=== PATIENT | male | born 1975 | race Caucasian/White ===

== ENCOUNTER 2021-12-04 23:08 | Inpatient (IN) | payer MEDICAID, SELFPAY ==
[2021-12-04 23:08] VITALS: BP 153/96; PULSE 101; RESP 18; TEMP 36.8; O2SAT 95
[2021-12-04 23:11] VITALS: BMI 49.5
[2021-12-05] VITALS (13 sets, daily range): BP systolic 126–157; BP diastolic 71–106; PULSE 77–99; RESP 18–20; TEMP 36.6–37; O2SAT 86–97; BMI 49.5
[2021-12-05 00:25] LABS: Bedside Glucose > 500 mg/dL (74-106)
--- NOTE | 2021-12-05 00:35 | CON.PCM.HO_ITS ---
Assessment & Plan Assessment/Plan (1) Elevated bilirubin: (2) Diabetes mellitus type 2, uncontrolled: (3) Hyponatremia: PLAN: Plan The patient is a 46 y/o M w/ PMHx: Morbid Obesity, Former EtOH abuse, Tobacco use, Asthma, HIGINIO on CPAP, GERD, Seizure disorder not taking AED regimen, Anxiety and Depression, RLS, Hypothyroidism who presents to the [facility] as direct admission per Dr. Mcnamara from OSH ED with reported several days to weeks of polyuria and polydipsia in addition to 3-week prior onset of right upper quadrant and epigastric abdominal pain with eventual onset significant jaundice prompting ED evaluation #1. Questionable dilated common bile duct with distal obstruction, questionable acute cholecystitis with significantly elevated bilirubin, LFTs with jaundice: OSH ED imaging with CT abdomen and pelvis with contrast with dilated common bile duct indicating distal obstruction by radiolucent stone or obstructing lesion although states no report no calcified obstructing stone noted with the liver noted to be normal with no enlargement, atrophy, abnormal density or significant focal lesion, right upper quadrant ultrasound with evidence of cholelithiasis and gallbladder wall thickening with common bile duct dilatation with findings suspicious for acute cholecystitis with fatty infiltration of the liver, lipase 900, T Bili 14.6, D Bili 10.9, AST/ALT 234/583, alk phos 519, admitted per S urgery, planned NPO status, continue IVFs, PRN anti-emetics, PRN pain regimen, noted intention for AM ERCP to further evaluation; however, Surgery noting higher suspicion for possible malignancy as etiology for this presentation, continue to trend CMP, lipase. #2. Acute Hyponatremia: Outside ED sodium initial 118, baseline appearance prior 09/25/2020 sodium 144, given acute presentation possibly component of hypovolemia, will continue to closely monitor, obtain FeNa, UOsm, TSH, Mag, consider Nephrology consultation if not improving or trending of repeat BMP not improving, continue judicious IVFs with repeat level trending. Obviously some concern for possibly underlying malignancy given liver function and acute presentation therefore certainly would need to consider SIADH if not improving with hydration. #3 Diabetes mellitus type II with hyperglycemia, uncontrolled: Hold oral home regimen, will initiate on long-acting insulin 20 unit twice daily with adjustments as needed, hemoglobin A1c requested, continue hydration, n.p.o. status currently with every 6 hours Accu-Cheks with insulin sliding scale, nutrition consulted for education and teaching, last hemoglobin A1c noted prior 09/25/2020 6.0%, admission CMP requested to assess for possible consideration DKA. Mag and Phos levels requested. #4. Acute renal insufficiency: Outside facility BUN/creatinine 16/1.67, prior baseline noted 09/25/2020 BUN/creat 12/1.03, likely associated with hypovolemia given acute presentation, continue to just hydration and trend CMP as noted. #5. Morbid Obesity: Weight loss and lifestyle changes encouraged, nutrition consulted. #6. Tobacco Abuse: Encouraged cessation, inpatient consultation per RT, NR if desired. #7. Asthma: We will hold patient home inhalers and in the interim transition to ATC DuoNeb therapy and as needed albuterol, encourage head of bed and I-S. #8. Anxiety and depression: Patient is not currently on any medications, does admit to some suicidal thoughts but no plan, will need aggressive follow-up with case management consulted. #9. Hypertension: Continue home regimen including propranolol with hold parameters as needed, PRN hydralazine. #10. Hypothyroidism: Continue home synthroid regimen, TSH pending. #11. GERD: Maintain on IV PPI while NPO. #12. HIGINIO: CPAP nightly. #13. Former alcohol abuse: Encouraged continued sobriety. #14. Reported seizure disorder: Notes history of seizure disorder, states not taking AEDs, from review of outside medication listing there is no antiepileptic drugs that have been recently prescribed. Will continue closely monitor. #15. DVT prophylaxis: SCDs, hold chemoprophylaxis given planned ERCP intervention as noted. HPI Consult Data Date of Consult: 12/05/21 HPI Narrative Reason for Consultation: Medical consultation HPI Narrative: The patient is a 46 y/o M w/ PMHx: Morbid Obesity, Former EtOH abuse, Tobacco use, Asthma, HIGINIO on CPAP, GERD, Seizure disorder not taking AED regimen, Anxiety and Depression, RLS, Hypothyroidism who presents to the [facility] as direct admission per Dr. Mcnamara from OSH ED with reported history of onset epigastric as well as right upper quadrant discomfort approximately starting 3 weeks prior to cu rrent presentation lasting for about 2 weeks reported as constant, severe aching, tentative 10 in severity with significantly decreased intake secondary to discomfort with eventual onset at the end of this notable jaundice initially to the upper body and face which eventually progressed to include the whole body with nausea without marked emesis at that time and no fevers or chills reporting that approximately 2 weeks the pain significantly improved and is now localized to a very focal specific region between the epigastrium and the right upper quadrant and only tender with palpation however he continues to have significant jaundice and reports intermittent itching in addition to significant polyuria and polydipsia prompting him to call his PCP who referred him to the ED for evaluation. Patient reports that his stools have been a very light brown-cream color which is very abnormal for him. He denies any recent significant weight loss or night sweats. He does state that he routinely follows with his primary care physician nearly every 3 months. He currently rates his discomfort at 1 out of 10 in severity and this is intermittent and only with specific palpation to that region. Work-up at the OSH ED included CT abdomen and pelvis with contrast with dilated common bile duct indicating distal obstruction by radiolucent stone or obstructing lesion although states no report no calcified obstructing stone noted with the liver noted to be normal with no enlargement, atrophy, abnormal density or significant focal lesion, right upper quadrant ultrasound with evidence of cholelithiasis and gallbladder wall thickening with common bile duct dilatation with findings suspicious for acute cholecystitis with fatty infiltration of the liver, SARS COVID antigen negative, ABG with pH 7.44, PCO2 26, PO2 69, bicarb 18, lipase 900, direct bilirubin 10.9, CBC with WBC 13, hemoglobin 14.1, platelet 298 with left shift, CMP with sodium 118, potassium 4.9, chloride 81, glucose 928, BUN/creatinine 16/1.67, total bilirubin 14.6, AST/ALT 234/583, alk phos 519, urinalysis with glucose 1000 otherwise unremarkable with negative ketones. Last A1c noted available in the system 09/25/2020 6.0%, 09/25/2020 BUN/creatinine 12/1.03. PFSH Medical History Alcohol abuse Anxiety Asthma Back pain due to injury Bipolar disorder COPD (chronic obstructive pulmonary disease) CPAP (continuous positive airway pressure) dependence Depression GERD (gastroesophageal reflux disease) High cholesterol Hypertension Hypothyroidism Restless legs Seizures Smoker Home Medications albuterol sulfate 90 mcg/actuation aerosol inhaler (Ventolin HFA) 2 inh inhalation Q2H PRN Shortness Of Breath Or Wheezing 12/04/21 [History Last Taken Unknown] atorvastatin 10 mg tablet 10 mg PO DAILY 12/04/21 [History Last Taken Unknown] dextroamphetamine-amphetamine 30 mg tablet (Adderall) 30 mg PO DAILY 12/04/21 [History Last Taken Unknown] fluticasone propionate 220 mcg/actuation HFA aerosol inhaler (Flovent HFA) 2 inh inhalation BID 12/04/21 [History Last Taken Unknown] levothyroxine 50 mcg tablet (Euthyrox) 50 mcg PO DAILY 12/04/21 [History Last Taken Unknown] midodrine 2.5 mg tablet 2.5 mg PO BID 12/04/21 [History Last Taken Unknown] omeprazole 20 mg capsule,delayed release 20 mg PO DAILY 12/04/21 [History Last Taken Unknown] propranolol 20 mg tablet 20 mg PO BID 12/04/21 [History Last Taken Unknown] Allergy/AdvReac Type Severity Reaction Status Date / Time latex Allergy Rash Verified 12/04/21 23:44 Family History (Updated 12/05/21 @ 02:[address] Chantal Vasquez MD) Father Cancer Hx Lung CA with tobacco use history. Other Heart disease Hypertension Surgical History (Updated 12/05/21 @ 02:[address] Chantal Vasquez MD) H/O esophagogastroduodenoscopy History of colonoscopy Social History (Updated 12/05/21 @ 02:[address] Chantal Vasquez MD) household members: other details: Lives with his son. Notes moved in 2 years prior. Smoking Status: Current every day smoker tobacco type: cigarettes Smoking packs per day: 0.5 Smoking cigarettes per day: 10.0 how long ago did patient quit smoking: Patient attempting to quit, started age 10, smoked 2 ppd until 2 years ago. alcohol intake: former details: Notes sober x 15-20 years. substance use type: does not use ROS ROS Narrative Admission Review of Systems: CONSTITUTIONAL: No weight loss, fever, chills, _ weakness or fatigue. HEENT: + Scleral icterus. Eyes: No visual loss, blurred vision, double vision or yellow sclerae. Ears, Nose, Throat: No hearing loss, sneezing, congestion, runny nose or sore throat. SKIN: + Generalized itching, jaundiced. CARDIOVASCULAR: No chest pain, chest pressure or chest discomfort, palpitations, edema, orthopnea, syncopal events. RESPIRATORY: No shortness of breath, cough or sputum, wheezing, hemoptysis. GASTROINTESTINAL: + anorexia, nausea, abdominal pain, abnormal appearing, stools, No vomiting, diarrhea, melena, BRBPR. GENITOURINARY: No dysuria, frequency, urgency or retention. NEUROLOGICAL: No headache, dizziness, syncope, paralysis, ataxia, numbness or tingling in the extremities, focal weakness, change in bowel or bladder control, seizure. MUSCULOSKELETAL: + muscle, back pain, joint pain or stiffness. HEMATOLOGIC: + anemia, bleeding or bruising. LYMPHATICS: No enlarged nodes. No history of splenectomy. PSYCHIATRIC: + history of depression or anxiety. ENDOCRINOLOGIC: No reports of sweating, cold or heat intolerance. + polyuria or polydipsia. ALLERGIES: No history of asthma, hives, eczema or rhinitis. Physical Exam Narrative Physical Examination: General: Awake, alert, oriented x 3 and cooperative, seated upright in medical surgical bed in no apparent distress, denies any abdominal pain at this time. Skin: Normal skin turgor, no cyanosis, significant jaundice, scleral icterus present. HEENT: AT/NC, EOMI, scleral icterus present, PERRLA, mildly dry MM, no carotid bruits or JVD noted. Lungs: Diminished, greater bases, moderate effort, no rales, ronchi or wheezing. Heart: Regular rate and rhythm; no gallop, rub audible. Abdomen: Soft, morbidly obese, tenderness to palpation in a very focal region between the epigastrium and right upper quadrant, no rebound or guarding, difficult to assess distention given morbid obesity habitus, mildly hyperactive bowel sounds, unable to discern HSM well given habitus Extremities: No cyanosis, clubbing, or edema. Neurological: Patient awake, alert, oriented as noted, cognitive function intact; pupils equally reactive to light and accommodation, cranial nerves II- XII grossly normal, moving all 4 extremities, no focal deficits, strength mildly moderately globally decreased secondary to acute complaints Psychiatric: Affect appears fatigued otherwise normal, no acute evidence of depr essive or anxiety feelings. Lab / Micro Data Result Diagrams: 12/05/21 01:04 Labs: Laboratory Results - last 24 hr 12/05/21 00:06: POC Glucose > 500 H* Charges/Coding Visit Charges Office Visits / Consults: [id number] IP Consult L5
[2021-12-05] MEDS: 0.9% Normal Saline 1,000 ML 150 ML IV ×2 (01:02→09:24)
[2021-12-05] MEDS: Insulin Glargine-YFGN 100 UNIT/ML Pen 20 UNIT SC ×2 (01:04→09:25)
[2021-12-05 01:31] LABS: Urine Sodium 12 mmol/L (Not Establ.)
[2021-12-05 01:39] LABS: Hemoglobin A1c 10.2 % (3.8-5.6)
[2021-12-05 01:42] LABS: International Normalized Ratio 0.9; Prothrombin Time (Protime)PT. 12.3 SECONDS (11.7-14.9)
[2021-12-05 01:43] LABS: Partial Thromboplast Time 28.7 Seconds (24.1-36.2)
[2021-12-05 01:53] LABS: Osmolality, Urine 787 mOsm/KG
[2021-12-05 02:24] LABS: Magnesium 2.2 mg/dL (1.6-2.6)
[2021-12-05 03:07] LABS: ALB/GLOB Ratio 0.7 RATIO (0.9-2.4); AST(SGOT) 227 U/L (15-37); Albumin, Serum 2.7 g/dL (3.2-5.0); Alkaline Phosphatase 498 U/L (45-117); Anion Gap 13 (5-15); BUN 19 mg/dL (7-18); BUN/Creat Ratio 14.8 RATIO (10-20); Calcium,Total 8.7 mg/dL (8.5-10.1); Chloride 99 mmol/L (98-107); Creatinine, Serum 1.28 mg/dL (0.70-1.30); EST Glomerular Filtration Rate 64 mL/min (>60); Est Glom Filt Rate - Afr Amer 77 mL/min (>60); Estimated Creatinine Clearance 69.02 ml/min; Glucose 518 mg/dL (74-106); Potassium 4.1 mmol/L (3.5-5.1); Protein, Total 6.7 g/dL (6.4-8.2); Sodium Level 130 mmol/L (136-145)
[2021-12-05] MEDS: Insulin Lispro 100 UNIT/ML INSULN.PEN SC ×4 (05:44→23:02)
[2021-12-05 05:54] LABS: Absolute Lymphocyte Count 3.13 X10^3/uL (0.83-4.51); Absolute Neutrophil Count 8.6 X10^3/uL (2.0-7.7); Basophil# 0.15 X10^3/uL; Basophil% 1.1 % (0-1); Eosinophil# 0.28 X10^3/uL; Eosinophils% 2.1 % (0-5); Hematocrit 39.9 % (40-54); Hemoglobin 13.4 g/dL (13.0-16.5); Lymphocyte # 3.13 X10^3/ul (0.83-4.51); Lymphocyte % 23.8 % (19-41); Mean Corp Hgb Conc 33.6 g/dL (32-36); Mean Corpuscular Hgb 32.5 pg (27.0-32.0); Mean Corpuscular Volume 96.8 fL (80-94); Mean Platelet Vol. 12.1 fl (6.2-12.0); Monocyte% 6.8 % (0-10); NRBC Flagged by Analyzer 0 % (0-5); Neutrophil # 8.59 X10^3/uL (2.7-7.7); Neutrophil % 65.5 % (47-70); Platelet Count 277 K/mm3 (150-450); RBC Distribution Width CV 14.2 % (11.6-14.6); RBC Distribution Width SD 50.5 fl (35.1-43.9); Red Blood Count 4.12 M/mm3 (4.6-6.2); White Blood Count 13.1 K/mm3 (4.4-11.0)
[2021-12-05 06:00] LABS: Bedside Glucose 385 mg/dL (74-106)
[2021-12-05] MEDS: Levothyroxine 50 MCG Tablet PO (06:33)
--- NOTE | 2021-12-05 06:33 | EKG12_ITS ---
Test Reason : PREPRO Blood Pressure : / mmHG Vent. Rate : 075 BPM Atrial Rate : 075 BPM P-R Int : 154 ms QRS Dur : 090 ms QT Int : 394 ms P-R-T Axes : 046 025 -17 degrees QTc Int : 439 ms Poor data quality, interpretation may be adversely affected Normal sinus rhythm Nonspecific T wave abnormality Abnormal ECG When compared with ECG of 01-APR-2011 16:52, Non-specific change in ST segment in Inferior leads Nonspecific T wave abnormality now evident in Inferior leads Nonspecific T wave abnormality now evident in Anterolateral leads Confirmed by MALA CROCKETT, ONDINA ([id number]), supervising editor news reel REAL LE ([id number]) on 12/06/2021 1:34:06 PM Referred By: ACALAB Confirmed By:ENID MEDEIROS MD
--- NOTE | 2021-12-05 06:47 | CT_ITS ---
EXAM: CT ABDOMEN AND PELVIS WITH INTRAVENOUS CONTRAST CLINICAL INDICATION: Obstructive jaundice. Possible mass. TECHNIQUE: Helically acquired images were obtained of the abdomen and pelvis with intravenous contrast. This CT exam was performed using one or more of the following dose reduction techniques: automated exposure control, adjustment of the mA and/or kV according to patient size, and/or use of iterative reconstruction technique. This report was created using [employer] report generation technology. CONTRAST: 100 mL of IV ISOVUE-300. RADIATION DOSE: CTDIvol = 15.41 mGy, DLP = 1286.96 mGy-cm COMPARISON: None. FINDINGS: LOWER THORAX: Unremarkable. Lung bases are clear. No cardiomegaly. No significant pericardial effusion. ABDOMEN: LIVER: Mild intrahepatic biliary ductal dilatation in the left hepatic lobe. GALLBLADDER AND BILE DUCTS: No suspicious abnormality of the gallbladder. Mild dilatation of the CBD. PANCREAS: Unremarkable. No focal cystic or solid mass. SPLEEN: Unremarkable. Normal size without focal cystic or solid mass. ADRENALS: Unremarkable. No nodules. KIDNEYS AND URETERS: Unremarkable. Normal renal size and position. No hydronephrosis. STOMACH AND BOWEL: Unremarkable. No stomach or bowel distention. No focal inflammatory change. PELVIS: APPENDIX: Normal. BLADDER: Unremarkable. REPRODUCTIVE: Unremarkable as visualized. No mass. ABDOMEN and PELVIS: INTRAPERITONEAL SPACE: Unremarkable. No ascites or other fluid collection. No free air. BONES/JOINTS: Degenerative vacuum phenomenon inside the L5-S1 disc space. No suspicious lytic or blastic abnormality. SOFT TISSUES: Unremarkable. No discrete abdominal or pelvic wall hernia. VASCULATURE: Unremarkable. Abdominal aorta is non-dilated. LYMPH NODES: Unremarkable. No enlarged lymph nodes. CT/Abdomen/Pelvis WITH Contrast IMPRESSION: 1. Mild dilatation of the CBD and mild intrahepatic biliary ductal dilatation in the left hepatic lobe. Etiology is unknown. ERCP will be helpful for further evaluation. 2. No suspicious gallstones or acute abnormality of the gallbladder. Electronically Signed: Drew Mccoy MD at 9:32 EDT ,
--- NOTE | 2021-12-05 07:19 | HP.PCM.SX_ITS ---
[facility] - General General Date of Admission: 12/04/21 HPI Narrative DANIELA BERG, is a 46 M who was transferred from outside hospital. The patient has been having weeks of right upper quadrant pain and jaundice. He also reports he has been having unintentional weight loss. He says the jaundice has been slowly worsening and his doctor told him to go the ED. Patient reports he does not have known diabetes. PFSH Medical History Alcohol abuse Anxiety Asthma Back pain due to injury Bipolar disorder COPD (chronic obstructive pulmonary disease) CPAP (continuous positive airway pressure) dependence Depression GERD (gastroesophageal reflux disease) High cholesterol Hypertension Hypothyroidism Restless legs Seizures Smoker Home Medications albuterol sulfate 90 mcg/actuation aerosol inhaler (Ventolin HFA) 2 inh inhalation Q2H PRN Shortness Of Breath Or Wheezing 12/04/21 [History Last Taken Unknown] atorvastatin 10 mg tablet 10 mg PO DAILY 12/04/21 [History Last Taken Unknown] dextroamphetamine-amphetamine 30 mg tablet (Adderall) 30 mg PO DAILY 12/04/21 [History Last Taken Unknown] fluticasone propionate 220 mcg/actuation HFA aerosol inhaler (Flovent HFA) 2 inh inhalation BID 12/04/21 [History Last Taken Unknown] levothyroxine 50 mcg tablet (Euthyrox) 50 mcg PO DAILY 12/04/21 [History Last Taken Unknown] midodrine 2.5 mg tablet 2.5 mg PO BID 12/04/21 [History Last Taken Unknown] omeprazole 20 mg capsule,delayed release 20 mg PO DAILY 12/04/21 [History Last Taken Unknown] propranolol 20 mg tablet 20 mg PO BID 12/04/21 [History Last Taken Unknown] Allergy/AdvReac Type Severity Reaction Status Date / Time latex Allergy Rash Verified 12/04/21 23:44 Family History (Updated 12/05/21 @ 02:[address] Chantal Vasquez MD) Father Cancer Hx Lung CA with tobacco use history. Other Heart disease Hypertension Surgical History (Updated 12/05/21 @ 02:[address] Chantal Vasquez MD) H/O esophagogastroduodenoscopy History of colonoscopy Social History (Updated 12/05/21 @ 02:[address] Chantal Vasquez MD) household members: other details: Lives with his son. Notes moved in 2 years prior. Smoking Status: Current every day smoker tobacco type: cigarettes Smoking packs per day: 0.5 Smoking cigarettes per day: 10.0 how long ago did patient quit smoking: Patient attempting to quit, started age 10, smoked 2 ppd until 2 years ago. alcohol intake: former details: Notes sober x 15-20 years. substance use type: does not use ROS Constitutional Constitutional: Denies anorexia, chills, fatigue or fever(s) Eyes Eyes: Denies blurry vision ENT HEENT: Denies abnormal hearing Cardiovascular Cardiovascular: Denies chest pain Respiratory/Chest Respiratory/Chest: Denies cough or dyspnea Gastrointestinal Gastrointestinal: Reports abdominal pain and nausea; Denies constipation, dysphagia, hematemesis, hematochezia, melena or vomiting Genitourinary Genitourinary: Reports urinary frequency Musculoskeletal Musculoskeletal: Denies abnormal gait or back pain Integumentary Integumentary: Reports jaundice Neurologic Neurologic: Denies abnormal gait Psychiatric Psychiatric: Denies anxiety Endocrine Endocrinology: Denies flushing Hematologic/Lymphatic Hematologic/Lymphatic: Denies easy bleeding Vital Signs Vital Signs Vital Signs: 12/04/21 23:08 12/05/21 00:39 12/05/21 02:48 Temperature 98.2 F 97.9 F Temperature Source Oral Temporal Pulse Rate 101 H 93 Respiratory Rate 18 19 H Respiratory Effort Normal Respiratory Depth Normal Respiratory Pattern Normal Blood Pressure 153/96 H 157/100 H Blood Pressure Mean 115 119 Blood Pressure Source Monitor Monitor Blood Pressure Position Semi-Fowlers Semi-Fowlers Blood Pressure Location Right Arm Right Forearm Pulse Ox 95 96 Oxygen Delivery Method Room Air Room Air Room Air 12/05/21 03:15 Temperature Temperature Source Pulse Rate Respiratory Rate Respiratory Effort Respiratory Depth Respiratory Pattern Blood Pressure Blood Pressure Mean Blood Pressure Source Blood Pressure Position Blood Pressure Location Pulse Ox 96 Oxygen Delivery Method Room Air Weight Weight: 334 lb 7.06 oz Body Mass Index (BMI) 49.5 Physical Exam Const oriented x3 Resp normal respiratory effort Cardio regular rate and regular rhythm GI soft to palpation Inspection: abdominal distention Extremity normal to inspection Results Lab / Micro Data Result Diagrams: 12/05/21 05:27 12/05/21 01:04 Labs: Laboratory Results - last 24 hr 12/05/21 00:06: POC Glucose > 500 H* 12/05/21 01:04: Glucose Cancelled, Magnesium 2.2 12/05/21 01:04: Sodium 130 L, Potassium 4.1, Chloride 99, Carbon Dioxide 18.0 L, Anion Gap 13, BUN 19 H, Creatinine 1.28, Estim Creat Clear Calc 69.02, Est GFR (MDRD) Af Amer 77, Est GFR (MDRD) Non-Af 64, BUN/Creatinine Ratio 14.8, Glucose 518 H*, Calcium 8.7, Phosphorus 4.0, Total Bilirubin 11.80 H, AST 227 H, ALT TNP, Alkaline Phosphatase 498 H, Total Protein 6.7, Albumin 2.7 L, Globulin 4.0, Albumin/Globulin Ratio 0.7 L, TSH 3.20 12/05/21 01:04: Hemoglobin A1c 10.2 H 12/05/21 01:04: PT 12.3, INR 0.9, APTT 28.7 12/05/21 05:27: WBC 13.1 H, RBC 4.12 L, Hgb 13.4, Hct 39.9 L, MCV 96.8 H, MCH 32.5 H, MCHC 33.6, RDW Std Deviation 50.5 H, RDW Coeff of Fátima 14.2, Plt Count 277, MPV 12.1 H, Immature Gran % (Auto) 0.700, Neut % (Auto) 65.5, Lymph % (Auto) 23.8, [place] % (Auto) 6.8, Eos % (Auto) 2.1, Baso % (Auto) 1.1 H, Absolute Neuts (auto) 8.6 H, Absolute Lymphs (auto) 3.13, Nucleated RBC % 0 12/05/21 05:40: POC Glucose 385 H 12/05/21 : Urine Osmolality 787, Ur Random Sodium 12, Urine Creatinine 65.00 Assessment & Plan Assessment/Plan (1) Diabetes mellitus type 2, uncontrolled: (2) Elevated bilirubin: (3) Morbid obesity: PLAN: Plan The patient has obstructive jaundice. Patient does have some gallstones on ultrasound but his CT scan was done without contrast due to his creatinine. His creatinine is now improved and I will get a CT with IV and p.o. contrast this morning. I discussed ERCP with the patient. I discussed the risks including but limited to bleeding, infection, perforation of the bile duct or bowel, pancreatitis. I also discussed possible stent placement or biopsy if there is a mass in the biliary duct. I also discussed that it may be possible that he may need to be transferred to tertiary center if there is a pancreatic mass. Patient says that he does not know that he is a diabetic even though his hemoglobin A1c was 10. Patient may have pancreatic mass causing this as well. I have consulted the hospitalist service for medical management of his glucose and other comorbidities. Jonah Mcnamara MD Pager: [facility] [address] [place] [address], [address] [place] [address] Office:
[2021-12-05] MEDS: Propranolol 10 MG Tablet 20 MG PO ×2 (07:44→20:26)
[2021-12-05] MEDS: Midodrine HCl 5 MG Tablet 2.5 MG PO ×2 (09:26→20:26)
[2021-12-05 09:27] LABS: ALB/GLOB Ratio 0.6 RATIO (0.9-2.4); AST(SGOT) 240 U/L (15-37); Albumin, Serum 2.5 g/dL (3.2-5.0); Alkaline Phosphatase 487 U/L (45-117); Anion Gap 8 (5-15); BUN 17 mg/dL (7-18); Calcium,Total 8.5 mg/dL (8.5-10.1); Chloride 99 mmol/L (98-107); Creatinine, Serum 1.21 mg/dL (0.70-1.30); EST Glomerular Filtration Rate 68 mL/min (>60); Est Glom Filt Rate - Afr Amer 82 mL/min (>60); Estimated Creatinine Clearance 73.02 ml/min; Globulin 3.9 g/dL (2.2-4.2); Glucose 430 mg/dL (74-106); Lipase 2006 U/L (73-393); Potassium 3.9 mmol/L (3.5-5.1); Protein, Total 6.4 g/dL (6.4-8.2); Sodium Level 130 mmol/L (136-145)
[2021-12-05] MEDS: 0.9% Saline Lock 10 ML Syringe IV (09:48)
[2021-12-05] MEDS: Ondansetron 4 MG/2 ML Vial IV (09:48)
--- NOTE | 2021-12-05 10:55 | CASEMGMT ---
RN AYAKA Face to Face with patient for initial transition planning/care coordination assessment. RN CM introduced self and role at [facility]. Patient lying in bed, alert and oriented. Patient willing to participate in assessment and is able to answer all questions appropriately. Care providers, pharmacy, and demographics verified. Patient wishes to discharge home, denies need for home health at this time. Patient states he has no further needs or concerns at this time. CM to follow for discharge planning needs that may arise. PCP: Rissa Watson Specialists: none Preferred Pharmacy: [facility] Insurance: [employer] Prescription Benefit: yes Living Will/HPOA: none LNOK: son Living Arrangements: Patient lives with son in a mobile home with 4 steps and railing to enter the home. Patient states he is independent at home. Transportation: sister DME/HHC: Patient states he has cpap at home. No previous HHC or SNF. Disposition Plan: Patient to discharge home with family support and follow-up plans in place. Carol RIDDLE, RN, CM
[2021-12-05 11:55] LABS: Bedside Glucose 353 mg/dL (74-106)
[2021-12-05 12:31] LABS: Osmolality, Serum 316 mOsm/KG (275-295)
[2021-12-05] MEDS: Ipratropium/Albuterol Sulfate 3 ML AMPUL.NEB INHALATION ×2 (13:21→19:58)
--- NOTE | 2021-12-05 14:15 | RAD_ITS ---
STUDY: ERCP REASON FOR EXAM: Male, 46 years old. PAIN, ETC. FLUOROSCOPY TIME (if supplied): ( 3 minutes and 5 seconds ) minutes/seconds. 2 images were submitted. TECHNIQUE: An ERCP was performed by the cnc specialist. Imaging was provided. COMPARISON: None. FINDINGS: There is dilatation of the central intrahepatic biliary ducts and common bile duct. RAD/ERCP Biliary Only IMPRESSION: Dilatation of the central intrahepatic biliary ducts and common bile duct. Electronically Signed: Reggie Cabrera MD at 8:39 EDT ,
--- NOTE | 2021-12-05 15:07 | OP.ERCP_ITS ---
Patient Name: Marcin Naylor Procedure Date: 12/05/2021 1:36 PM Date of : 1975 Age: 46 Procedure: ERCP Indications: Jaundice, Elevated liver enzymes Providers: Jonah Mcnamara MD Medicines: General Anesthesia Patient Profile: This is a 46 year old male. Refer to note in patient chart for documentation of history and physical. Complications: No immediate complications. Estimated blood loss: Minimal. Procedure: Pre-Anesthesia Assessment: - Prior to the procedure, a History and Physical was performed, and patient medications and allergies were reviewed. The patient's tolerance of previous anesthesia was also reviewed. The risks and benefits of the procedure and the sedation options and risks were discussed with the patient. All questions were answered, and informed consent was obtained. Prior Anticoagulants: The patient has taken no previous anticoagulant or antiplatelet agents. After reviewing the risks and benefits, the patient was deemed in satisfactory condition to undergo the procedure. After obtaining informed consent, the scope was passed under direct vision. Throughout the procedure, the patient's blood pressure, pulse, and oxygen saturations were monitored continuously. The Duodenoscope was introduced through the mouth, and advanced to the duodenum and used to inject contrast into the bile duct. The ERCP was accomplished without difficulty. The patient tolerated the procedure well. Scope In: 2:35:33 PM Scope Out: 2:52:24 PM Total Procedure Duration Time 0 hours 16 minutes 51 seconds Findings: The major papilla was normal. A 0.035 inch x 260 cm straight Dreamwire was passed into the biliary tree. The sphincterotome was passed over the guidewire and the bile duct was then deeply cannulated. Contrast was injected. I personally interpreted the bile duct images. There was brisk flow of contrast through the ducts. Image quality was poor. Contrast extended to the entire biliary tree. The entire biliary tree was diffusely dilated, uncertain etiology. Biliary sphincterotomy was made with a monofilament sphincterotome using ERBE electrocautery. There was no post-sphincterotomy bleeding. The biliary tree was swept with a 15 mm balloon starting at the bifurcation. Nothing was found. The bile duct was too dilated for good image to determine if there was any mass in the bile duct. Occlusion views were obtained but not good quality. One 10 Fr by 7 cm plastic stent with a single external flap and a single internal flap was placed into the common bile duct. Bile flowed through the stent. The stent was in good position. Impression: - The major papilla appeared normal. - The entire biliary tree was dilated, uncertain etiology. - A biliary sphincterotomy was performed. - The biliary tree was swept and nothing was found. - One plastic stent was placed into the common bile duct. Recommendation: - [facility] patient to [facility] for [facility] care. Procedure Code(s): --- Professional --- 53040, Endoscopic retrograde cholangiopancreatography (ERCP); with placement of endoscopic stent into biliary or pancreatic duct, including pre- and post-dilation and guide wire passage, when performed, including sphincterotomy, when performed, each stent Diagnosis Code(s): --- Professional --- R17, Unspecified jaundice R74.8, Abnormal levels of other serum enzymes K83.8, Other specified diseases of biliary tract CPT copyright 2017 [employer] [place] [employer]. All rights reserved. The codes documented in this report are preliminary and upon sequins winder review may be revised to meet current compliance requirements. Jonah Mcnamara MD 12/05/2021 3:07:21 PM This report has been signed electronically. Number of Addenda: 0 Note Initiated On: 12/05/2021 1:36 PM
--- NOTE | 2021-12-05 15:19 | PN_ITS ---
Progress Note I performed an ERCP on the patient. The ducts were very dilated and I was unable to get a good image of the bile duct to explain the etiology of his obstruction. The ampulla appeared normal. No stones were removed from the bile duct that I could tell. Due to the dilation of the duct and his body habitus I was unable to get good images of the biliary tree and the entire biliary tree was dilated. I placed a 10 [place] stent for drainage of the bile duct and I will refer the patient to Dr. Carter for kelvin to examine the common bile duct closely from the inside. Jonah Mcnamara MD Pager: [facility] [address] [place] [address] Office:
[2021-12-05] MEDS: Insulin Lispro 100 UNIT/ML INSULN.PEN 20 UNIT SC (16:47)
[2021-12-05] MEDS: 0.9% Normal Saline 1,000 ML 75 ML IV (16:56)
--- NOTE | 2021-12-05 17:01 | CON.PCM_ITS ---
Assessment & Plan Assessment/Plan (1) Cholestatic hepatitis: PLAN: The likely etiology of his cholestatic hepatitis is secondary to stacey docholithiasis. He is status post ERCP with stone removal and stent placement. He is doing very well from the procedure today. Recommend to repeat labs. I would continue him on antibiotic therapy for a total of 7 days. (2) Jaundice: PLAN: Painful jaundice is better than painless jaundice. However due to the severe elevation in bilirubin and nonspecific findings on his ERCP he should undergo direct visualization with cholangioscopy. (3) Weight loss: PLAN: Due to the weight loss he should get a CA 19-9 checked. I suspect that his weight loss is from severe diabetes. However if his CA 19-9 is greater than 100 he may also need an endoscopic ultrasound pending ERCP with spyglass. Thank you very much for allowing me to participate in the care of this patient. HPI Consult Data Date of Consult: 12/05/21 HPI Narrative Reason for Consultation: abnormal cholangiogram HPI Narrative: DANIELA BERG, is a 46 M who presents from an outside hospital with worsening abdominal pain. He has a past medical history of of morbid obesity, GERD, obstructive sleep apnea, seizure disorder, anxiety, depression, hypothyroidism who presented to an outside hospital with worsening progressive abdominal discomfort associated with right upper quadrant pain, intermittent darkened uri ne and intermittent mindi colored stools. Biochemical analysis at an outside institution showed a cholestatic hepatitis with a bilirubin of 10.9, AST of 134, AST of 50, alkaline phosphatase of 150, lipase 900. He had a CT scan abdomen pelvis that showed dilated common bile duct with a possible distal common bile duct stone. right upper quadrant ultrasound with evidence of cholelithiasis and gallbladder wall thickening with common bile duct dilatation with findings suspicious for acute cholecystitis with fatty infiltration of the liver He was taken for ERCP today and he was discovered to have a very dilated common bile duct up to almost 2 cm with a filling defect. Common bile duct stent was placed and he is having good drainage as per the patient. This morning his labs had shown that his bilirubin went up to 12.9 consistent with obstructive physiology. He feels a lot better at this time. His pain is 100% gone. He says that his urine is improving in color. PFSH Medical History Alcohol abuse Anxiety Asthma Back pain due to injury Bipolar disorder COPD (chronic obstructive pulmonary disease) CPAP (continuous positive airway pressure) dependence Depression GERD (gastroesophageal reflux disease) High cholesterol Hypertension Hypothyroidism Restless legs Seizures Smoker Home Medications albuterol sulfate 90 mcg/actuation aerosol inhaler (Ventolin HFA) 2 inh inhalation Q2H PRN Shortness Of Breath Or Wheezing 12/04/21 [History Last Taken Unknown] atorvastatin 10 mg tablet 10 mg PO DAILY 12/04/21 [History Last Taken Unknown] dextroamphetamine-amphetamine 30 mg tablet (Adderall) 30 mg PO DAILY 12/04/21 [History Last Taken Unknown] fluticasone propionate 220 mcg/actuation HFA aerosol inhaler (Flovent HFA) 2 inh inhalation BID 12/04/21 [History Last Taken Unknown] levothyroxine 50 mcg tablet (Euthyrox) 50 mcg PO DAILY 12/04/21 [History Last Taken Unknown] midodrine 2.5 mg tablet 2.5 mg PO BID 12/04/21 [History Last Taken Unknown] omeprazole 20 mg capsule,delayed release 20 mg PO DAILY 12/04/21 [History Last Taken Unknown] propranolol 20 mg tablet 20 mg PO BID 12/04/21 [History Last Taken Unknown] Allergy/AdvReac Type Severity Reaction Status Date / Time latex Allergy Rash Verified 12/04/21 23:44 Family History (Updated 12/05/21 @ 02:[address] Chantal Vasquez MD) Father Cancer Hx Lung CA with tobacco use history. Other Heart disease Hypertension Surgical History (Updated 12/05/21 @ 02:[address] Chantal Vasquez MD) H/O esophagogastroduodenoscopy History of colonoscopy Social History (Updated 12/05/21 @ 02:[address] Chantal Vasquez MD) household members: other details: Lives with his son. Notes moved in 2 years prior. Smoking Status: Current every day smoker tobacco type: cigarettes Smoking packs per day: 0.5 Smoking cigarettes per day: 10.0 how long ago did patient quit smoking: Patient attempting to quit, started age 10, smoked 2 ppd until 2 years ago. alcohol intake: former details: Notes sober x 15-20 years. substance use type: does not use ROS Constitutional Constitutional: Denies anorexia, chills, fatigue or fever(s) Eyes Eyes: Denies blurry vision ENT HEENT: Denies abnormal hearing Cardiovascular Cardiovascular: Denies chest pain Respiratory/Chest Respiratory/Chest: Denies cough or dyspnea Gastrointestinal Gastrointestinal: Reports abdominal pain and nausea; Denies constipation, dysphagia, hematemesis, hematochezia, melena or vomiting Genitourinary Genitourinary: Reports urinary frequency Musculoskeletal Musculoskeletal: Denies abnormal gait or back pain Integumentary Integumentary: Reports jaundice Neurologic Neurologic: Denies abnormal gait Psychiatric Psychiatric: Denies anxiety Endocrine Endocrinology: Denies flushing Hematologic/Lymphatic Hematologic/Lymphatic: Denies easy bleeding Physical Exam Narrative General: Alert, Oriented x3, Cooperative, morbid obese BMI 49.5 kg/m? HEENT: Icterus present. Atraumatic, PERRLA, EOMI, Normocephalic Oral: Deep oropharyngeal structures could not be visualized. Oral mucosa moist. Neck: Supple, No JVD, Negative Carotid Bruits Lungs: Air entry diminished in bilateral lung bases. No crepitation/rhonchi Cardiovascular: Regular rate, Regular Rhythm, Normal S1, Normal S2, No murmurs Abdomen: Soft, tenderness present over right upper quadrant on deep palpation. Liver hard to palpate but does not seem enlarged. Fat abdomen. Bowel Sounds Present : No renal angle tenderness. No suprapubic tenderness. Extremities: No edema, Capillary Refill Less than 3 Seconds Skin: Deep yellow jaundice Musculoskeletal: No Tenderness to Palpation of Joints or Extremities. ROM restricted over knee and hip joints due to morbid obesity Neurological: Cranial nerves II-XII grossly intact, DTR 2+/4 and Symmetrical, Neuro grossly intact Psych/Mental Status: Normal Affect, Appropriate. Lab / Micro Data Result Diagrams: 12/05/21 05:27 12/05/21 05:27 Labs: Laboratory Results - last 24 hr 12/05/21 00:06: POC Glucose > 500 H* 12/05/21 01:04: Glucose Cancelled, Magnesium 2.2 12/05/21 01:04: Sodium 130 L, Potassium 4.1, Chloride 99, Carbon Dioxide 18.0 L, Anion Gap 13, BUN 19 H, Creatinine 1.28, Estim Creat Clear Calc 69.02, Est GFR (MDRD) Af Amer 77, Est GFR (MDRD) Non-Af 64, BUN/Creatinine Ratio 14.8, Glucose 518 H*, Calcium 8.7, Phosphorus 4.0, Total Bilirubin 11.80 H, AST 227 H, ALT TNP, Alkaline Phosphatase 498 H, Total Protein 6.7, Albumin 2.7 L, Globulin 4.0, Albumin/Globulin Ratio 0.7 L, TSH 3.20 12/05/21 01:04: Hemoglobin A1c 10.2 H 12/05/21 01:04: PT 12.3, INR 0.9, APTT 28.7 12/05/21 01:04: Serum Osmolality 316 H 12/05/21 05:27: WBC 13.1 H, RBC 4.12 L, Hgb 13.4, Hct 39.9 L, MCV 96.8 H, MCH 32.5 H, MCHC 33.6, RDW Std Deviation 50.5 H, RDW Coeff of Fátima 14.2, Plt Count 277, MPV 12.1 H, Immature Gran % (Auto) 0.700, Neut % (Auto) 65.5, Lymph % (Auto) 23.8, [place] % (Auto) 6.8, Eos % (Auto) 2.1, Baso % (Auto) 1.1 H, Absolute Neuts (auto) 8.6 H, Absolute Lymphs (auto) 3.13, Nucleated RBC % 0 12/05/21 05:27: Sodium 130 L, Potassium 3.9, Chloride 99, Carbon Dioxide 23.0, Anion Gap 8, BUN 17, Creatinine 1.21, Estim Creat Clear Calc 73.02, Est GFR (MDRD) Af Amer 82, Est GFR (MDRD) Non-Af 68, BUN/Creatinine Ratio 14.0, Glucose 430 H, Calcium 8.5, Total Bilirubin 12.40 H, AST 240 H, ALT TNP, Alkaline Emily sphatase 487 H, Total Protein 6.4, Albumin 2.5 L, Globulin 3.9, Albumin/Globulin Ratio 0.6 L, Lipase 2006 H 12/05/21 05:40: POC Glucose 385 H 12/05/21 11:30: POC Glucose 353 H 12/05/21 : Urine Osmolality 787, Ur Random Sodium 12, Urine Creatinine 65.00 Radiology Impression Abdomen/Pelvis CT 12/05/21 06:47 IMPRESSION: 1. Mild dilatation of the CBD and mild intrahepatic biliary ductal dilatation in the left hepatic lobe. Etiology is unknown. ERCP will be helpful for further evaluation. 2. No suspicious gallstones or acute abnormality of the gallbladder. Electronically Signed: Drew Mccoy MD at 9:32 EDT , Charges/Coding Visit Charges Inpatient E&M: 45873 Init Hosp L3
[2021-12-05 17:11] LABS: Bedside Glucose 305 mg/dL (74-106)
[2021-12-05] MEDS: Acetaminophen 325 MG Tablet 650 MG PO (20:31)
[2021-12-05] MEDS: Insulin Glargine-YFGN 100 UNIT/ML Pen 30 UNIT SC (23:00)
[2021-12-05 23:31] LABS: Bedside Glucose 358 mg/dL (74-106)
[2021-12-06 03:00] VITALS: BP 136/97; PULSE 65; RESP 18; TEMP 37.1; O2SAT 95
[2021-12-06] MEDS: 0.9% Normal Saline 1,000 ML 75 ML IV (03:06)
[2021-12-06 05:31] LABS: Absolute Lymphocyte Count 2.72 X10^3/uL (0.83-4.51); Absolute Neutrophil Count 12.1 X10^3/uL (2.0-7.7); Basophil# 0.07 X10^3/uL; Basophil% 0.4 % (0-1); Eosinophil# 0.09 X10^3/uL; Eosinophils% 0.6 % (0-5); Hematocrit 38.1 % (40-54); Hemoglobin 12.8 g/dL (13.0-16.5); Lymphocyte # 2.72 X10^3/ul (0.83-4.51); Lymphocyte % 16.9 % (19-41); Mean Corp Hgb Conc 33.6 g/dL (32-36); Mean Corpuscular Hgb 32.4 pg (27.0-32.0); Mean Corpuscular Volume 96.5 fL (80-94); Mean Platelet Vol. 11.8 fl (6.2-12.0); Monocyte% 6.2 % (0-10); NRBC Flagged by Analyzer 0 % (0-5); Neutrophil # 12.05 X10^3/uL (2.7-7.7); Platelet Count 241 K/mm3 (150-450); RBC Distribution Width CV 14.6 % (11.6-14.6); RBC Distribution Width SD 52.4 fl (35.1-43.9); Red Blood Count 3.95 M/mm3 (4.6-6.2); White Blood Count 16.1 K/mm3 (4.4-11.0)
[2021-12-06 05:54] LABS: ALB/GLOB Ratio 0.6 RATIO (0.9-2.4); AST(SGOT) 136 U/L (15-37); Alanine Aminotransfer ALT/SGPT 412 U/L (16-61); Albumin, Serum 2.4 g/dL (3.2-5.0); Alkaline Phosphatase 412 U/L (45-117); Anion Gap 7 (5-15); BUN 16 mg/dL (7-18); Calcium,Total 8.1 mg/dL (8.5-10.1); Chloride 103 mmol/L (98-107); Creatinine, Serum 1.07 mg/dL (0.70-1.30); EST Glomerular Filtration Rate 78 mL/min (>60); Est Glom Filt Rate - Afr Amer 95 mL/min (>60); Estimated Creatinine Clearance 82.57 ml/min; Glucose 288 mg/dL (74-106); Lipase 239 U/L (73-393); Potassium 4.1 mmol/L (3.5-5.1); Protein, Total 6.4 g/dL (6.4-8.2); Sodium Level 133 mmol/L (136-145)
[2021-12-06] MEDS: Insulin Lispro 100 UNIT/ML INSULN.PEN SC ×3 (06:08→11:28)
[2021-12-06] MEDS: Levothyroxine 50 MCG Tablet PO (06:10)
[2021-12-06] MEDS: Acetaminophen 325 MG Tablet 650 MG PO ×2 (06:13→11:37)
[2021-12-06 07:00] LABS: Bedside Glucose 284 mg/dL (74-106)
--- NOTE | 2021-12-06 07:32 | PN.SURG_ITS ---
Subjective Subjective Patient reports feeling very well this morning. Objective Data Objective Data Vital Signs: Vital Signs Temp Pulse Resp BP Pulse Ox O2 Del Method O2 Flow Rate 98.7 F 65 18 136/97 H 95 Room Air 2 12/06/21 03:00 12/06/21 03:00 12/06/21 03:00 12/06/21 03:00 12/06/21 03:00 12/06/21 03:00 12/05/21 20:20 Oxygen Flow Rate (L/min) 2 Oxygen Delivery Method Room Air Weight: 324 lb 8.327 oz Body Mass Index (BMI) 49.5 Intake & Output: Intake and Output for Last 24 Hours 12/04/21 12/05/21 12/06/21 23:59 23:59 23:59 Intake Total 2312.5 / 2312.5 812.5 / 812.5 Output Total 1025 / 1025 Balance 1287.5 / 1287.5 812.5 / 812.5 Lab / Micro Data Result Diagrams: 12/06/21 05:19 12/06/21 05:19 Labs: Laboratory Results - last 24 hr 12/05/21 01:04: Serum Osmolality 316 H 12/05/21 05:27: Sodium 130 L, Potassium 3.9, Chloride 99, Carbon Dioxide 23.0, Anion Gap 8, BUN 17, Creatinine 1.21, Estim Creat Clear Calc 73.02, Est GFR (MD DAMICO) Af Amer 82, Est GFR (MDRD) Non-Af 68, BUN/Creatinine Ratio 14.0, Glucose 430 H, Calcium 8.5, Total Bilirubin 12.40 H, AST 240 H, ALT TNP, Alkaline Phosphatase 487 H, Total Protein 6.4, Albumin 2.5 L, Globulin 3.9, Albumin/Globulin Ratio 0.6 L, Lipase 2006 H 12/05/21 11:30: POC Glucose 353 H 12/05/21 16:45: POC Glucose 305 H 12/05/21 22:59: POC Glucose 358 H 12/06/21 05:19: WBC 16.1 H, RBC 3.95 L, Hgb 12.8 L, Hct 38.1 L, MCV 96.5 H, MCH 32.4 H, MCHC 33.6, RDW Std Deviation 52.4 H, RDW Coeff of Fátima 14.6, Plt Count 241, MPV 11.8, Immature Gran % (Auto) 0.900, Neut % (Auto) 75.0 H, Lymph % (Auto) 16.9 L, [place] % (Auto) 6.2, Eos % (Auto) 0.6, Baso % (Auto) 0.4, Absolute Neuts (auto) 12.1 H, Absolute Lymphs (auto) 2.72, Nucleated RBC % 0 12/06/21 05:19: Sodium 133 L, Potassium 4.1, Chloride 103, Carbon Dioxide 23.0, Anion Gap 7, BUN 16, Creatinine 1.07, Estim Creat Clear Calc 82.57, Est GFR ( MDRD) Af Amer 95, Est GFR (MDRD) Non-Af 78, BUN/Creatinine Ratio 15.0, Glucose 288 H, Calcium 8.1 L, Total Bilirubin 4.60 H, AST 136 H, ALT 412 H, Alkaline Phosphatase 412 H, Total Protein 6.4, Albumin 2.4 L, Globulin 4.0, [place] min/Globulin Ratio 0.6 L, Lipase 239 12/06/21 06:08: POC Glucose 284 H Radiography Diagnostic Testing: Radiology Impression Abdomen/Pelvis CT 12/05/21 06:47 IMPRESSION: 1. Mild dilatation of the CBD and mild intrahepatic biliary ductal dilatation in the left hepatic lobe. Etiology is unknown. ERCP will be helpful for further evaluation. 2. No suspicious gallstones or acute abnormality of the gallbladder. Electronically Signed: Drew Mccoy MD at 9:32 EDT , Physical Exam Const oriented x3 Resp normal respiratory effort Cardio regular rate and regular rhythm GI normal to inspection, nondistended, normoactive bowel sounds, soft to palpation and non-tender Assessment & Plan Assessment/Plan (1) Jaundice: (2) Cholestatic hepatitis: PLAN: Plan Patient is doing well this morning and his LFTs are coming down. I will start him on a regular diet and if he tolerates this he may be discharged home. He will follow-up with his PCP to control his diabetes. He will follow-up with Dr. Carter for outpatient ERCP with kelvin and after that is completed I will see him back to discuss laparoscopic cholecystectomy. Jonah Mcnamara MD Pager: [facility] [address] [place] [address], [facility] [address] [place] [address] Office:
--- NOTE | 2021-12-06 07:35 | PCM.DC.SUM ---
Providers Date of Admission: 12/04/21 Consultations 12/05/21 00:34 Consult: Hospitalist Routine Consulting Provider: Chantal Vasquez Reason for Consult: medical management EMERGENT Consult: No Notified: Yes Date Notified: 12/05/21 Time Notified: 00:34 Method of Notification: Verbal 12/05/21 16:39 Consult: Gastroenterology Routine Consulting Provider: [facility] Reason for Consult: s/p ERCP EMERGENT Consult: No Notified: Yes Date Notified: 12/05/21 Time Notified: 16:39 Method of Notification: Verbal Comments:: already aWARE PER DR. MANZANO Reason For Visit: ABDOMINAL PAIN, GALL STONES, PANCREATITIS Diagnosis Discharge Diagnosis (1) Jaundice: Status: Acute Code(s): R17 - Unspecified jaundice (2) Cholestatic hepatitis: Status: Acute Code(s): K75.89 - Other specified inflammatory liver diseases Plan Patient is doing well this morning and his LFTs are coming down. I will start him on a regular diet and if he tolerates this he may be discharged home. He will follow-up with his PCP to control his diabetes. He will follow-up with Dr. Carter for outpatient ERCP with spyglass and after that is completed I will see him back to discuss laparoscopic cholecystectomy. Jonah Manzano MD Pager: [facility] [address] [place] [address], [address] [place] [address] Office: Medications at Discharge Home Medications albuterol sulfate 90 mcg/actuation aerosol inhaler (Ventolin HFA) 2 inh inhalation Q2H PRN Shortness Of Breath Or Wheezing 12/04/21 atorvastatin 10 mg tablet 10 mg PO DAILY 12/04/21 dextroamphetamine-amphetamine 30 mg tablet (Adderall) 30 mg PO DAILY 12/04/21 fluticasone propionate 220 mcg/actuation HFA aerosol inhaler (Flovent HFA) 2 inh inhalation BID 12/04/21 levothyroxine 50 mcg tablet (Euthyrox) 50 mcg PO DAILY 12/04/21 midodrine 2.5 mg tablet 2.5 mg PO BID 12/04/21 omeprazole 20 mg capsule,delayed release 20 mg PO DAILY 12/04/21 propranolol 20 mg tablet 20 mg PO BID 12/04/21 Hospital Course Operations ERCP Procedures None Summary of Care Provided Hospital Course: Patient was admitted with dilated bile duct of unknown etiology. He was taken for ERCP and the duct was too dilated to be able to discern the cause of the dilation. Stent was placed. Patient was also found to have new onset diabetes and this was controlled by insulin. Patient will be discharged home and follow-up with his PCP to establish a regimen. Weight / BMI Weight Weight: 324 lb 8.327 oz Body Mass Index (BMI) 49.5 ABG / Lab / Microbiology Data Result Diagrams: 12/06/21 05:19 12/06/21 05:19 Laboratory: Laboratory Results - last 24 hr 12/05/21 01:04: Serum Osmolality 316 H 12/05/21 05:27: Sodium 130 L, Potassium 3.9, Chloride 99, Carbon Dioxide 23.0, Anion Gap 8, BUN 17, Creatinine 1.21, Estim Creat Clear Calc 73.02, Est GFR (MDRD) Af Amer 82, Est GFR (MDRD) Non-Af 68, BUN/Creatinine Ratio 14.0, Glucose 430 H, Calcium 8.5, Total Bilirubin 12.40 H, AST 240 H, ALT TNP, Alkaline Phosphatase 487 H, Total Protein 6.4, Albumin 2.5 L, Globulin 3.9, Albumin/Globulin Ratio 0.6 L, Lipase 2006 H 12/05/21 11:30: POC Glucose 353 H 12/05/21 16:45: POC Glucose 305 H 12/05/21 22:59: POC Glucose 358 H 12/06/21 05:19: WBC 16.1 H, RBC 3.95 L, Hgb 12.8 L, Hct 38.1 L, MCV 96.5 H, MCH 32.4 H, MCHC 33.6, RDW Std Deviation 52.4 H, RDW Coeff of Fátima 14.6, Plt Count 241, MPV 11.8, Immature Gran % (Auto) 0.900, Neut % (Auto) 75.0 H, Lymph % (Auto) 16.9 L, [place] % (Auto) 6.2, Eos % (Auto) 0.6, Baso % (Auto) 0.4, Absolute Neuts (auto) 12.1 H, Absolute Lymphs (auto) 2.72, Nucleated RBC % 0 12/06/21 05:19: Sodium 133 L, Potassium 4.1, Chloride 103, Carbon Dioxide 23.0, Anion Gap 7, BUN 16, Creatinine 1.07, Estim Creat Clear Calc 82.57, Est GFR (MDRD) Af Amer 95, Est GFR (MDRD) Non-Af 78, BUN/Creatinine Ratio 15.0, Glucose 288 H, Calcium 8.1 L, Total Bilirubin 4.60 H, AST 136 H, ALT 412 H, Alkaline Phosphatase 412 H, Total Protein 6.4, Albumin 2.4 L, Globulin 4.0, Albumin/Globulin Ratio 0.6 L, Lipase 239 12/06/21 06:08: POC Glucose 284 H Radiography Diagnostic Testing: Radiology Impression Abdomen/Pelvis CT 12/05/21 06:47 IMPRESSION: 1. Mild dilatation of the CBD and mild intrahepatic biliary ductal dilatation in the left hepatic lobe. Etiology is unknown. ERCP will be helpful for further evaluation. 2. No suspicious gallstones or acute abnormality of the gallbladder. Electronically Signed: Drew Mccoy MD at 9:32 EDT , D/C Instructions Discharge Diet: 2000 Calorie Control Diet and Carb Control Diet Discharge Activity: Return to Normal Activity, May Drive and May Shower Call your doctor if your incision/area has: Increased Pain/ Swelling Call your doctor if you observe: Fever of 101 or Higher Additional Instructions: Follow-up with PCP to establish diabetic treatment plan. Follow-up with Dr. Carter to schedule ERCP with [email or web address]. [phone] Please Follow Up With: Jonah Manzano MD When: Follow-up after ERCP. Call [phone] to make appointment. Meaningful Use Info Meaningful Use Diagnoses (Choose all that apply): None applicable Discharge Plan Admission Admit Date/Time: 12/04/21 23:08 Attending Provider: Jonah Manzano Consulting Providers: Ruben Scanlon ; Chantal Vasquez Discharge Orders/Prescriptions Prescriptions: No Action atorvastatin 10 mg tablet 10 mg PO DAILY Label Comments: TAKE 1 TABLET BY MOUTH ONCE DAILY dextroamphetamine-amphetamine [Adderall] 30 mg Tablet 30 mg PO DAILY Label Comments: hasn't taken it in 6 months d/t lack of follow up with PCP levothyroxine [Euthyrox] 50 mcg tablet 50 mcg PO DAILY Label Comments: TAKE 1 TABLET BY MOUTH ONCE DAILY FOR 30 DAYS omeprazole 20 mg capsule,delayed release(DR/EC) 20 mg PO DAILY Label Comments: TAKE 1 CAPSULE BY MOUTH ONCE DAILY FOR 30 DAYS fluticasone propionate [Flovent HFA] 220 mcg/actuation HFA aerosol inhaler 2 inh INHALATION BID Label Comments: INHALE 1 PUFF BY MOUTH TWICE DAILY midodrine 2.5 mg tablet 2.5 mg PO BID Label Comments: TAKE 1 TABLET BY MOUTH TWICE DAILY FOR 30 DAYS albuterol sulfate [Ventolin HFA] 90 mcg/actuation HFA aerosol inhaler 2 inh INHALATION Q2H PRN (Reason: Shortness Of Breath Or Wheezing) Label Comments: INHALE 2 PUFFS BY MOUTH EVERY 2 HOURS NEEDED FOR WHEEZING propranolol 20 mg tablet 20 mg PO BID Label Comments: TAKE 1 TABLET BY MOUTH TWICE DAILY Disposition Disposition (needs filled in before D/C Order can be placed): Home, Self Care
[2021-12-06 07:57] VITALS: BP 144/79; PULSE 75; RESP 19; TEMP 36.6; O2SAT 94
[2021-12-06] MEDS: Insulin Lispro 100 UNIT/ML INSULN.PEN 20 UNIT SC ×2 (08:02→11:27)
[2021-12-06 08:31] VITALS: O2SAT 94
--- NOTE | 2021-12-06 10:13 | CASEMGMT ---
BGM rx signed. RN CM in to pt room to discuss dc planning as pt is now going home on insulin. Pt denies need for [facility] for education. Pt states he has been giving his own insulin but would like to practice on his BGM. Discussed the option of having the BGM from [facility] Retail pharmacy and nurse going over it prior to dc. Pt is agreeable to this plan. Pt states he would like all of his rx to go through [facility] as he has had issues with [facility]. TC to Retail pharmacy, spoke with palak Tavarez rx for BGM. Pharmacy will call to get rx trf'd to [facility]. Pt then made aware of this as well as pt nurse. Provided pt with rack card for diabetes clinic as well.
--- NOTE | 2021-12-06 11:06 | PHA.DC.MC ---
Pharmacy Service has performed discharge medication reconciliation and counseling for this patient. The patient was counseled on the following discharge medications and changes in medications for homegoing were reviewed. 1. LANTUS 2. HUMALOG 3. NICOTINE PATCH 4. LEVOFLOXACIN The Reason for Use, instructions for use, and potential side effects were reviewed for all new medications. The patient's questions regarding all of their medications were answered. The patient was able to verbally demonstrate an understanding of their discharge medications. Home Medications albuterol sulfate 90 mcg/actuation aerosol inhaler (Ventolin HFA) 2 inh inhalation Q2H PRN Shortness Of Breath Or Wheezing 12/04/21 atorvastatin 10 mg tablet 10 mg PO DAILY 12/04/21 dextroamphetamine-amphetamine 30 mg tablet (Adderall) 30 mg PO DAILY 12/04/21 fluticasone propionate 220 mcg/actuation HFA aerosol inhaler (Flovent HFA) 2 inh inhalation BID 12/04/21 levothyroxine 50 mcg tablet (Euthyrox) 50 mcg PO DAILY 12/04/21 midodrine 2.5 mg tablet 2.5 mg PO BID 12/04/21 omeprazole 20 mg capsule,delayed release 20 mg PO DAILY 12/04/21 propranolol 20 mg tablet 20 mg PO BID 12/04/21 insulin glargine 100 unit/mL (3 mL) subcutaneous pen (Lantus Solostar U-100 Insulin) 30 unit (0.3 mL) subcut BID #15 mL 12/06/21 insulin lispro 100 unit/mL subcutaneous pen (Humalog KwikPen (U-100) Insulin) 30 unit (0.3 mL) subcut TIDAC #15 mL 12/06/21 insulin lispro 100 unit/mL subcutaneous pen (Humalog KwikPen (U-100) Insulin) See Protocol subcut Q6 #0 mL 12/06/21 levofloxacin 500 mg tablet 500 mg PO DAILY #7 tabs 12/06/21 nicotine 14 mg/24 hr daily transdermal patch 14 mg transdermal DAILY #30 ea 12/06/21 pen needle, diabetic 29 gauge x 1/2 (Pen Needle) ##1 12/06/21 The patient's discharge medication list was reviewed for discrepancies and discrepancies were resolved.
[2021-12-06] MEDS: Propranolol 10 MG Tablet 20 MG PO (11:09)
[2021-12-06] MEDS: Midodrine HCl 5 MG Tablet 2.5 MG PO (11:10)
[2021-12-06 11:56] LABS: Bedside Glucose 236 mg/dL (74-106)
[2021-12-06 12:07] VITALS: BP 144/79; PULSE 75; RESP 18; TEMP 36.6; O2SAT 94
--- NOTE | 2021-12-06 13:01 | PCM.PN.HOSP ---
Subjective Subjective Seen and examined. Patient had CT abdomen and ERCP yesterday. Abdominal pain has improved and resolved. No fever. Objective Data Objective Data Vital Signs: Vital Signs Temp Pulse Resp BP Pulse Ox O2 Del Method 97.8 F 87 18 155/92 H 95 Room Air 12/05/21 07:32 12/05/21 07:32 12/05/21 07:32 12/05/21 07:32 12/05/21 10:26 12/05/21 10:26 Oxygen Delivery Method Room Air Weight: 334 lb 7.06 oz Body Mass Index (BMI) 49.5 Intake & Output: Intake and Output for Last 24 Hours 12/03/21 12/04/21 12/05/21 23:59 23:59 23:59 Intake Total 1160 / 1160 Output Total 650 / 650 Balance 510 / 510 Lab / Micro Data Result Diagrams: 12/06/21 05:19 12/06/21 05:19 Labs: Laboratory Results - last 24 hr 12/05/21 00:06: POC Glucose > 500 H* 12/05/21 01:04: Glucose Cancelled, Magnesium 2.2 12/05/21 01:04: Sodium 130 L, Potassium 4.1, Chloride 99, Carbon Dioxide 18.0 L, Anion Gap 13, BUN 19 H, Creatinine 1.28, Estim Creat Clear Calc 69.02, Est GFR (MDRD) Af Amer 77, Est GFR (MDRD) Non-Af 64, BUN/Creatinine Ratio 14.8, Glucose 518 H*, Calcium 8.7, Phosphorus 4.0, Total Bilirubin 11.80 H, AST 227 H, ALT TNP, Alkaline Phosphatase 498 H, Total Protein 6.7, Albumin 2.7 L, Globulin 4.0, Albumin/Globulin Ratio 0.7 L, TSH 3.20 12/05/21 01:04: Hemoglobin A1c 10.2 H 12/05/21 01:04: PT 12.3, INR 0.9, APTT 28.7 12/05/21 05:27: WBC 13.1 H, RBC 4.12 L, Hgb 13.4, Hct 39.9 L, MCV 96.8 H, MCH 32.5 H, MCHC 33.6, RDW Std Deviation 50.5 H, RDW Coeff of Fátima 14.2, Plt Count 277, MPV 12.1 H, Immature Gran % (Auto) 0.700, Neut % (Auto) 65.5, Lymph % (Auto) 23.8, Harper % (Auto) 6.8, Eos % (Auto) 2.1, Baso % (Auto) 1.1 H, Absolute Neuts (auto) 8.6 H, Absolute Lymphs (auto) 3.13, Nucleated RBC % 0 12/05/21 05:27: Sodium 130 L, Potassium 3.9, Chloride 99, Carbon Dioxide 23.0, Anion Gap 8, BUN 17, Creatinine 1.21, Estim Creat Clear Calc 73.02, Est GFR (MDRD) Af Amer 82, Est GFR (MDRD) Non-Af 68, BUN/Creatinine Ratio 14.0, Glucose 430 H, Calcium 8.5, Total Bilirubin 12.40 H, AST 240 H, ALT TNP, Alkaline Phosphatase 487 H, Total Protein 6.4, Albumin 2.5 L, Globulin 3.9, Albumin/Globulin Ratio 0.6 L, Lipase 2006 H 12/05/21 05:40: POC Glucose 385 H 12/05/21 : Urine Osmolality 787, Ur Random Sodium 12, Urine Creatinine 65.00 Radiography Diagnostic Testing: Radiology Impression Abdomen/Pelvis CT 12/05/21 06:47 IMPRESSION: 1. Mild dilatation of the CBD and mild intrahepatic biliary ductal dilatation in the left hepatic lobe. Etiology is unknown. ERCP will be helpful for further evaluation. 2. No suspicious gallstones or acute abnormality of the gallbladder. Electronically Signed: Drew Mccoy MD at 9:32 EDT , Physical Exam Narrative General: Alert, Oriented x3, Cooperative, morbid obese BMI 49.5 kg/m? HEENT: Icterus present. Atraumatic, PERRLA, EOMI, Normocephalic Oral: Deep oropharyngeal structures could not be visualized. Oral mucosa moist. Neck: Supple, No JVD, Negative Carotid Bruits Lungs: Air entry diminished in bilateral lung bases. No crepitation/rhonchi Cardiovascular: Regular rate, Regular Rhythm, Normal S1, Normal S2, No murmurs Abdomen: Soft, no tenderness. Liver not enlarged. Fat abdomen. Bowel Sounds Present : No renal angle tenderness. No suprapubic tenderness. Extremities: No edema, Capillary Refill Less than 3 Seconds Skin: Deep yellow jaundice Musculoskeletal: No Tenderness to Palpation of Joints or Extremities. ROM restricted over knee and hip joints due to morbid obesity Neurological: Cranial nerves II-XII grossly intact, DTR 2+/4 and Symmetrical, Neuro grossly intact Psych/Mental Status: Normal Affect, Appropriate. Assessment & Plan Assessment/Plan (1) Elevated bilirubin: (2) Diabetes mellitus type 2, uncontrolled: (3) Hyponatremia: PLAN: Plan The patient is a 46 y/o M with multiple comorbidities admitted from outside ED/hospital for several weeks of right upper quadrant abdominal pain with jaundice. 1. Obstructive jaundice: Exact location of obstructive jaundice unclear. Possible differential diagnosis are stone, stricture, tumor of bile duct, pancreatic duct or pancreas. CT abdomen with p.o. and IV contrast ordered. There is also consideration of potential ERCP depending on the findings of the CT scan. 12/06: CT abdomen with IV contrast shows mild dilatation of CBD with mild intrahepatic biliary duct dilation of left hepatic lobe. Unremarkable bowel and pancreas. ERCP was done and bile ducts and entire biliary tree were dilated. Ampulla appeared normal. No stones were removed. [employer] consulted he recommended CA 19-9. Recommend outpatient ERCP with endoscopic ultrasound with spyglass. Patient is given prescription Levaquin 500 mg daily for 7 days. Amoxicillin 500 not prescribed because it has potential to cause acute hepatocellular, mixed and sometimes cholestatic jaundice therefore high risk of causing DILI when the patient has already obstructive jaundice. Transaminases are improving but he still ALT about 10 times, AST 4 times and total bilirubin 4.6. Avoid hepatotoxic medications or medications which needs hepatic metabolism. 2. Diabetes mellitus type 2 with uncontrolled hyperglycemia: Patient did not know that he is not diabetic. He is A1c was found 10.2 g%. Accu-Cheks before meals and at bedtime and cover with sliding scale insulin. Patient on long-acting and rapid acting insulin. 12/06: Patient cannot have oral antidiabetic medication in view of acute obstructive jaundice with mixed hepatocellular and cholestatic pattern. Patient also has high A1c 10.2% which is difficult to control alone with oral hypoglycemic agents. Therefore, Humalog and Lantus insulin prescribed with Accu-Chek H&H's and cover with Humalog sliding scale. Lantus insulin, Humalog insulin and diabetic supplies prescription was given. Discussed with the [facility] retail pharmacist, rn case management and the nursing staff. 3. Hyponatremia, hypotonic, isovolemic: Patient sodium was 144 on September 2020. With IV fluid, patient sodium did not improve. Urine osmolarity 787, random sodium 12, creatinine 65. Calculated serum osmolality 290. Yesterday serum glucose was 518. 4. Acute kidney injury most likely prerenal: Outside BUN/creatinine 29/04., prior baseline 03/14.03. Patient creatinine is more than 0.5 than his baseline. Most recent today. WEI resolved. 5. Chronic lung disease, asthma, chronic cigarette smoking and obstructive sleep apnea on CPAP 6. History of seizure disorder, anxiety and depression: Patient not on any scheduled antiepileptic medication. Ativan 2 mg IV as needed for seizure. 7 other chronic comorbidities include hypertension, hypothyroidism, GERD and morbid obesity: Patient BMI is 49.5 kg/m?. Rodriguez counseling done. Home meds reconciliation done. Patient on PPI. Total time of the visit including total time spent in counseling or coordination of care, (more than 50% of the total time, spent in obtaining medical information from nurses and other ancillary care providers,explaining to the patient about labs, imaging, diagnosis and management of active complex medical conditions), multiple active medical problem, discussion with surgeon, review of labs and imaging, discharge of patient is 40 minutes. Laboratory Results 12/05/21 16:45: POC Glucose 305 H 12/05/21 22:59: POC Glucose 358 H 12/06/21 05:19: WBC 16.1 H, RBC 3.95 L, Hgb 12.8 L, Hct 38.1 L, MCV 96.5 H, MCH 32.4 H, MCHC 33.6, RDW Std Deviation 52.4 H, RDW Coeff of Fátima 14.6, Plt Count 241, MPV 11.8, Immature Gran % (Auto) 0.900, Neut % (Auto) 75.0 H, Lymph % (Auto) 16.9 L, Harper % (Auto) 6.2, Eos % (Auto) 0.6, Baso % (Auto) 0.4, Absolute Neuts (auto) 12.1 H, Absolute Lymphs (auto) 2.72, Nucleated RBC % 0 12/06/21 05:19: Sodium 133 L, Potassium 4.1, Chloride 103, Carbon Dioxide 23.0, Anion Gap 7, BUN 16, Creatinine 1.07, Estim Creat Clear Calc 82.57, Est GFR (MDRD) Af Amer 95, Est GFR (MDRD) Non-Af 78, BUN/Creatinine Ratio 15.0, Glucose 288 H, Calcium 8.1 L, Total Bilirubin 4.60 H, AST 136 H, ALT 412 H, Alkaline Phosphatase 412 H, Total Protein 6.4, Albumin 2.4 L, Globulin 4.0, Albumin/Globulin Ratio 0.6 L, Lipase 239 12/06/21 06:08: POC Glucose 284 H 12/06/21 11:25: POC Glucose 236 H Charges/Coding Visit Charges Inpatient E&M: 58213 Subs Hosp L3
== END 2021-12-06 13:53 | disposition home or self-care (01) ==
PROVIDERS: Family Medicine; Internal Medicine; Admitting Provider Surgery; Visit Provider Surgery
PROC: 0F9980Z Drainage of Common Bile Duct with Drainage Device, Via Natural or Artificial Opening Endoscopic (ICD-10-PCS; CPT 43260; principal; 2021-12-05 13:40)
DX: K83.8 Other specified diseases of biliary tract (principal); E87.1 Hypo-osmolality and hyponatremia; N17.9 Acute kidney failure, unspecified; E11.65 Type 2 diabetes mellitus with hyperglycemia; J44.9 Chronic obstructive pulmonary disease, unspecified; E66.01 Morbid (severe) obesity due to excess calories; Z68.42 Body mass index [BMI] 45.0-49.9, adult; G40.909 Epilepsy, unspecified, not intractable, without status epilepticus; F31.9 Bipolar disorder, unspecified; K75.89 Other specified inflammatory liver diseases; G47.33 Obstructive sleep apnea (adult) (pediatric); E86.1 Hypovolemia; K21.9 Gastro-esophageal reflux disease without esophagitis; E78.00 Pure hypercholesterolemia, unspecified; I10 Essential (primary) hypertension; E03.9 Hypothyroidism, unspecified; F41.9 Anxiety disorder, unspecified; F17.210 Nicotine dependence, cigarettes, uncomplicated; Z79.890 Hormone replacement therapy; Z79.899 Other long term (current) drug therapy
CPT/HCPCS: 36415; 74177; 74328; 76000; 80053; 82570; 82962; 83036; 83690; 83735; 83930; 83935; 84100; 84300; 84443; 85025; 85610; 85730; 93005; 94640; 94762; 97802; 99251; 99406; J7030; J7050; Q9967; A4216; G0463; J2405

== ENCOUNTER 2023-03-13 15:31 | Inpatient (IN) | payer MEDICAID, SELFPAY ==
[2023-03-13 15:32] VITALS: BP 164/93; PULSE 84; RESP 20; TEMP 36.4; O2SAT 95; BMI 46.7
[2023-03-13 17:00] LABS: Absolute Lymphocyte Count 2.69 X10^3/uL (0.83-4.51); Absolute Neutrophil Count 11.2 X10^3/uL (2.0-7.7); Basophil# 0.04 X10^3/uL; Basophil% 0.3 % (0-1); Eosinophil# 0.06 X10^3/uL; Eosinophils% 0.4 % (0-5); Hematocrit 46.8 % (40-54); Hemoglobin 15.8 g/dL (13.0-16.5); Lymphocyte # 2.69 X10^3/ul (0.83-4.51); Lymphocyte % 17.4 % (19-41); Mean Corp Hgb Conc 33.8 g/dL (32-36); Mean Corpuscular Hgb 31.3 pg (27.0-32.0); Mean Corpuscular Volume 92.9 fL (80-94); Mean Platelet Vol. 10.4 fl (6.2-12.0); Monocyte# 1.25 X10^3/uL; Monocyte% 8.1 % (0-10); NRBC Flagged by Analyzer 0 % (0-5); Neutrophil # 11.17 X10^3/uL (2.7-7.7); Neutrophil % 72.2 % (47-70); Platelet Count 258 K/mm3 (150-450); RBC Distribution Width CV 13.2 % (11.6-14.6); RBC Distribution Width SD 45.1 fl (35.1-43.9); Red Blood Count 5.04 M/mm3 (4.6-6.2); White Blood Count 15.5 K/mm3 (4.4-11.0)
[2023-03-13 17:16] LABS: ALB/GLOB Ratio 0.6 RATIO (0.9-2.4); AST(SGOT) 24 U/L (15-37); Alanine Aminotransfer ALT/SGPT 103 U/L (16-61); Albumin, Serum 3.2 g/dL (3.2-5.0); Alkaline Phosphatase 175 U/L (45-117); Anion Gap 7 (5-15); BUN 20 mg/dL (7-18); Calcium,Total 9.1 mg/dL (8.5-10.1); Chloride 91 mmol/L (98-107); Creatinine, Serum 1.54 mg/dL (0.70-1.30); EST Glomerular Filtration Rate 51 mL/min (>60); Est Glom Filt Rate - Afr Amer 62 mL/min (>60); Estimated Creatinine Clearance 58.02 ml/min; Globulin 5.3 g/dL (2.2-4.2); Glucose 390 mg/dL (74-106); Potassium 4.2 mmol/L (3.5-5.1); Protein, Total 8.5 g/dL (6.4-8.2); Sodium Level 127 mmol/L (136-145)
--- NOTE | 2023-03-13 17:44 | EX.ED.DYSGE1 ---
HPI History of Present Illness Chief Complaint: Abd Pain Detail of Chief Complaint: Upper abdominal pain with nausea Informant: patient Onset/Context/Timing Onset: Today Context: Sudden Onset Timing: Continuous and Waxes and wanes Quality: Pain Location: Epigastric to left upper quadrant predominantly Current Severity: Moderate Maximum Severity: Severe Worsened by: Nothing Relieved by: Nothing Associated Symptoms Associated Symptoms: Nausea Narrative Narrative: Patient is a 48-year-old male with history of type 1 diabetes, cholesterolemia, hypertension and GERD who presents with upper abdominal pain associated with nausea. Patient was admitted at [facility] that he was diagnosed with pancreatitis. Lipase was [address]. Blood sugar at the time of admission was 374 with normal CO2 anion gap. Patient states he has a remote history of drinking. He is not anything to drink that is contained alcohol for years. He does have a stent in his common bile duct that is supposed to be removed over a year ago. He apparently did not follow-up with the lead supply worker and has remained in place. He denies headache, visual, ocular auditory symptoms. He denies cardiac respiratory symptoms. He denies dysuria, frequency, urgency or hematuria. Prior similar symptoms: Yes Recent Illness/Hospitalization: Yes [facility] Medical History Alcohol abuse Anxiety Asthma Back pain due to injury Bipolar disorder Cholestatic hepatitis COPD (chronic obstructive pulmonary disease) CPAP (continuous positive airway pressure) dependence Depression GERD (gastroesophageal reflux disease) High cholesterol Hypertension Hypothyroidism Restless legs Seizures Smoker Home Medications albuterol sulfate 90 mcg/actuation aerosol inhaler (Ventolin HFA) 2 inh inhalation Q2H PRN Shortness Of Breath Or Wheezing 12/04/21 [History Last Taken Unknown] atorvastatin 10 mg tablet 10 mg PO DAILY 12/04/21 [History Last Taken Unknown] dextroamphetamine-amphetamine 30 mg tablet (Adderall) 30 mg PO DAILY 12/04/21 [History Last Taken Unknown] fluticasone propionate 220 mcg/actuation HFA aerosol inhaler (Flovent HFA) 2 inh inhalation BID 12/04/21 [History Last Taken Unknown] levothyroxine 50 mcg tablet (Euthyrox) 50 mcg PO DAILY 12/04/21 [History Last Taken Unknown] midodrine 2.5 mg tablet 2.5 mg PO BID 12/04/21 [History Last Taken Unknown] omeprazole 20 mg capsule,delayed release 20 mg PO DAILY 12/04/21 [History Last Taken Unknown] propranolol 20 mg tablet 20 mg PO BID 12/04/21 [History Last Taken Unknown] insulin glargine 100 unit/mL (3 mL) subcutaneous pen (Lantus Solostar U-100 Insulin) 30 unit (0.3 mL) subcut BID #15 mL 12/06/21 [Rx Last Taken Unknown] insulin lispro 100 unit/mL subcutaneous pen (Humalog KwikPen (U-100) Insulin) 30 unit (0.3 mL) subcut TIDAC #15 mL 12/06/21 [Rx Last Taken Unknown] insulin lispro 100 unit/mL subcutaneous pen (Humalog KwikPen (U-100) Insulin) See Protocol subcut Q6 #0 mL 12/06/21 [Rx Last Taken Unknown] levofloxacin 500 mg tablet 500 mg PO DAILY #7 tabs 12/06/21 [Rx Last Taken Unknown] pen needle, diabetic 29 gauge x 1/2 (Pen Needle) ##1 12/06/21 [Rx Last Taken Unknown] varenicline 0.5 mg (11)-1 mg (42) tablets in a dose pack (Chantix Starting Month Box) See Rx Instructions .Route .COMPLEX 1 month #53 tabs 12/06/21 [Rx Last Taken Unknown] Allergy/AdvReac Type Severity Reaction Status Date / Time latex Allergy Rash Verified 03/13/23 15:32 Family History Father Cancer Hx Lung CA with tobacco use history. Other Heart disease Hypertension Surgical History H/O esophagogastroduodenoscopy History of colonoscopy Social History household members: other details: Lives with his son. Notes moved in 2 years prior. Smoking Status: Current every day smoker tobacco type: cigarettes how long ago did patient quit smoking: Patient attempting to quit, started age 10, smoked 2 ppd until 2 years ago. alcohol intake: former details: Notes sober x 15-20 years. substance use type: does not use ROS ROS ED Constitutional Constitutional ED: Denies chills, fever(s), subjective, sweats or weight loss Eyes Eyes: Denies blurry vision or change in vision ENT ENT ED: Denies ear pain, rhinorrhea or sore throat Cardiovascular Cardiovascular: Denies chest pain, orthopnea, palpitations, paroxysmal nocturnal dyspnea or racing heartbeat Respiratory/Chest Respiratory/Chest: Denies cough, dyspnea, dyspnea on exertion, orthopnea, paroxysmal nocturnal dyspnea or sputum Gastrointestinal Gastrointestinal: Reports abdominal pain and nausea; Denies constipation, diarrhea, melena or vomiting Genitourinary Genitourinary ED: Denies dysuria, hematuria or urinary frequency Musculoskeletal Musculoskeletal: Denies arthralgias, back pain or myalgias Integumentary Denies abscess or rash Neurologic Neurologic: Denies headache(s), paresthesias or weakness Psychiatric Psychiatric: Denies anxiety Endocrine Endocrinology: Denies cold intolerance or heat intolerance Hematologic/Lymphatic Hematologic/Lymphatic: Reports systems reviewed and no addt'l complaints, except as documented EXAM Physical Exam Narrative Exam Narrative: Vital signs remarkable for elevated blood pressure. Const Vital Signs: 03/13/23 15:32 Temperature 97.5 F L Temperature Source Temporal Pulse Rate 84 Respiratory Rate 20 H Blood Pressure 164/93 H Blood Pressure Mean 116 Pulse Ox 95 Oxygen Delivery Method Room Air Positive well nourished, well developed and obese Constitutional Narrative: Appears uncomfortable. At times he is pacing in the room. General Appearance ED: well developed; Negative for cyanotic, diaphoretic, NAD or pallor Nutritional Appearance: obese HEENT Reports moist mucous membranes HEENT Narrative: Head is atraumatic and normocephalic. Ears are normal. Nares patent. Posterior pharynx is normal. Mucosa is moist. Eyes PERRL and EOMs intact bilaterally General Eye ED: Negative for pale conjunctiva or scleral icterus Neck no lymphadenopathy, supple and no JVD Chest Wall inspection of chest normal and palpation of chest normal Resp normal respiratory effort and clear to auscultation bilaterally Cardio regular rate, regular rhythm, S1 normal heart sound, S2 normal heart sound and no murmurs GI normal to inspection, nondistended, normoactive bowel sounds, non-distended and no masses; Negative for non-tender or hepatosplenomegaly Palpation: soft, tender epigastric and LUQ and guarding LUQ Back/Spine no CVA tenderness Extremity normal to inspection General Extremety ED: Negative for edema or tenderness General Extremity: Negative for edema Neuro oriented x3, CN's II-XII intact bilaterally and no sensory deficits noted Sensorium / Orientation: alert Motor Exam: strength 5/5 throughout Psych mental status grossly normal Skin no rashes or lesions noted, no wounds and skin turgor normal General Skin Exam: Negative for jaundice or pallor MDM MDM MDM Narrative Medical decision making narrative: Protocol orders were initiated for abdominal pain. Since he was recently admitted for pancreatitis lipase was added. Patient received Zofran for his nausea and Dilaudid for his pain. Records from [facility] were reviewed. He had a CT of the abdomen pelvis which revealed a stent in the common bile duct. There is evidence of inflammation of the pancreas. Patient had cardiac workup as well which was negative. History & Record Review Additional record(s) reviewed:: Prior inpatient record (Evidence of cholecystitis/cholelithiasis. He had ERCP with stent placement by Dr. Carter November 2021.), Prior outpatient record and Prior labs Lab Data Attestation: I reviewed the patient's lab results. Lab results narrative: White count is 15.5 thousand with slight shift. There is no bandemia. Comprehensive metabolic panel is remarkable for a sodium of 127 and chloride of 91. BUN is 20 with a creatinine of 1.54. Glucose is 390 with a normal CO2 and anion gap. Total bilirubin is slightly elevated 1.30. AST is elevated 103 with an alkaline phosphatase of 175. Alkaline phosphatase and AST are lower than normal/prior values. Lipase is normal patient has a leukocytosis with shift for obtain CT to evaluate for any intra-abdominal infection. Labs: Laboratory Results - last 24 hr 03/13/23 03/13/23 16:45 18:00 WBC 15.5 H RBC 5.04 Hgb 15.8 Hct 46.8 MCV 92.9 MCH 31.3 MCHC 33.8 RDW Std Deviation 45.1 H RDW Coeff of Fátima 13.2 Plt Count 258 MPV 10.4 Immature Gran % (Auto) 1.600 H Neut % (Auto) 72.2 H Lymph % (Auto) 17.4 L [place] % (Auto) 8.1 Eos % (Auto) 0.4 Baso % (Auto) 0.3 Absolute Neuts (auto) 11.2 H Absolute Lymphs (auto) 2.69 Nucleated RBC % 0 Sodium 127 L Potassium 4.2 Chloride 91 L Carbon Dioxide 29.0 Anion Gap 7 BUN 20 H Creatinine 1.54 H Estim Creat Clear Calc 58.02 Est GFR (MDRD) Af Amer 62 Est GFR (MDRD) Non-Af 51 L BUN/Creatinine Ratio 13.0 Glucose 390 H Calcium 9.1 Total Bilirubin 1.30 H AST 24 ALT 103 H Alkaline Phosphatase 175 H Total Protein 8.5 H Albumin 3.2 Globulin 5.3 H Albumin/Globulin Ratio 0.6 L Lipase 45 Urine Color Yellow Urine Clarity Clear Urine pH 5.0 Ur Specific [place] 1.020 Urine Protein 15 H Urine Glucose (UA) 1000 H Urine Ketones 15 H Urine Occult Blood Negative Urine Nitrite Negative Urine Bilirubin Negative Urine Urobilinogen Normal Ur Leukocyte Esterase Negative Urine RBC 0 SEEN Urine WBC 0 SEEN Ur Squamous Epith Cells 0 SEEN Urine Bacteria RARE Urine Mucus RARE Radiography Diagnostic Testing: Clinical Impression(s) from Imaging Studies Abdomen/Pelvis CT 03/13/23 18:34 IMPRESSION: 1. Suspect distal migration of biliary stent barely within the distal common bile duct with the distal aspect in the third portion the duodenum and likely distal tiny structure with moderate intrahepatic biliary ductal dilatation. 2. Suspect small hepatic metastases. Electronically Signed: Edgardo Jarquin MD at 20:35 EST , Management Discussion w/another healthcare provider: Hospitalist (Hospitalist made aware that Dr. Carter has been consulted and Dr. Ham was paged but has not been spoken to.) and Pneumatic Press Hand (Patient was placed Dr. Ham since patient has seen Dr. Devries in the past. Also paged to Dr. Carter who is seen patient.) Treatment and Re-Evaluation :: Emma raises question of possible hepatic abscess. He requested IV antibiotics. He also requested IR to do biopsy to determine what the lesions are. Dr. Ham is present in the OR. Call was placed to notify him out of courtesy since he was seen by surgery in the past. Discharge Plan Dx/Rx/DC Orders Clinical Impression: Liver lesion, Diabetes mellitus type 2, uncontrolled, History of hypertension, Pure hypercholesterolemia, Acute upper abdominal pain, Leukocytosis Disposition Disposition: [facility]
[2023-03-13 17:54] LABS: Lipase 45 U/L (13-75)
[2023-03-13] MEDS: HYDROmorphone 1 MG/ML Syringe IV ×2 (18:02→21:25)
[2023-03-13] MEDS: Ondansetron 4 MG/2 ML Vial IV ×2 (18:02→23:59)
[2023-03-13 18:15] LABS: Red Blood Cells-Urine 0 SEEN /hpf (0-5); Squamous Epithelial Cells - UA 0 SEEN /hpf (0-5); White Blood Cells 0 SEEN /hpf (0-5)
[2023-03-13 18:18] LABS: Color, Urine Yellow (Yellow); Glucose, Dipstick 1000 mg/dl (Normal); Ketone-Dipstick 15 mg/dl (Negative); Leukocyte Esterase-Dipstick Negative /ul (Negative); Nitrite-Dipstick Negative (Negative); Occult Blood-Urine Negative /ul (Negative); Protein-Dipstick 15 mg/dl (Negative); Urine Bilirubin Dipstick Negative (Negative); Urine Clarity Clear (Clear); Urine Urobilinogen Normal (Normal)
[2023-03-13 18:34] LABS: Bacteria RARE /hpf (None Seen); Mucous, Urine RARE /hpf (<or=2+)
--- NOTE | 2023-03-13 18:34 | CT_ITS ---
STUDY: CT ABDOMEN AND PELVIS WITH CONTRAST REASON FOR EXAM: Male, 48 years old. Left upper quadrant abdominal pain, leukocytosis, -- History of pancreatitis, lipase normal RADIATION DOSAGE (If Supplied By Facility): CTDIvol = ( 18.74 ) mGy, DLP = ( 1344.68 ) mGycm TECHNIQUE: Transaxial images were obtained from the dome of the diaphragm to the symphysis pubis without oral contrast. IV 100mL Isovue-370 was administered. Sagittal and coronal images were reconstructed. Individualized dose optimization techniques were used for this CT. COMPARISON: 12/05/2021 FINDINGS: The visualized lung bases are unremarkable. The visualized portions of the heart are within normal limits. Multiple small peripherally enhancing lesions throughout the liver worrisome for metastatic disease. The largest lesion measures 2 cm in the anterior segment the right lobe. Biliary stent with the tip in the third portion the duodenum with moderate intrahepatic biliary ductal dilatation including focal dilatation within the medial aspect of the posterior segment right lobe. Normal spleen. Normal pancreas. Normal bilateral adrenal glands. Normal right kidney. Normal left kidney. Normal visualized stomach. Normal small intestine. Normal colon. The appendix is visualized and appears normal. Normal abdominal aorta. Normal inferior vena cava. Normal retroperitoneum. Normal urinary bladder. There are prostatic calcifications. Normal abdominal wall. Multiple healed left rib fractures including a chronic ununited fracture of the posterior lateral left eighth rib. CT/Abdomen/Pelvis W IV Cont ONLY IMPRESSION: 1. Suspect distal migration of biliary stent barely within the distal common bile duct with the distal aspect in the third portion the duodenum and likely distal tiny structure with moderate intrahepatic biliary ductal dilatation. 2. Suspect small hepatic metastases. Electronically Signed: Edgardo Jarquin MD at 20:35 EST ,
[2023-03-13 22:20] VITALS: BP 159/77; PULSE 89; RESP 16; O2SAT 98
[2023-03-13] MEDS: Piperacil/Tazobactam 4.5 GM in 0.9% Normal Saline (100mL MB+) 100 ML IV (22:20)
[2023-03-13 22:35] VITALS: BMI 46.3
[2023-03-13 22:41] VITALS: BP 136/101; PULSE 107; RESP 18; TEMP 37; O2SAT 92
--- NOTE | 2023-03-13 23:00 | EX.PCM.CON.G ---
HPI Consult Data Date of Consult: 03/13/23 HPI Narrative Reason for Consultation: Abnormal CT HPI Narrative: DANIELA BERG, is a 48 M who presents 46 M who presents from an outside hospital with worsening abdominal pain. He has a past medical history of of morbid obesity, GERD, obstructive sleep apnea, seizure disorder, anxiety, depression, hypothyroidism who presented last year to an outside hospital with worsening progressive abdominal discomfort associated with right upper quadrant pain, intermittent darkened urine and intermittent mindi colored stools. Biochemical analysis at an outside institution showed a cholestatic hepatitis with a bilirubin of 10.9, AST of 134, AST of 50, alkaline phosphatase of 150, lipase 900. He had a CT scan abdomen pelvis that showed dilated common bile duct with a possible distal common bile duct stone. right upper quadrant ultrasound with evidence of cholelithiasis and gallbladder wall thickening with common bile duct dilatation with findings suspicious for acute cholecystitis with fatty infiltration of the liver He was taken for ERCP and he was discovered to have a very dilated common bile duct up to almost 2 cm with a filling defect. Common bile duct stent was placed and he was having good drainage as per the patient. His labs had shown that his bilirubin went up to 12.9 consistent with obstructive physiology. He feels a lot better at this time. His pain is 100% gone. He says that his urine is improving in color. He presented back to [facility] today with worsening abdominal pain. Patient was admitted Thanks day at [facility] that he was diagnosed [place] pancreatitis[place] [address]. Blood sugar at the time of admission was 374 with normal CO2 anion gap. Patient states he has a remote history of drinking. He is not anything to drink that is contained alcohol for years. His labs in the ED was consistent with a cholestatic hepatitis. He underwent a CT scan abdomen pelvis that showed a partially dislodged common bile duct stent along with multiple filling defects in the liver possibly secondary to metastatic disease. [facility] Medical History Alcohol abuse Anxiety Asthma Back pain due to injury Biliary stent migration Bipolar disorder COPD (chronic obstructive pulmonary disease) CPAP (continuous positive airway pressure) dependence Depression GERD (gastroesophageal reflux disease) High cholesterol Hypertension Hypothyroidism Restless legs Seizures Smoker Home Medications albuterol sulfate 90 mcg/actuation aerosol inhaler (Ventolin HFA) 2 inh inhalation Q2H PRN Shortness Of Breath Or Wheezing 12/04/21 [History Last Taken Unknown] dextroamphetamine-amphetamine 30 mg tablet (Adderall) 30 mg PO DAILY adhd 12/04/21 [History Last Taken Unknown] fluticasone propionate 220 mcg/actuation HFA aerosol inhaler (Flovent HFA) 2 inh inhalation BID asthma 12/04/21 [History Last Taken Unknown] levothyroxine 50 mcg tablet (Euthyrox) 50 mcg PO DAILY 12/04/21 [History Last Taken Unknown] insulin glargine 100 unit/mL (3 mL) subcutaneous pen (Lantus Solostar U-100 Insulin) 30 unit (0.3 mL) subcut BID dm #15 mL 12/06/21 [Rx Last Taken Unknown] insulin lispro 100 unit/mL subcutaneous pen (Humalog KwikPen (U-100) Insulin) 30 unit (0.3 mL) subcut TIDAC dm #15 mL 12/06/21 [Rx Last Taken Unknown] insulin lispro 100 unit/mL subcutaneous pen (Humalog KwikPen (U-100) Insulin) See Protocol subcut Q6 dm #0 mL 12/06/21 [Rx Last Taken Unknown] pen needle, diabetic 29 gauge x 1/2 (Pen Needle) ##1 12/06/21 [Rx Last Taken Unknown] Allergy/AdvReac Type Severity Reaction Status Date / Time latex Allergy Rash Verified 03/13/23 15:32 Family History Father Cancer Hx Lung CA with tobacco use history. Other Heart disease Hypertension Surgical History H/O esophagogastroduodenoscopy History of colonoscopy Social History household members: other details: Lives with his son. Notes moved in 2 years prior. Smoking Status: Current every day smoker tobacco type: cigarettes how long ago did patient quit smoking: Patient attempting to quit, started age 10, smoked 2 ppd until 2 years ago. alcohol intake: former details: Notes sober x 15-20 years. substance use type: does not use ROS Constitutional Constitutional: Denies anorexia, chills, fatigue or fever(s) Eyes Eyes: Denies blurry vision ENT HEENT: Denies abnormal hearing Cardiovascular Cardiovascular: Denies chest pain Respiratory/Chest Respiratory/Chest: Denies cough or dyspnea Gastrointestinal Gastrointestinal: Reports abdominal pain and nausea; Denies constipation, dysphagia, hematemesis, hematochezia, melena or vomiting Genitourinary Genitourinary: Reports urinary frequency Musculoskeletal Musculoskeletal: Denies abnormal gait or back pain Integumentary Integumentary: Reports jaundice Neurologic Neurologic: Denies abnormal gait Psychiatric Psychiatric: Denies anxiety Endocrine Endocrinology: Denies flushing Hematologic/Lymphatic Hematologic/Lymphatic: Denies easy bleeding Physical Exam Const alert, oriented x3, no apparent distress and well nourished HEENT head/scalp atraumatic and moist oral mucous membranes HEENT Narrative: Dentition is poor, Mallampati is 3, no thrush Head and Scalp: normocephalic Resp normal respiratory effort, no retractions, no use of accessory muscles and clear to auscultation bilaterally Cardio regular rate, regular rhythm, S1 normal heart sound, S2 normal heart sound, no murmurs, no rub and no gallops GI normal to inspection, nondistended, normoactive bowel sounds and soft to palpation GI Narrative: Tenderness in epigastric region and right upper quadrant Extremity no clubbing, cyanosis or edema Extremity Narrative: Pedal pulses are 2+ Neuro oriented x3, moves all extremities and no focal motor deficits Speech: speech normal Psych affect normal Psych Narrative: Very pleasant, patient interacts appropriately Lab / Micro Data 03/14/23 05:54 03/14/23 05:54 Labs: Laboratory Results - last 24 hr 03/13/23 16:45: WBC 15.5 H, RBC 5.04, Hgb 15.8, Hct 46.8, MCV 92.9, MCH 31.3, MCHC 33.8, RDW Std Deviation 45.1 H, RDW Coeff of Fátima 13.2, Plt Count 258, MPV 10.4, Immature Gran % (Auto) 1.600 H, Neut % (Auto) 72.2 H, Lymph % (Auto) 17.4 L, [place] % (Auto) 8.1, Eos % (Auto) 0.4, Baso % (Auto) 0.3, Absolute Neuts (auto) 11.2 H, Absolute Lymphs (auto) 2.69, Nucleated RBC % 0, Sodium 127 L, Potassium 4.2, Chloride 91 L, Carbon Dioxide 29.0, Anion Gap 7, BUN 20 H, Creatinine 1.54 H, Estim Creat Clear Calc 58.02, Est GFR (MDRD) Af Amer 62, Est GFR (MDRD) Non-Af 51 L, BUN/Creatinine Ratio 13.0, Glucose 390 H, Calcium 9.1, Total Bilirubin 1.30 H, AST 24, ALT 103 H, Alkaline Phosphatase 175 H, Total Protein 8.5 H, Albumin 3.2, Globulin 5.3 H, Albumin/Globulin Ratio 0.6 L, Lipase 45 03/13/23 18:00: Urine Color Yellow, Urine Clarity Clear, Urine pH 5.0, Ur Specific [place] 1.020, Urine Protein 15 H, Urine Glucose (UA) 1000 H, Urine Ketones 15 H, Urine Occult Blood Negative, Urine Nitrite Negative, Urine Bilirubin Negative, Urine Urobilinogen Normal, Ur Leukocyte Esterase Negative, Urine RBC 0 SEEN, Urine WBC 0 SEEN, Ur Squamous Epith Cells 0 SEEN, Urine Bacteria RARE, Urine Mucus RARE 03/14/23 05:54: WBC 17.3 H, RBC 4.60, Hgb 14.1, Hct 43.6, MCV 94.8 H, MCH 30.7, MCHC 32.3, RDW Std Deviation 45.1 H, RDW Coeff of Fátima 13.0, Plt Count 223, MPV 10.7, Immature Gran % (Auto) 1.200 H, Neut % (Auto) 78.8 H, Lymph % (Auto) 12.0 L, [place] % (Auto) 7.3, Eos % (Auto) 0.2, Baso % (Auto) 0.5, Absolute Neuts (auto) 13.7 H, Absolute Lymphs (auto) 2.08, Nucleated RBC % 0, Sodium 132 L, Potassium 4.4, Chloride 95 L, Carbon Dioxide 30.0, Anion Gap 7, BUN 21 H, Creatinine 1.48 H, Estim Creat Clear Calc 60.38, Est GFR (MDRD) Af Amer 65, Est GFR (MDRD) Non-Af 54 L, BUN/Creatinine Ratio 14.2, Glucose 368 H, Hemoglobin A1c 10.0 H, Calcium 8.4 L, Total Bilirubin 1.20 H, AST 35, ALT 98 H, Alkaline Phosphatase 280 H, Total Protein 7.6, Albumin 2.8 L, Globulin 4.8 H, Albumin/Globulin Ratio 0.6 L 03/14/23 06:08: POC Glucose 347 H 03/14/23 10:41: POC Glucose 327 H Imagaing Radiology Impression Abdomen/Pelvis CT 03/13/23 18:34 IMPRESSION: 1. Suspect distal migration of biliary stent barely within the distal common bile duct with the distal aspect in the third portion the duodenum and likely distal tiny structure with moderate intrahepatic biliary ductal dilatation. 2. Suspect small hepatic metastases. Electronically Signed: Edgardo Jarquin MD at 20:35 EST , Abdomen MRI 03/13/23 23:27 IMPRESSION: 1. Multiple peripherally enhancing lesions of the liver (predominantly in medial right hepatic lobe, caudate lobe) with adjacent hyperemia. While neoplasm/metastasis possible (no provided history of known neoplasm), infection/hepatic abscesses related to ascending cholangitis is felt to be more likely (particularly given history of leukocytosis provided on prior CT). Mild left more than right intrahepatic bile duct dilation. 2. The Silastic stent described on prior MRI is not clearly seen. 3. Contracted gallbladder with mild thickening and enhancement of the gallbladder fundus suggests possibility of early cholecystitis. Electronically Signed: Eric Haynes MD (Brooks) at 12:09 EST , Assessment & Plan Assessment/Plan (1) Cholestatic hepatitis: PLAN: The likely etiology of his cholestatic hepatitis is secondary to choledocholithiasis versus obstructing malignant stricture. He is status post ERCP with stone removal and stent placement. I would continue him on antibiotic therapy for a total of 7 days. He should undergo ERCP as MRCP is grossly abnormal with multiple filling defects. He should also have a CA 19-9, CEA and alpha-fetoprotein checked. (2) Jaundice: PLAN: Painful jaundice is better than painless jaundice. However due to the severe elevation in bilirubin and nonspecific findings on his ERCP he should undergo direct visualization with cholangioscopy. (3) Weight loss: PLAN: Due to the weight loss he should get a CA 19-9 checked. I suspect that his weight loss is from severe diabetes. If it is unsuccessful with ERCP regarding a tissue diagnosis then he will likely need a percutaneous biopsy of the liver. Thank you very much for allowing me to participate in the care of this patient. Charges/Coding Visit Charges Inpatient E&M: 72656 Init Hosp L3
--- NOTE | 2023-03-13 23:04 | HP.PCM.HOS_ITS ---
HPI - General General Date of Admission: 03/13/23 Date of Service: 03/13/23 Chief Complaint: Abdominal pain HPI Narrative DANIELA BERG, is a 48 M who presents with abdominal pain. In November of last year, patient had choledocholithiasis and had a stent placed. Patient was follow-up with the GI and general surgery for eventual cholecystectomy but due to series of events, patient was never able to get transportation arranged to be able to make these appointments. Patient did have right upper quadrant abdominal pain that persisted after the stent was placed but overall Better but has progressively gotten worse recently. Patient does complain of right upper quadrant as well as epigastric abdominal pain. Patient states that it is worse when he coughs and is present nearly [id number]. Patient presented to the emergency room where it was noted that his biliary stent was migrating out and also some lesions were noted on his liver. Dr. Carter, gastroenterology, was contacted and stated that he was concerned about the possibility of infection and recommended antibiotics. Patient did receive piperacillin/tazobactam in the emergency room. PFSH Medical History Alcohol abuse Anxiety Asthma Back pain due to injury Biliary stent migration Bipolar disorder COPD (chronic obstructive pulmonary disease) CPAP (continuous positive airway pressure) dependence Depression GERD (gastroesophageal reflux disease) High cholesterol Hypertension Hypothyroidism Restless legs Seizures Smoker Home Medications albuterol sulfate 90 mcg/actuation aerosol inhaler (Ventolin HFA) 2 inh inhalation Q2H PRN Shortness Of Breath Or Wheezing 12/04/21 [History Last Taken Unknown] dextroamphetamine-amphetamine 30 mg tablet (Adderall) 30 mg PO DAILY adhd 12/04/21 [History Last Taken Unknown] fluticasone propionate 220 mcg/actuation HFA aerosol inhaler (Flovent HFA) 2 inh inhalation BID asthma 12/04/21 [History Last Taken Unknown] levothyroxine 50 mcg tablet (Euthyrox) 50 mcg PO DAILY 12/04/21 [History Last Taken Unknown] insulin glargine 100 unit/mL (3 mL) subcutaneous pen (Lantus Solostar U-100 Insulin) 30 unit (0.3 mL) subcut BID dm #15 mL 12/06/21 [Rx Last Taken Unknown] insulin lispro 100 unit/mL subcutaneous pen (Humalog KwikPen (U-100) Insulin) 30 unit (0.3 mL) subcut TIDAC dm #15 mL 12/06/21 [Rx Last Taken Unknown] insulin lispro 100 unit/mL subcutaneous pen (Humalog KwikPen (U-100) Insulin) See Protocol subcut Q6 dm #0 mL 12/06/21 [Rx Last Taken Unknown] pen needle, diabetic 29 gauge x 1/2 (Pen Needle) ##1 12/06/21 [Rx Last Taken Unknown] Allergy/AdvReac Type Severity Reaction Status Date / Time latex Allergy Rash Verified 03/13/23 15:32 Family History Father Cancer Hx Lung CA with tobacco use history. Other Heart disease Hypertension Surgical History H/O esophagogastroduodenoscopy History of colonoscopy Social History household members: other details: Lives with his son. Notes moved in 2 years prior. Smoking Status: Current every day smoker tobacco type: cigarettes how long ago did patient quit smoking: Patient attempting to quit, started age 10, smoked 2 ppd until 2 years ago. alcohol intake: former details: Notes sober x 15-20 years. substance use type: does not use ROS ROS Narrative Does have chills. All review of systems were negative except as mentioned above in the history of present illness and the other review of systems. Vital Signs Vital Signs Vital Signs: 03/13/23 15:32 03/13/23 22:20 03/13/23 22:41 Temperature 36.4 C L 37.0 C Temperature Source Temporal Oral Pulse Rate 84 89 107 H Respiratory Rate 20 H 16 18 Blood Pressure 164/93 H 159/77 H 136/101 H Blood Pressure Mean 116 104 112 Blood Pressure Source Monitor Blood Pressure Position Sitting Blood Pressure Location Left Arm Pulse Ox 95 98 92 Oxygen Delivery Method Room Air Room Air Weight Weight: 142.156 kg Body Mass Index (BMI) 46.3 Physical Exam Const Constitutional Narrative: Seen emergency room. Nontoxic. Afebrile. HEENT normocephalic and head/scalp atraumatic Eyes Eyes Narrative: No icterus Resp normal respiratory effort, no retractions and no use of accessory muscles Cardio regular rate, regular rhythm, S1 normal heart sound and S2 normal heart sound GI normal to inspection, nondistended, normoactive bowel sounds and soft to palpation GI Narrative: Slightly distended but not taut. Pronounced right upper quadrant tenderness with slight rebound and guarding. Extremity normal to inspection Neuro moves all extremities Sensorium / Orientation: awake Psych affect normal Results Lab / Micro Data Attestation: I reviewed the patient's lab results. 03/13/23 16:45 03/13/23 16:45 Labs: Laboratory Results - last 24 hr 03/13/23 16:45: WBC 15.5 H, RBC 5.04, Hgb 15.8, Hct 46.8, MCV 92.9, MCH 31.3, M CHC 33.8, RDW Std Deviation 45.1 H, RDW Coeff of Fátima 13.2, Plt Count 258, MPV 10.4, Immature Gran % (Auto) 1.600 H, Neut % (Auto) 72.2 H, Lymph % (Auto) 17.4 L, [place] % (Auto) 8.1, Eos % (Auto) 0.4, Baso % (Auto) 0.3, Absolute Neuts (auto) 11.2 H, Absolute Lymphs (auto) 2.69, Nucleated RBC % 0, Sodium 127 L, Potassium 4.2, Chloride 91 L, Carbon Dioxide 29.0, Anion Gap 7, BUN 20 H, Creatinine 1.54 H, Estim Creat Clear Calc 58.02, Est GFR (MDRD) Af Amer 62, Est GFR (MDRD) Non- Af 51 L, BUN/Creatinine Ratio 13.0, Glucose 390 H, Calcium 9.1, Total Bilirubin 1.30 H, AST 24, ALT 103 H, Alkaline Phosphatase 175 H, Total Protein 8.5 H, Albumin 3.2, Globulin 5.3 H, Albumin/Globulin Ratio 0.6 L, Lipase 45 03/13/23 18:00: Urine Color Yellow, Urine Clarity Clear, Urine pH 5.0, Ur Specific [place] 1.020, Urine Protein 15 H, Urine Glucose (UA) 1000 H, Urine Ketones 15 H, Urine Occult Blood Negative, Urine Nitrite Negative, Urine Bilirubin Negative, Urine Urobilinogen Normal, Ur Leukocyte Esterase Negative, Urine RBC 0 SEEN, Urine WBC 0 SEEN, Ur Squamous Epith Cells 0 SEEN, Urine Bacteria RARE, Urine Mucus RARE Imagaing Radiology Impression Abdomen/Pelvis CT 03/13/23 18:34 IMPRESSION: 1. Suspect distal migration of biliary stent barely within the distal common bile duct with the distal aspect in the third portion the duodenum and likely distal tiny structure with moderate intrahepatic biliary ductal dilatation. 2. Suspect small hepatic metastases. Electronically Signed: Edgardo Jarquin MD at 20:35 EST , Assessment & Plan Assessment/Plan (1) Biliary stent migration: QUALIFIERS: Encounter type: subsequent encounter Qualified Code(s): T85.520D - Displacement of bile duct prosthesis, subsequent encounter PLAN: GI was contacted in the emergency room and will be seeing the patient on the floor. Patient on clear liquid diet and n.p.o. overnight. Patient does have a history of choledocholithiasis and consult has been placed to general surgery as well. Do not anticipate any imminent plans for cholecystectomy at this time. (2) Liver lesion: PLAN: Unclear significance. For metastatic lesion versus infectious etiology versus benign. Will order an MRI of the abdomen. Patient may need CT-guided biopsy. Patient will be on piperacillin/tazobactam Follow-up cultures. PLAN: Plan Chronic conditions * Diabetes mellitus type 2: Insulin-dependent. Patient has labile blood sugars per his description but his blood sugars are high here. He has been taking glargine twice daily plus scheduled insulin. Will continue with glargine but cut the dose in half while he is n.p.o. Sliding scale insulin interim. * Morbid obesity * ADHD: Patient had been on Adderall but has not seen his PCP recently. Follow- up PCP to have that resumed. * Hypothyroidism continue levothyroxine VTE prophylaxis: SCDs for now. Holding off chemical prophylaxis in case intervention is required.
--- NOTE | 2023-03-13 23:27 | MRI_ITS ---
STUDY: MRI ABDOMEN WITH AND WITHOUT CONTRAST REASON FOR EXAM: Male, 48 years old. hepatic lesions, ABDWW ATTN LIVER, positive CT finding, abdomen pain TECHNIQUE: Standardized fat and water weighted pulse sequences were obtained in all 3 orthogonal planes post contrast administration. IV clariscan 28ml was administered for the contrast portion of the examination. COMPARISON: CT 03/13/2023 FINDINGS: The visualized lung bases are unremarkable. The visualized portions of the heart are within normal limits. There are multiple low T2 and low T1 lesions throughout the liver, which demonstrate peripheral enhancement, as seen on image 63 of series 1301. Dominant lesion is in the medial right hepatic lobe extending into the caudate lobe on image 79 of series 1301 measuring 3.4 x 3.6 cm. This particular lesion demonstrates some complexity with internal enhancing septation (image 78 series 1304). Mild amorphous enhancement around the lesions in the adjacent hepatic parenchyma seen on venous phase imaging. The gallbladder is not well distended but there appears to be some amount of wall thickening and enhancement along the fundus (image 93 series 1301. Mild intrahepatic bile duct dilation affecting the left more than right bile ducts as seen on image 68 series 1304. Normal spleen. The pancreas enhances normally without evidence of hyperenhancing or hypoenhancing lesions. The Silastic stent described on prior CT is not clearly seen on MRI. Portal vein is patent. Normal bilateral adrenal glands. Normal right kidney. Normal left kidney. Hollow viscus structures are unremarkable. Normal abdominal aorta. Normal inferior vena cava. Normal retroperitoneum. Normal abdominal wall. No bone marrow edema. MRI/MRI Abd WITH and W/O Contrast IMPRESSION: 1. Multiple peripherally enhancing lesions of the liver (predominantly in medial right hepatic lobe, caudate lobe) with adjacent hyperemia. While neoplasm/metastasis possible (no provided history of known neoplasm), infection/hepatic abscesses related to ascending cholangitis is felt to be more likely (particularly given history of leukocytosis provided on prior CT). Mild left more than right intrahepatic bile duct dilation. 2. The Silastic stent described on prior MRI is not clearly seen. 3. Contracted gallbladder with mild thickening and enhancement of the gallbladder fundus suggests possibility of early cholecystitis. Electronically Signed: Eric Haynes MD (Brooks) at 12:09 EST Reading Location ID and State: [address] [place] [address] , Service support ,
[2023-03-13] MEDS: 0.9% Normal Saline (1000mL) 1,000 ML 150 ML IV (23:59)
[2023-03-14] VITALS (9 sets, daily range): BP systolic 120–148; BP diastolic 86–101; PULSE 80–95; RESP 16–20; TEMP 36.3–36.8; O2SAT 91–98
--- NOTE | 2023-03-14 | FLU_PTH ---
PATIENT: DANIELA BERG LOC: MS3 U#:[id number] AGE/SX: 48/M ROOM: DC315 RE03/13/[address]: Dr. Radhames Cosby DO : 1975 BED: 1 DIS: 03/19/2023 SPEC #: [id number] RECD: 03/14/23 17:27 STATUS: TONO REQ #: [id number] EMRE: 03/14/23 00:[address]: Santos Carter DEPT: CYTOLOGY RECD BY: Henri Morley ENTERED: 03/17/23 09:23 SP TYPE: Fluid OTHR DR: DO Dr. Neisha Donis DO Dr. Michael Bortz, MD Dr. Robert Leininger, MD No Primary Care Phys Tissues: Biliary tract, NOS Procedures: Special Stain Group II Surgery Specimen Level IV Cytospin Fluid Comments: @ Ordering doctor for SSII edited from to @ by OLMAN at 03/17/23 145 @ Ordering doctor for SUIV edited from to @ by OLMAN at 03/17/23 145 @ Ordering doctor for CYSPIN edited from to @ by OLMAN at 03/17/23 1452 @ Submitting doctor edited from to @ by RGOOD at 03/17/232 HEADER OPERATION: ERCP PRE-OP DIAGNOSIS: Biliary stent migration, liver lesion TISSUE SUBMITTED: Biliary duct fluid for cytology DIAGNOSIS CYTOLOGY Biliary duct fluid for cytology (cytospin and cell block): Negative for malignant cells. See comment. AM:judith 03/18/2023 COMMENT Please correlate with corresponding surgical case [id number]. CYTOLOGY STUDY Slides are reviewed. CYTOLOGY GROSS Received is 1 ml of yellow cloudy fluid labeled with the patient's name and and designated per the requisition as biliary stent. Submitted for cytology preparation including cell block. / judith 03/17/2023 TC:5 CPT: 75517, 08638
--- NOTE | 2023-03-14 | MISC_PTH ---
PATIENT: DANIELA BERG LOC: MS3 U#:[id number] AGE/SX: 48/M ROOM: [id number] RE03/13/[address]: Dr. Radhames Cosby DO : 1975 BED: 1 DIS: 03/19/2023 SPEC #: [id number] RECD: 03/14/23 17:27 STATUS: TONO REDez #: [id number] EMRE: 03/14/23 00:[address]: Santos Carter DEPT: SURGICAL PATHOLOGY RECD BY: Henri Morley ENTERED: 03/17/23 09:22 SP TYPE: MISC OTHR DR: DO Dr. Neisha Donis DO Dr. Michael Bortz, MD Dr. Robert Leininger, MD No Primary Care Phys Tissues: Biliary tract, NOS Procedures: Surgery Specimen Level IV Comments: @ Ordering doctor for SUIV edited from to @ by OLMAN at 03/17/23 145 @ Submitting doctor edited from to @ by RGOOD at 03/17/231451 HEADER OPERATION: ERCP PRE-OP DIAGNOSIS: Biliary stent migration, liver lesion TISSUE SUBMITTED: Biliary stricture biopsy SpyBite for path MICROSCOPIC DIAGNOSIS Biliary stricture, biopsy: Mild fibrosis. Focal acute and chronic inflammation. No evidence of malignancy. Fibrinopurulent material. See comment. AM:judith 03/18/2023 COMMENT Please correlate with corresponding cytology [id number]. MICROSCOPIC DESCRIPTION Slides are reviewed. GROSS DESCRIPTION Received in fixative is one container labeled with the patient's name and designated biliary stricture biopsy. The specimen consists of multiple irregular fragments of light alexis soft tissue that in aggregate measure 1.2 x 0.1 x 0.1 cm. The specimen is totally submitted in one cassette. / SJ:judith 03/17/2023 TC:2 CPT: 61139
[2023-03-14] MEDS: Piperacil/Tazobactam 3.375 GM in 0.9% Normal Saline (50mL MB+) 50 ML IV ×3 (06:00→22:41)
[2023-03-14] MEDS: Insulin Lispro 100 UNIT/ML INSULN.PEN SC ×2 (06:13→10:44)
[2023-03-14] MEDS: Morphine 2 MG/ML Syringe IV ×5 (06:19→23:57)
[2023-03-14 06:23] LABS: Absolute Lymphocyte Count 2.08 X10^3/uL (0.83-4.51); Absolute Neutrophil Count 13.7 X10^3/uL (2.0-7.7); Basophil# 0.08 X10^3/uL; Basophil% 0.5 % (0-1); Eosinophil# 0.04 X10^3/uL; Eosinophils% 0.2 % (0-5); Hematocrit 43.6 % (40-54); Hemoglobin 14.1 g/dL (13.0-16.5); Lymphocyte # 2.08 X10^3/ul (0.83-4.51); Mean Corp Hgb Conc 32.3 g/dL (32-36); Mean Corpuscular Hgb 30.7 pg (27.0-32.0); Mean Corpuscular Volume 94.8 fL (80-94); Mean Platelet Vol. 10.7 fl (6.2-12.0); Monocyte# 1.27 X10^3/uL; Monocyte% 7.3 % (0-10); NRBC Flagged by Analyzer 0 % (0-5); Neutrophil # 13.66 X10^3/uL (2.7-7.7); Neutrophil % 78.8 % (47-70); Platelet Count 223 K/mm3 (150-450); RBC Distribution Width SD 45.1 fl (35.1-43.9); White Blood Count 17.3 K/mm3 (4.4-11.0)
[2023-03-14 06:27] LABS: Bedside Glucose 347 mg/dL (74-106)
[2023-03-14] MEDS: Budesonide Respules 0.5 MG/2 ML AMPUL.NEB. INHALATION ×2 (07:07→19:44)
[2023-03-14 07:33] LABS: ALB/GLOB Ratio 0.6 RATIO (0.9-2.4); AST(SGOT) 35 U/L (15-37); Alanine Aminotransfer ALT/SGPT 98 U/L (16-61); Albumin, Serum 2.8 g/dL (3.2-5.0); Alkaline Phosphatase 280 U/L (45-117); Anion Gap 7 (5-15); BUN 21 mg/dL (7-18); BUN/Creat Ratio 14.2 RATIO (10-20); Calcium,Total 8.4 mg/dL (8.5-10.1); Chloride 95 mmol/L (98-107); Creatinine, Serum 1.48 mg/dL (0.70-1.30); EST Glomerular Filtration Rate 54 mL/min (>60); Est Glom Filt Rate - Afr Amer 65 mL/min (>60); Estimated Creatinine Clearance 60.38 ml/min; Globulin 4.8 g/dL (2.2-4.2); Glucose 368 mg/dL (74-106); Potassium 4.4 mmol/L (3.5-5.1); Protein, Total 7.6 g/dL (6.4-8.2); Sodium Level 132 mmol/L (136-145)
--- NOTE | 2023-03-14 07:51 | PN.HOSP_ITS ---
Reason for Visit Reason for Visit: Abdominal pain Subjective Subjective Mr. Naylor is a 48-year-old white male who presented to emergency department was prehospital 03/13/2023 complaining of abdominal pain. In November of last year he had choledocholithiasis and had a stent placed. The patient was to follow-up with GI and general surgery for eventual cholecystectomy but due to a series of events he was never able to get transportation arranged to make these appointments so he is never followed up. The patient did have some upper right quadrant that persisted after his stent was placed but overall improved however it progressively has gotten worse as of recent. On presentation he complained of right upper quadrant pain as well as epigastric abdominal pain that was worse when he coughs and is present consistently. Vital signs on presentation were o verall unremarkable other than some elevated blood pressure 164/93. He had a leukocytosis with a left shift on his CBC and his chemistry panel showed some serum creatinine elevation at 1.48 with baseline unclear and marked hyperglycemia with a blood sugar of 390. His sodium level was 132 however I highly suspect pseudohyponatremia with his elevated blood sugars. He had an elevated bilirubin 1.3 and his transaminases were elevated with a normal AST but his ALT was 103 and his alk phos was 175. CT of the abdomen pelvis showed suspected distal migration of the biliary stent that was currently barely in the distal common bile duct with the distal aspect noted in the third portion of the duodenum and suspected tiny stricture with moderate intrahepatic ductal dilation and abnormalities in the liver that were suspicious for hepatic metastasis. These findings were new when compared to previous CT of the abdomen pelvis in November 2021. Gastroenterology was contacted and was concerned about the possibility infection and recommended antibiotics. He was started on Zosyn emergency department and admitted to the medical floor where he was placed on IV fluids, given a clear diet and n.p.o. after midnight as well as as needed pain medications. MRI was ordered to further evaluate the liver. Has been feeling somewhat poorly since but has always had right upper quadrant pain. His biggest concern at this point is that he has cancer. We did discuss the findings on the MRI. He is awaiting his ERCP. Patient does report he has had intermittent chills since and just been feeling poorly overall in addition to having worsening abdominal pain. Objective Data Objective Data Vital Signs: Vital Signs Temp Pulse Resp BP Pulse Ox O2 Del Method 98.0 F 95 20 H 134/96 H 91 Room Air 03/14/23 06:00 03/14/23 07:09 03/14/23 07:09 03/14/23 06:00 03/14/23 07:09 03/14/23 07:09 Oxygen Delivery Method Room Air Weight: 142.156 kg Body Mass Index (BMI) 46.3 Intake & Output: Intake and Output for Last 24 Hours 03/12/23 03/13/23 03/14/23 23:59 23:59 23:59 Intake Total 100 / 100 1000 / 1000 Balance 100 / 100 1000 / 1000 Lab / Micro Data 03/14/23 05:54 03/14/23 05:54 Labs: Laboratory Results - last 24 hr 03/13/23 16:45: WBC 15.5 H, RBC 5.04, Hgb 15.8, Hct 46.8, MCV 92.9, MCH 31.3, MCHC 33.8, RDW Std Deviation 45.1 H, RDW Coeff of Fátima 13.2, Plt Count 258, MPV 10.4, Immature Gran % (Auto) 1.600 H, Neut % (Auto) 72.2 H, Lymph % (Auto) 17.4 L, [place] % (Auto) 8.1, Eos % (Auto) 0.4, Baso % (Auto) 0.3, Absolute Neuts (auto) 11.2 H, Absolute Lymphs (auto) 2.69, Nucleated RBC % 0, Sodium 127 L, Potassium 4.2, Chloride 91 L, Carbon Dioxide 29.0, Anion Gap 7, BUN 20 H, Creatinine 1.54 H, Estim Creat Clear Calc 58.02, Est GFR (MDRD) Af Amer 62, Est GFR (MDRD) Non- Af 51 L, BUN/Creatinine Ratio 13.0, Glucose 390 H, Calcium 9.1, Total Bilirubin 1.30 H, AST 24, ALT 103 H, Alkaline Phosphatase 175 H, Total Protein 8.5 H, Albumin 3.2, Globulin 5.3 H, Albumin/Globulin Ratio 0.6 L, Lipase 45 03/13/23 18:00: Urine Color Yellow, Urine Clarity Clear, Urine pH 5.0, Ur Specific [place] 1.020, Urine Protein 15 H, Urine Glucose (UA) 1000 H, Urine Ketones 15 H, Urine Occult Blood Negative, Urine Nitrite Negative, Urine Bilirubin Negative, Urine Urobilinogen Normal, Ur Leukocyte Esterase Negative, Urine RBC 0 SEEN, Urine WBC 0 SEEN, Ur Squamous Epith Cells 0 SEEN, Urine Bacteria RARE, Urine Mucus RARE 03/14/23 05:54: WBC 17.3 H, RBC 4.60, Hgb 14.1, Hct 43.6, MCV 94.8 H, MCH 30.7, MCHC 32.3, RDW Std Deviation 45.1 H, RDW Coeff of Fátima 13.0, Plt Count 223, MPV 10.7, Immature Gran % (Auto) 1.200 H, Neut % (Auto) 78.8 H, Lymph % (Auto) 12.0 L, [place] % (Auto) 7.3, Eos % (Auto) 0.2, Baso % (Auto) 0.5, Absolute Neuts (auto) 13.7 H, Absolute Lymphs (auto) 2.08, Nucleated RBC % 0, Sodium 132 L, Potassium 4.4, Chloride 95 L, Carbon Dioxide 30.0, Anion Gap 7, BUN 21 H, Creatinine 1.48 H, Estim Creat Clear Calc 60.38, Est GFR (MDRD) Af Amer 65, Est GFR (MDRD) Non- Af 54 L, BUN/Creatinine Ratio 14.2, Glucose 368 H, Calcium 8.4 L, Total Bilirubi n 1.20 H, AST 35, ALT 98 H, Alkaline Phosphatase 280 H, Total Protein 7.6, Albumin 2.8 L, Globulin 4.8 H, Albumin/Globulin Ratio 0.6 L 03/14/23 06:08: POC Glucose 347 H Radiography Diagnostic Testing: Radiology Impression Abdomen/Pelvis CT 03/13/23 18:34 IMPRESSION: 1. Suspect distal migration of biliary stent barely within the distal common bile duct with the distal aspect in the third portion the duodenum and likely distal tiny structure with moderate intrahepatic biliary ductal dilatation. 2. Suspect small hepatic metastases. Electronically Signed: Edgardo Jarquin MD at 20:35 EST , Physical Exam Const alert, oriented x3, no apparent distress and well nourished Constitutional Narrative: Morbidly obese, middle-aged, white male, sitting up in bed, appears comfortable and nontoxic HEENT head/scalp atraumatic and moist oral mucous membranes HEENT Narrative: Dentition is poor, Mallampati is 3, no thrush Head and Scalp: normocephalic Resp normal respiratory effort, no retractions, no use of accessory muscles and clear to auscultation bilaterally Cardio regular rate, regular rhythm, S1 normal heart sound, S2 normal heart sound, no murmurs, no rub and no gallops GI normal to inspection, nondistended, normoactive bowel sounds and soft to pa lpation GI Narrative: Tenderness in epigastric region and right upper quadrant Extremity no clubbing, cyanosis or edema Extremity Narrative: Pedal pulses are 2+ Neuro oriented x3, moves all extremities and no focal motor deficits Speech: speech normal Psych affect normal Psych Narrative: Very pleasant, patient interacts appropriately Assessment & Plan Assessment/Plan (1) Biliary stent migration: QUALIFIERS: Encounter type: subsequent encounter Qualified Code(s): T85.520D - Displacement of bile duct prosthesis, subsequent encounter (2) Leukocytosis: (3) Acute upper abdominal pain: (4) Liver lesion: (5) Transaminitis: PLAN: Plan Right upper quadrant/epigastric abdominal pain -CT is suspicious of migrated biliary stent -N.p.o. -Start NS at 75 cc/h -As needed morphine for pain -Continue Zosyn -Check RUQ US per d/w GS -GI consultation--> I discussed the case with Dr. Carter and plan is for ERCP later today Liver lesion -Abnormal liver lesions that are suspicious for metastatic disease noted on CT of the abdomen pelvis -MRI is suggestive of possible abscess formation so we will check blood cultures -May need biopsy -Continue Zosyn -Cultures are pending as there was concern for infection -Check MRSA PCR -tumor markers pending -General surgery was consulted Transaminitis -Likely related to the above -Will follow after his stent has either been removed or repositioned Leukocytosis -Has trended up slightly -Continue Zosyn -Await cultures -Repeat CBC in a.m. Elevated serum creatinine -Baseline is unclear -Current serum creatinine is 1.48 and was at 1.54 on admission -Start IV fluids with LR at 75 cc/h -Repeat BMP in a.m. DM-2 -Appears to be uncontrolled as blood sugars are markedly elevated at greater than 300 -Most recent hemoglobin A1c was from November 2021 and was 10.2 -Repeat A1c in the a.m. -Appears patient has not been compliance with his home diabetes medications per MAR -Continue Lantus but increase dose from 30 to 40 units twice daily as blood sugars remain elevated -SSI as ordered -Accu-Cheks as ordered Hypothyroidism -Continue home levothyroxine -Check a.m. TSH Elevated blood pressure -Patient does not appear to carry diagnosis of hypertension -We will continue to monitor and start an HANNAH inhibitor if able. Asthma/COPD -Continue home inhalers ADHD -Hold home Adderall and restart at discharge Morbid obesity -BMI is 46.3 -Recommend weight loss Having LVH treatment, prognosis, outcomes Tobacco abuse -Patient smokes 1/4 to 1/2 pack daily -Add nicotine replacement therapy DVT prophylaxis -Subcu Lovenox twice daily with BMI CODE STATUS Full code Charges/Coding Visit Charges Inpatient E&M: 75520 Subs Hosp L2
[2023-03-14] MEDS: 0.9% Saline Lock 10 ML Syringe IV (08:34)
[2023-03-14] MEDS: Ondansetron 4 MG/2 ML Vial IV ×2 (08:34→18:48)
[2023-03-14] MEDS: 0.9% Normal Saline (1000mL) 1,000 ML 75 ML IV (10:43)
[2023-03-14] MEDS: Insulin Glargine-YFGN 100 UNIT/ML Pen 40 UNIT SC ×2 (10:44→23:44)
[2023-03-14 11:08] LABS: Bedside Glucose 327 mg/dL (74-106)
--- NOTE | 2023-03-14 11:30 | CASEMGMT ---
AMAYA MARLEY Assessment: Face to Face with pt for initial transition planning/care coordination assessment. AMAYA MARLEY introduced self and role at [facility], pt voices understanding and consents to assessment. Pt is A&O x4 and answers all questions appropriately at this time. Pt sitting on edge of bed in no distress. Care providers, pharmacy, and demographics verified/updated. Admitting Dx:abdominal pain with migrating biliary stent PCP:Austen Pires Specialists:none Preferred Pharmacy:[facility] Retail Insurance: [employer] Prescription Benefit: yes LNOK: Pia Naylor, Living Arrangements: Pt lives alone in a ground level apt with no steps to enter. Pt reports he is completely I in all ADL's and IADL's. Pt denies concerns at home. Transportation: Pt does not drive. Pt sister provides transportation. DME:None HHC/SNF: Denies hx of Pt states no concerns with going home at time of dc. Pt reports he had transportation issues when he was supposed to have gotten the stent removed last year then was feeling better so he did not follow up. Pt states he now realizes the importance of follow up and will do so. Pt states no further concerns/needs. CM to follow. Advised pt to ask CM if any further question/concerns/needs arise, voices understanding. Pt Goal: Home Plan: Home
--- NOTE | 2023-03-14 12:31 | EX.PCM.CON.S ---
Assessment & Plan Assessment/Plan (1) Acute upper abdominal pain: PLAN: This is a 48-year-old male with past medical history of type 1 diabetes (poorly controlled), hyperlipidemia, hypertension, GERD, bipolar, COPD, seizures, smoking, obesity, and hypothyroidism who presents with recurrence of abdominal pain after recent admission for pancreatitis. However, more remotely, patient was evaluated for cholestatic hepatitis and underwent ERCP with stent placement but notably no choledocholithiasis was identified at that time. Patient currently having some postprandial right upper quadrant pain, but on exam has minimal right upper quadrant tenderness and negative Kennedy sign. Further, in my review of patient's CT imaging he has a small nondistended gallbladder without evidence of cholelithiasis on either yesterday's exam or that from 2021. Therefore, I find it unlikely that he has acute cholecystitis. His working differential includes an underlying infectious process with multiple pyogenic abscesses of the liver versus possible primary biliary mass with liver metastasis. Patient's leukocytosis and the remainder of his differential per his complete blood count panel suggests an underlying infectious process, but the etiology for this is unclear as his LFTs are largely normal?suggesting that his stent?although migrated?is draining. MRCP is recently resulted and seems to favor an infectious etiology, but more definitive information should be revealed with patient's pending ERCP. In the interim I have recommended to patient's primary team that we obtain a sonogram to assess for evidence of cholelithiasis (and cholecystitis) as patient may have radiolucent stones. I held a lengthy conversation with the patient detailing the relevant anatomy and the differential possibilities. I did share with him that percutaneous biopsy of his liver may not be straightforward given the location of the dominant lesion and the small size and locations of the more peripheral satellite lesions. He was appreciative of this explanation. Will continue to follow. ? Follow-up results of ERCP ? Follow-up right upper quadrant ultrasound ? Agree with empiric antimicrobial coverage for biliary/enteric pathogens Dr. Recio will be rounding for the weekend. HPI Consult Data Date of Consult: 03/14/23 HPI Narrative Reason for Consultation: Rule out cholecystitis HPI Narrative: DANIELA BERG, is a 48 M who presented to [facility] yesterday with complaints of progressive right upper quadrant pain after a recent admission through [facility] starting for diagnosis of pancreatitis. He notes that he has had right upper quadrant discomfort for a very long time but this experience last month was the first of true pain. He states that it always seem to follow a mealtime and was associated with both nausea and chills. He denies any adverse effect to his bowel habits. Patient's workup revealed largely normal LFTs, bilirubin, and CT imaging consistent with migration of a common bile duct stent and a number of new liver lesions suggestive of possible metastases. Beyond the above, patient has a history of presentation for right upper quadrant discomfort and jaundice dating to November 2021. At that time he was diagnosed with cholestatic hepatitis and his hyperbilirubinemia exceeded 10. On 12/05/2021 patient underwent ERCP with stent placement by Dr. Mcnamara. Notably, although ductal dilatation was confirmed, no cause (including choledocholithiasis) for this dilatation was revealed and patient was referred to gastroenterology for possible cholangioscopy to further evaluate for possible biliary stricture. Patient shares that he was informed by the gastroenterology clinic when he attempted to establish outpatient follow-up that this procedure would not be scheduled for 2 or 3 months. He was dissatisfied with this answer and sought a second opinion through his primary care provider. He shares that a engine emission technician in [place] agreed to see him, however, his transportation arrangements fell through and he began feeling better so the issue was dropped altogether. PFSH Medical History Alcohol abuse Anxiety Asthma Back pain due to injury Biliary stent migration Bipolar disorder COPD (chronic obstructive pulmonary disease) CPAP (continuous positive airway pressure) dependence Depression GERD (gastroesophageal reflux disease) High cholesterol Hypertension Hypothyroidism Restless legs Seizures Smoker Home Medications albuterol sulfate 90 mcg/actuation aerosol inhaler (Ventolin HFA) 2 inh inhalation Q2H PRN Shortness Of Breath Or Wheezing 12/04/21 [History Last Taken Unknown] dextroamphetamine-amphetamine 30 mg tablet (Adderall) 30 mg PO DAILY adhd 12/04/21 [History Last Taken Unknown] fluticasone propionate 220 mcg/actuation HFA aerosol inhaler (Flovent HFA) 2 inh inhalation BID asthma 12/04/21 [History Last Taken Unknown] levothyroxine 50 mcg tablet (Euthyrox) 50 mcg PO DAILY 12/04/21 [History Last Taken Unknown] insulin glargine 100 unit/mL (3 mL) subcutaneous pen (Lantus Solostar U-100 Insulin) 30 unit (0.3 mL) subcut BID dm #15 mL 12/06/21 [Rx Last Taken Unknown] insulin lispro 100 unit/mL subcutaneous pen (Humalog KwikPen (U-100) Insulin) 30 unit (0.3 mL) subcut TIDAC dm #15 mL 12/06/21 [Rx Last Taken Unknown] insulin lispro 100 unit/mL subcutaneous pen (Humalog KwikPen (U-100) Insulin) See Protocol subcut Q6 dm #0 mL 12/06/21 [Rx Last Taken Unknown] pen needle, diabetic 29 gauge x 1/2 (Pen Needle) ##1 12/06/21 [Rx Last Taken Unknown] Allergy/AdvReac Type Severity Reaction Status Date / Time latex Allergy Rash Verified 03/13/23 15:32 Family History Father Cancer Hx Lung CA with tobacco use history. Other Heart disease Hypertension Surgical History H/O esophagogastroduodenoscopy History of colonoscopy Social History household members: other details: Lives with his son. Notes moved in 2 years prior. Smoking Status: Current every day smoker tobacco type: cigarettes how long ago did patient quit smoking: Patient attempting to quit, started age 10, smoked 2 ppd until 2 years ago. alcohol intake: former details: Notes sober x 15-20 years. substance use type: does not use Physical Exam Const alert, oriented x3 and no apparent distress Constitutional Narrative: Normal complexion without evidence of jaundice Nutritional Appearance: obese morbidly obese Resp normal respiratory effort GI GI Narrative: Obese, no scars, no vertebral herniation. Soft with mild tenderness over the epigastrium. Patient with additional tenderness palpation of bilateral abdominal quadrants. Negative Kennedy sign. Lab / Micro Data 03/14/23 05:54 03/14/23 05:54 Labs: Laboratory Results - last 24 hr 03/13/23 16:45: WBC 15.5 H, RBC 5.04, Hgb 15.8, Hct 46.8, MCV 92.9, MCH 31.3, MCHC 33.8, RDW Std Deviation 45.1 H, RDW Coeff of Fátima 13.2, Plt Count 258, MPV 10.4, Immature Gran % (Auto) 1.600 H, Neut % (Auto) 72.2 H, Lymph % (Auto) 17.4 L, [place] % (Auto) 8.1, Eos % (Auto) 0.4, Baso % (Auto) 0.3, Absolute Neuts (auto) 11.2 H, Absolute Lymphs (auto) 2.69, Nucleated RBC % 0, Sodium 127 L, Potassium 4.2, Chloride 91 L, Carbon Dioxide 29.0, Anion Gap 7, BUN 20 H, Creatinine 1.54 H, Estim Creat Clear Calc 58.02, Est GFR (MDRD) Af Amer 62, Est GFR (MDRD) Non-Af 51 L, BUN/Creatinine Ratio 13.0, Glucose 390 H, Calcium 9.1, Total Bilirubin 1.30 H, AST 24, ALT 103 H, Alkaline Phosphatase 175 H, Total Protein 8.5 H, Albumin 3.2, Globulin 5.3 H, Albumin/Globulin Ratio 0.6 L, Lipase 45 03/13/23 18:00: Urine Color Yellow, Urine Clarity Clear, Urine pH 5.0, Ur Specific [place] 1.020, Urine Protein 15 H, Urine Glucose (UA) 1000 H, Urine Ketones 15 H, Urine Occult Blood Negative, Urine Nitrite Negative, Urine Bilirubin Negative, Urine Urobilinogen Normal, Ur Leukocyte Esterase Negative, Urine RBC 0 SEEN, Urine WBC 0 SEEN, Ur Squamous Epith Cells 0 SEEN, Urine Bacteria RARE, Urine Mucus RARE 03/14/23 05:54: WBC 17.3 H, RBC 4.60, Hgb 14.1, Hct 43.6, MCV 94.8 H, MCH 30.7, MCHC 32.3, RDW Std Deviation 45.1 H, RDW Coeff of Fátima 13.0, Plt Count 223, MPV 10.7, Immature Gran % (Auto) 1.200 H, Neut % (Auto) 78.8 H, Lymph % (Auto) 12.0 L, [place] % (Auto) 7.3, Eos % (Auto) 0.2, Baso % (Auto) 0.5, Absolute Neuts (auto) 13.7 H, Absolute Lymphs (auto) 2.08, Nucleated RBC % 0, Sodium 132 L, Potassium 4.4, Chloride 95 L, Carbon Dioxide 30.0, Anion Gap 7, BUN 21 H, Creatinine 1.48 H, Estim Creat Clear Calc 60.38, Est GFR (MDRD) Af Amer 65, Est GFR (MDRD) Non-Af 54 L, BUN/Creatinine Ratio 14.2, Glucose 368 H, Hemoglobin A1c 10.0 H, Calcium 8.4 L, Total Bilirubin 1.20 H, AST 35, ALT 98 H, Alkaline Phosphatase 280 H, Total Protein 7.6, Albumin 2.8 L, Globulin 4.8 H, Albumin/Globulin Ratio 0.6 L 03/14/23 06:08: POC Glucose 347 H 03/14/23 10:41: POC Glucose 327 H Imagaing Radiology Impression Abdomen/Pelvis CT 03/13/23 18:34 IMPRESSION: 1. Suspect distal migration of biliary stent barely within the distal common bile duct with the distal aspect in the third portion the duodenum and likely distal tiny structure with moderate intrahepatic biliary ductal dilatation. 2. Suspect small hepatic metastases. Electronically Signed: Edgardo Jarquin MD at 20:35 EST , Abdomen MRI 03/13/23 23:27 IMPRESSION: 1. Multiple peripherally enhancing lesions of the liver (predominantly in medial right hepatic lobe, caudate lobe) with adjacent hyperemia. While neoplasm/metastasis possible (no provided history of known neoplasm), infection/hepatic abscesses related to ascending cholangitis is felt to be more likely (particularly given history of leukocytosis provided on prior CT). Mild left more than right intrahepatic bile duct dilation. 2. The Silastic stent described on prior MRI is not clearly seen. 3. Contracted gallbladder with mild thickening and enhancement of the gallbladder fundus suggests possibility of early cholecystitis. Electronically Signed: Eric Haynes MD ([place]) at 12:09 EST , Charges/Coding Visit Charges Inpatient E&M: 40410 Init Hosp L2
[2023-03-14] MEDS: 0.9% Normal Saline (1000mL) 1,000 ML 15 ML IV (14:05)
--- NOTE | 2023-03-14 14:07 | US_ITS ---
EXAM: US ABDOMEN LIMITED, RIGHT UPPER QUADRANT CLINICAL INDICATION: ruq pain TECHNIQUE: Real-time ultrasound of the right upper quadrant with image documentation. COMPARISON: CT scan of the abdomen and pelvis with contrast 03/13/2023. FINDINGS: LIVER: Irregular hypoechoic mass measuring 4.5 x 3.3 x 4.4 cm in the right lobe liver corresponds to the hypodense lesion in segment VII of the right lobe of the liver on the CT scan. No definite Doppler signal on Doppler imaging. The liver measures 21 cm. Increased echogenicity of the liver. No intrahepatic biliary ductal dilation. GALLBLADDER: Gallbladder not visualized. No gallbladder wall thickening is demonstrated. No pericholecystic fluid. Negative sonographic Kennedy''s sign. COMMON BILE DUCT: Common bile duct measures 5 mm. The proximal common bile duct is within normal limits for the patient''s age. PANCREAS: Visualized portions of the pancreas are normal. RIGHT KIDNEY: Unremarkable. There is no hydronephrosis. No shadowing calculus. No focal lesion or perinephric collection is demonstrated. US/Abdomen Limited IMPRESSION: 1. Irregular hypoechoic mass measuring 4.5 x 3.3 x 4.4 cm in the right lobe liver corresponds to the hypodense lesion in segment VII of the right lobe of the liver on the CT scan. No definite Doppler signal on Doppler imaging. Differential diagnosis includes hepatic abscess or mass. 2. Enlarged fatty liver. 3. Gallbladder not visualized. Gallbladder was visualized on the recent CT scan and appeared contracted but otherwise normal. Electronically Signed: Bean Dickson MD at 6:26 EST ,
--- NOTE | 2023-03-14 15:47 | RAD_ITS ---
ERCP INDICATION: Abdominal pain. Fluoroscopy time: 2:23 neck Images obtained: 13. TECHNIQUE: Fluoroscopy the abdomen was utilized operating during an ERCP and 13 images are significant for interpretation. FINDINGS: A stent is seen within the distal common bile duct. Balloon sphincterotomy and stent replacement was performed. RAD/ERCP Biliary/Pancreas IMPRESSION: Fluoroscopy during ERCP. Electronically Signed: Edgardo Jarquin MD at 19:03 EST ,
--- NOTE | 2023-03-14 17:24 | OP.CCLET_ITS ---
03/14/2023 No Primary Care Physician Re : ERCP procedure for Marcin Naylor Dear Care Physician This procedure was performed on Tuesday, March 14, 2023. My impressions and recommendations are as follows: Impressions : - Pus was visualized via SpyGlass in the entire main bile duct. - A polyp was visualized via SpyGlass in the upper third of the main duct. - A filling defect consistent with a stone and sludge was seen on the cholangiogram. - Choledocholithiasis was found. Complete removal was accomplished by biliary sphincterotomy and balloon extraction. - A biliary sphincterotomy was performed. - The biliary tree was swept. - One stent was removed from the biliary tree. - The middle third of the main bile duct was successfully dilated. - Lithotripsy was successful. - The biliary tree was swept and pus and clots were found. - One temporary stent was placed into the common bile duct. Recommendations : My findings are described in the full procedure note, which is enclosed. If I can be of further assistance, please feel free to contact me at . Sincerely, Santos Carter, 03/14/2023 5:23:34 PM This report has been signed electronically.
--- NOTE | 2023-03-14 17:24 | OP.ERCP_ITS ---
Patient Name: Marcin Naylor Procedure Date: 03/14/2023 3:09 PM Date of : 1975 Age: 48 Procedure: ERCP Indications: Bile duct stone(s), Common bile duct stricture, Stent removal Providers: Santos Carter DO Medicines: Monitored Anesthesia Care Patient Profile: This is a 48 year old male. Refer to note in patient chart for documentation of history and physical. Patient has symptoms of acute right upper quadrant abdominal pain and acute jaundice. Complications: No immediate complications. Procedure: Pre-Anesthesia Assessment: - Prior to the procedure, a History and Physical was performed, and patient medications and allergies were reviewed. The patient is competent. The risks and benefits of the procedure and the sedation options and risks were discussed with the patient. All questions were answered and informed consent was obtained. Patient identification and proposed procedure were verified by the physician in the pre-procedure area. Mental Status Examination: alert and oriented. Airway Examination: normal oropharyngeal airway and neck mobility. Respiratory Examination: clear to auscultation. CV Examination: normal. Prophylactic Antibiotics: The patient does not require prophylactic antibiotics. Prior Anticoagulants: The patient has taken no anticoagulant or antiplatelet agents. ASA Grade Assessment: II - A patient with mild systemic disease. After reviewing the risks and benefits, the patient was deemed in satisfactory condition to undergo the procedure. The anesthesia plan was to use monitored anesthesia care (MAC). Immediately prior to administration of medications, the patient was re-assessed for adequacy to receive sedatives. The heart rate, respiratory rate, oxygen saturations, blood pressure, adequacy of pulmonary ventilation, and response to care were monitored throughout the procedure. The physical status of the patient was re-assessed after the procedure. After obtaining informed consent, the scope was passed under direct vision. Throughout the procedure, the patient's blood pressure, pulse, and oxygen saturations were monitored continuously. The Duodenoscope was introduced through the mouth, and advanced to the duodenum and used to inject contrast into the bile duct and ventral pancreatic duct. The ERCP was accomplished without difficulty. The patient tolerated the procedure well. Scope In: 3:48:40 PM Scope Out: 5:08:51 PM Total Procedure Duration Time 1 hour 20 minutes 11 seconds Findings: The district scout executive film was normal. The esophagus was successfully intubated under direct vision. The scope was advanced to a normal major papilla in the descending duodenum without detailed examination of the pharynx, larynx and associated structures, and upper GI tract. The upper GI tract was grossly normal. The bile duct was deeply cannulated with the short-nosed traction sphincterotome. Contrast was injected. I personally interpreted the bile duct and pancreatic duct images. There was brisk flow of contrast through the ducts. Image quality was adequate. Contrast extended to the entire biliary tree. Placement of a 0.035 inch x 260 cm angled Hydra Jagwire into the biliary tree was attempted. This passed successfully. The main bile duct and gallbladder contained filling defect(s) thought to be a stone and sludge. A 5 mm biliary sphincterotomy was made with a braided traction (standard) sphincterotome using ERBE electrocautery. Moderate bleeding from the sphincterotomy stopped within 5 minutes. The biliary tree was swept with a 15 mm balloon starting at the right main hepatic duct. Sludge was swept from the duct. All stones were removed. One stent was removed from the biliary tree using a snare and sent for cytology. The stent was found to be patent via the water column test. Dilation of the middle third of the main bile duct with 10-12 Fr catheter dilator was successful. The bile duct was explored endoscopically using the SpyGlass direct visualization system. The SpyScope was advanced to the right intrahepatic duct(s). Visibility with the scope was excellent. Pus was found in the entire main bile duct. The bile duct was explored endoscopically using the SpyGlass direct visualization system. The SpyScope was advanced to the upper third of the main bile duct. Visibility with the scope was excellent. The main bile duct contained multiple stones, the largest of which was 6 mm in diameter. The upper third of the main bile duct contained a pedunculated polyp. Electrohydraulic lithotripsy was successful. The biliary tree was swept with a 12 mm balloon starting at the right main hepatic duct. Sludge was swept from the duct. All stones were removed. Pus was swept from the duct. Clots were swept from the duct. One 10 Fr by 9 cm temporary stent with a single external flap and two internal flaps was placed 5 cm into the common bile duct. Bile flowed through the stent. The stent was in good position. The hepatic duct bifurcation was biopsied with a [employer] miniature biopsy forceps for histology. Impression: - Pus was visualized via SpyGlass in the entire main bile duct. - A polyp was visualized via SpyGlass in the upper third of the main duct. - A filling defect consistent with a stone and sludge was seen on the cholangiogram. - Choledocholithiasis was found. Complete removal was accomplished by biliary sphincterotomy and balloon extraction. - A biliary sphincterotomy was performed. - The biliary tree was swept. - One stent was removed from the biliary tree. - The middle third of the main bile duct was successfully dilated. - Lithotripsy was successful. - The biliary tree was swept and pus and clots were found. - One temporary stent was placed into the common bile duct. Procedure Code(s): --- Professional --- 64344, Endoscopic retrograde cholangiopancreatography (ERCP); with removal and exchange of stent(s), biliary or pancreatic duct, including pre- and post-dilation and guide wire passage, when performed, including sphincterotomy, when performed, each stent exchanged 84401, 51, Endoscopic retrograde cholangiopancreatography (ERCP); with destruction of calculi, any method (eg, mechanical, electrohydraulic, lithotripsy) 73057, 59, Endoscopic retrograde cholangiopancreatography (ERCP); with biopsy, single or multiple 33395, Endoscopic cannulation of papilla with direct visualization of pancreatic/common bile duct(s) (List separately in addition to code(s) for primary procedure) 57354, 26, Combined endoscopic catheterization of the biliary and pancreatic ductal systems, radiological supervision and interpretation CPT copyright 2021 [employer]. All rights reserved. The codes documented in this report are preliminary and upon summer child caregiver review may be revised to meet current compliance requirements. Santos Carter DO 03/14/2023 5:23:34 PM This report has been signed electronically. Number of Addenda: 0 Note Initiated On: 03/14/2023 3:09 PM
--- NOTE | 2023-03-14 17:27 | NURSING ---
pt has been off floor for ERCP since 1344
[2023-03-14 20:33] LABS: M R Staph aureus DNA By PCR Negative (Negative); Probe Check PASS; Specimen Processing Control PASS
[2023-03-14] MEDS: Acetaminophen 500 MG Tablet 1000 MG PO (22:42)
[2023-03-14] MEDS: oxyCODONE 5 MG Tablet PO (22:42)
[2023-03-14 23:51] LABS: Glucose 567 mg/dL (74-106)
[2023-03-14] MEDS: Insulin Lispro 100 UNIT/ML INSULN.PEN 10 UNIT SC (23:57)
[2023-03-15] VITALS (7 sets, daily range): BP systolic 127–153; BP diastolic 69–93; PULSE 78–87; RESP 16–18; TEMP 36.6–36.8; O2SAT 94–100
[2023-03-15 04:07] LABS: AFP, Tumor Marker < 1.8 ng/mL (0.0-6.9); Carbohydrate AG 19-9 197 U/mL (0-35); Carcinoembryonic Antigen 3.2 ng/mL (0.0-4.7)
[2023-03-15] MEDS: Morphine 2 MG/ML Syringe IV (04:47)
[2023-03-15] MEDS: Piperacil/Tazobactam 3.375 GM in 0.9% Normal Saline (50mL MB+) 50 ML IV ×3 (04:50→21:56)
[2023-03-15] MEDS: 0.9% Normal Saline (1000mL) 1,000 ML 75 ML IV (04:57)
[2023-03-15 07:14] LABS: Bedside Glucose 376 mg/dL (74-106)
[2023-03-15 07:46] LABS: Bedside Glucose > 500 mg/dL (74-106)
--- NOTE | 2023-03-15 08:20 | PCM.PN.SRG ---
Subjective Subjective pt c/o epigastric pain going thru back Objective Data Objective Data Vital Signs: Vital Signs Temp Pulse Resp BP Pulse Ox O2 Del Method 97.9 F 78 18 136/86 H 94 Room Air 03/15/23 04:00 03/15/23 04:00 03/15/23 04:00 03/15/23 04:00 03/15/23 06:58 03/15/23 06:58 Oxygen Delivery Method Room Air Weight: 313 lb 6.4 oz Body Mass Index (BMI) 46.3 Intake & Output: Intake and Output for Last 24 Hours 03/13/23 03/14/23 03/15/23 23:59 23:59 23:59 Intake Total 100 / 100 1100 / 1100 1050 / 1050 Balance 100 / 100 1100 / 1100 1050 / 1050 Lab / Micro Data 03/15/23 07:53 03/15/23 07:53 Labs: Laboratory Results - last 24 hr 03/14/23 05:54: Hemoglobin A1c 10.0 H, Tumor Marker AFP < 1.8, Carcinoembryonic Ag 3.2, CA 19-9 Antigen 197 H 03/14/23 10:41: POC Glucose 327 H 03/14/23 19:00: MRSA (PCR) Negative 03/14/23 23:04: POC Glucose > 500 H* 03/14/23 23:23: Glucose 567 H* 03/15/23 06:57: POC Glucose 376 H Radiography Diagnostic Testing: Radiology Impression Abdomen MRI 03/13/23 23:27 IMPRESSION: 1. Multiple peripherally enhancing lesions of the liver (predominantly in medial right hepatic lobe, caudate lobe) with adjacent hyperemia. While neoplasm/metastasis possible (no provided history of known neoplasm), infection/hepatic abscesses related to ascending cholangitis is felt to be more likely (particularly given history of leukocytosis provided on prior CT). Mild left more than right intrahepatic bile duct dilation. 2. The Silastic stent described on prior MRI is not clearly seen. 3. Contracted gallbladder with mild thickening and enhancement of the gallbladder fundus suggests possibility of early cholecystitis. Electronically Signed: Eric Haynes MD ([place]) at 12:09 EST , Abdomen Ultrasound 03/14/23 14:07 IMPRESSION: 1. Irregular hypoechoic mass measuring 4.5 x 3.3 x 4.4 cm in the right lobe liver corresponds to the hypodense lesion in segment VII of the right lobe of the liver on the CT scan. No definite Doppler signal on Doppler imaging. Differential diagnosis includes hepatic abscess or mass. 2. Enlarged fatty liver. 3. Gallbladder not visualized. Gallbladder was visualized on the recent CT scan and appeared contracted but otherwise normal. Electronically Signed: Bean Dickson MD at 6:26 EST , Endo Retro Cholangiopancreatogram 03/14/23 15:47 IMPRESSION: Fluoroscopy during ERCP. Electronically Signed: Edgardo Jarquin MD at 19:03 EST , Physical Exam Const oriented x3 and no apparent distress Resp normal respiratory effort Cardio regular rate GI soft to palpation GI Narrative: ttp epigastric no PS Assessment & Plan Assessment/Plan (1) Choledocholithiasis: (2) S/P ERCP: (3) Liver lesion: PLAN: Plan Pt has epigastric pain this AM maybe due to pancreatitis/ERCP. will check lipase--diet per GI Liver lesions likely abscesses due to purulent material seen from CBD and choledocholithiasis, continue IV abx and likely re-image Friday. No current plans for lap stacey will recheck imaging before discussing further. Charges/Coding Visit Charges Inpatient E&M: 33993 Subs Hosp L2
[2023-03-15 08:59] LABS: Absolute Lymphocyte Count 1.61 X10^3/uL (0.83-4.51); Absolute Neutrophil Count 12.8 X10^3/uL (2.0-7.7); Basophil# 0.02 X10^3/uL; Basophil% 0.1 % (0-1); Hematocrit 40.7 % (40-54); Hemoglobin 13.2 g/dL (13.0-16.5); Lymphocyte # 1.61 X10^3/ul (0.83-4.51); Lymphocyte % 10.5 % (19-41); Mean Corp Hgb Conc 32.4 g/dL (32-36); Mean Corpuscular Hgb 31.1 pg (27.0-32.0); Mean Platelet Vol. 10.6 fl (6.2-12.0); Monocyte# 0.81 X10^3/uL; Monocyte% 5.3 % (0-10); NRBC Flagged by Analyzer 0 % (0-5); Neutrophil # 12.76 X10^3/uL (2.7-7.7); Neutrophil % 83.4 % (47-70); Platelet Count 246 K/mm3 (150-450); RBC Distribution Width CV 13.1 % (11.6-14.6); RBC Distribution Width SD 46.3 fl (35.1-43.9); Red Blood Count 4.24 M/mm3 (4.6-6.2); White Blood Count 15.3 K/mm3 (4.4-11.0)
[2023-03-15] MEDS: Insulin Glargine-YFGN 100 UNIT/ML Pen 40 UNIT SC ×2 (09:16→22:04)
[2023-03-15 09:48] LABS: ALB/GLOB Ratio 0.6 RATIO (0.9-2.4); AST(SGOT) 27 U/L (15-37); Alanine Aminotransfer ALT/SGPT 80 U/L (16-61); Albumin, Serum 2.6 g/dL (3.2-5.0); Alkaline Phosphatase 232 U/L (45-117); Anion Gap 4 (5-15); BUN 17 mg/dL (7-18); BUN/Creat Ratio 14.7 RATIO (10-20); Calcium,Total 7.8 mg/dL (8.5-10.1); Chloride 101 mmol/L (98-107); Creatinine, Serum 1.16 mg/dL (0.70-1.30); EST Glomerular Filtration Rate 71 mL/min (>60); Est Glom Filt Rate - Afr Amer 86 mL/min (>60); Estimated Creatinine Clearance 77.03 ml/min; Globulin 4.5 g/dL (2.2-4.2); Glucose 308 mg/dL (74-106); Magnesium 2.6 mg/dL (1.6-2.6); Phosphorus 2.1 mg/dL (2.5-4.9); Potassium 4.8 mmol/L (3.5-5.1); Protein, Total 7.1 g/dL (6.4-8.2); Sodium Level 134 mmol/L (136-145); Thyroid Stim Hormone (TSH) 0.64 uIU/mL (0.358-3.74)
[2023-03-15 09:51] LABS: Lipase 107 U/L (13-75)
[2023-03-15] MEDS: Insulin Lispro 100 UNIT/ML INSULN.PEN SC ×2 (11:36→15:47)
[2023-03-15 11:57] LABS: Bedside Glucose 267 mg/dL (74-106)
[2023-03-15] MEDS: Lactated Ringers 1,000 ML 200 ML IV ×3 (12:31→23:22)
--- NOTE | 2023-03-15 13:03 | PN.HOSP_ITS ---
Reason for Visit Reason for Visit: Abdominal pain Subjective Subjective Patient states his right upper quadrant pain is somewhat better. He states the morphine is not all that effective and the Dilaudid worked better. He is relieved that this does not appear to be a malignancy and more likely an infection. I did discuss the plan with him to repeat imaging on Friday to assess the liver abscesses that are present. Clinically he is improved. I did discuss with him that I suspect his blood sugars are elevated in relationship to his acute infection. He voiced understanding. Objective Data Objective Data Vital Signs: Vital Signs Temp Pulse Resp BP Pulse Ox O2 Del Method 98.1 F 84 18 127/69 H 100 Room Air 03/15/23 11:00 03/15/23 11:00 03/15/23 11:00 03/15/23 11:00 03/15/23 11:00 03/15/23 11:00 Oxygen Delivery Method Room Air Weight: 142.156 kg Body Mass Index (BMI) 46.3 Intake & Output: Intake and Output for Last 24 Hours 03/13/23 03/14/23 03/15/23 23:59 23:59 23:59 Intake Total 100 / 100 1100 / 1100 1437.5 / 1437.5 Balance 100 / 100 1100 / 1100 1437.5 / 1437.5 Lab / Micro Data 03/15/23 07:53 03/15/23 07:53 Labs: Laboratory Results - last 24 hr 03/14/23 05:54: Tumor Marker AFP < 1.8, Carcinoembryonic Ag 3.2, CA 19-9 Antigen 197 H 03/14/23 19:00: MRSA (PCR) Negative 03/14/23 23:04: POC Glucose > 500 H* 03/14/23 23:23: Glucose 567 H* 03/15/23 06:57: POC Glucose 376 H 03/15/23 07:53: WBC 15.3 H, RBC 4.24 L, Hgb 13.2, Hct 40.7, MCV 96.0 H, MCH 31.1, MCHC 32.4, RDW Std Deviation 46.3 H, RDW Coeff of Fátima 13.1, Plt Count 246, MPV 10.6, Immature Gran % (Auto) 0.700, Neut % (Auto) 83.4 H, Lymph % (Auto) 10.5 L, Ada % (Auto) 5.3, Eos % (Auto) 0.0, Baso % (Auto) 0.1, Absolute Neuts (auto) 12.8 H, Absolute Lymphs (auto) 1.61, Nucleated RBC % 0, Sodium 134 L, Potassium 4.8, Chloride 101, Carbon Dioxide 29.0, Anion Gap 4 L, BUN 17, Creatinine 1.16, Estim Creat Clear Calc 77.03, Est GFR (MDRD) Af Amer 86, Est GFR (MDRD) Non-Af 71, BUN/Creatinine Ratio 14.7, Glucose 308 H, Calcium 7.8 L, Phosphorus 2.1 L, Magnesium 2.6, Total Bilirubin 0.70, AST 27, ALT 80 H, Alkaline Phosphatase 232 H, Total Protein 7.1, Albumin 2.6 L, Globulin 4.5 H, Albumin/Globulin Ratio 0.6 L, Lipase 107 H, TSH 0.64 03/15/23 11:34: POC Glucose 267 H Radiography Diagnostic Testing: Radiology Impression Abdomen Ultrasound 03/14/23 14:07 IMPRESSION: 1. Irregular hypoechoic mass measuring 4.5 x 3.3 x 4.4 cm in the right lobe liver corresponds to the hypodense lesion in segment VII of the right lobe of the liver on the CT scan. No definite Doppler signal on Doppler imaging. Differential diagnosis includes hepatic abscess or mass. 2. Enlarged fatty liver. 3. Gallbladder not visualized. Gallbladder was visualized on the recent CT scan and appeared contracted but otherwise normal. Electronically Signed: Bean Dickson MD at 6:26 EST , Endo Retro Cholangiopancreatogram 03/14/23 15:47 IMPRESSION: Fluoroscopy during ERCP. Electronically Signed: Edgardo Jarquin MD at 19:03 EST , Physical Exam Const alert, oriented x3, no apparent distress and well nourished Constitutional Narrative: Morbidly obese, middle-aged, white male, sitting up on the edge of the bed, appears comfortable and nontoxic HEENT normocephalic, head/scalp atraumatic and moist oral mucous membranes HEENT Narrative: Mallampati 4, no thrush, dentition is poor Resp normal respiratory effort, no retractions, no use of accessory muscles and clear to auscultation bilaterally Cardio regular rate, regular rhythm, S1 normal heart sound, S2 normal heart sound, no murmurs, no rub, no gallops and no clicks GI normal to inspection, nondistended, normoactive bowel sounds and soft to palpation GI Narrative: Mild tenderness in right upper quadrant however improved since yesterday Extremity no clubbing, cyanosis or edema Extremity Narrative: Pedal pulses are 2+ Neuro oriented x3, moves all extremities and no focal motor deficits Speech: speech normal Psych affect normal Psych Narrative: Very pleasant, patient interacts appropriately Assessment & Plan Assessment/Plan (1) Biliary stent migration: QUALIFIERS: Encounter type: subsequent encounter Qualified Code(s): T85.520D - Displacement of bile duct prosthesis, subsequent encounter (2) Leukocytosis: (3) Acute upper abdominal pain: (4) Liver lesion: (5) Transaminitis: (6) Choledocholithiasis: (7) S/P ERCP: (8) Ascending cholangitis: PLAN: Plan Ascending cholangitis -ERCP was complex and demonstrated pus in the entire main bile duct, polyp in the upper third of the main duct which was biopsied, filling defect consistent with a stone and choledocholithiasis was found with removal via sphincterotomy and balloon extraction, sweeping of the biliary tree with 1 stent removal and the middle third of the main bile duct was successfully dilated with lithotripsy performed and temporary stent was placed here, there was also significant pus and clots in the biliary tree consistent with a sending cholangitis -On MRI of the liver lesions are suspicious for multiple abscesses -Discussed with general surgery and GI and the plan is for repeat imaging on Friday to assess -If improved with antibiotics and ERCP we will continue antibiotics -If worsened or no better will need transferred to tertiary center for consideration of source control and drainage -Okay for clear liquids and advance to full's as able -Discontinue IV fluids at 75 cc/h and start at 200 cc/h for 24 hours given the complexity of the ERCP and concern for post ERCP pancreatitis -Transition from morphine to Dilaudid for pain control -Continue Zosyn -Tumor markers are pending -Right upper quadrant ultrasound shows hyperechoic mass that is 4 x 3 x 4 cm in the right lobe of the liver that corresponds with a hypodensity lesion in the right lobe of the liver on CT scan, liver is enlarged and fatty -General surgery and GI to follow -Appreciate input Transaminitis -Trending down with repositioning of his stent Leukocytosis -Trending down -Continue Zosyn -Await cultures -Repeat CBC in a.m. Elevated serum creatinine -Resolved -Current serum creatinine is 1.16 and was at 1.54 on admission -Repeat BMP in a.m. DM-2 -Appears to be uncontrolled as blood sugars are markedly elevated at [facility] n [facility] -Most recent hemoglobin A1c was from November 2021 and was 10.2 -Repeat hemoglobin A1c from yesterday is 10.0 indicating poor control -Appears patient has not been compliance with his home diabetes medications per JUN -Continue Lantus 40 units twice daily -Suspect his sugars are markedly elevated due to infection however it appears she has poor control baseline -SSI as ordered -Accu-Cheks as ordered Hypothyroidism -Continue home levothyroxine -TSH is within normal limits Elevated blood pressure -Patient does not appear to carry diagnosis of hypertension -Blood pressures are overall better today and will continue to monitor however no need for acute intervention at this time Asthma/COPD -Continue home inhalers ADHD -Hold home Adderall and restart at discharge Morbid obesity -BMI is 46.3 -Recommend weight loss Having LVH treatment, prognosis, outcomes Tobacco abuse -Patient smokes 1/4 to 1/2 pack daily -Continue nicotine replacement therapy DVT prophylaxis -Subcu Lovenox twice daily with BMI CODE STATUS Full code Charges/Coding Visit Charges Inpatient E&M: 62271 Subs Hosp L2
[2023-03-15] MEDS: Acetaminophen 500 MG Tablet 1000 MG PO ×2 (14:05→21:56)
[2023-03-15] MEDS: 0.9% Saline Lock 10 ML Syringe IV ×3 (14:19→18:06)
[2023-03-15] MEDS: HYDROmorphone 0.5 MG/0.5 ML SYRINGE IV ×3 (14:19→21:56)
[2023-03-15] MEDS: Ondansetron 4 MG/2 ML Vial IV (14:26)
[2023-03-15 16:09] LABS: Bedside Glucose 319 mg/dL (74-106)
[2023-03-15] MEDS: Budesonide Respules 0.5 MG/2 ML AMPUL.NEB. INHALATION (20:32)
[2023-03-15 23:01] LABS: Bedside Glucose 221 mg/dL (74-106)
[2023-03-16] MEDS: Lactated Ringers 1,000 ML 200 ML IV (04:08)
[2023-03-16] MEDS: HYDROmorphone 0.5 MG/0.5 ML SYRINGE IV ×2 (04:09→08:02)
[2023-03-16 05:01] VITALS: BP 169/89; PULSE 76; RESP 18; TEMP 36.5; O2SAT 97
[2023-03-16] MEDS: Acetaminophen 500 MG Tablet 1000 MG PO ×3 (05:33→21:03)
[2023-03-16] MEDS: Levothyroxine 50 MCG Tablet PO (05:33)
[2023-03-16] MEDS: Piperacil/Tazobactam 3.375 GM in 0.9% Normal Saline (50mL MB+) 50 ML IV ×3 (05:33→21:03)
[2023-03-16] MEDS: Insulin Lispro 100 UNIT/ML INSULN.PEN SC ×3 (05:58→17:00)
[2023-03-16] MEDS: Ondansetron 4 MG/2 ML Vial IV (08:03)
[2023-03-16] MEDS: 0.9% Saline Lock 10 ML Syringe IV (08:03)
[2023-03-16] MEDS: Insulin Glargine-YFGN 100 UNIT/ML Pen 40 UNIT SC (08:03)
[2023-03-16 08:10] LABS: Absolute Lymphocyte Count 2.38 X10^3/uL (0.83-4.51); Absolute Neutrophil Count 9.6 X10^3/uL (2.0-7.7); Basophil# 0.03 X10^3/uL; Basophil% 0.2 % (0-1); Eosinophil# 0.05 X10^3/uL; Eosinophils% 0.4 % (0-5); Hematocrit 40.6 % (40-54); Hemoglobin 13.3 g/dL (13.0-16.5); Lymphocyte # 2.38 X10^3/ul (0.83-4.51); Lymphocyte % 18.5 % (19-41); Mean Corp Hgb Conc 32.8 g/dL (32-36); Mean Corpuscular Hgb 31.4 pg (27.0-32.0); Mean Platelet Vol. 10.6 fl (6.2-12.0); Monocyte# 0.75 X10^3/uL; Monocyte% 5.8 % (0-10); NRBC Flagged by Analyzer 0 % (0-5); Neutrophil # 9.59 X10^3/uL (2.7-7.7); Neutrophil % 74.5 % (47-70); Platelet Count 274 K/mm3 (150-450); RBC Distribution Width CV 13.2 % (11.6-14.6); RBC Distribution Width SD 46.7 fl (35.1-43.9); Red Blood Count 4.23 M/mm3 (4.6-6.2); White Blood Count 12.9 K/mm3 (4.4-11.0)
[2023-03-16 08:36] LABS: ALB/GLOB Ratio 0.6 RATIO (0.9-2.4); AST(SGOT) 29 U/L (15-37); Alanine Aminotransfer ALT/SGPT 74 U/L (16-61); Albumin, Serum 2.7 g/dL (3.2-5.0); Alkaline Phosphatase 198 U/L (45-117); Anion Gap 5 (5-15); BUN 12 mg/dL (7-18); BUN/Creat Ratio 11.7 RATIO (10-20); Calcium,Total 8.2 mg/dL (8.5-10.1); Chloride 99 mmol/L (98-107); Creatinine, Serum 1.03 mg/dL (0.70-1.30); EST Glomerular Filtration Rate 82 mL/min (>60); Est Glom Filt Rate - Afr Amer 99 mL/min (>60); Estimated Creatinine Clearance 86.75 ml/min; Globulin 4.4 g/dL (2.2-4.2); Glucose 247 mg/dL (74-106); Potassium 3.4 mmol/L (3.5-5.1); Protein, Total 7.1 g/dL (6.4-8.2); Sodium Level 133 mmol/L (136-145)
--- NOTE | 2023-03-16 08:53 | PN.SURG_ITS ---
Subjective Subjective Patient still points of some upper abdomen/lower chest pain goes through to his back but patient did tolerate clears with no issues, Objective Data Objective Data Vital Signs: Vital Signs Temp Pulse Resp BP Pulse Ox O2 Del Method 97.7 F L 76 18 169/89 H 97 Room Air 03/16/23 05:01 03/16/23 05:01 03/16/23 05:01 03/16/23 05:01 03/16/23 05:01 03/16/23 08:13 Oxygen Delivery Method Room Air Weight: 313 lb 6.4 oz Body Mass Index (BMI) 46.3 Intake & Output: Intake and Output for Last 24 Hours 03/14/23 03/15/23 03/16/23 23:59 23:59 23:59 Intake Total 1100 / 1100 4096.25 / 4496.25 1753.33 / 1753.33 Balance 1100 / 1100 4096.25 / 4496.25 1753.33 / 1753.33 Lab / Micro Data 03/16/23 06:15 03/16/23 06:15 Labs: Laboratory Results - last 24 hr 03/15/23 07:53: WBC 15.3 H, RBC 4.24 L, Hgb 13.2, Hct 40.7, MCV 96.0 H, MCH 31.1, MCHC 32.4, RDW Std Deviation 46.3 H, RDW Coeff of Fátima 13.1, Plt Count 246, MPV 10.6, Immature Gran % (Auto) 0.700, Neut % (Auto) 83.4 H, Lymph % (Auto) 10.5 L, Saline % (Auto) 5.3, Eos % (Auto) 0.0, Baso % (Auto) 0.1, Absolute Neuts (auto) 12.8 H, Absolute Lymphs (auto) 1.61, Nucleated RBC % 0, Sodium 134 L, Potassium 4.8, Chloride 101, Carbon Dioxide 29.0, Anion Gap 4 L, BUN 17, Creatinine 1.16, Estim Creat Clear Calc 77.03, Est GFR (MDRD) Af Amer 86, Est GFR (MDRD) Non-Af 71, BUN/Creatinine Ratio 14.7, Glucose 308 H, Calcium 7.8 L, Phosphorus 2.1 L, Magnesium 2.6, Total Bilirubin 0.70, AST 27, ALT 80 H, Latrice line Phosphatase 232 H, Total Protein 7.1, Albumin 2.6 L, Globulin 4.5 H, Albumin/Globulin Ratio 0.6 L, Lipase 107 H, TSH 0.64 03/15/23 11:34: POC Glucose 267 H 03/15/23 15:45: POC Glucose 319 H 03/15/23 22:02: POC Glucose 221 H 03/16/23 06:15: WBC 12.9 H, RBC 4.23 L, Hgb 13.3, Hct 40.6, MCV 96.0 H, MCH 31.4, MCHC 32.8, RDW Std Deviation 46.7 H, RDW Coeff of Fátima 13.2, Plt Count 274, MPV 10.6, Immature Gran % (Auto) 0.600, Neut % (Auto) 74.5 H, Lymph % (Auto) 18.5 L, Saline % (Auto) 5.8, Eos % (Auto) 0.4, Baso % (Auto) 0.2, Absolute Neuts (auto) 9.6 H, Absolute Lymphs (auto) 2.38, Nucleated RBC % 0, Sodium 133 L, Potassium 3.4 L, Chloride 99, Carbon Dioxide 29.0, Anion Gap 5, BUN 12, Creatinine 1.03, Estim Creat Clear Calc 86.75, Est GFR (MDRD) Af Amer 99, Est GFR (MDRD) Non-Af 82, BUN/Creatinine Ratio 11.7, Glucose 247 H, Calcium 8.2 L, Total Bilirubin 0.70, AST 29, ALT 74 H, Alkaline Phosphatase 198 H, Total Protein 7.1, Albumin 2.7 L, Globulin 4.4 H, Albumin/Globulin Ratio 0.6 L Micro: Microbiology 03/14/23 19:08 Blood Culture (Wb) - Left Hand Blood Culture - Preliminary Physical Exam Const oriented x3 and no apparent distress Resp normal respiratory effort Cardio regular rate GI soft to palpation Palpation: Negative for tender Assessment & Plan Assessment/Plan (1) Choledocholithiasis: (2) S/P ERCP: (3) Liver lesion: PLAN: Plan Tolerated clears will advance to full's Liver lesions likely abscesses due to purulent material seen from CBD and choledocholithiasis, continue IV abx and likely re-image Friday. Blood count down to 12.9 from 15. No current plans for lap stacey will recheck imaging before discussing further. Arabella Recio M.D. Pager: [phone] [facility] [address] [place] [address], [facility], [address] [place] [address] Office: [phone] Charges/Coding Visit Charges Inpatient E&M: 72596 Subs Hosp L2
[2023-03-16] MEDS: Potassium Chloride Oral Tablet 20 MEQ 40 MEQ PO (10:20)
[2023-03-16 11:00] VITALS: BP 142/88; PULSE 78; RESP 18; TEMP 36.4; O2SAT 100
[2023-03-16 11:21] LABS: Bedside Glucose 375 mg/dL (74-106)
[2023-03-16] MEDS: Pantoprazole Sodium 40 MG in 0.9% Normal Saline (100mL MB+) 100 ML 330 MG IV (11:30)
--- NOTE | 2023-03-16 12:24 | PCM.PN.HOSP ---
Reason for Visit Reason for Visit: Abdominal pain Subjective Subjective Patient states he is feeling much better. White count is improving. Liver functions are improving. He is tolerating a full liquid diet without difficulty so we will advance him to regular food. No signs of post ERCP pancreatitis at this time. Objective Data Objective Data Vital Signs: Vital Signs Temp Pulse Resp BP Pulse Ox O2 Del Method 97.5 F L 78 18 142/88 H 100 Room Air 03/16/23 11:00 03/16/23 11:00 03/16/23 11:00 03/16/23 11:00 03/16/23 11:00 03/16/23 11:00 Oxygen Delivery Method Room Air Weight: 142.156 kg Body Mass Index (BMI) 46.3 Intake & Output: Intake and Output for Last 24 Hours 03/14/23 03/15/23 03/16/23 23:59 23:59 23:59 Intake Total 1100 / 1100 4096.25 / 4496.25 2873.33 / 2873.33 Balance 1100 / 1100 4096.25 / 4496.25 2873.33 / 2873.33 Lab / Micro Data 03/16/23 06:15 03/16/23 06:15 Labs: Laboratory Results - last 24 hr 03/15/23 15:45: POC Glucose 319 H 03/15/23 22:02: POC Glucose 221 H 03/16/23 05:57: POC Glucose 375 H 03/16/23 06:15: WBC 12.9 H, RBC 4.23 L, Hgb 13.3, Hct 40.6, MCV 96.0 H, MCH 31.4, MCHC 32.8, RDW Std Deviation 46.7 H, RDW Coeff of Fátima 13.2, Plt Count 274, MPV 10.6, Immature Gran % (Auto) 0.600, Neut % (Auto) 74.5 H, Lymph % (Auto) 18.5 L, Angelina % (Auto) 5.8, Eos % (Auto) 0.4, Baso % (Auto) 0.2, Absolute Neuts (auto) 9.6 H, Absolute Lymphs (auto) 2.38, Nucleated RBC % 0, Sodium 133 L, Potassium 3.4 L, Chloride 99, Carbon Dioxide 29.0, Anion Gap 5, BUN 12, Creatinine 1.03, Estim Creat Clear Calc 86.75, Est GFR (MDRD) Af Amer 99, Est GFR (MDRD) Non-Af 82, BUN/Creatinine Ratio 11.7, Glucose 247 H, Calcium 8.2 L, Total Bilirubin 0.70, AST 29, ALT 74 H, Alkaline Phosphatase 198 H, Total Protein 7.1, Albumin 2.7 L, Globulin 4.4 H, Albumin/Globulin Ratio 0.6 L Micro: Microbiology 03/14/23 19:08 Blood Culture (Wb) - Left Hand Bacteria Detection (PCR) - Final Strep anginosus 03/14/23 19:08 Blood Culture (Wb) - Left Hand Blood Culture - Preliminary Physical Exam Const alert, oriented x3, no apparent distress and well nourished Constitutional Narrative: Morbidly obese, middle-aged, white male, sitting up on a couch at the bedside eating and watching television, appears comfortable and nontoxic HEENT normocephalic, head/scalp atraumatic and moist oral mucous membranes Resp normal respiratory effort, no retractions, no use of accessory muscles and clear to auscultation bilaterally Cardio regular rate, regular rhythm, S1 normal heart sound, S2 normal heart sound, no murmurs, no rub, no gallops and no clicks GI normal to inspection, nondistended, normoactive bowel sounds and soft to palpation GI Narrative: Minimal right upper quadrant tenderness Extremity no clubbing, cyanosis or edema Extremity Narrative: Pedal pulses are 2+ Neuro oriented x3, moves all extremities and no focal motor deficits Speech: speech normal Psych affect normal Psych Narrative: Very pleasant, patient interacts appropriately Assessment & Plan Assessment/Plan (1) Biliary stent migration: QUALIFIERS: Encounter type: subsequent encounter Qualified Code(s): T85.520D - Displacement of bile duct prosthesis, subsequent encounter (2) Leukocytosis: (3) Acute upper abdominal pain: (4) Liver lesion: (5) Transaminitis: (6) Choledocholithiasis: (7) S/P ERCP: (8) Ascending cholangitis: (9) Hypokalemia: (10) WEI (acute kidney injury): PLAN: Plan Ascending cholangitis -ERCP was complex and demonstrated pus in the entire main bile duct, polyp in the upper third of the main duct which was biopsied, filling defect consistent with a stone and choledocholithiasis was found with removal via sphincterotomy and balloon extraction, sweeping of the biliary tree with 1 stent removal and the middle third of the main bile duct was successfully dilated with lithotripsy performed and temporary stent was placed here, there was also significant pus and clots in the biliary tree consistent with a sending cholangitis -On MRI of the liver lesions are suspicious for multiple abscesses -Discussed with general surgery and GI and the plan is for repeat imaging on Friday to assess--> CT with contrast is ordered -If improved with antibiotics and ERCP we will continue antibiotics -If worsened or no better will need transferred to tertiary center for consideration of source control and drainage -Okay for clear liquids and advance to full's as able -Discontinue IV fluids -Transition to p.o. pain medications -Continue Zosyn -CA 19-9 is slightly elevated at 197--> significance is unclear with ascending cholangitis -CEA is within normal limits -AFP is within normal limits -Right upper quadrant ultrasound shows hyperechoic mass that is 4 x 3 x 4 cm in the right lobe of the liver that corresponds with a hypodensity lesion in the right lobe of the liver on CT scan, liver is enlarged and fatty -General surgery and GI to follow -ID consulted for assistance in antibiotics at discharge -Appreciate input Hypokalemia -40 mill equivalents p.o. potassium -Recheck in a.m. Transaminitis -Trending down with repositioning of his stent Leukocytosis -Continues to improve -Continue Zosyn -Await cultures -Repeat CT ordered for a.m. -Repeat CBC in a.m. WEI -Resolved -Current serum creatinine is 1.03 and was at 1.54 on admission -Repeat BMP in a.m. DM-2 -Appears to be uncontrolled as blood sugars are markedly elevated at greater than 300 -Most recent hemoglobin A1c was from November 2021 and was 10.2 -Repeat hemoglobin A1c from yesterday is 10.0 indicating poor control -Appears patient has not been compliance with his home diabetes medications per MAR -Fasting blood sugar remains elevated and was 247 this morning will increase to 50 units daily -Add 15 units prandial insulin as well -Suspect his sugars are markedly elevated due to infection however it appears she has poor control baseline -SSI as ordered -Accu-Cheks as ordered Hypothyroidism -Continue home levothyroxine -TSH is within normal limits Elevated blood pressure -Patient does not appear to carry diagnosis of hypertension -Blood pressures are overall better today and will continue to monitor however no need for acute intervention at this time Asthma/COPD -Continue home inhalers ADHD -Hold home Adderall and restart at discharge Morbid obesity -BMI is 46.3 -Recommend weight loss -Complicates treatment, prognosis, outcomes Tobacco abuse -Patient smokes 1/4 to 1/2 pack daily -Continue nicotine replacement therapy DVT prophylaxis -Subcu Lovenox twice daily with BMI CODE STATUS Full code Charges/Coding Visit Charges Inpatient E&M: 61272 Subs Hosp L2
[2023-03-16] MEDS: oxyCODONE 5 MG Tablet PO ×3 (12:43→21:18)
[2023-03-16 13:02] LABS: Bedside Glucose 319 mg/dL (74-106)
[2023-03-16 16:12] VITALS: BP 152/95; PULSE 90; RESP 18; TEMP 36.9; O2SAT 98
[2023-03-16] MEDS: Insulin Lispro 100 UNIT/ML INSULN.PEN 15 UNIT SC (17:01)
--- NOTE | 2023-03-16 17:35 | PN.GI_ITS ---
Subjective Subjective Patient is status post ERCP with removal of multiple stones and biopsies of biliary stricture. He rates his abdominal pain at a 2 out of 10 but he is tolerating a normal diet. Objective Data Objective Data Vital Signs: Vital Signs Temp Pulse Resp BP Pulse Ox O2 Del Method 98.4 F 90 18 152/95 H 98 Room Air 03/16/23 16:12 03/16/23 16:12 03/16/23 16:12 03/16/23 16:12 03/16/23 16:12 03/16/23 16:12 Oxygen Delivery Method Room Air Weight: 313 lb 6.4 oz Body Mass Index (BMI) 46.3 Intake & Output: Intake and Output for Last 24 Hours 03/14/23 03/15/23 03/16/23 23:59 23:59 23:59 Intake Total 1100 / 1100 4096.25 / 4496.25 2873.33 / 2873.33 Balance 1100 / 1100 4096.25 / 4496.25 2873.33 / 2873.33 Lab / Micro Data 03/16/23 06:15 03/16/23 06:15 Labs: Laboratory Results - last 24 hr 03/15/23 22:02: POC Glucose 221 H 03/16/23 05:57: POC Glucose 375 H 03/16/23 06:15: WBC 12.9 H, RBC 4.23 L, Hgb 13.3, Hct 40.6, MCV 96.0 H, MCH 31.4, MCHC 32.8, RDW Std Deviation 46.7 H, RDW Coeff of Fátima 13.2, Plt Count 274, MPV 10.6, Immature Gran % (Auto) 0.600, Neut % (Auto) 74.5 H, Lymph % (Auto) 18.5 L, [place] % (Auto) 5.8, Eos % (Auto) 0.4, Baso % (Auto) 0.2, Absolute Neuts (auto) 9.6 H, Absolute Lymphs (auto) 2.38, Nucleated RBC % 0, Sodium 133 L, Potassium 3.4 L, Chloride 99, Carbon Dioxide 29.0, Anion Gap 5, BUN 12, Creatinine 1.03, Estim Creat Clear Calc 86.75, Est GFR (MDRD) Af Amer 99, Est GFR (MDRD) Non-Af 82, BUN/Creatinine Ratio 11.7, Glucose 247 H, Calcium 8.2 L, Total Bilirubin 0.70, AST 29, ALT 74 H, Alkaline Phosphatase 198 H, Total Protein 7.1, Albumin 2.7 L, Globulin 4.4 H, Albumin/Globulin Ratio 0.6 L 03/16/23 11:33: POC Glucose 319 H Micro: Microbiology 03/14/23 19:08 Blood Culture (Wb) - Left Hand Bacteria Detection (PCR) - Final Strep anginosus 03/14/23 19:08 Blood Culture (Wb) - Left Hand Blood Culture - Preliminary Physical Exam Const oriented x3 and no apparent distress Resp normal respiratory effort Cardio regular rate GI soft to palpation Palpation: Negative for tender Assessment & Plan Assessment/Plan (1) Cholestatic hepatitis: PLAN: The likely etiology of his cholestatic hepatitis is secondary to choledocholithiasis versus obstructing malignant stricture. He is status post ERCP with stone removal and stent placement. I would continue him on antibiotic therapy for a total of 7 days. Awaiting CA 19-9, CEA and alpha- fetoprotein. Also awaiting biopsies of biliary stricture. (2) Jaundice: PLAN: Painful jaundice is better than painless jaundice. His jaundice has resolved with removal of choledocholithiasis status post stent placement (3) Weight loss: PLAN: Due to the weight loss he should get a CA 19-9 checked. He would likely need reimaging of the liver in percutaneous biopsies. PLAN: Plan I also suspect that he has some elements of diabetic gastroparesis because his blood sugars are not under control. Charges/Coding Visit Charges Inpatient E&M: 37245 Subs Hosp L3
[2023-03-16 17:37] LABS: Bedside Glucose 217 mg/dL (74-106)
[2023-03-16 19:22] VITALS: PULSE 92; RESP 20
[2023-03-16] MEDS: Budesonide Respules 0.5 MG/2 ML AMPUL.NEB. INHALATION (19:24)
[2023-03-16 20:15] VITALS: BP 157/83; PULSE 87; RESP 18; TEMP 36.8; O2SAT 100
[2023-03-16] MEDS: Insulin Glargine-YFGN 100 UNIT/ML Pen 50 UNIT SC (21:07)
[2023-03-16 21:27] LABS: Bedside Glucose 195 mg/dL (74-106)
[2023-03-17 02:10] VITALS: BP 154/80; PULSE 82; RESP 16; TEMP 36.9; O2SAT 100
[2023-03-17] MEDS: oxyCODONE 5 MG Tablet PO ×3 (02:40→22:22)
[2023-03-17] MEDS: Acetaminophen 500 MG Tablet 1000 MG PO ×3 (05:41→21:19)
[2023-03-17] MEDS: Levothyroxine 50 MCG Tablet PO (05:42)
[2023-03-17] MEDS: Piperacil/Tazobactam 3.375 GM in 0.9% Normal Saline (50mL MB+) 50 ML IV (05:42)
[2023-03-17] MEDS: Budesonide Respules 0.5 MG/2 ML AMPUL.NEB. INHALATION ×2 (07:03→19:22)
[2023-03-17 07:04] VITALS: PULSE 89; RESP 18; O2SAT 96
[2023-03-17 07:23] LABS: Absolute Neutrophil Count 9.2 X10^3/uL (2.0-7.7); Basophil# 0.05 X10^3/uL; Basophil% 0.4 % (0-1); Eosinophil# 0.11 X10^3/uL; Eosinophils% 0.9 % (0-5); Hematocrit 40.3 % (40-54); Lymphocyte % 19.4 % (19-41); Mean Corp Hgb Conc 32.3 g/dL (32-36); Mean Corpuscular Hgb 30.7 pg (27.0-32.0); Mean Corpuscular Volume 95.3 fL (80-94); Mean Platelet Vol. 10.3 fl (6.2-12.0); Monocyte# 0.97 X10^3/uL; Monocyte% 7.5 % (0-10); NRBC Flagged by Analyzer 0 % (0-5); Neutrophil # 9.15 X10^3/uL (2.7-7.7); Platelet Count 292 K/mm3 (150-450); RBC Distribution Width SD 45.3 fl (35.1-43.9); Red Blood Count 4.23 M/mm3 (4.6-6.2); White Blood Count 12.9 K/mm3 (4.4-11.0)
[2023-03-17 08:00] LABS: ALB/GLOB Ratio 0.6 RATIO (0.9-2.4); AST(SGOT) 20 U/L (15-37); Alanine Aminotransfer ALT/SGPT 55 U/L (16-61); Albumin, Serum 2.3 g/dL (3.2-5.0); Alkaline Phosphatase 141 U/L (45-117); Anion Gap 4 (5-15); BUN 9 mg/dL (7-18); Calcium,Total 8.2 mg/dL (8.5-10.1); Chloride 105 mmol/L (98-107); Creatinine, Serum 0.82 mg/dL (0.70-1.30); EST Glomerular Filtration Rate 107 mL/min (>60); Est Glom Filt Rate - Afr Amer 129 mL/min (>60); Estimated Creatinine Clearance 108.97 ml/min; Globulin 4.1 g/dL (2.2-4.2); Glucose 139 mg/dL (74-106); Potassium 3.8 mmol/L (3.5-5.1); Protein, Total 6.4 g/dL (6.4-8.2); Sodium Level 137 mmol/L (136-145)
--- NOTE | 2023-03-17 08:00 | CT_ITS ---
STUDY: CT ABDOMEN AND PELVIS WITH CONTRAST REASON FOR EXAM: Male, 48 years old. Liver abscess. History of cholangitis. RADIATION DOSAGE (If Supplied By Facility): CTDIvol = ( 15.41 ) mGy, DLP = ( 1305.09 ) mGycm TECHNIQUE: Transaxial images were obtained from the dome of the diaphragm to the symphysis pubis with oral contrast. Oral and amp; IV Gastrografin and amp; 100mL Isovue-370 was administered. Sagittal and coronal images were reconstructed. Individualized dose optimization techniques were used for this CT. COMPARISON: Comparison is made with prior study dated March 13, 2023. FINDINGS: The visualized lung bases are unremarkable. The visualized portions of the heart are within normal limits. Stable small hypodensities scattered throughout the right and left lobes of the liver. The largest heterogeneous hypodensity is seen in the inferior medial aspect of the right lobe of the liver measuring 3.5 cm by 3.7 cm. This is essentially unchanged. Patient has a history of hepatic abscesses. There is evidence of pneumobilia. A stent is seen within the common bile duct. Normal spleen. Normal pancreas. Normal bilateral adrenal glands. Normal right kidney. Normal left kidney. Normal visualized stomach. Normal small intestine. Normal colon. The appendix is visualized and appears normal. Normal abdominal aorta. Normal inferior vena cava. Normal retroperitoneum. Normal urinary bladder. There are prostatic calcifications. Normal abdominal wall. There are diffuse degenerative changes of the visualized lumbar spine. Stable left-sided healed rib fractures. CT/Abdomen/Pelvis WITH Contrast IMPRESSION: Stable small hypodensities in the liver as described with dominant apical attenuation abnormality seen in the inferior medial aspect of the right lobe of liver measuring 3.5 signs by 3.7 cm. There is been essentially no change. A biliary stent is seen. Electronically Signed: Reggie Cabrera MD at 8:46 EST ,
[2023-03-17 08:29] LABS: Bedside Glucose 114 mg/dL (74-106)
--- NOTE | 2023-03-17 08:36 | NURSING ---
to ct and back by w/ch
[2023-03-17 10:00] VITALS: BP 142/70; PULSE 60; RESP 18; TEMP 36.7; O2SAT 97
--- NOTE | 2023-03-17 10:00 | CON.PCM.ID_ITS ---
Assessment & Plan Assessment/Plan (1) Biliary stent migration: QUALIFIERS: Encounter type: subsequent encounter Qualified Code(s): T85.520D - Displacement of bile duct prosthesis, subsequent encounter PLAN: Ascending cholangitis with streptococcal anginosus bacteremia. Concern pyogenic liver abscess. At this time we will treat with ceftriaxone 2 g IV daily and follow clinically. Continue supportive care. Discussed with hospitalist who mentioned to me the possibility of transferring the patient. HPI Consult Data Date of Consult: 03/17/23 HPI Narrative Reason for Consultation: Ascending cholangitis/bacteremia HPI Narrative: DANIELA BERG, is a 48 M who presents multiple comorbidities including diabetes mellitus, obesity, choledocholithiasis status post biliary drain placed in the past who was admitted with chills and clinical signs of sepsis. Interestingly his admission blood cultures growing strep anginosus. Patient is currently on Zosyn. States the feeling much better. Patient had abnormal CT scan of the abdomen pelvis and is closely followed by GI specialist. Patient currently denies any nausea or vomiting. No fevers. Overall hemodynamically stable. Laboratory studies including his microbiology data reviewed. PFSH Medical History Alcohol abuse Anxiety Asthma Back pain due to injury Biliary stent migration Bipolar disorder COPD (chronic obstructive pulmonary disease) CPAP (continuous positive airway pressure) dependence Depression GERD (gastroesophageal reflux disease) High cholesterol Hypertension Hypothyroidism Restless legs Seizures Smoker Home Medications albuterol sulfate 90 mcg/actuation aerosol inhaler (Ventolin HFA) 2 inh inhalation Q2H PRN Shortness Of Breath Or Wheezing 12/04/21 [History Last Taken Unknown] dextroamphetamine-amphetamine 30 mg tablet (Adderall) 30 mg PO DAILY adhd 12/04/21 [History Last Taken Unknown] fluticasone propionate 220 mcg/actuation HFA aerosol inhaler (Flovent HFA) 2 inh inhalation BID asthma 12/04/21 [History Last Taken Unknown] levothyroxine 50 mcg tablet (Euthyrox) 50 mcg PO DAILY 12/04/21 [History Last Taken Unknown] insulin glargine 100 unit/mL (3 mL) subcutaneous pen (Lantus Solostar U-100 Insulin) 30 unit (0.3 mL) subcut BID dm #15 mL 12/06/21 [Rx Last Taken Unknown] insulin lispro 100 unit/mL subcutaneous pen (Humalog KwikPen (U-100) Insulin) 30 unit (0.3 mL) subcut TIDAC dm #15 mL 12/06/21 [Rx Last Taken Unknown] insulin lispro 100 unit/mL subcutaneous pen (Humalog KwikPen (U-100) Insulin) See Protocol subcut Q6 dm #0 mL 12/06/21 [Rx Last Taken Unknown] pen needle, diabetic 29 gauge x 1/2 (Pen Needle) ##1 12/06/21 [Rx Last Taken Unknown] Allergy/AdvReac Type Severity Reaction Status Date / Time latex Allergy Rash Verified 03/13/23 15:32 Family History Father Cancer Hx Lung CA with tobacco use history. Other Heart disease Hypertension Surgical History (Updated 03/15/23 @ 08:[address] Arabella Recio MD) H/O esophagogastroduodenoscopy History of colonoscopy S/P ERCP Social History household members: other details: Lives with his son. Notes moved in 2 years prior. Smoking Status: Current every day smoker tobacco type: cigarettes how long ago did patient quit smoking: Patient attempting to quit, started age 10, smoked 2 ppd until 2 years ago. alcohol intake: former details: Notes sober x 15-20 years. substance use type: does not use ROS ROS Narrative As stated in the history of present illness others negative Physical Exam Const Constitutional Narrative: Alert and responsive does not appear toxic. Lungs are clear heart exam S1 is 2 abdomen is obese but soft no peritoneal signs. Lab / Micro Data 03/17/23 06:40 03/17/23 06:40 Labs: Laboratory Results - last 24 hr 03/16/23 05:57: POC Glucose 375 H 03/16/23 11:33: POC Glucose 319 H 03/16/23 16:59: POC Glucose 217 H 03/16/23 21:06: POC Glucose 195 H 03/17/23 06:40: WBC 12.9 H, RBC 4.23 L, Hgb 13.0, Hct 40.3, MCV 95.3 H, MCH 30.7, MCHC 32.3, RDW Std Deviation 45.3 H, RDW Coeff of Fátima 13.0, Plt Count 292, MPV 10.3, Immature Gran % (Auto) 0.800, Neut % (Auto) 71.0 H, Lymph % (Auto) 19.4, [place] % (Auto) 7.5, Eos % (Auto) 0.9, Baso % (Auto) 0.4, Absolute Neuts (auto) 9.2 H, Absolute Lymphs (auto) 2.50, Nucleated RBC % 0, Sodium 137, Potassium 3.8, Chloride 105, Carbon Dioxide 28.0, Anion Gap 4 L, BUN 9, Creatinine 0.82, Estim Creat Clear Calc 108.97, Est GFR (MDRD) Af Amer 129, Est GFR (MDRD) Non-Af 107, BUN/Creatinine Ratio 11.0, Glucose 139 H, Calcium 8.2 L, Total Bilirubin 0.50, AST 20, ALT 55, Alkaline Phosphatase 141 H, Total Protein 6.4, Albumin 2.3 L, Globulin 4.1, Albumin/Globulin Ratio 0.6 L 03/17/23 08:01: POC Glucose 114 H Micro: Microbiology 03/14/23 19:08 Blood Culture (Wb) - Left Hand Bacteria Detection (PCR) - Final Strep anginosus 03/14/23 19:08 Blood Culture (Wb) - Left Hand Blood Culture - Preliminary Strep anginosus Imaga[facility] Radiology Impression Abdomen/Pelvis CT 03/17/23 08:00 IMPRESSION: Stable small hypodensities in the liver as described with dominant apical attenuation abnormality seen in the inferior medial aspect of the right lobe of liver measuring 3.5 signs by 3.7 cm. There is been essentially no change. A biliary stent is seen. Electronically Signed: Reggie Cabrera MD at 8:46 EST ,
[2023-03-17] MEDS: Insulin Glargine-YFGN 100 UNIT/ML Pen 50 UNIT SC ×2 (10:04→21:19)
[2023-03-17] MEDS: Pantoprazole Sodium 40 MG in 0.9% Normal Saline (100mL MB+) 100 ML 330 MG IV (10:08)
--- NOTE | 2023-03-17 10:20 | NURSING ---
rocephin not on unit for pt administration
--- NOTE | 2023-03-17 10:21 | CASEMGMT ---
According to [facility] website, the following tertiary facilities are in network: [facility], [place], [facility], [place], [facility], [facility] and .
[2023-03-17] MEDS: Insulin Lispro 100 UNIT/ML INSULN.PEN 15 UNIT SC ×3 (11:02→16:57)
[2023-03-17] MEDS: Ceftriaxone 2 GM in 0.9% Normal Saline (50mL MB+) 50 ML IV (11:21)
--- NOTE | 2023-03-17 13:15 | PCM.PN.SRG ---
Subjective Subjective Attempted to evaluate patient. Patient was sleeping in bed. Patient was difficult to arouse. Objective Data Objective Data Vital Signs: Vital Signs Temp Pulse Resp BP Pulse Ox O2 Del Method 98.0 F 60 18 142/70 H 97 Room Air 03/17/23 10:00 03/17/23 10:00 03/17/23 10:00 03/17/23 10:00 03/17/23 10:00 03/17/23 10:00 Oxygen Delivery Method Room Air Weight: 313 lb 6.4 oz Body Mass Index (BMI) 46.3 Intake & Output: Intake and Output for Last 24 Hours 03/15/23 03/16/23 03/17/23 23:59 23:59 23:59 Intake Total 4096.25 / 4496.25 2923.33 / 3523.33 1650 / 1650 Balance 4096.25 / 4496.25 2923.33 / 3523.33 1650 / 1650 Lab / Micro Data 03/17/23 06:40 03/17/23 06:40 Labs: Laboratory Results - last 24 hr 03/16/23 16:59: POC Glucose 217 H 03/16/23 21:06: POC Glucose 195 H 03/17/23 06:40: WBC 12.9 H, RBC 4.23 L, Hgb 13.0, Hct 40.3, MCV 95.3 H, MCH 30.7, MCHC 32.3, RDW Std Deviation 45.3 H, RDW Coeff of Fátima 13.0, Plt Count 292, MPV 10.3, Immature Gran % (Auto) 0.800, Neut % (Auto) 71.0 H, Lymph % (Auto) 19.4, Alfalfa % (Auto) 7.5, Eos % (Auto) 0.9, Baso % (Auto) 0.4, Absolute Neuts (auto) 9.2 H, Absolute Lymphs (auto) 2.50, Nucleated RBC % 0, Sodium 137, Potassium 3.8, Chloride 105, Carbon Dioxide 28.0, Anion Gap 4 L, BUN 9, Creatinine 0.82, Estim Creat Clear Calc 108.97, Est GFR (MDRD) Af Amer 129, Est GFR (MDRD) Non-Af 107, BUN/Creatinine Ratio 11.0, Glucose 139 H, Hemoglobin A1c 10.0 H, Calcium 8.2 L, Total Bilirubin 0.50, AST 20, ALT 55, Alkaline Phosphatase 141 H, Total Protein 6.4, Albumin 2.3 L, Globulin 4.1, Albumin/Globulin Ratio 0.6 L 03/17/23 08:01: POC Glucose 114 H Micro: Microbiology 03/14/23 19:04 Blood Culture (Wb) - Anticubital Right Blood Culture - Preliminary No growth in 48 hours. 03/14/23 19:08 Blood Culture (Wb) - Left Hand Bacteria Detection (PCR) - Final Strep anginosus 03/14/23 19:08 Blood Culture (Wb) - Left Hand Blood Culture - Preliminary Strep anginosus Radiography Diagnostic Testing: Radiology Impression Abdomen/Pelvis CT 03/17/23 08:00 IMPRESSION: Stable small hypodensities in the liver as described with dominant apical attenuation abnormality seen in the inferior medial aspect of the right lobe of liver measuring 3.5 signs by 3.7 cm. There is been essentially no change. A biliary stent is seen. Electronically Signed: Reggie Cabrera MD at 8:46 EST , ADDENDUM: 03/17/23 1041 IMPRESSION: undefined Assessment & Plan Assessment/Plan (1) Ascending cholangitis: PLAN: I am following this patient in conjunction with Dr. Recio in Dr. Ham's absence. Patient had a repeat CT scan of the abdomen/pelvis today which demonstrated an increase in size of the liver abscess despite ongoing IV antibiotics. Due to the increase in size of the liver abscess, it is being recommended that the patient be transferred to a tertiary facility where there is more capabilities and hepatobiliary. This has been discussed between Dr. Recio and medicine, Dr. Gayle. Dr. Gayle will begin the transfer to [facility]. Patient is in agreement with transfer. Charges/Coding Visit Charges Inpatient E&M: 94175 Subs Hosp L1
[2023-03-17 13:19] LABS: Bedside Glucose 184 mg/dL (74-106)
[2023-03-17] MEDS: Insulin Lispro 100 UNIT/ML INSULN.PEN SC ×2 (14:04→16:58)
--- NOTE | 2023-03-17 15:23 | PN.HOSP_ITS ---
Reason for Visit Reason for Visit: Abdominal pain Subjective Subjective Patient states he is overall feeling better. He has less right upper quadrant pain. Unfortunately, his repeat CT this morning shows that that 1 abscess near the karime hepatis is actually enlarged despite antibiotics and I discussed the case with Dr. Recio and she feels he needs transferred for source control as we are not equipped to do it here. Objective Data Objective Data Vital Signs: Vital Signs Temp Pulse Resp BP Pulse Ox O2 Del Method 98.0 F 60 18 142/70 H 97 Room Air 03/17/23 10:00 03/17/23 10:00 03/17/23 10:00 03/17/23 10:00 03/17/23 10:00 03/17/23 10:00 Oxygen Delivery Method Room Air Weight: 142.156 kg Body Mass Index (BMI) 46.3 Intake & Output: Intake and Output for Last 24 Hours 03/15/23 03/16/23 03/17/23 23:59 23:59 23:59 Intake Total 4096.25 / 4496.25 2923.33 / 3523.33 1860 / 1860 Balance 4096.25 / 4496.25 2923.33 / 3523.33 1860 / 1860 Lab / Micro Data 03/17/23 06:40 03/17/23 06:40 Labs: Laboratory Results - last 24 hr 03/16/23 16:59: POC Glucose 217 H 03/16/23 21:06: POC Glucose 195 H 03/17/23 06:40: WBC 12.9 H, RBC 4.23 L, Hgb 13.0, Hct 40.3, MCV 95.3 H, MCH 30.7, MCHC 32.3, RDW Std Deviation 45.3 H, RDW Coeff of Fátima 13.0, Plt Count 292, MPV 10.3, Immature Gran % (Auto) 0.800, Neut % (Auto) 71.0 H, Lymph % (Auto) 19.4, Mayes % (Auto) 7.5, Eos % (Auto) 0.9, Baso % (Auto) 0.4, Absolute Neuts (auto) 9.2 H, Absolute Lymphs (auto) 2.50, Nucleated RBC % 0, Sodium 137, Potassium 3.8, Chloride 105, Carbon Dioxide 28.0, Anion Gap 4 L, BUN 9, Creatinine 0.82, Estim Creat Clear Calc 108.97, Est GFR (MDRD) Af Amer 129, Est GFR (MDRD) Non-Af 107, BUN/Creatinine Ratio 11.0, Glucose 139 H, Hemoglobin A1c 10.0 H, Calcium 8.2 L, Total Bilirubin 0.50, AST 20, ALT 55, Alkaline Phosphatase 141 H, Total Protein 6.4, Albumin 2.3 L, Globulin 4.1, Albumin/Globulin Ratio 0.6 L 03/17/23 08:01: POC Glucose 114 H 03/17/23 13:01: POC Glucose 184 H Micro: Microbiology 03/14/23 19:04 Blood Culture (Wb) - Anticubital Right Blood Culture - Preliminary No growth in 48 hours. 03/14/23 19:08 Blood Culture (Wb) - Left Hand Bacteria Detection (PCR) - Final Strep anginosus 03/14/23 19:08 Blood Culture (Wb) - Left Hand Blood Culture - Preliminary Strep anginosus Radiography Diagnostic Testing: Radiology Impression Abdomen/Pelvis CT 03/17/23 08:00 IMPRESSION: Stable small hypodensities in the liver as described with dominant apical attenuation abnormality seen in the inferior medial aspect of the right lobe of liver measuring 3.5 signs by 3.7 cm. There is been essentially no change. A biliary stent is seen. Electronically Signed: Reggie Cabrera MD at 8:46 EST , ADDENDUM: 03/17/23 1041 IMPRESSION: undefined Physical Exam Const alert, oriented x3, no apparent distress and well nourished Constitutional Narrative: Morbidly obese, middle-aged, white male, sitting up on a couch at the bedside, nursing at the bedside, appears comfortable and nontoxic HEENT normocephalic, head/scalp atraumatic and moist oral mucous membranes HEENT Narrative: Mallampati 3-4, no thrush, dentition is poor Resp normal respiratory effort, no retractions, no use of accessory muscles and clear to auscultation bilaterally Cardio regular rate, regular rhythm, S1 normal heart sound, S2 normal heart sound, no murmurs, no rub, no gallops and no clicks GI normal to inspection, nondistended, normoactive bowel sounds and soft to palpation GI Narrative: Very minimal right upper quadrant tenderness Extremity normal to inspection and no clubbing, cyanosis or edema Extremity Narrative: Pedal pulses are 2+ Neuro oriented x3, moves all extremities and no focal motor deficits Speech: speech normal Psych affect normal Psych Narrative: Very pleasant, patient interacts appropriately Assessment & Plan Assessment/Plan (1) Biliary stent migration: QUALIFIERS: Encounter type: subsequent encounter Qualified Code(s): T85.520D - Displacement of bile duct prosthesis, subsequent encounter (2) Leukocytosis: (3) Acute upper abdominal pain: (4) Liver lesion: (5) Transaminitis: (6) Choledocholithiasis: (7) S/P ERCP: (8) Ascending cholangitis: (9) Hypokalemia: (10) WEI (acute kidney injury): PLAN: Plan Ascending cholangitis -ERCP was complex and demonstrated pus in the entire main bile duct, polyp in the upper third of the main duct which was biopsied, filling defect consistent with a stone and choledocholithiasis was found with removal via sphincterotomy and balloon extraction, sweeping of the biliary tree with 1 stent removal and the middle third of the main bile duct was successfully dilated with lithotripsy performed and temporary stent was placed here, there was also significant pus and clots in the biliary tree consistent with a sending cholangitis -On MRI of the liver lesions are suspicious for multiple abscesses -CT of the abdomen pelvis with contrast done today and it appears that the largest abscess seems to be enlarging -Discussed with surgery and recommended transfer--> patient has been accepted by Dr. Allen at [facility] -cont po diet -Patient was transitioned to ceftriaxone 2 g daily by infectious disease today for antibiotic coverage -CA 19-9 is slightly elevated at 197--> significance is unclear with ascending cholangitis -CEA is within normal limits -AFP is within normal limits -Right upper quadrant ultrasound shows hyperechoic mass that is 4 x 3 x 4 cm in the right lobe of the liver that corresponds with a hypodensity lesion in the right lobe of the liver on CT scan, liver is enlarged and fatty -General surgery and GI to follow -ID following--Appreciate input Strep anginosus bacteremia -Likely secondary to the above -Antibiotics per ID -Transition to ceftriaxone 2 g daily today Hypokalemia - resolved Transaminitis -Resolved Leukocytosis -Stabilized but still mildly elevated -Zosyn discontinued in favor of ceftriaxone by infectious disease -Repeat CBC in a.m. DM-2 -Appears to be uncontrolled as blood sugars are markedly elevated at greater than 300 -Most recent hemoglobin A1c was from November 2021 and was 10.2 -Current hemoglobin A1c is 10.0 -Appears patient has not been compliance with his home diabetes medications per MAR -Fasting blood sugar remains elevated and was 139 this morning -Continue Lantus 50 units daily -Continue 15 units prandial insulin as well -Suspect his sugars are markedly elevated due to infection however it appears sh e has poor control baseline -SSI as ordered -Accu-Cheks as ordered History of seizure disorder -Patient remarked today that he has a history of seizure disorder but stopped h is Keppra due to it making him feel nauseated -We will restart Keppra and monitor clinically if this makes him nauseated we will transition to a likely Vimpat Hypothyroidism -Continue home levothyroxine -TSH is within normal limits Hypertension -Patient does not appear to carry diagnosis of hypertension -Blood pressures are elevated -Will add lisinopril at 20 mg and continue to monitor Asthma/COPD -Continue home inhalers ADHD -Hold home Adderall and restart at discharge Morbid obesity -BMI is 46.3 -Recommend weight loss -Complicates treatment, prognosis, outcomes Tobacco abuse -Patient smokes 1/4 to 1/2 pack daily -Continue nicotine replacement therapy DVT prophylaxis -Subcu Lovenox twice daily with BMI being greater than 40 CODE STATUS Full code Charges/Coding Visit Charges Inpatient E&M: 16548 Subs Hosp L2
--- NOTE | 2023-03-17 16:33 | EX.PCM.PN.GI ---
Objective Data Objective Data Vital Signs: Vital Signs Temp Pulse Resp BP Pulse Ox O2 Del Method 98.0 F 60 18 142/70 H 97 Room Air 03/17/23 10:00 03/17/23 10:00 03/17/23 10:00 03/17/23 10:00 03/17/23 10:00 03/17/23 10:00 Oxygen Delivery Method Room Air Weight: 313 lb 6.4 oz Body Mass Index (BMI) 46.3 Intake & Output: Intake and Output for Last 24 Hours 03/15/23 03/16/23 03/17/23 23:59 23:59 23:59 Intake Total 4096.25 / 4496.25 2923.33 / 3523.33 1860 / 1860 Balance 4096.25 / 4496.25 2923.33 / 3523.33 1860 / 1860 Lab / Micro Data 03/17/23 06:40 03/17/23 06:40 Labs: Laboratory Results - last 24 hr 03/16/23 16:59: POC Glucose 217 H 03/16/23 21:06: POC Glucose 195 H 03/17/23 06:40: WBC 12.9 H, RBC 4.23 L, Hgb 13.0, Hct 40.3, MCV 95.3 H, MCH 30.7, MCHC 32.3, RDW Std Deviation 45.3 H, RDW Coeff of Fátima 13.0, Plt Count 292, MPV 10.3, Immature Gran % (Auto) 0.800, Neut % (Auto) 71.0 H, Lymph % (Auto) 19.4, [place] % (Auto) 7.5, Eos % (Auto) 0.9, Baso % (Auto) 0.4, Absolute Neuts (auto) 9.2 H, Absolute Lymphs (auto) 2.50, Nucleated RBC % 0, Sodium 137, Potassium 3.8, Chloride 105, Carbon Dioxide 28.0, Anion Gap 4 L, BUN 9, Creatinine 0.82, Estim Creat Clear Calc 108.97, Est GFR (MDRD) Af Amer 129, Est GFR (MDRD) Non-Af 107, BUN/Creatinine Ratio 11.0, Glucose 139 H, Hemoglobin A1c 10.0 H, Calcium 8.2 L, Total Bilirubin 0.50, AST 20, ALT 55, Alkaline Phosphatase 141 H, Total Protein 6.4, Albumin 2.3 L, Globulin 4.1, Albumin/Globulin Ratio 0.6 L 03/17/23 08:01: POC Glucose 114 H 03/17/23 13:01: POC Glucose 184 H Micro: Microbiology 03/14/23 19:04 Blood Culture (Wb) - Anticubital Right Blood Culture - Preliminary No growth in 48 hours. 03/14/23 19:08 Blood Culture (Wb) - Left Hand Bacteria Detection (PCR) - Final Strep anginosus 03/14/23 19:08 Blood Culture (Wb) - Left Hand Blood Culture - Preliminary Strep anginosus Radiography Diagnostic Testing: Radiology Impression Abdomen/Pelvis CT 03/17/23 08:00 IMPRESSION: Stable small hypodensities in the liver as described with dominant apical attenuation abnormality seen in the inferior medial aspect of the right lobe of liver measuring 3.5 signs by 3.7 cm. There is been essentially no change. A biliary stent is seen. Electronically Signed: Reggie Cabrera MD at 8:46 EST , ADDENDUM: 03/17/23 1041 IMPRESSION: undefined Physical Exam Const alert, oriented x3, no apparent distress and well nourished HEENT normocephalic, head/scalp atraumatic and moist oral mucous membranes HEENT Narrative: Mallampati 3-4, no thrush, dentition is poor Resp normal respiratory effort, no retractions, no use of accessory muscles and clear to auscultation bilaterally Cardio regular rate, regular rhythm, S1 normal heart sound, S2 normal heart sound, no murmurs, no rub, no gallops and no clicks GI normal to inspection, nondistended, normoactive bowel sounds and soft to palpation GI Narrative: Very minimal right upper quadrant tenderness Extremity normal to inspection and no clubbing, cyanosis or edema Extremity Narrative: Pedal pulses are 2+ Neuro oriented x3, moves all extremities and no focal motor deficits Speech: speech normal Psych affect normal Psych Narrative: Very pleasant, patient interacts appropriately Assessment & Plan Assessment/Plan (1) Cholestatic hepatitis: PLAN: The likely etiology of his cholestatic hepatitis is secondary to choledocholithiasis versus obstructing malignant stricture. He is status post ERCP with stone removal and stent placement. I would continue him on antibiotic therapy for a total of 7 days. Awaiting CA 19-9, CEA and alpha-fetoprotein. Also awaiting biopsies of biliary stricture. (2) Jaundice: PLAN: Painful jaundice is better than painless jaundice. His jaundice has resolved with removal of choledocholithiasis status post stent placement (3) Weight loss: PLAN: Due to the weight loss he should get a CA 19-9 checked. He would likely need reimaging of the liver in percutaneous biopsies. (4) Liver lesion: PLAN: He had a CT scan abdomen pelvis which showed multiple hypodensities with the largest hypodensity in the inferior medial portion right lobe of liver presently measures 4.6 cm x 3.1 cm. This is larger than previously seen on his admission CT scan abdomen pelvis. Surgery recommends transfer to high-level care for percutaneous drainage. PLAN: Plan I also suspect that he has some elements of diabetic gastroparesis because his blood sugars are not under control. Charges/Coding Visit Charges Inpatient E&M: 10625 Subs Hosp L3
[2023-03-17 17:00] VITALS: BP 149/87; PULSE 83; RESP 18; TEMP 37.1; O2SAT 98
[2023-03-17 17:40] LABS: Bedside Glucose 153 mg/dL (74-106)
[2023-03-17 19:22] VITALS: PULSE 70; RESP 18
[2023-03-17 21:32] VITALS: BP 148/92; PULSE 84; RESP 16; TEMP 36.4; O2SAT 97
[2023-03-17 21:48] LABS: Bedside Glucose 168 mg/dL (74-106)
[2023-03-18] MEDS: oxyCODONE 5 MG Tablet PO ×4 (03:30→22:16)
[2023-03-18 03:34] VITALS: BP 156/90; PULSE 82; RESP 16; TEMP 36.1; O2SAT 96
[2023-03-18] MEDS: Levothyroxine 50 MCG Tablet PO (06:16)
[2023-03-18] MEDS: Acetaminophen 500 MG Tablet 1000 MG PO ×3 (06:17→22:16)
--- NOTE | 2023-03-18 07:00 | EX.PCM.PN.GI ---
Subjective Subjective Patient is doing well without any pain. LFTs are improving. He is scheduled for transfer today. Objective Data Objective Data Vital Signs: Vital Signs Temp Pulse Resp BP Pulse Ox O2 Del Method 98.0 F 80 18 155/89 H 95 Room Air 03/18/23 09:35 03/18/23 09:35 03/18/23 09:35 03/18/23 09:35 03/18/23 09:35 03/18/23 09:35 Oxygen Delivery Method Room Air Weight: 313 lb 6.4 oz Body Mass Index (BMI) 46.3 Intake & Output: Intake and Output for Last 24 Hours 03/16/23 03/17/23 03/18/23 23:59 23:59 23:59 Intake Total 2923.33 / 3523.33 3167 / 3167 775 / 775 Balance 2923.33 / 3523.33 3167 / 3167 775 / 775 Lab / Micro Data 03/18/23 07:44 03/18/23 07:44 Labs: Laboratory Results - last 24 hr 03/17/23 21:18: POC Glucose 168 H 03/18/23 07:44: WBC 12.7 H, RBC 4.42 L, Hgb 13.5, Hct 41.3, MCV 93.4, MCH 30.5, MCHC 32.7, RDW Std Deviation 44.6 H, RDW Coeff of Fátima 13.0, Plt Count 296, MPV 10.2, Immature Gran % (Auto) 0.700, Neut % (Auto) 66.9, Lymph % (Auto) 23.2, Esmeralda % (Auto) 7.6, Eos % (Auto) 1.3, Baso % (Auto) 0.3, Absolute Neuts (auto) 8.5 H, Absolute Lymphs (auto) 2.95, Nucleated RBC % 0, Sodium 136, Potassium 4.3, Chloride 105, Carbon Dioxide 27.0, Anion Gap 4 L, BUN 9, Creatinine 0.92, Estim Creat Clear Calc 97.13, Est GFR (MDRD) Af Amer 113, Est GFR (MDRD) Non-Af 94, BUN/Creatinine Ratio 9.8 L, Glucose 128 H, Calcium 8.7, Total Bilirubin 0.50, AST 25, ALT 49, Alkaline Phosphatase 129 H, Total Protein 7.0, Albumin 2.5 L, Globulin 4.5 H, Albumin/Globulin Ratio 0.6 L 03/18/23 08:34: POC Glucose 117 H 03/18/23 11:59: POC Glucose 157 H 03/18/23 16:42: POC Glucose 122 H Micro: Microbiology 03/14/23 19:08 Blood Culture (Wb) - Left Hand Bacteria Detection (PCR) - Final Strep anginosus 03/14/23 19:08 Blood Culture (Wb) - Left Hand Blood Culture - Final Strep anginosus 03/14/23 19:04 Blood Culture (Wb) - Anticubital Right Blood Culture - Preliminary No growth in 48 hours. Physical Exam Const alert, oriented x3, no apparent distress, no limitations, healthy appearing and well nourished; Negative for average body habitus Constitutional Narrative: Morbidly obese, middle-aged, white male, sitting up on a couch at the bedside, appears comfortable and nontoxic General Appearance: cooperative, comfortable, well kempt and well developed Orientation / Consciousness: awake, oriented to person, oriented to place and oriented to time Exam Limitations: no limitations Nutritional Appearance: morbidly obese HEENT normocephalic, head/scalp atraumatic, hearing grossly normal bilaterally and moist oral mucous membranes HEENT Narrative: Mallampati 3-4, dentition is poor, no thrush Eyes PERRL, EOMs intact bilaterally and conjunctivae normal Eyes Narrative: No icterus Neck no lymphadenopathy and supple Neck Narrative: Trachea midline, no thyroid enlargement Resp normal respiratory effort, no retractions, no use of accessory muscles and clear to auscultation bilaterally Cardio regular rate, regular rhythm, S1 normal heart sound, S2 normal heart sound, no murmurs, no rub, no gallops and no clicks GI normal to inspection, nondistended, normoactive bowel sounds, soft to palpation and non-tender Extremity no clubbing, cyanosis or edema Extremity Narrative: Pedal pulses are 2+ Skin no rashes or lesions noted, no wounds, skin turgor normal and no jaundice Neuro oriented x3, CN's II-XII intact bilaterally, moves all extremities and no focal motor deficits Sensorium / Orientation: awake Speech: speech normal Psych affect normal Psych Narrative: Very pleasant, patient interacts appropriately Assessment & Plan Assessment/Plan (1) Biliary stent migration: QUALIFIERS: Encounter type: subsequent encounter Qualified Code(s): T85.520D - Displacement of bile duct prosthesis, subsequent encounter (2) Leukocytosis: (3) Acute upper abdominal pain: (4) Liver lesion: (5) Transaminitis: (6) Choledocholithiasis: (7) S/P ERCP: (8) Ascending cholangitis: (9) Hypokalemia: (10) WEI (acute kidney injury): PLAN: Plan 48-year-old gentleman with morbid obesity comes in with altered mental status, right upper quadrant pain and increased LFTs. He underwent ERCP and had multiple stones removed along with pus from the hepatobiliary system. -ERCP was complex and demonstrated pus in the entire main bile duct, polyp in the upper third of the main duct which was biopsied, filling defect consistent with a stone and choledocholithiasis was found with removal via sphincterotomy and balloon extraction, sweeping of the biliary tree with 1 stent removal and the middle third of the main bile duct was successfully dilated with lithotripsy performed and temporary stent was placed here, there was also significant pus and clots in the biliary tree consistent with a sending cholangitis -On MRI of the liver lesions are suspicious for multiple abscesses -CT of the abdomen pelvis with contrast done today and it appears that the largest abscess seems to be enlarging -CA 19-9 is slightly elevated at 197--> significance is unclear with ascending cholangitis. He will need a CA 19-9 9 repeated and likely need endoscopic ultrasound to look at the pancreas. -CEA is within normal limits -AFP is within normal limits -Right upper quadrant ultrasound shows hyperechoic mass that is 4 x 3 x 4 cm in the right lobe of the liver that corresponds with a hypodensity lesion in the right lobe of the liver on CT scan, liver is enlarged and fatty e Charges/Coding Visit Charges Inpatient E&M: 82740 Subs Hosp L3
[2023-03-18 07:58] VITALS: PULSE 84; PULSE 86; RESP 16; O2SAT 96
[2023-03-18] MEDS: Budesonide Respules 0.5 MG/2 ML AMPUL.NEB. INHALATION (07:58)
[2023-03-18 08:12] LABS: Absolute Lymphocyte Count 2.95 X10^3/uL (0.83-4.51); Absolute Neutrophil Count 8.5 X10^3/uL (2.0-7.7); Basophil# 0.04 X10^3/uL; Basophil% 0.3 % (0-1); Eosinophil# 0.17 X10^3/uL; Eosinophils% 1.3 % (0-5); Hematocrit 41.3 % (40-54); Hemoglobin 13.5 g/dL (13.0-16.5); Lymphocyte # 2.95 X10^3/ul (0.83-4.51); Lymphocyte % 23.2 % (19-41); Mean Corp Hgb Conc 32.7 g/dL (32-36); Mean Corpuscular Hgb 30.5 pg (27.0-32.0); Mean Corpuscular Volume 93.4 fL (80-94); Mean Platelet Vol. 10.2 fl (6.2-12.0); Monocyte# 0.96 X10^3/uL; Monocyte% 7.6 % (0-10); NRBC Flagged by Analyzer 0 % (0-5); Neutrophil % 66.9 % (47-70); Platelet Count 296 K/mm3 (150-450); RBC Distribution Width SD 44.6 fl (35.1-43.9); Red Blood Count 4.42 M/mm3 (4.6-6.2); White Blood Count 12.7 K/mm3 (4.4-11.0)
[2023-03-18 08:42] LABS: ALB/GLOB Ratio 0.6 RATIO (0.9-2.4); AST(SGOT) 25 U/L (15-37); Alanine Aminotransfer ALT/SGPT 49 U/L (16-61); Albumin, Serum 2.5 g/dL (3.2-5.0); Alkaline Phosphatase 129 U/L (45-117); Anion Gap 4 (5-15); BUN 9 mg/dL (7-18); BUN/Creat Ratio 9.8 RATIO (10-20); Calcium,Total 8.7 mg/dL (8.5-10.1); Chloride 105 mmol/L (98-107); Creatinine, Serum 0.92 mg/dL (0.70-1.30); EST Glomerular Filtration Rate 94 mL/min (>60); Est Glom Filt Rate - Afr Amer 113 mL/min (>60); Estimated Creatinine Clearance 97.13 ml/min; Globulin 4.5 g/dL (2.2-4.2); Glucose 128 mg/dL (74-106); Potassium 4.3 mmol/L (3.5-5.1); Sodium Level 136 mmol/L (136-145)
[2023-03-18 09:00] LABS: Bedside Glucose 117 mg/dL (74-106)
[2023-03-18] MEDS: Insulin Lispro 100 UNIT/ML INSULN.PEN 15 UNIT SC ×3 (09:18→17:42)
[2023-03-18] MEDS: Insulin Glargine-YFGN 100 UNIT/ML Pen 50 UNIT SC ×2 (09:19→22:25)
[2023-03-18] MEDS: Pantoprazole Sodium 40 MG in 0.9% Normal Saline (100mL MB+) 100 ML 330 MG IV (09:26)
[2023-03-18] MEDS: levETIRAcetam 500 MG Tablet PO ×2 (09:26→22:16)
[2023-03-18] MEDS: Lisinopril 20 MG Tablet PO (09:28)
[2023-03-18] MEDS: Ondansetron 4 MG/2 ML Vial IV ×2 (09:28→22:17)
[2023-03-18 09:35] VITALS: BP 155/89; PULSE 80; RESP 18; TEMP 36.7; O2SAT 95
[2023-03-18] MEDS: Ceftriaxone 2 GM in 0.9% Normal Saline (50mL MB+) 50 ML IV (10:25)
[2023-03-18 12:25] LABS: Bedside Glucose 157 mg/dL (74-106)
--- NOTE | 2023-03-18 12:28 | PN.SURG_ITS ---
Subjective Subjective Patient seen and examined during AM rounds. He is currently awaiting bed assignment after receiving formal acceptance at [facility]. He reports that overall he is feeling better and states he feels about as good as he did when his first common bile duct stent was placed. Objective Data Objective Data Vital Signs: Vital Signs Temp Pulse Resp BP Pulse Ox O2 Del Method 98.0 F 80 18 155/89 H 95 Room Air 03/18/23 09:35 03/18/23 09:35 03/18/23 09:35 03/18/23 09:35 03/18/23 09:35 03/18/23 09:35 Oxygen Delivery Method Room Air Weight: 313 lb 6.4 oz Body Mass Index (BMI) 46.3 Intake & Output: Intake and Output for Last 24 Hours 03/16/23 03/17/23 03/18/23 23:59 23:59 23:59 Intake Total 2923.33 / 3523.33 3167 / 3167 50 / 50 Balance 2923.33 / 3523.33 3167 / 3167 50 / 50 Lab / Micro Data 03/18/23 07:44 03/18/23 07:44 Labs: Laboratory Results - last 24 hr 03/17/23 13:01: POC Glucose 184 H 03/17/23 16:51: POC Glucose 153 H 03/17/23 21:18: POC Glucose 168 H 03/18/23 07:44: WBC 12.7 H, RBC 4.42 L, Hgb 13.5, Hct 41.3, MCV 93.4, MCH 30.5, MCHC 32.7, RDW Std Deviation 44.6 H, RDW Coeff of Fátima 13.0, Plt Count 296, MPV 10.2, Immature Gran % (Auto) 0.700, Neut % (Auto) 66.9, Lymph % (Auto) 23.2, [place] % (Auto) 7.6, Eos % (Auto) 1.3, Baso % (Auto) 0.3, Absolute Neuts (auto) 8.5 H, Absolute Lymphs (auto) 2.95, Nucleated RBC % 0, Sodium 136, Potassium 4.3, Chloride 105, Carbon Dioxide 27.0, Anion Gap 4 L, BUN 9, Creatinine 0.92, Estim Creat Clear Calc 97.13, Est GFR (MDRD) Af Amer 113, Est GFR (MDRD) Non-Af 94, BUN/Creatinine Ratio 9.8 L, Glucose 128 H, Calcium 8.7, Total Bilirubin 0.50, AST 25, ALT 49, Alkaline Phosphatase 129 H, Total Protein 7.0, Albumin 2.5 L, Globulin 4.5 H, Albumin/Globulin Ratio 0.6 L 03/18/23 08:34: POC Glucose 117 H 03/18/23 11:59: POC Glucose 157 H Micro: Microbiology 03/14/23 19:08 Blood Culture (Wb) - Left Hand Bacteria Detection (PCR) - Final Strep anginosus 03/14/23 19:08 Blood Culture (Wb) - Left Hand Blood Culture - Final Strep anginosus 03/14/23 19:04 Blood Culture (Wb) - Anticubital Right Blood Culture - Preliminary No growth in 48 hours. Physical Exam Narrative No evidence of jaundice or scleral icterus Const oriented x3 and no apparent distress Resp normal respiratory effort GI GI Narrative: Obese, nondistended, soft, minimally tender to palpation with negative Kennedy sign Assessment & Plan Assessment/Plan (1) Ascending cholangitis: PLAN: 48-year-old male admitted for ascending cholangitis and multiple pyogenic abscesses of the liver. Patient had a repeat CT scan of the abdomen/pelvis 03/17/2023 which demonstrated an increase in size of the liver abscess despite ongoing IV antibiotics. Due to the increase in size of the liver abscess, it is being recommended that the patient be transferred to a tertiary facility where there is more capabilities and hepatobiliary. Fortunately patient appears clinically well, but I agree that he may require additional intervention to fully resolve this condition which we are not well equipped to offer. Recommend continuation of empiric antibiotic therapy and those tailored to patient's positive blood cultures. Charges/Coding Visit Charges Inpatient E&M: 30971 Subs Hosp L2
[2023-03-18] MEDS: Insulin Lispro 100 UNIT/ML INSULN.PEN SC (13:01)
--- NOTE | 2023-03-18 15:36 | PN.HOSP_ITS ---
Reason for Visit Reason for Visit: Right upper quadrant abdominal pain Subjective Subjective No issues overnight. Still very minimal pain but mostly musculoskeletal in his back and shoulder. Right upper quadrant pain is much improved. Still awaiting bed at [facility] to have his abscess addressed further. Objective Data Objective Data Vital Signs: Vital Signs Temp Pulse Resp BP Pulse Ox O2 Del Method 98.0 F 80 18 155/89 H 95 Room Air 03/18/23 09:35 03/18/23 09:35 03/18/23 09:35 03/18/23 09:35 03/18/23 09:35 03/18/23 09:35 Oxygen Delivery Method Room Air Weight: 142.156 kg Body Mass Index (BMI) 46.3 Intake & Output: Intake and Output for Last 24 Hours 03/16/23 03/17/23 03/18/23 23:59 23:59 23:59 Intake Total 2923.33 / 3523.33 3167 / 3167 775 / 775 Balance 2923.33 / 3523.33 3167 / 3167 775 / 775 Lab / Micro Data 03/18/23 07:44 03/18/23 07:44 Labs: Laboratory Results - last 24 hr 03/17/23 16:51: POC Glucose 153 H 03/17/23 21:18: POC Glucose 168 H 03/18/23 07:44: WBC 12.7 H, RBC 4.42 L, Hgb 13.5, Hct 41.3, MCV 93.4, MCH 30.5, MCHC 32.7, RDW Std Deviation 44.6 H, RDW Coeff of Fátima 13.0, Plt Count 296, MPV 10.2, Immature Gran % (Auto) 0.700, Neut % (Auto) 66.9, Lymph % (Auto) 23.2, [place] % (Auto) 7.6, Eos % (Auto) 1.3, Baso % (Auto) 0.3, Absolute Neuts (auto) 8.5 H, Absolute Lymphs (auto) 2.95, Nucleated RBC % 0, Sodium 136, Potassium 4.3, Chloride 105, Carbon Dioxide 27.0, Anion Gap 4 L, BUN 9, Creatinine 0.92, Estim Creat Clear Calc 97.13, Est GFR (MDRD) Af Amer 113, Est GFR (MDRD) Non-Af 94, BUN/Creatinine Ratio 9.8 L, Glucose 128 H, Calcium 8.7, Total Bilirubin 0.50, AST 25, ALT 49, Alkaline Phosphatase 129 H, Total Protein 7.0, Albumin 2.5 L, Globulin 4.5 H, Albumin/Globulin Ratio 0.6 L 03/18/23 08:34: POC Glucose 117 H 03/18/23 11:59: POC Glucose 157 H Micro: Microbiology 03/14/23 19:08 Blood Culture (Wb) - Left Hand Bacteria Detection (PCR) - Final Strep anginosus 03/14/23 19:08 Blood Culture (Wb) - Left Hand Blood Culture - Final Strep anginosus 03/14/23 19:04 Blood Culture (Wb) - Anticubital Right Blood Culture - Preliminary No growth in 48 hours. Physical Exam Const alert, oriented x3, no apparent distress and well nourished Constitutional Narrative: Morbidly obese, middle-aged, white male, sitting up on a couch at the bedside, appears comfortable and nontoxic HEENT normocephalic, head/scalp atraumatic and moist oral mucous membranes HEENT Narrative: Mallampati 3-4, no thrush, poor dentition Eyes Eyes Narrative: No icterus Resp normal respiratory effort, no retractions, no use of accessory muscles and clear to auscultation bilaterally Cardio regular rate, regular rhythm, S1 normal heart sound, S2 normal heart sound, no murmurs, no rub, no gallops and no clicks GI normal to inspection, nondistended, normoactive bowel sounds and soft to palpation GI Narrative: Right upper quadrant tenderness is resolved Extremity no clubbing, cyanosis or edema Extremity Narrative: Pedal pulses are 2+ Neuro oriented x3, moves all extremities and no focal motor deficits Speech: speech normal Psych affect normal Psych Narrative: Very pleasant, patient interacts appropriately Assessment & Plan Assessment/Plan (1) Biliary stent migration: QUALIFIERS: Encounter type: subsequent encounter Qualified Code(s): T85.520D - Displacement of bile duct prosthesis, subsequent encounter (2) Leukocytosis: (3) Acute upper abdominal pain: (4) Liver lesion: (5) Transaminitis: (6) Choledocholithiasis: (7) S/P ERCP: (8) Ascending cholangitis: (9) Hypokalemia: (10) WEI (acute kidney injury): PLAN: Plan Ascending cholangitis -ERCP was complex and demonstrated pus in the entire main bile duct, polyp in the upper third of the main duct which was biopsied, filling defect consistent with a stone and choledocholithiasis was found with removal via sphincterotomy and balloon extraction, sweeping of the biliary tree with 1 stent removal and the middle third of the main bile duct was successfully dilated with lithotripsy performed and temporary stent was placed here, there was also significant pus and clots in the biliary tree consistent with a sending cholangitis -On MRI of the liver lesions are suspicious for multiple abscesses -CT of the abdomen pelvis with contrast done today and it appears that the largest abscess seems to be enlarging -Discussed with surgery and recommended transfer--> patient has been accepted by Dr. Allen at [facility] -Currently awaiting bed availability and will be transferred to [facility] when bed is available -cont po diet as ordered -Continue ceftriaxone per ID recommendations -CA 19-9 is slightly elevated at 197--> significance is unclear with ascending cholangitis -CEA is within normal limits -AFP is within normal limits -Right upper quadrant ultrasound shows hyperechoic mass that is 4 x 3 x 4 cm in the right lobe of the liver that corresponds with a hypodensity lesion in the right lobe of the liver on CT scan, liver is enlarged and fatty -General surgery and GI following-appreciate input -ID following--Appreciate input Leukocytosis -Stabilized but still mildly elevated -Zosyn discontinued in favor of ceftriaxone by infectious disease -Repeat CBC in a.m. DM-2 -Appears to be uncontrolled as blood sugars are markedly elevated at [facility] 300 -Most recent hemoglobin A1c was from November 2021 and was 10.2 -Current hemoglobin A1c is 10.0 -Appears patient has not been compliance with his home diabetes medications per MAR -Fasting blood sugar is improved and currently 128 with changes made -Continue Lantus 50 units daily -Continue 15 units prandial insulin as well -Suspect his sugars are markedly elevated due to infection however it appears she has poor control baseline -SSI as ordered -Accu-Cheks as ordered History of seizure disorder -Patient remarked today that he has a history of seizure disorder but stopped his Keppra due to it making him feel nauseated -Continue Keppra which was restarted on 03/17/2023--> patient will likely need prescription at discharge Hypothyroidism -Continue home levothyroxine -TSH is within normal limits Hypertension -Patient does not appear to carry diagnosis of hypertension -Blood pressures remain above goal despite initiation of lisinopril yesterday -Continue lisinopril but increase to 40 mg daily Asthma/COPD -Continue home inhalers ADHD -Hold home Adderall and restart at discharge Morbid obesity -BMI is 46.3 -Recommend weight loss -Complicates treatment, prognosis, outcomes Tobacco abuse -Patient smokes 1/4 to 1/2 pack daily -Continue nicotine replacement therapy DVT prophylaxis -Subcu Lovenox twice daily with BMI being greater than 40 CODE STATUS Full code Charges/Coding Visit Charges Inpatient E&M: 78076 Subs Hosp L2
--- NOTE | 2023-03-18 15:43 | DS.PCM_ITS ---
Providers Date of Admission: 03/13/23 Date of Discharge: 03/18/23 Primary Care Physician: Adilene Primary Care Phys Consultations 03/13/23 23:27 Consult: Gastroenterology Routine Consulting Provider: Cyril Gastroenterwilmer Reason for Consult: migrating biliary stent EMERGENT Consult: No Notified: Yes Date Notified: 03/13/23 Time Notified: 22:57 Method of Notification: ED Physician Initiated Consult: General Surgery Routine Consulting Provider: Bean Ham Reason for Consult: h/o choledocholithiasis EMERGENT Consult: No MD Notified: Yes Date Notified: 03/13/23 Time Notified: 23:02 Method of Notification: ED Physician Initiated 03/16/23 09:13 Consult: Infectious Disease Routine Consulting Provider: Manuel Davison Reason for Consult: ascending cholangitis EMERGENT Consult: No Notified: Yes Date Notified: 03/16/23 Time Notified: 20:27 Method of Notification: Answering Service Reason For Visit: ABDOMINAL PAIN WITH MIGRATING BILIARY STENT. Diagnosis Discharge Diagnosis (1) Biliary stent migration: Status: Acute Code(s): T85.520A - Displacement of bile duct prosthesis, initial encounter Qualifiers: Encounter type: subsequent encounter Qualified Code(s): T85.520D - Displacement of bile duct prosthesis, subsequent encounter (2) Leukocytosis: Status: Acute Code(s): D72.829 - Elevated white blood cell count, unspecified (3) Acute upper abdominal pain: Status: Acute Code(s): R10.10 - Upper abdominal pain, unspecified (4) Liver lesion: Status: Acute Code(s): K76.9 - Liver disease, unspecified (5) Transaminitis: Status: Acute Code(s): R74.01 - Elevation of levels of liver transaminase levels (6) Choledocholithiasis: Status: Acute Code(s): K80.50 - Calculus of bile duct without cholangitis or cholecystitis without obstruction (7) S/P ERCP: Status: Acute Code(s): Z98.890 - Other specified postprocedural states (8) Ascending cholangitis: Status: Acute Code(s): K83.09 - Other cholangitis (9) Hypokalemia: Status: Acute Code(s): E87.6 - Hypokalemia (10) WEI (acute kidney injury): Status: Acute Code(s): N17.9 - Acute kidney failure, unspecified Medications at Discharge Home Medications albuterol sulfate 90 mcg/actuation aerosol inhaler (Ventolin HFA) 2 inh inhalation Q2H PRN Shortness Of Breath Or Wheezing 12/04/21 dextroamphetamine-amphetamine 30 mg tablet (Adderall) 30 mg PO DAILY adhd 12/04/21 fluticasone propionate 220 mcg/actuation HFA aerosol inhaler (Flovent HFA) 2 inh inhalation BID asthma 12/04/21 levothyroxine 50 mcg tablet (Euthyrox) 50 mcg PO DAILY 12/04/21 insulin glargine 100 unit/mL (3 mL) subcutaneous pen (Lantus Solostar U-100 Insulin) 30 unit (0.3 mL) subcut BID dm #15 mL 12/06/21 insulin lispro 100 unit/mL subcutaneous pen (Humalog KwikPen (U-100) Insulin) 30 unit (0.3 mL) subcut TIDAC dm #15 mL 12/06/21 insulin lispro 100 unit/mL subcutaneous pen (Humalog KwikPen (U-100) Insulin) See Protocol subcut Q6 dm #0 mL 12/06/21 pen needle, diabetic 29 gauge x 1/2 (Pen Needle) ##1 12/06/21 Hospital Course Operations - (ERCP) Summary of Care Provided Minutes Spent on Discharge: 30 Hospital Course: Mr. Naylor is a 48-year-old white male who presented to the emergency department at [facility] on 03/13/2023 complaining of abdominal pain. In November 2021 he was found to have a biliary stricture and a stent was placed. No choledocholithiasis was identified at that time. The patient was asked to follow-up with general surgery and gastroenterology for eventual cholecystectomy and further evaluation of the biliary tree but due to a series of events he was able to able to get follow-up. He reported that he had some right upper quadrant pain that persisted after his stent was placed but recently had progressively gotten worse. On presentation he complained of right upper quadrant pain as well as epigastric abdominal pain that was worse when he coughed and was constant. Vital signs were overall unremarkable on presentation other than hypertension that was uncontrolled with a blood pressure 164/93. CBC showed a leukocytosis with a left shift. His chemistry panel showed acute kidney injury and marked hyperglycemia with a blood sugar of 390. Bilirubin was 1.3 and transaminases were elevated. CT of the abdomen and pelvis showed suspected distal migration of the biliary stent that was currently barely in the distal common bile duct with the distal aspect noted in the third portion of the duodenum and suspected tiny stricture with moderate intrahepatic ductal dilation and abnormalities in the liver that were suspicious for hepatic metastasis. These findings were new when compared to previous CT of the abdomen pelvis in November 2021. We obtained blood cultures prior to starting broad-spectrum antibiotics. General surgery and gastroenterology were consulted and he was started on Zosyn as well as IV fluids, made n.p.o. and started on antiemetics and pain medication. MRI was ordered to further evaluate the liver. ERCP was performed and demonstrated demonstrated pus in the entire main bile duct, polyp in the upper third of the main duct which was biopsied, filling defect consistent with a stone and choledocholithiasis was found with removal via sphincterotomy and balloon extraction, sweeping of the biliary tree with 1 stent removal and the middle third of the main bile duct was successfully dilated with lithotripsy performed and temporary stent was placed here, there was also significant pus and clots in the biliary tree consistent with ascending cholangitis. An MRI of the abdomen was performed as noted and the liver was suspicious for multiple abscesses with the largest abscess being near the karime hepatis measuring about 3-1/2 cm. Discussed the case with general surgery and they felt repeat imaging was warranted with contrast 48 hours after the abdominal MRI to reassess and if the largest abscess was not improving in size or increasing in size transfer would be warranted for further source control. ID was consulted as well for antibiotic recommendations and his blood cultures eventually grew out strep anginosus. Infectious disease evaluated the patient on 03/17/2023 and recommended transition from Zosyn to ceftriaxone based on his blood cultures and he is currently on [address] of the abdomen pelvis with contrast was performed on 03/17/2023 as well and showed an axial increasing size of the largest hepatic abscess near the karime pedis and request for transfer was made by general surgery. I discussed the case with [facility] and they accepted transfer per Dr. Dubois from general surgery and a bed became available on. Discharge diagnoses: Ascending cholangitis Strep anginosus bacteremia Hypokalemia Transaminitis Leukocytosis DM-2 History of seizure disorder Hypothyroidism Hypertension Asthma/COPD ADHD Seizure disorder Morbid obesity Tobacco abuse Medical noncompliance Physical Exam Const alert, oriented x3, no apparent distress, no limitations, healthy appearing and well nourished; Negative for average body habitus Constitutional Narrative: Morbidly obese, middle-aged, white male, sitting up on a couch at the bedside, appears comfortable and nontoxic General Appearance: cooperative, comfortable, well kempt and well developed Orientation / Consciousness: awake, oriented to person, oriented to place and oriented to time Exam Limitations: no limitations Nutritional Appearance: morbidly obese HEENT normocephalic, head/scalp atraumatic, hearing grossly normal bilaterally and moist oral mucous membranes HEENT Narrative: Mallampati 3-4, dentition is poor, no thrush Eyes PERRL, EOMs intact bilaterally and conjunctivae normal Eyes Narrative: No icterus Neck no lymphadenopathy and supple Neck Narrative: Trachea midline, no thyroid enlargement Resp normal respiratory effort, no retractions, no use of accessory muscles and clear to auscultation bilaterally Cardio regular rate, regular rhythm, S1 normal heart sound, S2 normal heart sound, no murmurs, no rub, no gallops and no clicks GI normal to inspection, nondistended, normoactive bowel sounds, soft to palpation and non-tender Extremity no clubbing, cyanosis or edema Extremity Narrative: Pedal pulses are 2+ Skin no rashes or lesions noted, no wounds, skin turgor normal and no jaundice Neuro oriented x3, CN's II-XII intact bilaterally, moves all extremities and no focal motor deficits Sensorium / Orientation: awake Speech: speech normal Psych affect normal Psych Narrative: Very pleasant, patient interacts appropriately Weight / BMI Weight Weight: 142.156 kg Body Mass Index (BMI) 46.3 ABG / Lab / Microbiology Data 03/18/23 07:44 03/18/23 07:44 Laboratory: Laboratory Results - last 24 hr 03/17/23 16:51: POC Glucose 153 H 03/17/23 21:18: POC Glucose 168 H 03/18/23 07:44: WBC 12.7 H, RBC 4.42 L, Hgb 13.5, Hct 41.3, MCV 93.4, MCH 30.5, MCHC 32.7, RDW Std Deviation 44.6 H, RDW Coeff of Fátima 13.0, Plt Count 296, MPV 10.2, Immature Gran % (Auto) 0.700, Neut % (Auto) 66.9, Lymph % (Auto) 23.2, [place] % (Auto) 7.6, Eos % (Auto) 1.3, Baso % (Auto) 0.3, Absolute Neuts (auto) 8.5 H, Absolute Lymphs (auto) 2.95, Nucleated RBC % 0, Sodium 136, Potassium 4.3, Chloride 105, Carbon Dioxide 27.0, Anion Gap 4 L, BUN 9, Creatinine 0.92, Estim Creat Clear Calc 97.13, Est GFR (MDRD) Af Amer 113, Est GFR (MDRD) Non-Af 94, BUN/Creatinine Ratio 9.8 L, Glucose 128 H, Calcium 8.7, Total Bilirubin 0.50, AST 25, ALT 49, Alkaline Phosphatase 129 H, Total Protein 7.0, Albumin 2.5 L, Globulin 4.5 H, Albumin/Globulin Ratio 0.6 L 03/18/23 08:34: POC Glucose 117 H 03/18/23 11:59: POC Glucose 157 H Microbiology: Microbiology 03/14/23 19:08 Blood Culture (Wb) - Left Hand Bacteria Detection (PCR) - Final Strep anginosus 03/14/23 19:08 Blood Culture (Wb) - Left Hand Blood Culture - Final Strep anginosus 03/14/23 19:04 Blood Culture (Wb) - Anticubital Right Blood Culture - Preliminary No growth in 48 hours. Meaningful Use Info Meaningful Use Diagnoses (Choose all that apply): None applicable Discharge Plan Admission Admit Date/Time: 03/13/23 22:48 Primary Reason for Your Visit: Abdominal pain Attending Provider: Neisha Gayle Primary Care Provider: Care Physician,No Primary Consulting Providers: Bean Ham; Alan Shepherd; Manuel Davison Discharge Orders/Prescriptions Prescriptions: No Action dextroamphetamine-amphetamine [Adderall] 30 mg Tablet 30 mg PO DAILY Hold Instructions: Hold for 2 weeks and deliver chemistry comes normal. Patient Comments: hasn't taken it in 6 months d/t lack of follow up with PCP levothyroxine [Euthyrox] 50 mcg tablet 50 mcg PO DAILY Patient Comments: TAKE 1 TABLET BY MOUTH ONCE DAILY FOR 30 DAYS fluticasone propionate [Flovent HFA] 220 mcg/actuation HFA aerosol inhaler 2 inh INHALATION BID Patient Comments: INHALE 1 PUFF BY MOUTH TWICE DAILY albuterol sulfate [Ventolin HFA] 90 mcg/actuation HFA aerosol inhaler 2 inh INHALATION Q2H PRN (Reason: Shortness Of Breath Or Wheezing) Patient Comments: INHALE 2 PUFFS BY MOUTH EVERY 2 HOURS NEEDED FOR WHEEZING insulin lispro [Humalog KwikPen Insulin] 100 unit/mL Insulin Pen See Protocol subcut Q6 Qty: 0 0RF Protocol: 4. Sliding Scale Insulin High-Med Dosing Condition: 150-199 mg/dl = 2 units Condition: 200-259 mg/dl = 4 units Condition: 260-324 mg/dl = 6 units Condition: 325-374 mg/dl = 8 units Condition: 375-409 mg/dl = 10 units Condition: 410-449 mg/dl = 11 units Condition: Greater than 449 call physician Protocol Text: - Use for Total Daily Dose of Insulin 56-80 units - Patient who are insulin resistant or septic HIGH MEDIUM DOSING ALGORITHM insulin lispro [Humalog KwikPen Insulin] 100 unit/mL Insulin Pen 30 unit subcut TIDAC Qty: 15 3RF (DME) pen needle, diabetic [Pen Needle] 29 gauge x 1/2 needle 1 ea miscellaneous ACHS 30 Days Qty: 1 0RF insulin glargine [Lantus Solostar U-100 Insulin] 100 unit/mL (3 mL) insulin pen 30 unit subcut BID Qty: 15 2RF Referrals / Follow Up: Care Physician,No Primary [Primary Care Provider] - Disposition Disposition (needs filled in before D/C Order can be placed): Acute Care Hospital Charges/Coding Visit Charges Inpatient E&M: 20313 Disch Hosp
[2023-03-18 17:00] LABS: Bedside Glucose 122 mg/dL (74-106)
[2023-03-18] MEDS: 0.9% Saline Lock 10 ML Syringe IV (22:17)
[2023-03-18 22:33] VITALS: BP 142/96; PULSE 96; RESP 16; TEMP 37.2; O2SAT 96
[2023-03-18 22:49] LABS: Bedside Glucose 194 mg/dL (74-106)
[2023-03-19] MEDS: oxyCODONE 5 MG Tablet PO ×4 (02:21→19:44)
[2023-03-19 02:27] VITALS: BP 134/85; PULSE 74; RESP 16; TEMP 37.1; O2SAT 95
[2023-03-19] MEDS: Levothyroxine 50 MCG Tablet PO (06:41)
[2023-03-19] MEDS: Acetaminophen 500 MG Tablet 1000 MG PO ×3 (06:41→19:43)
[2023-03-19] MEDS: Budesonide Respules 0.5 MG/2 ML AMPUL.NEB. INHALATION ×2 (06:54→20:10)
[2023-03-19 06:55] VITALS: PULSE 76; RESP 18; O2SAT 94
[2023-03-19 08:37] LABS: Bedside Glucose 120 mg/dL (74-106)
[2023-03-19] MEDS: Insulin Lispro 100 UNIT/ML INSULN.PEN 15 UNIT SC ×2 (08:42→17:05)
[2023-03-19] MEDS: Insulin Glargine-YFGN 100 UNIT/ML Pen 50 UNIT SC ×2 (08:44→20:17)
[2023-03-19] MEDS: levETIRAcetam 500 MG Tablet PO ×2 (08:45→20:14)
[2023-03-19 08:46] LABS: Absolute Lymphocyte Count 2.36 X10^3/uL (0.83-4.51); Absolute Neutrophil Count 7.8 X10^3/uL (2.0-7.7); Basophil# 0.06 X10^3/uL; Basophil% 0.5 % (0-1); Eosinophil# 0.17 X10^3/uL; Eosinophils% 1.5 % (0-5); Hematocrit 39.3 % (40-54); Hemoglobin 12.3 g/dL (13.0-16.5); Lymphocyte # 2.36 X10^3/ul (0.83-4.51); Lymphocyte % 20.9 % (19-41); Mean Corp Hgb Conc 31.3 g/dL (32-36); Mean Corpuscular Hgb 29.9 pg (27.0-32.0); Mean Corpuscular Volume 95.6 fL (80-94); Mean Platelet Vol. 10.2 fl (6.2-12.0); Monocyte# 0.87 X10^3/uL; Monocyte% 7.7 % (0-10); NRBC Flagged by Analyzer 0 % (0-5); Neutrophil # 7.79 X10^3/uL (2.7-7.7); Platelet Count 320 K/mm3 (150-450); RBC Distribution Width CV 13.2 % (11.6-14.6); RBC Distribution Width SD 46.5 fl (35.1-43.9); Red Blood Count 4.11 M/mm3 (4.6-6.2); White Blood Count 11.3 K/mm3 (4.4-11.0)
[2023-03-19] MEDS: Pantoprazole Sodium 40 MG in 0.9% Normal Saline (100mL MB+) 100 ML 330 MG IV (08:54)
[2023-03-19 09:08] VITALS: BP 129/77; PULSE 76; RESP 20; TEMP 36.6; O2SAT 95
[2023-03-19] MEDS: Ceftriaxone 2 GM in 0.9% Normal Saline (50mL MB+) 50 ML IV (09:23)
[2023-03-19] MEDS: Lisinopril 40 MG Tablet PO (09:25)
[2023-03-19 09:26] LABS: ALB/GLOB Ratio 0.6 RATIO (0.9-2.4); AST(SGOT) 18 U/L (15-37); Alanine Aminotransfer ALT/SGPT 39 U/L (16-61); Albumin, Serum 2.3 g/dL (3.2-5.0); Alkaline Phosphatase 105 U/L (45-117); Anion Gap 4 (5-15); BUN 10 mg/dL (7-18); BUN/Creat Ratio 11.6 RATIO (10-20); Calcium,Total 8.5 mg/dL (8.5-10.1); Chloride 106 mmol/L (98-107); Creatinine, Serum 0.86 mg/dL (0.70-1.30); EST Glomerular Filtration Rate 100 mL/min (>60); Est Glom Filt Rate - Afr Amer 121 mL/min (>60); Globulin 3.9 g/dL (2.2-4.2); Glucose 126 mg/dL (74-106); Potassium 3.9 mmol/L (3.5-5.1); Protein, Total 6.2 g/dL (6.4-8.2); Sodium Level 137 mmol/L (136-145)
[2023-03-19 12:01] LABS: Bedside Glucose 97 mg/dL (74-106)
[2023-03-19 13:12] LABS: Cytology, Body Fluid / CSF SEE PATHOLOGY REPORT
[2023-03-19 13:31] LABS: Bedside Glucose 130 mg/dL (74-106)
[2023-03-19 14:02] VITALS: BP 147/96; PULSE 87; RESP 18; TEMP 36.6; O2SAT 97
[2023-03-19 17:17] LABS: Bedside Glucose 147 mg/dL (74-106)
--- NOTE | 2023-03-19 17:38 | PN.GI_ITS ---
Subjective Subjective Patient is doing well. He is tolerating a diet. He still is Awaiting transfer. Objective Data Objective Data Vital Signs: Vital Signs Temp Pulse Resp BP Pulse Ox O2 Del Method 97.9 F 87 18 147/96 H 97 Room Air 03/19/23 14:02 03/19/23 14:02 03/19/23 14:02 03/19/23 14:02 03/19/23 14:02 03/19/23 14:02 Oxygen Delivery Method Room Air Weight: 313 lb 6.4 oz Body Mass Index (BMI) 46.3 Intake & Output: Intake and Output for Last 24 Hours 03/17/23 03/18/23 03/19/23 23:59 23:59 23:59 Intake Total 3167 / 3167 775 / 775 760 / 760 Balance 3167 / 3167 775 / 775 760 / 760 Lab / Micro Data 03/19/23 07:50 03/19/23 07:50 Labs: Laboratory Results - last 24 hr 03/14/23 15:53: Miscellaneous Cytology SEE PATHOLOGY REPORT 03/18/23 22:27: POC Glucose 194 H 03/19/23 07:50: WBC 11.3 H, RBC 4.11 L, Hgb 12.3 L, Hct 39.3 L, MCV 95.6 H, MCH 29.9, MCHC 31.3 L, RDW Std Deviation 46.5 H, RDW Coeff of Fátima 13.2, Plt Count 320, MPV 10.2, Immature Gran % (Auto) 0.400, Neut % (Auto) 69.0, Lymph % (Auto) 20.9, [place] % (Auto) 7.7, Eos % (Auto) 1.5, Baso % (Auto) 0.5, Absolute Neuts (auto) 7.8 H, Absolute Lymphs (auto) 2.36, Nucleated RBC % 0, Sodium 137, Potassium 3.9, Chloride 106, Carbon Dioxide 27.0, Anion Gap 4 L, BUN 10, Creatinine 0.86, Estim Creat Clear Calc 103.90, Est GFR (MDRD) Af Amer 121, Est GFR (MDRD) Non-Af 100, BUN/Creatinine Ratio 11.6, Glucose 126 H, Calcium 8.5, Total Bilirubin 0.30, AST 18, ALT 39, Alkaline Phosphatase 105, Total Protein 6.2 L, Albumin 2.3 L, Globulin 3.9, Albumin/Globulin Ratio 0.6 L 03/19/23 08:19: POC Glucose 120 H 03/19/23 11:41: POC Glucose 97 03/19/23 13:01: POC Glucose 130 H 03/19/23 16:54: POC Glucose 147 H Micro: Microbiology 03/14/23 19:08 Blood Culture (Wb) - Left Hand Bacteria Detection (PCR) - Final Strep anginosus 03/14/23 19:08 Blood Culture (Wb) - Left Hand Blood Culture - Final Strep anginosus 03/14/23 19:04 Blood Culture (Wb) - Anticubital Right Blood Culture - Preliminary No growth in 48 hours. Physical Exam Const alert, oriented x3, no apparent distress, no limitations, healthy appearing and well nourished; Negative for average body habitus Constitutional Narrative: Morbidly obese, middle-aged, white male, sitting up on a couch at the bedside, appears comfortable and nontoxic General Appearance: cooperative, comfortable, well kempt and well developed Orientation / Consciousness: awake, oriented to person, oriented to place and oriented to time Exam Limitations: no limitations Nutritional Appearance: morbidly obese HEENT normocephalic, head/scalp atraumatic, hearing grossly normal bilaterally and moist oral mucous membranes HEENT Narrative: Mallampati 3-4, dentition is poor, no thrush Eyes PERRL, EOMs intact bilaterally and conjunctivae normal Eyes Narrative: No icterus Neck no lymphadenopathy and supple Neck Narrative: Trachea midline, no thyroid enlargement Resp normal respiratory effort, no retractions, no use of accessory muscles and clear to auscultation bilaterally Cardio regular rate, regular rhythm, S1 normal heart sound, S2 normal heart sound, no murmurs, no rub, no gallops and no clicks GI normal to inspection, nondistended, normoactive bowel sounds, soft to palpation and non-tender Extremity no clubbing, cyanosis or edema Extremity Narrative: Pedal pulses are 2+ Skin no rashes or lesions noted, no wounds, skin turgor normal and no jaundice Neuro oriented x3, CN's II-XII intact bilaterally, moves all extremities and no focal motor deficits Sensorium / Orientation: awake Speech: speech normal Psych affect normal Psych Narrative: Very pleasant, patient interacts appropriately Assessment & Plan Assessment/Plan (1) Biliary stent migration: QUALIFIERS: Encounter type: subsequent encounter Qualified Code(s): T85.520D - Displacement of bile duct prosthesis, subsequent encounter (2) Leukocytosis: (3) Acute upper abdominal pain: (4) Liver lesion: (5) Transaminitis: (6) Choledocholithiasis: (7) S/P ERCP: (8) Ascending cholangitis: (9) Hypokalemia: (10) WEI (acute kidney injury): PLAN: Plan 48-year-old gentleman with morbid obesity comes in with altered mental status, right upper quadrant pain and increased LFTs. He underwent ERCP and had multiple stones removed along with pus from the hepatobiliary system. -ERCP was complex and demonstrated pus in the entire main bile duct, polyp in the upper third of the main duct which was biopsied, filling defect consistent with a stone and choledocholithiasis was found with removal via sphincterotomy and balloon extraction, sweeping of the biliary tree with 1 stent removal and the middle third of the main bile duct was successfully dilated with lithotripsy performed and temporary stent was placed here, there was also significant pus and clots in the biliary tree consistent with a sending cholangitis -On MRI of the liver lesions are suspicious for multiple abscesses -CT of the abdomen pelvis with contrast done today and it appears that the largest abscess seems to be enlarging -CA 19-9 is slightly elevated at 197--> significance is unclear with ascending cholangitis. He will need a CA 19-9 9 repeated and likely need endoscopic ultrasound to look at the pancreas. -CEA is within normal limits -AFP is within normal limits -Right upper quadrant ultrasound shows hyperechoic mass that is 4 x 3 x 4 cm in the right lobe of the liver that corresponds with a hypodensity lesion in the right lobe of the liver on CT scan, liver is enlarged and fatty e Charges/Coding Visit Charges Inpatient E&M: 88099 Subs Hosp L3
--- NOTE | 2023-03-19 17:51 | DS.PCM_ITS ---
Providers Date of Admission: 03/13/23 Date of Discharge: 03/19/23 Primary Care Physician: Adilene Primary Care Phys Consultations 03/13/23 23:27 Consult: Gastroenterology Routine Consulting Provider: Cyril Gastroenterwilmer Reason for Consult: migrating biliary stent EMERGENT Consult: No Notified: Yes Date Notified: 03/13/23 Time Notified: 22:57 Method of Notification: ED Physician Initiated Consult: General Surgery Routine Consulting Provider: Bean Ham Reason for Consult: h/o choledocholithiasis EMERGENT Consult: No MD Notified: Yes Date Notified: 03/13/23 Time Notified: 23:02 Method of Notification: ED Physician Initiated 03/16/23 09:13 Consult: Infectious Disease Routine Consulting Provider: Manuel Davison Reason for Consult: ascending cholangitis EMERGENT Consult: No Notified: Yes Date Notified: 03/16/23 Time Notified: 20:27 Method of Notification: Answering Service Reason For Visit: ABDOMINAL PAIN WITH MIGRATING BILIARY STENT. Diagnosis Discharge Diagnosis (1) Biliary stent migration: Status: Acute Code(s): T85.520A - Displacement of bile duct prosthesis, initial encounter Qualifiers: Encounter type: subsequent encounter Qualified Code(s): T85.520D - Displacement of bile duct prosthesis, subsequent encounter (2) Leukocytosis: Status: Acute Code(s): D72.829 - Elevated white blood cell count, unspecified (3) Acute upper abdominal pain: Status: Acute Code(s): R10.10 - Upper abdominal pain, unspecified (4) Liver lesion: Status: Acute Code(s): K76.9 - Liver disease, unspecified (5) Transaminitis: Status: Acute Code(s): R74.01 - Elevation of levels of liver transaminase levels (6) Choledocholithiasis: Status: Acute Code(s): K80.50 - Calculus of bile duct without cholangitis or cholecystitis without obstruction (7) S/P ERCP: Status: Acute Code(s): Z98.890 - Other specified postprocedural states (8) Ascending cholangitis: Status: Acute Code(s): K83.09 - Other cholangitis (9) Hypokalemia: Status: Acute Code(s): E87.6 - Hypokalemia (10) WEI (acute kidney injury): Status: Acute Code(s): N17.9 - Acute kidney failure, unspecified Plan 1. Ascending cholangitis #2 strep anginosus bacteremia #3 type 2 diabetes #4 hypothyroidism #5 essential hypertension #6 pyogenic liver abscess #7 hypokalemia #8 choledocholithiasis Medications at Discharge Home Medications albuterol sulfate 90 mcg/actuation aerosol inhaler (Ventolin HFA) 2 inh inhalation Q2H PRN Shortness Of Breath Or Wheezing 12/04/21 dextroamphetamine-amphetamine 30 mg tablet (Adderall) 30 mg PO DAILY adhd 12/04/21 fluticasone propionate 220 mcg/actuation HFA aerosol inhaler (Flovent HFA) 2 inh inhalation BID asthma 12/04/21 levothyroxine 50 mcg tablet (Euthyrox) 50 mcg PO DAILY 12/04/21 insulin glargine 100 unit/mL (3 mL) subcutaneous pen (Lantus Solostar U-100 Insulin) 30 unit (0.3 mL) subcut BID dm #15 mL 12/06/21 insulin lispro 100 unit/mL subcutaneous pen (Humalog KwikPen (U-100) Insulin) 30 unit (0.3 mL) subcut TIDAC dm #15 mL 12/06/21 insulin lispro 100 unit/mL subcutaneous pen (Humalog KwikPen (U-100) Insulin) See Protocol subcut Q6 dm #0 mL 12/06/21 pen needle, diabetic 29 gauge x 1/2 (Pen Needle) ##1 12/06/21 Hospital Course Operations None Procedures - (ERCP with biliary enterotomy, balloon extraction of choledocholithiasis, biliary sphincterotomy, removal of biliary stent, placement of temporary stent into the common bile duct) Summary of Care Provided Minutes Spent on Discharge: 33 Hospital Course: 48-year-old white male presents to the emergency room at [facility] with upper abdominal pain associated with nausea, he had been admitted approximately 5 days earlier at an outside hospital and was diagnosed with pancreatitis. Patient had a history of a common bile duct stent that was placed approximately a year ago-patient was noncompliant and follow-up for stent removal. Labs were obtained, white blood cell count was noted to be elevated at 15.5, sodium was low at 127, creatinine was elevated 1.54 and BUN was 20. Patient's glucose was elevated at 390, patient's liver enzymes were elevated with his ALT, alkaline phosphatase, and bilirubin elevated. CT of the abdomen pelvis was performed, read out suspected distal migration of the biliary stent barely within the distal common bile duct with the distal aspect of the third portion of the duodenum, there is a suspicion of small hepatic metastases. Patient was admitted to the medical floor, he was maintained on IV antibiotics and seen in consultation by general surgery, infectious diseases, and gastro enterology, patient underwent an ERCP with sphincterotomy and additional other procedures during the ERCP. Patient's blood culture grew out strep, repeat CT of the abdomen and pelvis showed enlargement of areas felt to be abscess areas around the liver, it was recommended that he be transferred to a tertiary facility for further care. On 03/19/2023, patient was seen and examined: On examination he appeared in good health and spirits, he was morbidly obese. Vital signs as documented. Skin warm and dry and without overt rashes. Neck without JVD, neck was supple, trachea midline, thyroid was normal. Lungs clear bilaterally, normal air movement was noted. Heart exam notable for regular rhythm, normal sounds and absence of murmurs, rubs or gallops. Abdomen unremarkable and without evidence of organomegaly, masses, or abdominal aortic enlargement. Bowel sounds are present, abdomen is not distended. Extremities nonedematous, no cyanosis was noted, no clubbing was noted. Neuro: Cranial nerves II through XII are grossly intact, no focal motor deficits were noted, sensation to light touch and pinprick intact, motor exam 5/5 throughout. Psych: Patient is alert and oriented x3, he does not appear anxious or depressed, he does not appear agitated. Patient was transferred in stable condition to a tertiary facility for further care on 03/19/2023. Weight / BMI Weight Weight: 142.156 kg Body Mass Index (BMI) 46.3 ABG / Lab / Microbiology Data 03/19/23 07:50 03/19/23 07:50 Laboratory: Laboratory Results - last 24 hr 03/14/23 15:53: Miscellaneous Cytology SEE PATHOLOGY REPORT 03/18/23 22:27: POC Glucose 194 H 03/19/23 07:50: WBC 11.3 H, RBC 4.11 L, Hgb 12.3 L, Hct 39.3 L, MCV 95.6 H, MCH 29.9, MCHC 31.3 L, RDW Std Deviation 46.5 H, RDW Coeff of Fátima 13.2, Plt Count 320, MPV 10.2, Immature Gran % (Auto) 0.400, Neut % (Auto) 69.0, Lymph % (Auto) 20.9, [place] % (Auto) 7.7, Eos % (Auto) 1.5, Baso % (Auto) 0.5, Absolute Neuts (auto) 7.8 H, Absolute Lymphs (auto) 2.36, Nucleated RBC % 0, Sodium 137, Potassium 3.9, Chloride 106, Carbon Dioxide 27.0, Anion Gap 4 L, BUN 10, Creatinine 0.86, Estim Creat Clear Calc 103.90, Est GFR (MDRD) Af Amer 121, Est GFR (MDRD) Non-Af 100, BUN/Creatinine Ratio 11.6, Glucose 126 H, Calcium 8.5, Total Bilirubin 0.30, AST 18, ALT 39, Alkaline Phosphatase 105, Total Protein 6.2 L, Albumin 2.3 L, Globulin 3.9, Albumin/Globulin Ratio 0.6 L 03/19/23 08:19: POC Glucose 120 H 03/19/23 11:41: POC Glucose 97 03/19/23 13:01: POC Glucose 130 H 03/19/23 16:54: POC Glucose 147 H Microbiology: Microbiology 03/14/23 19:08 Blood Culture (Wb) - Left Hand Bacteria Detection (PCR) - Final Strep anginosus 03/14/23 19:08 Blood Culture (Wb) - Left Hand Blood Culture - Final Strep anginosus 03/14/23 19:04 Blood Culture (Wb) - Anticubital Right Blood Culture - Preliminary No growth in 48 hours. Meaningful Use Info Meaningful Use Diagnoses (Choose all that apply): None applicable Discharge Plan Admission Admit Date/Time: 03/13/23 22:48 Primary Reason for Your Visit: Abdominal pain Attending Provider: Radhames Cosby Primary Care Provider: Care Physician,No Primary Consulting Providers: Bean Ham; Alan Shepherd; Manuel Davison; Neisha Gayle Discharge Orders/Prescriptions Prescriptions: No Action dextroamphetamine-amphetamine [Adderall] 30 mg Tablet 30 mg PO DAILY Hold Instructions: Hold for 2 weeks and deliver chemistry comes normal. Patient Comments: hasn't taken it in 6 months d/t lack of follow up with PCP levothyroxine [Euthyrox] 50 mcg tablet 50 mcg PO DAILY Patient Comments: TAKE 1 TABLET BY MOUTH ONCE DAILY FOR 30 DAYS fluticasone propionate [Flovent HFA] 220 mcg/actuation HFA aerosol inhaler 2 inh INHALATION BID Patient Comments: INHALE 1 PUFF BY MOUTH TWICE DAILY albuterol sulfate [Ventolin HFA] 90 mcg/actuation HFA aerosol inhaler 2 inh INHALATION Q2H PRN (Reason: Shortness Of Breath Or Wheezing) Patient Comments: INHALE 2 PUFFS BY MOUTH EVERY 2 HOURS NEEDED FOR WHEEZING insulin lispro [Humalog KwikPen Insulin] 100 unit/mL Insulin Pen See Protocol subcut Q6 Qty: 0 0RF Protocol: 4. Sliding Scale Insulin High-Med Dosing Condition: 150-199 mg/dl = 2 units Condition: 200-259 mg/dl = 4 units Condition: 260-324 mg/dl = 6 units Condition: 325-374 mg/dl = 8 units Condition: 375-409 mg/dl = 10 units Condition: 410-449 mg/dl = 11 units Condition: Greater than 449 call physician Protocol Text: - Use for Total Daily Dose of Insulin 56-80 units - Patient who are insulin resistant or septic HIGH MEDIUM DOSING ALGORITHM insulin lispro [Humalog KwikPen Insulin] 100 unit/mL Insulin Pen 30 unit subcut TIDAC Qty: 15 3RF (DME) pen needle, diabetic [Pen Needle] 29 gauge x 1/2 needle 1 ea miscellaneous ACHS 30 Days Qty: 1 0RF insulin glargine [Lantus Solostar U-100 Insulin] 100 unit/mL (3 mL) insulin pen 30 unit subcut BID Qty: 15 2RF Referrals / Follow Up: Care Physician,No Primary [Primary Care Provider] - Disposition Disposition (needs filled in before D/C Order can be placed): Acute Care Hospital Charges/Coding Visit Charges Inpatient E&M: 27675 Disch Hosp >30min
[2023-03-19 19:41] VITALS: BP 129/75; PULSE 87; RESP 16; TEMP 36.6; O2SAT 95
--- NOTE | 2023-03-19 19:58 | NURSING ---
report called to Adrianna at [facility].
[2023-03-19] MEDS: Ondansetron 4 MG/2 ML Vial IV (20:15)
[2023-03-19 20:40] LABS: Bedside Glucose 126 mg/dL (74-106)
== END 2023-03-19 20:25 | disposition short-term general hospital (02) ==
LOC: ED 21:26 → MS3 23:09
PROVIDERS: Internal Medicine; Internal Medicine Gastroenterology; Surgery; Emergency Provider Emergency Medicine; Visit Provider Internal Medicine
PROC: 0FPB8DZ Removal of Intraluminal Device from Hepatobiliary Duct, Via Natural or Artificial Opening Endoscopic (ICD-10-PCS; CPT 43260; principal; 2023-03-14 14:35)
DX: K80.33 Calculus of bile duct with acute cholangitis with obstruction (principal); K75.0 Abscess of liver; R78.81 Bacteremia; N17.9 Acute kidney failure, unspecified; E11.65 Type 2 diabetes mellitus with hyperglycemia; B95.4 Other streptococcus as the cause of diseases classified elsewhere; K75.89 Other specified inflammatory liver diseases; E66.01 Morbid (severe) obesity due to excess calories; J44.9 Chronic obstructive pulmonary disease, unspecified; G40.909 Epilepsy, unspecified, not intractable, without status epilepticus; Z79.4 Long term (current) use of insulin; Z68.42 Body mass index [BMI] 45.0-49.9, adult; I10 Essential (primary) hypertension; E03.9 Hypothyroidism, unspecified; T85.520A Displacement of bile duct prosthesis, initial encounter; E78.00 Pure hypercholesterolemia, unspecified; F17.210 Nicotine dependence, cigarettes, uncomplicated; E87.6 Hypokalemia; Y73.2 Prosthetic and other implants, materials and accessory gastroenterology and urology devices associated with adverse incidents; F90.9 Attention-deficit hyperactivity disorder, unspecified type; Z91.199 Patient's noncompliance with other medical treatment and regimen due to unspecified reason; Z79.51 Long term (current) use of inhaled steroids; Z79.890 Hormone replacement therapy; Z79.899 Other long term (current) drug therapy
CPT/HCPCS: 36415; 74177; 74183; 74330; 76000; 76705; 80053; 81001; 82105; 82378; 82947; 82962; 83036; 83690; 83735; 84100; 84443; 85025; 86301; 87040; 87149; 87186; 87641; 88108; 88305; 88313; 94640; 97802; 99252; 99284; 99406; A9575; J7030; J7040; J7050; J7120; Q9967; A4216; G0463; J0696; J2405

== ENCOUNTER 2023-04-01 14:26 | Outpatient (CLI) | payer MEDICAID, SELFPAY ==
[2023-04-01 15:00] LABS: Absolute Lymphocyte Count 2.81 X10^3/uL (0.83-4.51); Absolute Neutrophil Count 4.8 X10^3/uL (2.0-7.7); Basophil# 0.12 X10^3/uL; Basophil% 1.4 % (0-1); Eosinophil# 0.27 X10^3/uL; Eosinophils% 3.1 % (0-5); Hematocrit 44.6 % (40-54); Hemoglobin 14.5 g/dL (13.0-16.5); Lymphocyte # 2.81 X10^3/ul (0.83-4.51); Lymphocyte % 32.3 % (19-41); Mean Corp Hgb Conc 32.5 g/dL (32-36); Mean Corpuscular Hgb 30.5 pg (27.0-32.0); Mean Corpuscular Volume 93.7 fL (80-94); Mean Platelet Vol. 9.6 fl (6.2-12.0); Monocyte# 0.63 X10^3/uL; Monocyte% 7.2 % (0-10); NRBC Flagged by Analyzer 0 % (0-5); Neutrophil # 4.82 X10^3/uL (2.7-7.7); Neutrophil % 55.5 % (47-70); Platelet Count 297 K/mm3 (150-450); RBC Distribution Width CV 12.8 % (11.6-14.6); RBC Distribution Width SD 43.8 fl (35.1-43.9); Red Blood Count 4.76 M/mm3 (4.6-6.2); White Blood Count 8.7 K/mm3 (4.4-11.0)
[2023-04-01 15:14] LABS: AST(SGOT) 17 U/L (15-37); Alanine Aminotransfer ALT/SGPT 39 U/L (16-61); Albumin, Serum 3.3 g/dL (3.2-5.0); Alkaline Phosphatase 74 U/L (45-117); Bilirubin, Direct 0.13 mg/dL (0.00-0.30); Creatinine, Serum 0.95 mg/dL (0.70-1.30); EST Glomerular Filtration Rate 90 mL/min (>60); Est Glom Filt Rate - Afr Amer 108 mL/min (>60); Globulin 4.5 g/dL (2.2-4.2); Protein, Total 7.8 g/dL (6.4-8.2)
[2023-04-01 22:53] LABS: Xtra Tube EP Lab EXTRA TUBE
== END 2023-04-01 14:27 | disposition home or self-care (01) ==
LOC: MEDOUTP 14:27
DX: K75.0 Abscess of liver (principal); Z45.2 Encounter for adjustment and management of vascular access device
CPT/HCPCS: 36592; 80076; 82565; 85025; A4216

== ENCOUNTER 2023-04-01 20:59 | Emergency (ER) | payer MEDICAID, SELFPAY ==
[2023-04-01 20:59] VITALS: BP 131/85; PULSE 92; RESP 15; TEMP 36.3; O2SAT 98
--- NOTE | 2023-04-01 21:15 | EX.ED.DYSGE1 ---
HPI History of Present Illness Chief Complaint: Wound Check Detail of Chief Complaint: Dressing for PICC line is falling off. Informant: patient Onset/Context/Timing Onset: Hours Context: Sudden Onset Timing: Continuous Quality: Adhesive on dressing is not functioning properly Location: Medial right arm Worsened by: Not applicable Relieved by: Not applicable Associated Symptoms Associated Symptoms: None Narrative Narrative: Patient was recently admitted for hepatic lesion. The hepatic lesion was hepatic abscess. He also had displacement of his common bile duct stent and required ERCP. Patient contacted visiting nurse. Because the dressings fall of the PICC line and concerned this may become infected he was instructed to come to the emergency room to have dressing change. Prior similar symptoms: No Recent Illness/Hospitalization: Yes PFSH PFSH Medical History Alcohol abuse Anxiety Asthma Back pain due to injury Biliary stent migration Bipolar disorder COPD (chronic obstructive pulmonary disease) CPAP (continuous positive airway pressure) dependence Depression Diabetes mellitus type 2, uncontrolled GERD (gastroesophageal reflux disease) High cholesterol History of hypertension Hypertension Hypothyroidism Pure hypercholesterolemia Restless legs Seizures Smoker Home Medications albuterol sulfate 90 mcg/actuation aerosol inhaler (Ventolin HFA) 2 inh inhalation Q2H PRN Shortness Of Breath Or Wheezing 12/04/21 [History Last Taken Unknown] dextroamphetamine-amphetamine 30 mg tablet (Adderall) 30 mg PO DAILY adhd 12/04/21 [History Last Taken Unknown] fluticasone propionate 220 mcg/actuation HFA aerosol inhaler (Flovent HFA) 2 inh inhalation BID asthma 12/04/21 [History Last Taken Unknown] levothyroxine 50 mcg tablet (Euthyrox) 50 mcg PO DAILY 12/04/21 [History Last Taken Unknown] insulin glargine 100 unit/mL (3 mL) subcutaneous pen (Lantus Solostar U-100 Insulin) 30 unit (0.3 mL) subcut BID dm #15 mL 12/06/21 [Rx Last Taken Unknown] insulin lispro 100 unit/mL subcutaneous pen (Humalog KwikPen (U-100) Insulin) 30 unit (0.3 mL) subcut TIDAC dm #15 mL 12/06/21 [Rx Last Taken Unknown] insulin lispro 100 unit/mL subcutaneous pen (Humalog KwikPen (U-100) Insulin) See Protocol subcut Q6 dm #0 mL 12/06/21 [Rx Last Taken Unknown] pen needle, diabetic 29 gauge x 1/2 (Pen Needle) ##1 12/06/21 [Rx Last Taken Unknown] Allergy/AdvReac Type Severity Reaction Status Date / Time latex Allergy Rash Verified 04/01/23 21:04 Family History Father Cancer Hx Lung CA with tobacco use history. Other Heart disease Hypertension Surgical History H/O esophagogastroduodenoscopy History of colonoscopy S/P ERCP Social History household members: other details: Lives with his son. Notes moved in 2 years prior. Smoking Status: Current every day smoker tobacco type: cigarettes how long ago did patient quit smoking: Patient attempting to quit, started age 10, smoked 2 ppd until 2 years ago. alcohol intake: former details: Notes sober x 15-20 years. substance use type: does not use ROS ROS ED Constitutional Constitutional ED: Denies chills, fever(s), subjective, sweats or weight loss Cardiovascular Cardiovascular: Denies chest pain Respiratory/Chest Respiratory/Chest: Denies cough or dyspnea Gastrointestinal Gastrointestinal: Denies abdominal pain, nausea or vomiting Integumentary Denies rash EXAM Physical Exam Const Vital Signs: 04/01/23 20:59 Temperature 97.3 F L Temperature Source Temporal Pulse Rate 92 Respiratory Rate 15 Blood Pressure 131/85 H Blood Pressure Mean 100 Pulse Ox 98 Oxygen Delivery Method Room Air Positive well nourished, well developed and obese General Appearance ED: well developed and NAD; Negative for pallor Nutritional Appearance: obese HEENT Reports moist mucous membranes Eyes PERRL and EOMs intact bilaterally Cardio regular rate and regular rhythm Extremity Extremity Narrative: Dressing that was just changed today is falling off. Will have nurse change dressing and patient be discharged home. Skin no rashes or lesions noted, no wounds and skin turgor normal General Skin Exam: elasticity normal; Negative for jaundice or pallor MDM MDM MDM Narrative Medical decision making narrative: Need for change of PICC line dressing. Patient had gauze applied to it which raises concern for infection. There is no evidence infection. Since vital signs are normal. To be discharged to home. Discharge Plan Triage Chief Complaint: Wound Check ED Provider: Chandler,Bang Dx/Rx/DC Orders Clinical Impression: Visit for wound check, S/P PICC central line placement Instructions: ED PICC Line Care Prescriptions: No Action dextroamphetamine-amphetamine [Adderall] 30 mg Tablet 30 mg PO DAILY Hold Instructions: Hold for 2 weeks and deliver chemistry comes normal. Patient Comments: hasn't taken it in 6 months d/t lack of follow up with PCP levothyroxine [Euthyrox] 50 mcg tablet 50 mcg PO DAILY Patient Comments: TAKE 1 TABLET BY MOUTH ONCE DAILY FOR 30 DAYS fluticasone propionate [Flovent HFA] 220 mcg/actuation HFA aerosol inhaler 2 inh INHALATION BID Patient Comments: INHALE 1 PUFF BY MOUTH TWICE DAILY albuterol sulfate [Ventolin HFA] 90 mcg/actuation HFA aerosol inhaler 2 inh INHALATION Q2H PRN (Reason: Shortness Of Breath Or Wheezing) Patient Comments: INHALE 2 PUFFS BY MOUTH EVERY 2 HOURS NEEDED FOR WHEEZING insulin lispro [Humalog KwikPen Insulin] 100 unit/mL Insulin Pen See Protocol subcut Q6 Qty: 0 0RF Protocol: 4. Sliding Scale Insulin High-Med Dosing Condition: 150-199 mg/dl = 2 units Condition: 200-259 mg/dl = 4 units Condition: 260-324 mg/dl = 6 units Condition: 325-374 mg/dl = 8 units Condition: 375-409 mg/dl = 10 units Condition: 410-449 mg/dl = 11 units Condition: Greater than 449 call physician Protocol Text: - Use for Total Daily Dose of Insulin 56-80 units - Patient who are insulin resistant or septic HIGH MEDIUM DOSING ALGORITHM insulin lispro [Humalog KwikPen Insulin] 100 unit/mL Insulin Pen 30 unit subcut TIDAC Qty: 15 3RF (DME) pen needle, diabetic [Pen Needle] 29 gauge x 1/2 needle 1 ea miscellaneous ACHS 30 Days Qty: 1 0RF insulin glargine [Lantus Solostar U-100 Insulin] 100 unit/mL (3 mL) insulin pen 30 unit subcut BID Qty: 15 2RF Referrals: Doctor,Your [Non-Staff] - As Needed Disposition Disposition: Home, Self Care
== END 2023-04-01 21:28 | disposition home or self-care (01) ==
LOC: ED 21:28
PROVIDERS: Emergency Provider Emergency Medicine; Visit Provider Emergency Medicine
DX: Z51.89 Encounter for other specified aftercare (principal); J44.9 Chronic obstructive pulmonary disease, unspecified; F31.9 Bipolar disorder, unspecified; R56.9 Unspecified convulsions; Z79.4 Long term (current) use of insulin; I10 Essential (primary) hypertension; F17.210 Nicotine dependence, cigarettes, uncomplicated; K75.0 Abscess of liver; F41.9 Anxiety disorder, unspecified; K21.9 Gastro-esophageal reflux disease without esophagitis; E78.00 Pure hypercholesterolemia, unspecified; E03.9 Hypothyroidism, unspecified; G25.81 Restless legs syndrome; Z79.899 Other long term (current) drug therapy
CPT/HCPCS: 99282

== ENCOUNTER 2023-04-08 14:43 | Outpatient (CLI) | payer MEDICAID, SELFPAY ==
[2023-04-08 15:33] LABS: Absolute Lymphocyte Count 2.67 X10^3/uL (0.83-4.51); Absolute Neutrophil Count 6.4 X10^3/uL (2.0-7.7); Basophil# 0.07 X10^3/uL; Basophil% 0.7 % (0-1); Eosinophil# 0.24 X10^3/uL; Eosinophils% 2.4 % (0-5); Hematocrit 45.2 % (40-54); Hemoglobin 14.9 g/dL (13.0-16.5); Lymphocyte # 2.67 X10^3/ul (0.83-4.51); Lymphocyte % 26.3 % (19-41); Mean Corpuscular Hgb 30.9 pg (27.0-32.0); Mean Corpuscular Volume 93.8 fL (80-94); Mean Platelet Vol. 9.8 fl (6.2-12.0); Monocyte# 0.68 X10^3/uL; Monocyte% 6.7 % (0-10); NRBC Flagged by Analyzer 0 % (0-5); Neutrophil # 6.42 X10^3/uL (2.7-7.7); Neutrophil % 63.3 % (47-70); Platelet Count 249 K/mm3 (150-450); RBC Distribution Width CV 13.2 % (11.6-14.6); RBC Distribution Width SD 44.7 fl (35.1-43.9); Red Blood Count 4.82 M/mm3 (4.6-6.2); White Blood Count 10.1 K/mm3 (4.4-11.0)
[2023-04-08 15:49] LABS: AST(SGOT) 18 U/L (15-37); Alanine Aminotransfer ALT/SGPT 34 U/L (16-61); Albumin, Serum 3.3 g/dL (3.2-5.0); Alkaline Phosphatase 70 U/L (45-117); Bilirubin, Direct 0.08 mg/dL (0.00-0.30); Creatinine, Serum 0.97 mg/dL (0.70-1.30); EST Glomerular Filtration Rate 87 mL/min (>60); Est Glom Filt Rate - Afr Amer 106 mL/min (>60); Globulin 4.3 g/dL (2.2-4.2); Protein, Total 7.6 g/dL (6.4-8.2)
== END 2023-04-08 14:44 | disposition home or self-care (01) ==
LOC: MEDOUTP 14:43
DX: K75.0 Abscess of liver (principal)
CPT/HCPCS: 36592; 80076; 82565; 85025; A4216

== ENCOUNTER 2023-04-15 14:55 | Outpatient (CLI) | payer MEDICAID, SELFPAY ==
[2023-04-15 15:23] LABS: Absolute Neutrophil Count 6.2 X10^3/uL (2.0-7.7); Basophil# 0.06 X10^3/uL; Basophil% 0.6 % (0-1); Hematocrit 48.5 % (40-54); Hemoglobin 16.4 g/dL (13.0-16.5); Lymphocyte % 28.6 % (19-41); Mean Corp Hgb Conc 33.8 g/dL (32-36); Mean Corpuscular Hgb 31.2 pg (27.0-32.0); Mean Corpuscular Volume 92.4 fL (80-94); Mean Platelet Vol. 9.6 fl (6.2-12.0); Monocyte# 0.72 X10^3/uL; Monocyte% 7.1 % (0-10); NRBC Flagged by Analyzer 0 % (0-5); Neutrophil # 6.22 X10^3/uL (2.7-7.7); Neutrophil % 61.4 % (47-70); Platelet Count 271 K/mm3 (150-450); RBC Distribution Width CV 13.4 % (11.6-14.6); RBC Distribution Width SD 44.9 fl (35.1-43.9); Red Blood Count 5.25 M/mm3 (4.6-6.2); White Blood Count 10.1 K/mm3 (4.4-11.0)
[2023-04-15 15:45] LABS: AST(SGOT) 20 U/L (15-37); Alanine Aminotransfer ALT/SGPT 44 U/L (16-61); Albumin, Serum 3.7 g/dL (3.2-5.0); Alkaline Phosphatase 67 U/L (45-117); Bilirubin, Direct 0.12 mg/dL (0.00-0.30); EST Glomerular Filtration Rate 76 mL/min (>60); Est Glom Filt Rate - Afr Amer 91 mL/min (>60); Globulin 4.3 g/dL (2.2-4.2)
--- OUTSIDE RECORDS SUMMARY | 2023-04-15 17:37 | XMS RPT_ITS | CCD ---
Author Name Unknown Address [address] [place] [address] Organization [facility] Care Team Providers Care Consultant Intern Name Role Phone HAIR THOMAS Unavailable Unavailable HAIR THOMAS Unavailable Unavailable PHYSICIAN, NONE Unavailable Unavailable CAYDEN ALICEA Admitting Unavailable CAYDEN ALICEA Attending Unavailable CAYDEN ALICEA Primary Care Unavailable HAIR THOMAS Referring Unavailable HAIR THOMAS Consulting Unavailable PROVIDER, UNKNOWN Consulting Unavailable ALEX YANG Referring Unavailab JEZ Mcgraw (RES) Attending Unavail able JESSICA BENNETT Consulting Unavail MICHELLE Rubin Admitting Unavailable Allergies Allergy Classification Reported Allergen(s) Allergy Type Date of Onset Reaction(s) Facility (2 sources) Latex; Translations: [LATEX] Propensity to adverse reactions (disorder) 5 [facility] Repository (1 source) QUEtiapine Drug Allergy [facility] Repository (1 source) anti-depressant, otc allergy pill Drug allergy (disorder) [facility] Repository Problems Problem Classification Problem Date Documented Da te Episodic/Chronic Asthma (1 source) Asthma Onset: 10-09-2016 Chronic Other liver diseases (1 source) Abscess of liver; Translations: [Liver abscess] Onset: 03-26-2023 Episodic Unclassified (1 source) Unknown / UNK(Unknown) Onset: 10-09-2016 Results Test Name Value Interpretation Reference Range Facil ity Encounters Encounter Date Encounter Type Care Provider Facility Start: 03-19-2023 End: 03-26-2023 Evaluation and management of inpatient ALEX YANG Facility:[facility] Start: 03-06-2023 End: 03-07-2023 Emergency department patient visit CAYDEN ALICEA [facility] Start: 10-09-2016 Ambulatory HAIR Storey ty:[facility] Payers Date Payer Category Payer Unknown [id number] 1975 Unknown [id number] Clinical Notes 03-20-2023 to 04-11-2023 Note Date & Type Note Facility 04-11-2023 Note HNO ID: [id number] Author: Asha Singleton Service: ? Author Type: ? Type: Progress Notes Filed: 04/11/2023 11:34 AM Note Text: Patient's sister called back. She agreed to virtual visit on 04/18/23 @ 9 am. [facility] 03-26-2023 Note HNO ID: [id number] Author: Dahlia Latham RN Service: Care Management Author Type: Registered Nurse Type: Care Mgt Progress Note Filed: 03/26/2023 10:29 AM Note Text: CARE MANAGEMENT PROGRESS NOTE SERVICE DATE: 03/26/2023 SERVICE TIME: 10:28 AM LOS: 7 days [facility] can accommodate dressing changes and labs. Order signed by surgery and faxed to [facility]. Teaching has been done for self administration of IV antibiotic. Patient feels very comfortable administering. Sister to transport home and to appointments. . SIGNATURE: Dahlia Latham RN PATIENT NAME: Marcin Naylor DATE: March 26, 2023 TIME: 10:28 AM PAGER/CONTACT #: [phone] [facility] 03-26-2023 Note HNO ID: [id number] Author: Elida Perales APRN.G[employer]IN [employer]ILL WORKER Service: General Surgery Author Type: Nurse Specialist Type: Progress Notes Filed: 03/26/2023 9:14 AM Note Text: Emergency General Surgery Progress Note SERVICE DATE: March 26, 2023 SERVICE TIME: 0700 Emergency General Surgery Service Pager: For questions or concerns Mon-Fri 6a-5p please page [phone]. After 5pm and on Weekends and Holidays, please page [phone] if in ICU or [phone] if on RNF. SUBJECTIVE: HPI: Mr. Naylor is a 48 year old male with a past medical history significant for HTN, HLD, biliary stricture stented in 2021 presented as a direct admission to [facility] on 03/19/2023 for hepatic abscess in the setting of recent ascending cholangitis. MRCP on 03/13 revealed multiple peripherally enhancing lesions throughout the liver worrisome for metastatic disease and migration of prior biliary stent. During subsequent ERCP, old stent removed and new stent inserted on 03/14/23. Filling defects thought to be stone and sludge were removed and pus was found in the entire biliary tree. The upper third of the main bile duct contained a pedunculated polyp. Mr. Naylor was started on IV antibiotics at that time. Repeat CT imaging was obtained on 03/17/2023 which showed stable abscesses. He was then transferred to [facility] for further surgical evaluation and management. Once at [facility] consultations were obtained with Infectious Disease with recommendations of IV Ceftriaxone for 4 weeks and Gastroenterology with recommendations of outpatient follow up for temporary stent removal. A PICC line was placed on 03/21/2023. Up in room, denies discomfort. Tolerating diet DIET REGULAR Nausea No Emesis No Flatus Yes Bowel movement Yes Pain Controlled Yes Ambulating Yes OBJECTIVE: Vitals: Temp (24hrs), Av.7 ?C (98.1 ?F), Min:36.6 ?C (97.9 ?F), Max:36.9 ?C (98.4 ?F) BP 117/57 Pulse 70 Temp 36.6 ?C (97.9 ?F) (Oral) Resp 18 Ht 175.3 cm (5' 9.02 ) Wt (!) 150 kg (330 lb 11 oz) SpO2 96% BMI 48.81 kg/m? O2 Therapy: Room Air IANDO: Date 03/25/23699 - 03/26/23 0659 03/26/23699 - 03/27/23 0659 Shift 4903-7650 4666-3705 9687-3759 24 Hour Total 4166-5404 1055-0965 0820-3519 24 Hour Total INTAKE PO 418 300 718 PO 418 300 718 Shift Total 418 300 718 OUTPUT Shift Total Weight (kg) 150 150 150 150 150 150 150 150 MEDICATIONS Current Facility-Administered Medications Medication Dose Route Frequency pantoprazole DR 40 mg tab(s) (PROTONIX) 40 mg ORAL DAILY (6 AM) calcium carbonate 750 mg chewable tab(s) (TUMS) 750 mg ORAL TID PRN nicotine 21 mg/24 hr 1 Patch (NICODERM) 1 Patch TRANSDERMAL DAILY And nicotine -- REMOVE patch OTHER DAILY And nicotine - verify patch OTHER q 8 H enoxaparin 40 mg injection (LOVENOX) 40 mg SUBCUTANEOUS DAILY NaCl 0.9% iv flush bag 20 mL INTRAVENOUS PRN ondansetron 4 mg tab(s) (ZOFRAN) 4 mg ORAL q 6 H PRN Or ondansetron (PF) 4 mg injection (ZOFRAN) 4 mg INTRAVENOUS q 6 H PRN oxyCODONE IR 5-10 mg tab(s) (ROXICODONE) 5-10 mg ORAL q 6 H PRN acetaminophen 975 mg tab(s) (TYLENOL) 975 mg ORAL q 6 H cefTRIAXone iv piggyback 2 g in dextrose (iso-osmotic) 50 mL (ROCEPHIN) 2 g INTRAVENOUS q 24 H Labs: Recent Labs 03/26/23 0008 03/25/23 0024 NA 137 134* K 4.3 4.3 CHLOR 101 98 CO2 29 28 BUN 15 17 CREAT 0.88 0.88 GLUC 169* 221* ANION 7* 8* CA 9.4 9.1 ALB 3.8* 3.7* AST 25 23 ALT 38 36 ALKPHOS 86 88 TBILI 0.3 0.3 WBC 10.15 9.72 HB 13.7 13.4 HCT 41.2 40.2 PLT 361 361 Physical Exam: GENERAL: No distress, Alert NEURO: AANDOx3, CN II-XII grossly intact HEENT: normocephalic, atraumatic LUNGS: Unlabored breathing, equal chest rise bilaterally CARDIAC: Regular rate, warm and well perfused distal extremities ABDOMEN: Soft, obese, mild TTP RUQ, non-distended EXTREMITIES: YI, No deformities, No edema SKIN: Skin color, texture, turgor normal, No rashes or lesions ASSESSMENT AND PLAN: Assessment Active Hospital Problems Diagnosis Date Noted Liver abscess 03/19/2023 Nicotine use disorder, F17.2 03/20/2023 Obesity, Class III, BMI >= 40 03/20/2023 Assessment: 48 year old male with a past medical history significant for HTN, HLD, biliary stricture stented in 2021 presents as a direct admission for hepatic abscess in the setting of recent ascending cholangitis. Hospital Course/Operations/Procedures: 03/20/2023 Procedure(s): CT GUIDED PERCUTANEOUS DRAINAGE OF ABSCESS W/ INSERTION CATHETER ABDOMINAL Plan: Multiple Hepatic Abscesses Pedunculated CBD polyp - Likely 2/2 Ascending cholangitis, purulent bile noted on ERCP - S/p ERCP 03/14/2023 with replacement of stent in good position - GI consulted and recommending follow-up on pathology. Awaiting results from [place] - Diet as tolerated - Pain control prn - Monitor labs -LFTs WNL -WBCs WNL - ID following: CoPAT in chart and signed - Ceftriaxone x4 weeks -BCx: S ang (more content not included)... [facility] 03-25-2023 Note HNO ID: [id number] Author: Dahlia Latham, RN Service: Care Management Author Type: Registered Nurse Type: Care Mgt Progress Note Filed: 03/25/2023 1:58 PM Note Text: CARE MANAGEMENT PROGRESS NOTE SERVICE DATE: 03/25/2023 SERVICE TIME: 1:54 PM LOS: 6 days [facility] can still come teach iv antibiotic for home iv antibiotic daily. Telephone call voice mail to [facility] at [facility] to see if they can accommodate weekly dressing changes and blood draws. Awaiting call back. . SIGNATURE: Dahlia Latham RN PATIENT NAME: Marcin Naylor DATE: March 25, 2023 TIME: 1:54 PM PAGER/CONTACT #: [phone] [facility] 03-25-2023 Note HNO ID: [id number] Author: Elida Perales, LUBRICATING SPECIALIST.GRAIN MILL WORKER Service: General Surgery Author Type: Nurse Specialist Type: Progress Notes Filed: 03/25/2023 1:19 PM Note Text: Emergency General Surgery Progress Note SERVICE DATE: March 25, 2023 SERVICE TIME: 0630 Emergency General Surgery Service Pager: For questions or concerns Mon-Fri 6a-5p please page [phone]. After 5pm and on Weekends and Holidays, please page [phone] if in ICU or [phone] if on RNF. SUBJECTIVE: HPI: Mr. Naylor is a 48 year old male with a past medical history significant for HTN, HLD, biliary stricture stented in 2021 presented as a direct admission to [facility] on 03/19/2023 for hepatic abscess in the setting of recent ascending cholangitis. MRCP on 03/13 revealed multiple peripherally enhancing lesions throughout the liver worrisome for metastatic disease and migration of prior biliary stent. During subsequent ERCP, old stent removed and new stent inserted on 03/14/23. Filling defects thought to be stone and sludge were removed and pus was found in the entire biliary tree. The upper third of the main bile duct contained a pedunculated polyp. Mr. Naylor was started on IV antibiotics at that time. Repeat CT imaging was obtained on 03/17/2023 which showed stable abscesses. He was then transferred to [facility] for further surgical evaluation and management. Once at [facility] consultations were obtained with Infectious Disease with recommendations of IV Ceftriaxone for 4 weeks and Gastroenterology with recommendations of outpatient follow up for temporary stent removal. A PICC line was placed on 03/21/2023. Feeling well, denies abdominal pain. Wanting to go home, awaiting [facility] arrangements Tolerating diet DIET REGULAR Nausea No Emesis No Flatus Yes Bowel movement Yes Pain Controlled Yes Ambulating Yes OBJECTIVE: Vitals: Temp (24hrs), Av.7 ?C (98 ?F), Min:36.4 ?C (97.5 ?F), Max:37.2 ?C (99 ?F) BP 156/82 Pulse 83 Temp 37.2 ?C (99 ?F) (Oral) Resp 18 Ht 175.3 cm (5' 9.02 ) Wt (!) 150 kg (330 lb 11 oz) SpO2 98% BMI 48.81 kg/m? O2 Therapy: Room Air IANDO: Date 03/24/23699 - 03/25/23 0659 03/25/23 07 - 03/26/23 0659 Shift 7878-1916 0474-9323 6908-3993 24 Hour Total 0671-4380 3152-9399 4710-3163 24 Hour Total INTAKE PO 600 600 PO 600 600 Shift Total 600 600 OUTPUT Urine Urine Not Saved. 1 x 1 x Shift Total Weight (kg) 150 150 150 150 150 150 150 150 MEDICATIONS Current Facility-Administered Medications Medication Dose Route Frequency nicotine 21 mg/24 hr 1 Patch (NICODERM) 1 Patch TRANSDERMAL DAILY And nicotine -- REMOVE patch OTHER DAILY And nicotine - verify patch OTHER q 8 H enoxaparin 40 mg injection (LOVENOX) 40 mg SUBCUTANEOUS DAILY NaCl 0.9% iv flush bag 20 mL INTRAVENOUS PRN ondansetron 4 mg tab(s) (ZOFRAN) 4 mg ORAL q 6 H PRN Or ondansetron (PF) 4 mg injection (ZOFRAN) 4 mg INTRAVENOUS q 6 H PRN oxyCODONE IR 5-10 mg tab(s) (ROXICODONE) 5-10 mg ORAL q 6 H PRN acetaminophen 975 mg tab(s) (TYLENOL) 975 mg ORAL q 6 H cefTRIAXone iv piggyback 2 g in dextrose (iso-osmotic) 50 mL (ROCEPHIN) 2 g INTRAVENOUS q 24 H Labs: Recent Labs 03/25/23 0024 03/24/23 0021 NA 134* 136 K 4.3 4.3 CHLOR 98 100 CO2 28 28 BUN 17 16 CREAT 0.88 0.91 GLUC 221* 160* ANION 8* 8* CA 9.1 9.1 ALB 3.7* 3.7* AST 23 27 ALT 36 38 ALKPHOS 88 93 TBILI 0.3 0.3 WBC 9.72 9.86 HB 13.4 13.7 HCT 40.2 41.9 PLT 361 370 Physical Exam: GENERAL: No distress, Alert NEURO: AANDOx3, CN II-XII grossly intact HEENT: normocephalic, atraumatic LUNGS: Unlabored breathing on RA, equal chest rise bilaterally CARDIAC: Regular rate, warm and well perfused distal extremities ABDOMEN: Soft, minimal TTP RUQ, non-distended EXTREMITIES: YI, No deformities, No edema SKIN: Skin color, texture, turgor normal, No rashes or lesions ASSESSMENT AND PLAN: Assessment Active Hospital Problems Diagnosis Date Noted Liver abscess 03/19/2023 Nicotine use disorder, F17.2 03/20/2023 Obesity, Class III, BMI >= 40 03/20/2023 Assessment: 48 year old male with a past medical history significant for HTN, HLD, biliary stricture stented in 2021 presents as a direct admission for hepatic abscess in the setting of recent ascending cholangitis. Hospital Course/Operations/Procedures: 03/20/2023 Procedure(s): CT GUIDED PERCUTANEOUS DRAINAGE OF ABSCESS W/ INSERTION CATHETER ABDOMINAL Plan: Multiple Hepatic Abscesses Pedunculated CBD polyp - Likely 2/2 Ascending cholangitis, purulent bile noted on ERCP - S/p ERCP 03/14/2023 with replacement of stent in good position - GI consulted and recommending follow-up on pathology. Awaiting results from [place] - Diet as tolerated - Pain control prn - Monitor labs -LFTs WNL -WBCs WNL - ID following: CoPAT in chart and signed - Ceftriaxone x4 weeks -BCx: S anginosus bacteremia -Repeat Bcx 03/21 NG x4d - VTE ppx: Lovenox (more content not included)... [facility] 03-24-2023 Note HNO ID: [id number] Author: Marlen Dover APRN.CNP Service: General Surgery Author Type: Nurse Practitioner Type: Progress Notes Filed: 03/24/2023 11:21 AM Note Text: Emergency General Surgery Progress Note SERVICE DATE: March 24, 2023 Emergency General Surgery Service Pager: For questions or concerns Mon-Fri 6a-5p please page [phone]. After 5pm and on Weekends and Holidays, please page [phone] if in ICU or [phone] if on RNF. SUBJECTIVE: HPI: Mr. Naylor is a 48 year old male with a past medical history significant for HTN, HLD, biliary stricture stented in 2021 presented as a direct admission to [facility] on 03/19/2023 for hepatic abscess in the setting of recent ascending cholangitis. MRCP on 03/13 revealed multiple peripherally enhancing lesions throughout the liver worrisome for metastatic disease and migration of prior biliary stent. During subsequent ERCP, old stent removed and new stent inserted on 03/14/23. Filling defects thought to be stone and sludge were removed and pus was found in the entire biliary tree. The upper third of the main bile duct contained a pedunculated polyp. Mr. Naylor was started on IV antibiotics at that time. Repeat CT imaging was obtained on 03/17/2023 which showed stable abscesses. He was then transferred to [facility] for further surgical evaluation and management. Once at [facility] consultations were obtained with Infectious Disease with recommendations of IV Ceftriaxone for 4 weeks and Gastroenterology with recommendations of outpatient follow up for temporary stent removal. A PICC line was placed on 03/21/2023. Hospital day 5: Mr. Naylor is without c/o. Minimal abdominal tenderness. No fever/chills, nausea or vomiting. Awaiting [facility] arrangements Tolerating diet DIET REGULAR OBJECTIVE: Vitals: Temp (24hrs), Av.5 ?C (97.7 ?F), Min:36.4 ?C (97.5 ?F), Max:36.6 ?C (97.9 ?F) BP 128/64 Pulse 78 Temp 36.6 ?C (97.9 ?F) (Oral) Resp 16 Ht 175.3 cm (5' 9.02 ) Wt (!) 150 kg (330 lb 11 oz) SpO2 97% BMI 48.81 kg/m? O2 Therapy: Room Air IANDO: Date 03/23/23699 - 03/24/2365803/24/23699 - 03/25/23 0659 Shift 8811-3358 9033-5257 6572-2383 24 Hour Total 5724-9353 3323-7820 4425-5146 24 Hour Total INTAKE PO 120 120 360 360 PO 120 120 360 360 Shift Total 120 120 360 360 OUTPUT Urine Urine Not Saved. 1 x 1 x Shift Total Weight (kg) 150 150 150 150 150 150 150 150 MEDICATIONS Current Facility-Administered Medications Medication Dose Route Frequency nicotine 21 mg/24 hr 1 Patch (NICODERM) 1 Patch TRANSDERMAL DAILY And nicotine -- REMOVE patch OTHER DAILY And nicotine - verify patch OTHER q 8 H enoxaparin 40 mg injection (LOVENOX) 40 mg SUBCUTANEOUS DAILY NaCl 0.9% iv flush bag 20 mL INTRAVENOUS PRN ondansetron 4 mg tab(s) (ZOFRAN) 4 mg ORAL q 6 H PRN Or ondansetron (PF) 4 mg injection (ZOFRAN) 4 mg INTRAVENOUS q 6 H PRN oxyCODONE IR 5-10 mg tab(s) (ROXICODONE) 5-10 mg ORAL q 6 H PRN acetaminophen 975 mg tab(s) (TYLENOL) 975 mg ORAL q 6 H cefTRIAXone iv piggyback 2 g in dextrose (iso-osmotic) 50 mL (ROCEPHIN) 2 g INTRAVENOUS q 24 H Labs: Recent Labs 03/24/23 0021 03/23/23 0034 NA 136 133* K 4.3 4.5 CHLOR 100 97 CO2 28 27 BUN 16 15 CREAT 0.91 0.88 GLUC 160* 177* ANION 8* 9 CA 9.1 9.0 ALB 3.7* 3.7* AST 27 29 ALT 38 36 ALKPHOS 93 98 TBILI 0.3 0.4 WBC 9.86 9.11 HB 13.7 13.6 HCT 41.9 40.9 PLT 370 385 Physical Exam: GENERAL: No distress, Alert NEURO: AANDOx3, CN II-XII grossly intact HEENT: normocephalic, atraumatic LUNGS: Unlabored breathing, equal chest rise bilaterally CARDIAC: Regular rate, warm and well perfused distal extremities ABDOMEN: Soft, mild TTP in the RUQ and epigastric region, non-distended. No rebound or guarding EXTREMITIES: YI, No deformities, No edema SKIN: Skin color, texture, turgor normal, No rashes or lesions ASSESSMENT AND PLAN: Assessment Active Hospital Problems Diagnosis Date Noted Liver abscess 03/19/2023 Nicotine use disorder, F17.2 03/20/2023 Obesity, Class III, BMI >= 40 03/20/2023 Assessment: 48 year old male with a past medical history significant for HTN, HLD, biliary stricture stented in 2021 presents as a direct admission for hepatic abscess in the setting of recent ascending cholangitis. Hospital Course/Operations/Procedures: 03/21/2023 PICC line inserted Plan: Multiple Hepatic Abscesses Pedunculated CBD polyp -Likely 2/2 Ascending cholangitis, purulent bile noted on ERCP -S/p ERCP 03/14/2023 with replacement of stent in good position -GI consulted and recommending follow-up on pathology. Still have not yet received records from [facility] - Diet as tolerated - Pain control prn - Monitor labs -LFTs WNL -WBCs WNL -ID following: CoPAT in chart and signed -BCx: S anginosus bacteremia -Repeat Bcx 03/21 NG x2d - VTE ppx: Lovenox, encourage OOB and ambulation Follow up needs: Follow up CT (more content not included)... [facility] 03-23-2023 Note HNO ID: [id number] Author: Cindy Goldstein MD Service: General Surgery Author Type: Resident Type: Progress Notes Filed: 03/23/2023 8:27 AM Note Text: -- Attestation signed by Jez Saldana MD at 04/08/2023 6:39 PM Patient was seen and evaluated by myself on this day March 23, 2023. I agree with the presented documentation unless specifically noted. SIGNATURE: Jez Saldana MD PATIENT NAME: Marcin Naylor DATE: April 08, 2023 TIME: 6:39 PM Pager: [phone] -- Emergency General Surgery Progress Note SERVICE DATE: March 23, 2023 Emergency General Surgery Service Pager: For questions or concerns Mon-Fri 6a-5p please page [phone]. After 5pm and on Weekends and Holidays, please page [phone] if in ICU or [phone] if on RNF. SUBJECTIVE: NAEON. Patient reports he still has some abdominal pain, unchanged from yesterday. Reports overall he is doing better. Denies any nausea, vomiting, fevers, or chills. Tolerating diet DIET REGULAR OBJECTIVE: Vitals: Temp (24hrs), Av.4 ?C (97.6 ?F), Min:36 ?C (96.8 ?F), Max:36.8 ?C (98.2 ?F) BP 118/90 Pulse 84 Temp 36.4 ?C (97.5 ?F) (Oral) Resp 18 Ht 175.3 cm (5' 9.02 ) Wt (!) 150 kg (330 lb 11 oz) SpO2 95% BMI 48.81 kg/m? O2 Therapy: Room Air IANDO: Date 03/22/23 0700 - 03/23/23 0659 03/23/23 07 - 03/24/23 0659 Shift 4712-0867 6296-9871 9677-6814 24 Hour Total 4886-2197 2444-6710 9795-5084 24 Hour Total INTAKE PO 120 120 PO 120 120 Shift Total 120 120 OUTPUT Urine Urine Not Saved. 1 x 1 x Shift Total Weight (kg) 150 150 150 150 150 150 150 150 MEDICATIONS Current Facility-Administered Medications Medication Dose Route Frequency HYDROmorphone 0.4 mg injection (DILAUDID) 0.4 mg INTRAVENOUS q 4 H PRN enoxaparin 40 mg injection (LOVENOX) 40 mg SUBCUTANEOUS DAILY NaCl 0.9% iv flush bag 20 mL INTRAVENOUS PRN ondansetron 4 mg tab(s) (ZOFRAN) 4 mg ORAL q 6 H PRN Or ondansetron (PF) 4 mg injection (ZOFRAN) 4 mg INTRAVENOUS q 6 H PRN oxyCODONE IR 5-10 mg tab(s) (ROXICODONE) 5-10 mg ORAL q 6 H PRN acetaminophen 975 mg tab(s) (TYLENOL) 975 mg ORAL q 6 H nicotine polacrilex 4 mg gum (NICORETTE) 4 mg ORAL q 2 H PRN cefTRIAXone iv piggyback 2 g in dextrose (iso-osmotic) 50 mL (ROCEPHIN) 2 g INTRAVENOUS q 24 H Labs: Recent Labs 03/23/23 0034 03/22/23 0032 NA 133* 135* K 4.5 4.3 CHLOR 97 100 CO2 27 28 BUN 15 16 CREAT 0.88 0.90 GLUC 177* 203* ANION 9 7* CA 9.0 9.1 ALB 3.7* 3.4* AST 29 27 ALT 36 32 ALKPHOS 98 95 TBILI 0.4 0.3 WBC 9.11 8.10 HB 13.6 12.9* HCT 40.9 39.0 PLT 385 371 Physical Exam: GENERAL: No distress, Alert NEURO: AANDOx3, CN II-XII grossly intact HEENT: normocephalic, atraumatic LUNGS: Unlabored breathing, equal chest rise bilaterally CARDIAC: Regular rate, warm and well perfused distal extremities ABDOMEN: Soft, mild TTP in the RUQ and epigastric region, non-distended. No rebound or guarding EXTREMITIES: YI, No deformities, No edema SKIN: Skin color, texture, turgor normal, No rashes or lesions ASSESSMENT AND PLAN: Assessment Active Hospital Problems Diagnosis Date Noted Liver abscess 03/19/2023 Nicotine use disorder, F17.2 03/20/2023 Obesity, Class III, BMI >= 40 03/20/2023 Assessment: 48 year old male with a past medical history significant for HTN, HLD, biliary stricture stented in 2021 presents as a direct admission for hepatic abscess in the setting of recent ascending cholangitis. Hospital Course/Operations/Procedures: 03/21/2023 PICC line inserted Plan: Multiple Hepatic Abscesses Pedunculated CBD polyp -Likely 2/2 Ascending cholangitis, purulent bile noted on ERCP -S/p ERCP 03/14/2023 with replacement of stent in good position, -MRI 03/13/2023 peripheral enhancing liver lesions with ductal dilation -AM LFTS WNL -DVT prophylaxis, Lovenox -GI consulted recommending follow-up on pathology Still have not yet received records from [facility] -ID consulted - CoPAT in chart and signed - Tolerating diet and pain controlled -Ceftriaxone, suspect 4 weeks of antibiotics -PICC line placed - Blood culture prelim result NG x1d -Care management consulted for assistance with long-term antibiotics, home health care orders placed -Dispo planning once home health care set up Discussed with attending: Dr. Saldana Follow up needs: TBD SIGNATURE: Cindy Goldstein MD PATIENT NAME: Marcin Naylor DATE: March 23, 2023 TIME: 08 Pager: [phone] Emergency General Surgery Service Pager: For questions or concerns Mon-Fri 6a-5p please page [phone]. After 5pm and on Weekends and Holidays, please page [phone] if in ICU or [phone] if on RNF. [facility] 03-22-2023 Note HNO ID: [id number] Author: Jonah Medeiros DO Service: Infectious Disease Author Type: Physician Type: Plan of Care Filed: 03/22/2023 11:25 AM Note Text: Following for liver abscess and S anginosus bacteremia. Blood culture 1 set already cleared. Expect the other set to be as well. OK to place PICC line next week. CoPAT in chart and signed. Will sign off please call back with questions. Jonah Medeiros DO [facility] Staff Department of Infectious Disease March 22, 2023 11:25 AM Pager [facility] 03-22-2023 Note HNO ID: [id number] Author: Hermelindo Miguel DO Service: General Surgery Author Type: Resident Type: Progress Notes Filed: 03/22/2023 7:08 AM Note Text: -- Attestation signed by Jez Saldana MD at 03/22/2023 7:52 AM Patient was seen and evaluated by myself on this day March 22, 2023. I agree with the presented documentation unless specifically noted. SIGNATURE: Jez Saldana MD PATIENT NAME: Marcin Naylor DATE: March 22, 2023 TIME: 7:52 AM Pager: [phone] -- Emergency General Surgery Progress Note SERVICE DATE: March 22, 2023 Emergency General Surgery Service Pager: For questions or concerns Mon-Fri 6a-5p please page [phone]. After 5pm and on Weekends and Holidays, please page [phone] if in ICU or [phone] if on RNF. SUBJECTIVE: Patient seen and examined this morning states his abdominal pain is slightly improved from yesterday afternoon. Denies any current nausea or vomiting states has been up ambulating and passing flatus without difficulty. States his bowel movements have been soft. Has intermittently been using oxycodone and IV Dilaudid. Tolerating diet DIET REGULAR OBJECTIVE: Vitals: Temp (24hrs), Av.6 ?C (97.9 ?F), Min:36.5 ?C (97.7 ?F), Max:36.7 ?C (98.1 ?F) BP 127/74 Pulse 70 Temp 36.6 ?C (97.9 ?F) (Oral) Resp 18 Ht 175.3 cm (5' 9.02 ) Wt (!) 150 kg (330 lb 11 oz) SpO2 95% BMI 48.81 kg/m? O2 Therapy: Room Air IANDO: Date 03/21/23699 - 03/22/2365803/22/23699 - 03/23/2359 Shift 0221-1441 3997-4564 1211-0032 24 Hour Total 0507-8981 4449-5417 5162-4440 24 Hour Total INTAKE PO 480 480 960 PO 480 480 960 Shift Total 480 480 960 OUTPUT Urine Urine Not Saved. 1 x 1 x 2 x Shift Total Weight (kg) 150 150 150 150 150 150 150 150 MEDICATIONS Current Facility-Administered Medications Medication Dose Route Frequency HYDROmorphone 0.4 mg injection (DILAUDID) 0.4 mg INTRAVENOUS q 4 H PRN enoxaparin 40 mg injection (LOVENOX) 40 mg SUBCUTANEOUS DAILY NaCl 0.9% iv flush bag 20 mL INTRAVENOUS PRN ondansetron 4 mg tab(s) (ZOFRAN) 4 mg ORAL q 6 H PRN Or ondansetron (PF) 4 mg injection (ZOFRAN) 4 mg INTRAVENOUS q 6 H PRN oxyCODONE IR 5-10 mg tab(s) (ROXICODONE) 5-10 mg ORAL q 6 H PRN acetaminophen 975 mg tab(s) (TYLENOL) 975 mg ORAL q 6 H nicotine polacrilex 4 mg gum (NICORETTE) 4 mg ORAL q 2 H PRN cefTRIAXone iv piggyback 2 g in dextrose (iso-osmotic) 50 mL (ROCEPHIN) 2 g INTRAVENOUS q 24 H Labs: Recent Labs 03/22/23 0032 03/21/23 1853 03/21/23 0059 03/20/23 0734 NA 135* -- 137 -- K 4.3 -- 4.4 -- CHLOR 100 -- 100 -- CO2 28 -- 30 -- BUN 16 -- 14 -- CREAT 0.90 -- 1.02 -- GLUC 203* -- 117* -- ANION 7* -- 7* -- CA 9.1 -- 9.2 -- ALB 3.4* 3.5* 3.4* -- AST 27 27 32 -- ALT 32 32 35 -- ALKPHOS 95 97 101 -- TBILI 0.3 0.3 0.4 -- WBC 8.10 -- 8.83 -- HB 12.9* -- 13.3 -- HCT 39.0 -- 40.1 -- PLT 371 -- 379 -- INR -- -- -- 1.0 Physical Exam: GENERAL: No distress, Alert NEURO: AANDOx3, CN II-XII grossly intact HEENT: normocephalic, atraumatic LUNGS: Unlabored breathing, equal chest rise bilaterally CARDIAC: Regular rate, warm and well perfused distal extremities ABDOMEN: Soft, minimally-tender right upper quadrant, non-distended. No rebound or guarding EXTREMITIES: YI, No deformities, No edema SKIN: Skin color, texture, turgor normal, No rashes or lesions ASSESSMENT AND PLAN: Assessment Active Hospital Problems Diagnosis Date Noted Liver abscess 03/19/2023 Nicotine use disorder, F17.2 03/20/2023 Obesity, Class III, BMI >= 40 03/20/2023 Assessment: 48 year old male with a past medical history significant for HTN, HLD, biliary stricture stented in 2021 presents as a direct admission for hepatic abscess in the setting of recent ascending cholangitis. Hospital Course/Operations/Procedures: 03/21/2023 PICC line inserted Plan: Multiple Hepatic Abscesses Pedunculated CBD polyp -Likely 2/2 Ascending cholangitis, purulent bile noted on ERCP -S/p ERCP 03/14/2023 with replacement of stent in good position, -MRI 03/13/2023 peripheral enhancing liver lesions with ductal dilation -Trend hepatic function panel, within normal limits -DVT prophylaxis, Lovenox -GI consulted recommending follow-up on pathology Still have not yet received records from [facility] -ID consulted - Tolerating diet and pain controlled -Ceftriaxone, suspect 4 weeks of antibiotics -PICC line placed -Care management consulted for assistance with long-term antibiotics, home health care orders placed -Dispo planning once home health care set up Discussed with attending: Dr. Saldana Follow up needs: TBD SIGNATURE: Hermelindo Miguel DO PATIENT NAME: Marcin Naylor DATE: March 22, 2023 TIME: 0706 Page (more content not included)... [facility] 03-21-2023 Note HNO ID: [id number] Author: Jailyn Hernandez APRN.CNP Service: Infectious Disease Author Type: Nurse Practitioner Type: Progress Notes Filed: 03/21/2023 4:30 PM Note Text: PROGRESS NOTE INFECTIOUS DISEASE BRIEF SUMMARY: 48[facility] from [place] where he presented 1 week prior due to right upper quadrant pain, jaundice and nausea. At [facility] a CT was completed that showed ascending cholangitis and hepatic abscesses. Patient was treated with Zosyn switched to ceftriaxone 1 blood culture grew strep anginosus. ERCP was performed and stent was placed. Liver biopsy from the ERCP is still pending. Patient states that he is pain is currently improved ASSESSMENT: 1. Hepatic abscesses likely secondary to ascending cholangitis 2. Streptococcus anginosus BSI (+) at out side facility, no repeats for clearance drawn at other facility. 3. Antibiotic monitoring, tolerating Estimated Creatinine Clearance: 126.9 mL/min (based on SCr of 1.02 mg/dL). RECOMMENDATIONS: - Continue ceftriaxone 2g IV daily, through 04/18/2023 - CoPAT in chart (chart review ->Encounters -> (uncheck Hide Add'l Visitis) --> CoPAT Start --> CoPAT Start Report) - Awaiting repeat blood cultures from 03/21. If there are any questions or concerns over the weekend please contact Emi Dickson NP or Dr. Jonah Medeiros. Thank you. Subjective SUBJECTIVE: Interval Events: 03/21: Afebrile, WBC count within normal limits. No complaints of fever/chills, nausea, vomiting or diarrhea some RUQ abdominal tenderness/pain today. Active Antimicrobials (From admission, onward) Start Stop 03/20/23 0000 cefTRIAXone iv piggyback 2 g in dextrose (iso-osmotic) 50 mL (ROCEPHIN) 2 g, INTRAVENOUS, EVERY 24 HOURS -- Immunosuppressant: None Objective Medications: Current Facility-Administered Medications Medication Dose Route Frequency NaCl 0.9% iv flush bag 20 mL INTRAVENOUS PRN ondansetron 4 mg tab(s) (ZOFRAN) 4 mg ORAL q 6 H PRN Or ondansetron (PF) 4 mg injection (ZOFRAN) 4 mg INTRAVENOUS q 6 H PRN morphine 2 mg injection 2 mg INTRAVENOUS q 4 H PRN oxyCODONE IR 5-10 mg tab(s) (ROXICODONE) 5-10 mg ORAL q 6 H PRN acetaminophen 975 mg tab(s) (TYLENOL) 975 mg ORAL q 6 H nicotine polacrilex 4 mg gum (NICORETTE) 4 mg ORAL q 2 H PRN cefTRIAXone iv piggyback 2 g in dextrose (iso-osmotic) 50 mL (ROCEPHIN) 2 g INTRAVENOUS q 24 H enoxaparin 40 mg injection (LOVENOX) 40 mg SUBCUTANEOUS DAILY OBJECTIVE: Physical Exam: BP 126/69 Pulse 68 Temp (Src) 97.7 (Oral) Resp 18 Ht 5' 9.016 (1.75m) Wt 330 lb 11 oz (150.0kg) SpO2 94% BMI 48.81 kg/(m2). O2 Therapy: Room Air Lines, Drains, and Airways Line Duration Peripheral 03/19/23 2253 External Facility Left Antecubital 20 Gauge 1 day Central Line Single Lumen 03/21/23 0941 Peripherally Inserted (PICC) Right Arm Through Introducer 4.0 Indonesian <1 day Physical Exam: General appearance: Well appearing, alert, in no acute distress. Lungs: Lungs clear to auscultation. No wheezing, rhonchi, rales. Heart: RRR without murmur, gallop, or rubs. No ectopy Abdomen: Normal abdominal exam, Abdomen soft, mild upper quad tenderness R>L. Bowel sounds normal. GI/: No nausea, vomiting or diarrhea Skin: No rash or lesions Lab data: WBC (k/uL) Date Value 03/21/2023 8.83 03/20/2023 10.35 03/19/2023 10.82 Platelet Count (k/uL) Date Value 03/21/2023 379 03/20/2023 346 03/19/2023 364 Creatinine (mg/dL) Date Value 03/21/2023 1.02 03/20/2023 0.94 03/19/2023 0.97 AST (U/L) Date Value 03/21/2023 32 ALT (U/L) Date Value 03/21/2023 35 DATA: Diagnostic Tests Reviewed for Today's Visit: Most recent labs Most recent imaging Microbiology data: Please Note: This note has been created using Cirro, a speech recognition software program, and may contain errors including punctuation, grammar, spelling, gender, and inappropriate words or phrases that pertain to the system. Parts of the HPI, ROS, exam and impression/plan may have been copied from my prior personal clinical note and remain pertinent. Current changes have been made and are as documented. Any un-relevant data was deleted. I spent a total of 35 minutes on the date of the service which included preparing to see the patient, [id number] patient care, completing clinical documentation, performing a medically appropriate examination, counseling and educating the patient/family/caregiver, communicating with other HCPs (not separately reported), and care coordination (not separately reported). Jailyn Hernandez, LUBRICATING SPECIALIST.DIRECTOR ONCOLOGY Pager # [phone] Infectious Disease Respiratory [place] [facility] 03-21-2023 Note HNO ID: [id number] Author: Hermelindo Miguel DO Service: General Surgery Author Type: Resident Type: Progress Notes Filed: 03/21/2023 10:10 AM Note Text: -- Attestation signed by Jez Saldana MD at 03/22/2023 7:53 AM Patient was seen and evaluated by myself on this day March 21, 2023. I agree with the presented documentation unless specifically noted. Having recurrent pain, feels like stones, maybe stent? Trend LFT Cont ID plan [place] path not confirmed SIGNATURE: Jez Saldana MD PATIENT NAME: Marcin Naylor DATE: March 22, 2023 TIME: 7:52 AM Pager: [phone] -- Emergency General Surgery Progress Note SERVICE DATE: March 21, 2023 Emergency General Surgery Service Pager: For questions or concerns Mon-Fri 6a-5p please page [phone]. After 5pm and on Weekends and Holidays, please page [phone] if in ICU or [phone] if on RNF. SUBJECTIVE: Patient seen and examined this morning, states he is tolerating his diet without difficulty his pain is well-controlled. Denies any nausea vomiting states has been passing flatus and having bowel function. Infectious disease consulted and recommending long-term antibiotics will need PICC line for this. Discussed this with patient who is eager for discharge Tolerating diet DIET REGULAR OBJECTIVE: Vitals: Temp (24hrs), Av.4 ?C (97.6 ?F), Min:36.3 ?C (97.3 ?F), Max:36.5 ?C (97.7 ?F) BP 126/69 Pulse 68 Temp 36.5 ?C (97.7 ?F) (Oral) Resp 18 Ht 175.3 cm (5' 9.02 ) Wt (!) 150 kg (330 lb 11 oz) SpO2 94% BMI 48.81 kg/m? O2 Therapy: Room Air IANDO: Date 03/20/23699 - 03/21/2365803/21/23699 - 03/22/23 0659 Shift 1776-3317 5816-4551 0393-7052 24 Hour Total 5697-1202 5866-6028 7740-5313 24 Hour Total INTAKE PO 240 360 600 480 480 PO 240 360 600 480 480 IV 1050 1050 Volume (mL) (piperacillin-tazobactam iv piggyback 3.375 g in dextrose (iso-osmotic) 50 mL (ZOSYN)) 50 50 Volume (mL) (lactated ringers iv infusion) 1000 1000 Shift Total 4618 716 7715 480 480 OUTPUT Urine Urine Not Saved. 1 x 1 x Shift Total Weight (kg) 149.7 150 150 150 150 150 150 150 MEDICATIONS Current Facility-Administered Medications Medication Dose Route Frequency enoxaparin 40 mg injection (LOVENOX) 40 mg SUBCUTANEOUS DAILY NaCl 0.9% iv flush bag 20 mL INTRAVENOUS PRN ondansetron 4 mg tab(s) (ZOFRAN) 4 mg ORAL q 6 H PRN Or ondansetron (PF) 4 mg injection (ZOFRAN) 4 mg INTRAVENOUS q 6 H PRN morphine 2 mg injection 2 mg INTRAVENOUS q 4 H PRN oxyCODONE IR 5-10 mg tab(s) (ROXICODONE) 5-10 mg ORAL q 6 H PRN acetaminophen 975 mg tab(s) (TYLENOL) 975 mg ORAL q 6 H nicotine polacrilex 4 mg gum (NICORETTE) 4 mg ORAL q 2 H PRN cefTRIAXone iv piggyback 2 g in dextrose (iso-osmotic) 50 mL (ROCEPHIN) 2 g INTRAVENOUS q 24 H Labs: Recent Labs 03/21/23 0059 03/20/23 0734 03/20/23 0421 NA 137 -- 136 K 4.4 -- 4.1 CHLOR 100 -- 101 CO2 30 -- 28 BUN 14 -- 12 CREAT 1.02 -- 0.94 GLUC 117* -- 84 ANION 7* -- 7* CA 9.2 -- 9.1 ALB 3.4* -- 3.2* AST 32 -- 26 ALT 35 -- 33 ALKPHOS 101 -- 100 TBILI 0.4 -- 0.3 WBC 8.83 -- 10.35 HB 13.3 -- 12.8* HCT 40.1 -- 39.7 PLT 379 -- 346 INR -- 1.0 -- Physical Exam: GENERAL: No distress, Alert NEURO: AANDOx3, CN II-XII grossly intact HEENT: normocephalic, atraumatic LUNGS: Unlabored breathing, equal chest rise bilaterally CARDIAC: Regular rate, warm and well perfused distal extremities ABDOMEN: Soft, minimally-tender, non-distended. No rebound or guarding EXTREMITIES: YI, No deformities, No edema SKIN: Skin color, texture, turgor normal, No rashes or lesions ASSESSMENT AND PLAN: Assessment Active Hospital Problems Diagnosis Date Noted Liver abscess 03/19/2023 Nicotine use disorder, F17.2 03/20/2023 Obesity, Class III, BMI >= 40 03/20/2023 Assessment: 48 year old male with a past medical history significant for HTN, HLD, biliary stricture stented in 2021 presents as a direct admission for hepatic abscess in the setting of recent ascending cholangitis. Hospital Course/Operations/Procedures: 03/21/2023 PICC line inserted Plan: Multiple Hepatic Abscesses Pedunculated CBD polyp -Likely 2/2 Ascending cholangitis, purulent bile noted on ERCP -S/p ERCP 03/14/2023 with replacement of stent in good position, -MRI 03/13/2023 peripheral enhancing liver lesions with ductal dilation -DVT prophylaxis, Lovenox -GI consulted recommending follow-up on pathology, -Trend hepatic function panel, T. bili normal with CBD stent in place -ID consulted - Tolerating diet and pain controlled -Ceftriaxone, suspect 4 weeks of antibiotics -PICC line placed -Care management consulted for assistance with long-term antibiotics, home health care orders placed Discussed with (more content not included)... [facility] 03-21-2023 Note HNO ID: [id number] Author: Dahlia Latham RN Service: Care Management Author Type: Registered Nurse Type: Care Mgt Progress Note Filed: 03/21/2023 9:55 AM Note Text: CARE MANAGEMENT PROGRESS NOTE SERVICE DATE: 03/21/2023 SERVICE TIME: 9:53 AM LOS: 2 days Patient will need iv antibiotic combo referral sent to many home care companies and [facility] [place]. Will be difficult to get [facility] based on insurance and location. . SIGNATURE: Dahlia Latham RN PATIENT NAME: Marcin Naylor DATE: March 21, 2023 TIME: 9:53 AM PAGER/CONTACT #: [phone] [facility] 03-21-2023 Note HNO ID: [id number] Author: Carol Caruso RN Service: PICC Team Author Type: Registered Nurse Type: Procedures Filed: 03/21/2023 9:40 AM Note Text: PICC NURSE INSERTION NOTE DATE OF PROCEDURE: March 21, 2023 TIME OF PROCEDURE: 0900 ORDERING PHYSICIAN: Alejandro INFORMED CONSENT: Obtained per hospital policy. INDICATION FOR LINE PLACEMENT: COPAT CONDITION OF LINE PLACEMENT: Sterile PRIMARY PROCEDURALIST: Jing Guillaume RN MARINE INSULATOR: Carol Caruso RN PRE-PROCEDURE REVIEW ALLERGIES Allergen Reactions Latex Known History of Upper Venous Thrombosis: No Known History of Permanent Pacemaker or Automated Implanted Cardiac Device: No Previous Breast Surgery of Lymph Node Dissection: No Estimated Glomerular Filtration Rate Date Value Ref Range Status 03/21/2023 90 >=60 mL/min/1.73m? Final Comment: Estimated Glomerular Filtration Rate (eGFR) is calculated using the 2020 CKD-EPI creatinine equation. This equation utilizes serum creatinine, sex, and age as parameters. The creatinine assay has traceable calibration to isotope dilution-mass spectrometry. Refer to KDIGO guidelines for clinical interpretation. In patients with unstable renal function, e.g. those with acute kidney injury, the eGFR may not accurately reflect actual GFR. History of Renal Disease: No Ultrasound Assessment Complete: Yes PROCEDURE NARRATIVE SAFE PRACTICE Hand Hygiene per Hospital Policy: Yes Skin Preparation Unit Dose Applicator Used: Chloraprep (CHG + alcohol), allowed to dry. Procedure Surface Cleansed with Antimicrobial Wipes: Yes Barriers Used by Proceduralist and all Assisting Personnel: Yes UNIVERSAL PROTOCOL / SAFETY CHECKLIST Procedure to be Performed: peripherally inserted central catheter Sign In: A Moment of CARE was completed. Personnel directly involved with the procedure wore the appropriate PPE (Personal Protective Equipment). Special equipment: sherlock Patient/Surrogate Stated/Verified: PATIENT VERIFIED(optional for EMERGENT procedures): Patient name, Date of , Relevant allergies, and The intended procedure Time Out Communication: Intended patient and procedure match the source documents. Consent documented and matches the intended procedure. Relevant labs, photos, and/or imaging studies have been reviewed. Correct side/site marked and visible. Medications required for procedure verified. Fire risk assessed and interventions discussed. No implant(s) inserted. Sign Out: SIGN OUT (optional for EMERGENT procedures): No specimen collected. All instruments, equipment, possible retained foreign bodies accounted for. Post-procedure follow-up management communicated and Plan of Care Visit completed when applicable. Carol Caruso RN CATHETER PLACEMENT Brand: bard Lot: [id number] Number of Lumens: 1 Type of PICC: Power Injectable PICC Lumen Size: 4 Indonesian PLACEMENT TECHNIQUE Lidocaine: Yes, Lidocaine 1% Volume 1 mL Subcutaneous Modified Seldinger Technique Used to Place Line via the Right Basilic Ultrasound Guidance: Yes Number of Attempts at Insertion: 1 Ensured control of guidewire during all aspects of the procedure: Yes Accounted for entire guidewire upon removal: Yes Internal Length: 46 cm External Length: 0 cm Trim Length: 46 cm Mid-Arm Circumference: 38 centimeters Post Insertion Pain Level Related to Procedure: 0 Action Taken to Address Pain: None needed Verified Placement: Blood return and flushes with ease and Tip location system or device indicates the tip is located in the SVC/CAJ. Line was Flushed with 20 mL normal saline Line Secured with: Securement device Sterile Dressing Applied and Dated: Yes Sterile Caps on all Ports Prior to Leaving Procedure Area: Yes, Disinfection caps applied SPECIMENS: None COMPLICATIONS: None Patient Education Materials: Given to patient QUESTIONS or PROBLEMS: Call [phone] SIGNATURE: Carol Caruso RN PATIENT NAME: Marcin Naylor DATE: March 21, 2023 TIME: 9:16 AM PAGER/CONTACT PHONE: [facility] 03-20-2023 Note HNO ID: [id number] Author: Dahlia Latham RN Service: Care Management Author Type: Registered Nurse Type: Care Mgt Initial Assessment Filed: 03/20/2023 9:02 AM Note Text: CARE MANAGEMENT: ASSESSMENT AND DISCHARGE PLAN SERVICE DATE: March 20, 2023 SERVICE TIME: 9:02 AM PCP: No primary care provider on file. Primary Contact: Extended Emergency Contact Information Primary Emergency Contact: JEAN CLAUDE THAPA [place] Relation: None Admission Status: Inpatient Insurance Provider: GLORIA PAZ MEDICAID Discharge Planning requested by: Per Department Practice Potential Transition Plans No Services Indicated Advance Directives Current Advance Directive: None Patient Navigator Attempted to Assist with AD Completion: Yes Action: Education Provided Current Living Arrangements and Support Lives with: Spouse/significant other Type of Residence: Private Residence (House) Does the patient have to climb stairs at home?: Yes Support: Spouse/significant other, Family members, Friends/neighbors How do you manage to accomplish the following: Independent: Ambulation;Bathe/Shower;Dress;Meals/Tanika l Prep;Going to the bathroom;Medication Management;Transportation to appointments/community Current Services/Equipment Current Post-Acute Service(s): None Discharge Planning Patient Goal(s): Be able to go home, General wellness [place]arn[place] of Choice Explained: [place] of Choice Given: No Reason Not Given: No placements necessary Are you interested in bedside delivery of your medications? No Discharge Planning Participant(s): Patient Patient/Family Comments: Caregiver Assessment: Caregiver is ready, willing and able to meet the patient's needs as recommended by the inter-professional team: No Caregiver needed Transport at Discharge: Transportation Arrangements: Car Needs Prior to Discharge: Needs Prior to Discharge: To Be Determined Post-Acute Discharge Plan: From home w/ SO, independent in activities of daily living, plan return home at discharge. Family to transport. Watch for ID plan SIGNATURE: Dahlia Latham RN PATIENT NAME: Marcin Naylor DATE: March 20, 2023 TIME: 9:01 AM CONTACT #: [phone] [facility] 03-20-2023 Note HNO ID: [id number] Author: Jeramy Vogt DO Service: General Surgery Author Type: Resident Type: Progress Notes Filed: 03/20/2023 7:44 AM Note Text: -- Attestation signed by Michelle Allen MD at 03/20/2023 7:00 PM Attending Note I evaluated the patient and personally participated in the saini components. I agree with the resident's findings and plan as documented and have discussed the case and management of the patient's care with the resident. Will obtain more information from [facility]. GI and ID consults. Signature: Michelle Allen MD Date: 03/20/2023 Time: 6:59 PM -- Emergency General Surgery Progress Note SERVICE DATE: March 20, 2023 Emergency General Surgery Service Pager: For questions or concerns Fri-Fri 6a-5p please page [phone]. After 5pm and on Weekends and Holidays, please page [phone] if in ICU or [phone] if on RNF. SUBJECTIVE: Pt seen in the AM. NAOE. VSS. Patient denies any ABD pain or symptoms on exam. Says he is passing gas and having bowel function. Tolerating diet DIET NPO OBJECTIVE: Vitals: Temp (24hrs), Av.7 ?C (98 ?F), Min:36.6 ?C (97.9 ?F), Max:36.7 ?C (98.1 ?F) BP 109/59 Pulse 64 Temp 36.6 ?C (97.9 ?F) (Oral) Resp 18 Ht 175.3 cm (5' 9.02 ) Wt (!) 149.7 kg (330 lb 0.5 oz) SpO2 95% BMI 48.71 kg/m? O2 Therapy: Room Air IANDO: Date 03/19/23699 - 03/20/23 0659 03/20/23699 - 03/21/23 0659 Shift 3083-2220 7547-2787 8480-1116 24 Hour Total 2768-4034 9457-2386 6744-0365 24 Hour Total INTAKE Shift Total OUTPUT Urine Urine Not Saved. 2 x 1 x 3 x Shift Total Weight (kg) 149.7 149.7 149.7 149.7 149.7 149.7 149.7 MEDICATIONS Current Facility-Administered Medications Medication Dose Route Frequency NaCl 0.9% iv flush bag 20 mL INTRAVENOUS PRN lactated ringers iv infusion 100 mL/hr INTRAVENOUS CONTINUOUS ondansetron 4 mg tab(s) (ZOFRAN) 4 mg ORAL q 6 H PRN Or ondansetron (PF) 4 mg injection (ZOFRAN) 4 mg INTRAVENOUS q 6 H PRN morphine 2 mg injection 2 mg INTRAVENOUS q 4 H PRN oxyCODONE IR 5-10 mg tab(s) (ROXICODONE) 5-10 mg ORAL q 6 H PRN acetaminophen 975 mg tab(s) (TYLENOL) 975 mg ORAL q 6 H nicotine polacrilex 4 mg gum (NICORETTE) 4 mg ORAL q 2 H PRN cefTRIAXone iv piggyback 2 g in dextrose (iso-osmotic) 50 mL (ROCEPHIN) 2 g INTRAVENOUS q 24 H Labs: Recent Labs 03/20/23 0421 03/19/23 2218 NA 136 135* K 4.1 4.2 CHLOR 101 99 CO2 28 28 BUN 12 11 CREAT 0.94 0.97 GLUC 84 100* ANION 7* 8* CA 9.1 9.3 ALB -- 3.4* AST -- 27 ALT -- 38 ALKPHOS -- 112 TBILI -- 0.3 WBC 10.35 10.82 HB 12.8* 13.4 HCT 39.7 41.1 PLT 346 364 Physical Exam: GENERAL: No distress, Alert NEURO: AANDOx3, CN II-XII grossly intact HEENT: normocephalic, atraumatic LUNGS: Unlabored breathing, equal chest rise bilaterally CARDIAC: Regular rate, warm and well perfused distal extremities ABDOMEN: Soft, non-tender, non-distended. EXTREMITIES: YI, No deformities, No edema SKIN: Skin color, texture, turgor normal, No rashes or lesions ASSESSMENT AND PLAN: Assessment Active Hospital Problems Diagnosis Date Noted Liver abscess 03/19/2023 Assessment: 48 year old male with a past medical history significant for HTN, HLD, biliary stricture stented in 2021 presents as a direct admission for hepatic abscess in the setting of recent ascending cholangitis. Hospital Course/Operations/Procedures: * No surgery found * Plan: Multiple Hepatic Abscesses -Likely 2/2 Ascending cholangitis. Patient denied any diverticulitis, recent surgery, dental procedures. -S/p ERCP - Plan for IR guided drain placement with culture of output. -NPO/IVF -Hold LVX -Ceftriaxone - ERCP biopsy pending -Daily CBC, BMP, LFTs Discussed with attending: Dr. Allen Follow up needs: TBD SIGNATURE: Jeramy Vogt DO PATIENT NAME: Marcin Naylor DATE: March 20, 2023 TIME: 07 Pager: [phone] Emergency General Surgery Service Pager: For questions or concerns Mon-Fri 6a-5p please page [phone]. After 5pm and on Weekends and Holidays, please page [phone] if in ICU or [phone] if on RNF. Portions of the physical exam and assessment/plan of the previous day's note has been copied over. However changes were made to reflect the care plan for today, 03/20/2023 [facility] Summary Purpose Family History No Family History Records FoundNo Family History Records FoundNo Family History Records FoundNo Family History Records Found Advance Directives No Advanced Directives Records FoundNo Advanced Directives Records FoundNo Advanced Directives Records FoundNo Advanced Directives Records Found Additional Source Comments (unrecognized sect ion and content) No Status Records FoundNo Status Records FoundNo Status Records FoundNo Status Records Found INFORMATION SOURCE (unrecogn ized section and content) DATE CREATED AUTHOR AUTHOR'S ORGANIZ ATION 10/01/2020 [facility] ([place]) DATE CREATED AUTHOR AUTHOR'S ORGANIZ ATION 03/08/2023 [facility] DATE CREATED AUTHOR AUTHOR'S ORGANIZ ATION 04/13/2023 [facility] FOR RECORDS PERTAINING TO PATIENTS WHO ARE OR HAVE BEEN ENROLLED IN A CHEMICAL DEPENDENCY/SUBSTANCEABUSE PROGRAM, SOME INFORMATION MAY BE OMITTED. This clinical summary was aggregated from multiple sources. Caution should be exercised in using it in the provision of clinical care. This summary normalizes information from multiple sources, and as a consequence, information in this document may materially change the coding, format and clinical context of patient data. In addition, data may be omitted in some cases. CLINICAL DECISIONS SHOULD BE BASED ON THE PRIMARY CLINICAL RECORDS. [facility]. provides no warranty or guarantee of the accuracy or completeness of information in this document.
== END 2023-04-15 14:56 | disposition home or self-care (01) ==
DX: Z79.899 Other long term (current) drug therapy (principal)
CPT/HCPCS: 36592; 80076; 82565; 85025; A4216

== ENCOUNTER 2023-04-18 13:15 | Outpatient (CLI) | payer MEDICAID, SELFPAY ==
--- OUTSIDE RECORDS SUMMARY | 2023-04-18 13:47 | XMS RPT_ITS | CCD ---
Author Name Unknown Address [address] [place] [address] Organization [facility] Care Team Providers Care Rn Clinical Research Name Role Phone HAIR THOMAS Unavailable Unavailable [...] [LATEX] Propensity to adverse reactions (disorder) 5 [facility] Repository (1 source) QUEtiapine Drug Allergy [facility] Repository (1 source) anti-depressant, otc allergy pill Drug allergy (disorder) [facility] Repository Problems Problem Classification Problem Date Documented [...] Evaluation and management of inpatient ALEX YANG Facility:[facility] Start: 03-06-2023 End: 03-07-2023 Emergency department patient visit CAYDEN ALICEA [facility] Start: 10-09-2016 Ambulatory HAIR Storey ty:[facility] Payers Date Payer Category Payer Unknown [id number] 1975 Unknown [id number] Clinical Notes 03-20-2023 to 04-11-2023 Note Date & Type Note Facility 04-11-2023 Note HNO ID: [id number] Author: Asha Singleton Service: ? Author Type: ? Type: Progress Notes Filed: 04/11/2023 11:34 AM Note Text: Patient's sister called back. She agreed to virtual visit on 04/18/23 @ 9 am. [facility] 03-26-2023 Note HNO ID: [id number] Author: Dahlia Latham RN Service: Care Management Author Type: Registered Nurse Type: Care Mgt Progress Note Filed: 03/26/2023 10:29 AM Note Text: CARE MANAGEMENT PROGRESS NOTE SERVICE DATE: 03/26/2023 SERVICE TIME: 10:28 AM LOS: 7 days [facility] can accommodate dressing changes and labs. Order signed by surgery and faxed to [facility]. Teaching has been done for self administration of IV antibiotic. Patient feels very comfortable administering. Sister to transport home and to appointments. . SIGNATURE: Dahlia Latham RN PATIENT NAME: Marcin Naylor DATE: March 26, 2023 TIME: 10:28 AM PAGER/CONTACT #: [phone] [facility] 03-26-2023 Note HNO ID: [id number] Author: Elida Perales APRN.CANCELING AND CUTTING CONTROL CLERK Service: General Surgery Author Type: Nurse Specialist Type: Progress Notes Filed: 03/26/2023 9:14 AM Note Text: Emergency General Surgery Progress Note SERVICE DATE: March 26, 2023 SERVICE TIME: 0700 Emergency General Surgery Service Pager: For questions or concerns Mon-Fri 6a-5p please page [phone]. After 5pm and on Weekends and Holidays, please page [phone] if in ICU or [phone] if on RNF. SUBJECTIVE: HPI: Mr. Naylor is a 48 year old male with a past medical history significant for HTN, HLD, biliary stricture stented in 2021 presented as a direct admission to [facility] on 03/19/2023 for hepatic abscess in [...] stable abscesses. He was then transferred to [facility] for further surgical evaluation and management. Once at [facility] consultations were obtained with Infectious Disease [...] 03/26/23 0659 03/26/23699 - 03/27/23 0659 Shift 2502-0051 7952-3936 5368-4433 24 Hour Total 2281-5979 0092-3803 9297-9329 24 Hour Total INTAKE PO 418 300 [...] recommending follow-up on pathology. Awaiting results from [place] - Diet as tolerated - Pain control prn - Monitor labs -LFTs WNL -WBCs WNL - ID following: CoPAT in chart and signed - Ceftriaxone x4 weeks -BCx: S ang (more content not included)... [facility] 03-25-2023 Note HNO ID: [id number] Author: Dahlia Latham, RN Service: Care Management Author Type: Registered Nurse Type: Care Mgt Progress Note Filed: 03/25/2023 1:58 PM Note Text: CARE MANAGEMENT PROGRESS NOTE SERVICE DATE: 03/25/2023 SERVICE TIME: 1:54 PM LOS: 6 days [facility] can still come teach iv antibiotic for home iv antibiotic daily. [facility] to see if they can accommodate weekly dressing changes and blood draws. Awaiting call back. . SIGNATURE: Dahlia Latham RN PATIENT NAME: Marcin Naylor DATE: March 25, 2023 TIME: 1:54 PM PAGER/CONTACT #: [phone] [facility] 03-25-2023 Note HNO ID: [id number] Author: Elida Perales, SLIP OPERATOR.CANCELING AND CUTTING CONTROL CLERK Service: General Surgery Author Type: Nurse Specialist Type: Progress Notes Filed: 03/25/2023 1:19 PM Note Text: Emergency General Surgery Progress Note SERVICE DATE: March 25, 2023 SERVICE TIME: 0630 Emergency General Surgery Service Pager: For questions or concerns Mon-Fri 6a-5p please page [phone]. After 5pm and on Weekends and Holidays, please page [phone] if in ICU or [phone] if on RNF. SUBJECTIVE: HPI: Mr. Naylor is a 48 year old male with a past medical history significant for HTN, HLD, biliary stricture stented in 2021 presented as a direct admission to [facility] on 03/19/2023 for hepatic abscess in [...] stable abscesses. He was then transferred to [facility] for further surgical evaluation and management. Once at [facility] consultations were obtained with Infectious Disease with recommendations of IV Ceftriaxone for 4 weeks and Gastroenterology with recommendations of outpatient follow up for temporary stent removal. A PICC line was placed on 03/21/2023. Feeling well, denies abdominal pain. Wanting to go home, awaiting [facility] arrangements Tolerating diet DIET REGULAR Nausea No [...] 0659 03/25/23 07 - 03/26/23 0659 Shift 1711-3147 4915-4081 9080-4951 24 Hour Total 3004-8947 2082-2604 1626-1449 24 Hour Total INTAKE PO 600 600 [...] recommending follow-up on pathology. Awaiting results from [place] - Diet as tolerated - Pain control prn - Monitor labs -LFTs WNL -WBCs WNL - ID following: CoPAT in chart and signed - Ceftriaxone x4 weeks -BCx: S anginosus bacteremia -Repeat Bcx 03/21 NG x4d - VTE ppx: Lovenox (more content not included)... [facility] 03-24-2023 Note HNO ID: [id number] Author: Marlen Dover APRN.CNP Service: General Surgery [...] 2021 presented as a direct admission to [facility] on 03/19/2023 for hepatic abscess in [...] stable abscesses. He was then transferred to [facility] for further surgical evaluation and management. Once at [facility] consultations were obtained with Infectious Disease with recommendations of IV Ceftriaxone for 4 weeks and Gastroenterology with recommendations of outpatient follow up for temporary stent removal. A PICC line was placed on 03/21/2023. Hospital day 5: Mr. Naylor is without c/o. Minimal abdominal tenderness. No fever/chills, nausea or vomiting. Awaiting [facility] arrangements Tolerating diet DIET REGULAR OBJECTIVE: Vitals: [...] 03/23/23699 - 03/24/2365803/24/23699 - 03/25/23 0659 Shift 1038-7708 3742-8279 8920-4916 24 Hour Total 3443-4953 2411-3036 3550-4417 24 Hour Total INTAKE PO 120 120 [...] Follow up CT (more content not included)... [facility] 03-23-2023 Note HNO ID: [id number] Author: Cindy Goldstein MD Service: General Surgery [...] April 08, 2023 TIME: 6:39 PM Pager: [phone] -- Emergency General Surgery Progress Note SERVICE DATE: March 23, 2023 Emergency General Surgery Service Pager: For questions or concerns Mon-Fri 6a-5p please page [phone]. After 5pm and on Weekends and Holidays, please page [phone] if in ICU or [phone] if on RNF. SUBJECTIVE: NAEON. Patient reports [...] 0659 03/23/23 07 - 03/24/23 0659 Shift 9861-6059 6553-1434 9358-9768 24 Hour Total 8581-1283 7952-7790 2751-2969 24 Hour Total INTAKE PO 120 120 [...] DATE: March 23, 2023 TIME: 08 Pager: [phone] Emergency General Surgery Service Pager: For questions or concerns Mon-Fri 6a-5p please page [phone]. After 5pm and on Weekends and Holidays, please page [phone] if in ICU or [phone] if on RNF. [facility] 03-22-2023 Note HNO ID: [id number] Author: Jonah Medeiros DO Service: Infectious Disease [...] call back with questions. Jonah Medeiros DO [facility] Staff Department of Infectious Disease March 22, 2023 11:25 AM Pager [facility] 03-22-2023 Note HNO ID: [id number] Author: Hermelindo Miguel DO Service: General Surgery [...] March 22, 2023 TIME: 7:52 AM Pager: [phone] -- Emergency General Surgery Progress Note SERVICE DATE: March 22, 2023 Emergency General Surgery Service Pager: For questions or concerns Mon-Fri 6a-5p please page [phone]. After 5pm and on Weekends and Holidays, please page [phone] if in ICU or [phone] if on RNF. SUBJECTIVE: Patient seen and [...] Date 03/21/23699 - 03/22/2365803/22/23699 - 03/23/2359 Shift 9019-0408 6577-3135 3344-4480 24 Hour Total 2466-2096 5902-8168 3420-6278 24 Hour Total INTAKE PO 480 480 [...] TIME: 0706 Page (more content not included)... [facility] 03-21-2023 Note HNO ID: [id number] Author: Jailyn Hernandez APRN.CNP Service: Infectious Disease Author Type: Nurse Practitioner Type: Progress Notes Filed: 03/21/2023 4:30 PM Note Text: PROGRESS NOTE INFECTIOUS DISEASE BRIEF SUMMARY: 48-year-old [facility] transfer from [place] where he presented 1 week prior due to right upper quadrant pain, jaundice and nausea. At [facility] a CT was completed that showed ascending [...] Inserted (PICC) Right Arm Through Introducer 4.0 Angolan <1 day Physical Exam: General appearance: Well [...] Note: This note has been created using Modality, a speech recognition software program, and may [...] which included preparing to see the patient, [id number] patient care, completing clinical documentation, performing a medically appropriate examination, counseling and educating the patient/family/caregiver, communicating with other HCPs (not separately reported), and care coordination (not separately reported). Jailyn Hernandez, SLIP OPERATOR.EMISSIONS INSPECTOR Pager # [phone] Infectious Disease Respiratory [facility] 03-21-2023 Note HNO ID: [id number] Author: Hermelindo Miguel DO Service: General Surgery [...] maybe stent? Trend LFT Cont ID plan [place] path not confirmed SIGNATURE: Jez Saldana MD PATIENT NAME: Marcin Naylor DATE: March 22, 2023 TIME: 7:52 AM Pager: [phone] -- Emergency General Surgery Progress Note SERVICE DATE: March 21, 2023 Emergency General Surgery Service Pager: For questions or concerns Mon-Fri 6a-5p please page [phone]. After 5pm and on Weekends and Holidays, please page [phone] if in ICU or [phone] if on RNF. SUBJECTIVE: Patient seen and [...] 03/20/23699 - 03/21/2365803/21/23699 - 03/22/23 0659 Shift 0477-0588 1944-1127 4403-2976 24 Hour Total 4744-2876 7412-0211 5381-6727 24 Hour Total INTAKE PO 240 360 600 480 480 PO 240 360 600 480 480 IV 1050 1050 Volume (mL) (piperacillin-tazobactam iv piggyback 3.375 g in dextrose (iso-osmotic) 50 mL (ZOSYN)) 50 50 Volume (mL) (lactated ringers iv infusion) 1000 1000 Shift Total 9098 908 3834 480 480 OUTPUT Urine Urine Not Saved. [...] placed Discussed with (more content not included)... [facility] 03-21-2023 Note HNO ID: [id number] Author: Dahlia Latham RN Service: Care Management Author Type: Registered Nurse Type: Care Mgt Progress Note Filed: 03/21/2023 9:55 AM Note Text: CARE MANAGEMENT PROGRESS NOTE SERVICE DATE: 03/21/2023 SERVICE TIME: 9:53 AM LOS: 2 days Patient will need iv antibiotic combo referral sent to many home care companies and [facility]. Will be difficult to get [facility] based on insurance and location. . SIGNATURE: Dahlia Latham RN PATIENT NAME: Marcin Naylor DATE: March 21, 2023 TIME: 9:53 AM PAGER/CONTACT #: [phone] [facility] 03-21-2023 Note HNO ID: [id number] Author: Carol Caruso RN Service: PICC Team Author Type: Registered Nurse Type: Procedures Filed: 03/21/2023 9:40 AM Note Text: PICC NURSE INSERTION NOTE DATE OF PROCEDURE: March 21, 2023 TIME OF PROCEDURE: 0900 ORDERING PHYSICIAN: Alejandro INFORMED CONSENT: Obtained per hospital policy. INDICATION FOR LINE PLACEMENT: COPAT CONDITION OF LINE PLACEMENT: Sterile PRIMARY PROCEDURALIST: Jing Guillaume RN FACTORY LAY OUT ENGINEER: Carol Caruso RN PRE-PROCEDURE REVIEW ALLERGIES Allergen [...] Caruso RN CATHETER PLACEMENT Brand: bard Lot: [id number] Number of Lumens: 1 Type of PICC: Power Injectable PICC Lumen Size: 4 Angolan PLACEMENT TECHNIQUE Lidocaine: Yes, Lidocaine 1% Volume [...] Given to patient QUESTIONS or PROBLEMS: Call [phone] SIGNATURE: Carol Caruso RN PATIENT NAME: Marcin Naylor DATE: March 21, 2023 TIME: 9:16 AM PAGER/CONTACT PHONE: [facility] 03-20-2023 Note HNO ID: [id number] Author: Dahlia Latham RN Service: Care Management Author Type: Registered Nurse Type: Care Mgt Initial Assessment Filed: 03/20/2023 9:02 AM Note Text: CARE MANAGEMENT: ASSESSMENT AND DISCHARGE PLAN SERVICE DATE: March 20, 2023 SERVICE TIME: 9:02 AM PCP: No primary care provider on file. Primary Contact: Extended Emergency Contact Information Primary Emergency Contact: JEAN CLAUDE THAPA Hersey Relation: None Admission Status: Inpatient Insurance Provider: [employer]ORIA PAZ MEDICAID Discharge Planning requested by: Per Department Practice Potential Transition Plans No Services Indicated Advance Directives Current Advance Directive: None Line Service Attendant Attempted to Assist with AD Completion: Yes [...] Be able to go home, General wellness [place] of Choice Explained: [place] of Choice Given: No Reason Not Given: [...] 20, 2023 TIME: 9:01 AM CONTACT #: [phone] [facility] 03-20-2023 Note HNO ID: [id number] Author: Jeramy Vogt DO Service: General Surgery [...] questions or concerns Fri-Fri 6a-5p please page [phone]. After 5pm and on Weekends and Holidays, please page [phone] if in ICU or [phone] if on RNF. SUBJECTIVE: Pt seen in [...] 03/20/23 0659 03/20/23699 - 03/21/23 0659 Shift 9725-7786 2948-6908 0318-3777 24 Hour Total 0443-7124 9216-0217 1682-7014 24 Hour Total INTAKE Shift Total OUTPUT [...] DATE: March 20, 2023 TIME: 07 Pager: [phone] Emergency General Surgery Service Pager: For questions or concerns Mon-Fri 6a-5p please page [phone]. After 5pm and on Weekends and Holidays, please page [phone] if in ICU or [phone] if on RNF. Portions of the physical exam and assessment/plan of the previous day's note has been copied over. However changes were made to reflect the care plan for today, 03/20/2023 [facility] Summary Purpose Family History No Family [...] DATE CREATED AUTHOR AUTHOR'S ORGANIZ ATION 10/01/2020 [facility] ([place]) DATE CREATED AUTHOR AUTHOR'S ORGANIZ ATION 03/08/2023 [facility] DATE CREATED AUTHOR AUTHOR'S ORGANIZ ATION 04/13/2023 [facility] FOR RECORDS PERTAINING TO PATIENTS WHO [...] BE BASED ON THE PRIMARY CLINICAL RECORDS. [facility]. provides no warranty or guarantee of the accuracy or completeness of information in this document.
[2023-04-18 13:55] VITALS: BP 155/98; PULSE 87; RESP 16; TEMP 35.8; O2SAT 93; BMI 48.7
[2023-04-18 14:43] VITALS: BP 144/100; PULSE 80; RESP 16; TEMP 36.2; O2SAT 95
== END 2023-04-18 13:16 | disposition home or self-care (01) ==
DX: K75.0 Abscess of liver (principal); Z79.2 Long term (current) use of antibiotics

== ENCOUNTER → 2023-04-29 | Outpatient (CLI) | payer MEDICAID, SELFPAY ==
[2023-04-29 08:53] LABS: Erythrocyte Sedimentation Rate 12 mm/hr (0-20)
[2023-04-29 08:55] LABS: Absolute Lymphocyte Count 3.45 X10^3/uL (0.83-4.51); Absolute Neutrophil Count 5.1 X10^3/uL (2.0-7.7); Basophil# 0.04 X10^3/uL; Basophil% 0.4 % (0-1); Eosinophil# 0.14 X10^3/uL; Eosinophils% 1.5 % (0-5); Hematocrit 48.1 % (40-54); Lymphocyte # 3.45 X10^3/ul (0.83-4.51); Lymphocyte % 36.5 % (19-41); Mean Corp Hgb Conc 33.3 g/dL (32-36); Mean Corpuscular Hgb 30.9 pg (27.0-32.0); Mean Platelet Vol. 9.8 fl (6.2-12.0); Monocyte# 0.64 X10^3/uL; Monocyte% 6.8 % (0-10); NRBC Flagged by Analyzer 0 % (0-5); Neutrophil # 5.14 X10^3/uL (2.7-7.7); Neutrophil % 54.4 % (47-70); Platelet Count 277 K/mm3 (150-450); RBC Distribution Width CV 13.5 % (11.6-14.6); RBC Distribution Width SD 46.2 fl (35.1-43.9); Red Blood Count 5.17 M/mm3 (4.6-6.2); White Blood Count 9.5 K/mm3 (4.4-11.0)
[2023-04-29 09:02] LABS: ALB/GLOB Ratio 0.8 RATIO (0.9-2.4); AST(SGOT) 29 U/L (15-37); Alanine Aminotransfer ALT/SGPT 52 U/L (16-61); Albumin, Serum 3.8 g/dL (3.2-5.0); Alkaline Phosphatase 78 U/L (45-117); Anion Gap 4 (5-15); BUN 16 mg/dL (7-18); BUN/Creat Ratio 14.8 RATIO (10-20); Calcium,Total 9.6 mg/dL (8.5-10.1); Chloride 104 mmol/L (98-107); Creatinine, Serum 1.08 mg/dL (0.70-1.30); EST Glomerular Filtration Rate 77 mL/min (>60); Est Glom Filt Rate - Afr Amer 93 mL/min (>60); Globulin 4.5 g/dL (2.2-4.2); Glucose 213 mg/dL (74-106); Potassium 4.1 mmol/L (3.5-5.1); Protein, Total 8.3 g/dL (6.4-8.2); Sodium Level 137 mmol/L (136-145)
[2023-04-30 11:08] LABS: Anti-Centromere B Ab <0.2 AI (0.0-0.9); Anti-Chromatin <0.2 AI (0.0-0.9); Anti-Jo <0.2 AI (0.0-0.9); Anti-Scleroderma-70 AB <0.2 AI (0.0-0.9); Anti-dsDNA Ab <1 IU/mL (0-9); RNP Ab <0.2 AI (0.0-0.9); SJOGREN'S Anti-SS-A test < 0.2 AI (0.0-0.9); SJOGREN'S Anti-SS-B test < 0.2 AI (0.0-0.9); Smith Ab <0.2 AI (0.0-0.9)
[2023-04-30 16:09] LABS: AFP, Tumor Marker < 1.8 ng/mL (0.0-6.9); Carbohydrate AG 19-9 67 U/mL (0-35); IgG, Quant 1389 mg/dL (603-1613); Immunoglobulin G, Subclass 1 633 mg/dL (248-810); Immunoglobulin G, Subclass 2 610 mg/dL (130-555); Immunoglobulin G, Subclass 3 60 mg/dL (15-102); Immunoglobulin G, Subclass 4 88 mg/dL (2-96); Perinuclear Ab (P-ANCA) <1:20 titer (Neg:<1:20)
== END | disposition home or self-care (01) ==
LOC: LAB 08:13
PROVIDERS: Referring Provider Internal Medicine Gastroenterology; Visit Provider Internal Medicine Gastroenterology
DX: K83.09 Other cholangitis (principal); K80.50 Calculus of bile duct without cholangitis or cholecystitis without obstruction; Z98.890 Other specified postprocedural states
CPT/HCPCS: 36415; 80053; 82105; 82784; 82787; 85025; 85652; 86140; 86225; 86235; 86256; 86301; 87040

== ENCOUNTER → 2023-05-26 | Outpatient (CLI) | payer MEDICAID, SELFPAY ==
[2023-05-28 16:09] LABS: Carbohydrate Ag 19-9 2261 20 U/mL (0-35); Cytoplasmic Ab (C-ANCA) <1:20 titer (Neg:<1:20); IgG, Quant 1170 mg/dL (603-1613); Immunoglobulin G, Subclass 1 522 mg/dL (248-810); Immunoglobulin G, Subclass 2 456 mg/dL (130-555); Immunoglobulin G, Subclass 3 49 mg/dL (15-102); Immunoglobulin G, Subclass 4 67 mg/dL (2-96); Perinuclear Ab (P-ANCA) <1:20 titer (Neg:<1:20)
== END | disposition home or self-care (01) ==
LOC: LAB 15:46
PROVIDERS: Referring Provider Internal Medicine Gastroenterology; Visit Provider Internal Medicine Gastroenterology
DX: K80.50 Calculus of bile duct without cholangitis or cholecystitis without obstruction (principal); Z98.890 Other specified postprocedural states
CPT/HCPCS: 36415; 82784; 82787; 86256; 86301

== ENCOUNTER → 2023-05-30 | Outpatient (CLI) | payer MEDICAID, SELFPAY ==
--- NOTE | 2023-05-30 14:30 | CT_ITS ---
STUDY: CT ABDOMEN WITH AND WITHOUT CONTRAST REASON FOR EXAM: Male, [address] abd with/without pancreatic protocol RADIATION DOSAGE (If Supplied By Facility): CTDIvol = ( 27.94 ) mGy, DLP = ( 2364.04 ) mGycm TECHNIQUE: Transaxial images were obtained pre and post I.V. administration of ISOVUE 300-100ml, READICAT-500ml, and oral contrast. Sagittal and coronal images were reconstructed. Individualized dose optimization techniques were used for this CT. COMPARISON: March 17, 2023 FINDINGS: The visualized lung bases are unremarkable. The visualized portions of the heart are within normal limits. Liver is homogeneous attenuation. Bile ducts are not dilated. Contracted thick-walled gallbladder without calcified stones. There is a stent noted within the common hepatic and common bile ducts Normal spleen. Normal pancreas. Normal bilateral adrenal glands. Normal right kidney. Normal left kidney. Nonspecific gastric distention. Normal small intestine. Normal colon. The appendix is visualized and appears normal. Minor calcification of the abdominal aorta without evidence for aneurysm. Normal inferior vena cava. Normal retroperitoneum. Normal abdominal wall. Mild degenerative changes of the thoracolumbar spine. CT/Abdomen W/WO IV Contrast IMPRESSION: Contracted thick-walled gallbladder without calcified stones possibly physiologic however if concern for gallbladder disease ultrasound recommended No evidence of intrahepatic bile duct dilatation status post stent placement. No evidence for acute pancreatitis Nonspecific gastric distention. Electronically Signed: Juanjo Gonzalez MD at 17:03 [facility] ,
--- OUTSIDE RECORDS SUMMARY | 2023-05-30 16:10 | XMS RPT_ITS | CCD ---
Author Name Unknown Address [address] [place] [address] Organization [facility] Care Team Providers Care Housing Director Name Role Phone AUSTEN PIRES Unavailable Unavailable AUSTEN PIRES Unavailable Unavailable PHYSICIAN, NONE Unavailable Unavailable CAYDEN ALICEA Admitting Unavailable CAYDEN ALICEA Attending Unavailable CAYDEN ALICEA Primary Care Unavailable AUSTEN PIRES Referring Unavailable AUSTEN PIRES Consulting Unavailable PROVIDER, UNKNOWN Consulting Unavailable Austen Pires MD Primary Care Provider ALEX YANG Referring Unavailab JEZ Mcgraw (RES) Attending Unavail JESSICA Salcedo Consulting Unavail MICHELLE Rubin Admitting Unavailable CHUY HODGE Referring Unavaila CHUY Pate Attending Unavaila AUSTEN Govea Primary Care Unavailable Allergies Allergy Classification Reported Allergen(s) Allergy Type Date of Onset Reaction(s) Facility (5 sources) Latex; Translations: [LATEX] Propensity to adverse reactions (disorder) 200 5 [facility] (1 source) QUEtiapine Drug Allergy [facility] (1 source) anti-depressant, otc allergy pill Drug allergy (disorder) [facility] Medications Current Medications Medication Drug Class(es) Dates Sig (Normalized) Sig (Original) cefTRIAXone 2000 mg injection (2 sources) Cephalosporin Antibacterial End: 04-18-2023 inject 2 g intravenously once daily cefTRIAXone sodium (ROCEPHIN) 2 gram solr Inject 2 g intravenously once daily. 0 04/18/2023 Active Completed/Discontinued Medications Medication Drug Class(es) Dates Sig (Normalized) Sig (Original) acetaminophen 325 mg oral tablet (2 sources) take 2 tablets by mouth every six hours as needed acetaminophen (TYLENOL) 325 mg tablet Take 650 mg by mouth every 6 hours as needed for pain. 0 Active Problems Active Problems Problem Classification Problem Date Documented Da te Episodic/Chronic Asthma (1 source) Asthma Onset: 10-09-2016 Chronic Bacterial infection; unspecified site (2 sources) Bacteremia; Translations: [Streptococcal infection, unspecified site] Onset: 04-18-2023 Episodic Biliary tract disease (1 source) Other cholangitis; Translations: [Cholangitis] Onset: 04-18-2023 Chronic Other liver diseases (2 sources) Abscess of liver; Translations: [Abscess of liver] Onset: 03-19-2023 03-19-2023 Episodic Other liver diseases (2 sources) Abscess of liver; Translations: [Liver abscess] Onset: 03-26-2023 Episodic Other nutritional; endocrine; and metabolic disorders (2 sources) Body mass index 40+ - severely obese; Translations: [Morbid (severe) obesity due to excess calories] Onset: 03-20-2023 03-20-2023 Chronic Substance-related disorders (2 sources) Nicotine dependence; Translations: [Nicotine dependence, unspecified, uncomplicated] Onset: 03-20-2023 03-20-2023 Chronic Unclassified (1 source) Unknown / UNK(Unknown) Onset: 10-09-2016 Past or Other Problems Problem Classification Problem Date Documented Da te Episodic/Chronic Blindness and vision defects (2 sources) Visual disturbance; Translations: [Other visual disturbances] Onset: 09-03-2007 09-03-2007 Episodic Results Test Name Value Interpretation Reference Range Facil ity Encounters Encounter Date Encounter Type Care Provider Facility Start: 04-18-2023 End: 04-18-2023 [facility] Start: 03-31-2023 Telephone encounter Ruddy Sanderson RN NOC Procedures Date Procedure Procedure Detail Performing Clinician Start: 06-30-2007 Lipid 1996 panel - S grecia or Plasma Jailyn Hernandez APRN.[employer] Work Phone: Plan of Treatment Date Care Activity Detail Author Start: 03-26-2026 Diabetes Screening Diabetes Screenin rufina [facility] Start: 03-21-2026 Diabetes Screening Diabetes Screenin g [facility] Start: 12-13-2022 Influenza vaccination Influenza Vacc ine (#1) [facility] Start: 04-14-2022 Depression Assessment Depression Ass essment [facility] Start: 2019 Cologuard (FIT-DNA) Cologuard (FIT-D NA) [facility] Start: 2019 Colonoscopy Colonoscopy [facility] Start: 2019 Colorectal Cancer Screening Colorectal Cancer Screening [facility] Start: [address] Colonography [facility] Start: 2019 Fecal Occult Blood Fecal Occult Bloo d [facility] Start: 2019 Screening for malign ant neoplasm of colon [facility] Start: 2019 Sigmoidoscopy Sigmoidoscopy [facility] Start: 06-29-2012 Lipid 1996 panel - S grecia or Plasma Lipid Screening [facility] Start: 06-29-2012 Lipid panel Lipid Screening [facility] Start: 1993 Urine microalbumin profile DTa P,Tdap,Td Vaccine (1 - Tdap) [facility] Start: 01-30-1992 Hepatitis C Screening Hepatitis C [facility] Start: 01-30-1992 Hepatitis C screening Hepatitis C [facility] Start: 01-30-1992 HIV Screening HIV Screening [facility] Start: 01-30-1992 HIV screening HIV Screening [facility] Start: 01-30-1980 Pneumococcal vaccination [facility] Start: 1974 Covid-19 Vaccine (#1) Covid-19 Vacci ne (#1) [facility] Start: 1974 Hepatitis B Vaccine (1 of 3 - 3-dose series) Hepatitis B Vaccine (1 of 3 - 3-dose series) [facility] Payers Date Payer Category Payer Medicaid [place] [employer] [employer] [id number] 2022-Present [phone] [facility] [address] [place] [address] Medicaid [id number] 2013 Unknown [id number] 1974 Unknown [id number] Social History Date Type Detail Facility Tobacco smoking stat us NHIS Smokes tobacco daily [facility] Work Phone: History of tobacco use Cigarette Smoker [facility] Work Phone: Start: 03-21-2023 Alcohol intake Current drinke r of alcohol (finding) [facility] Start: 03-19-2023 End: 03-21-2023 History of Social function [facility] Work Phone: Start: 03-19-2023 End: 03-21-2023 Tobacco use panel [facility] Work Phone: How hard is it for y ou to pay for the very basics like food, housing, medical care, and heating Not hard at all [facility] Work Phone: (I/We) worried wheth er (my/our) food would run out before (I/we) got money to buy more. Never true [facility] Work Phone: In the past 12 month s, was there a time when you were not able to pay the mortgage or rent on time? No [facility] Work Phone: Start: 1975 Sex Assigned At Not on file C [facility] Clinical Notes 03-20-2023 to 04-18-2023 Note Date & Type Note Facility 04-18-2023 Note HNO ID: [id number] Author: CHUY HODGE, DO Service: ? Author Type: Physician Type: Progress Notes Filed: 04/18/2023 09:32 Note Text: VIRTUAL VISIT PROGRESS NOTE This is a virtual visit using Audio Only Visit. It required patient-provider interaction for the medical decision making as documented below. I have communicated my name and active licensure. The patient's identity and physical location were verified at the time of this visit. Either the patient or their legal patient intake representative has been informed of the risks and benefits of -- and alternatives to -- treatment through a remote evaluation and consents to proceed with the evaluation remotely. Marcin Naylor is a 48 year old male seen for CoPAT follow-up. The patient was seen in the hospital for ID consultation and history as below excerpted from prior consultation note on 03-20-2023: The patient states that about 1 week ago he went to the [facility] due to RUQ pain, jaundice, and nausea. At [facility], a CT was completed that showed ascending cholangitis and hepatic abscesses. The patient was treated with Zosyn and then switched to ceftriaxone when blood culture grew Strep anginosus. ERCP was performed and a stent was placed. Liver biopsy from the ERCP is still pending. Patient states that his pain is currently improved. His is CT A/P 03-13-2023 from [facility] showed multiple small peripherally enhancing lesions. He underwent ERCP 03-14-2023 and had stent placement, removal of stones from main bile duct and purulence noted. He was started on piperacillin-tazobactam and changed to ceftriaxone after blood culture grew S anginosus. transferred to [facility] for further interventions. No surgery was done and the patient had negative blood cultures here on 03-21-2023. He had PICC placed and discharged on a course of IV ceftriaxone through 04-18-2023. Patient has arranged for follow-up with his GI doctor locally on 04-29-2022. Overall feels well just some minor RUQ pain from time to time. He completed ceftriaxone last evening and will have his PICC line removal today. HISTORY REVIEWED (electronic chart updated): PAST MEDICAL HISTORY Diagnosis Date Dysthymic disorder Depression (non-psychotic) Essential hypertension, benign Pure hypercholesterolemia PAST SURGICAL HISTORY Procedure Laterality Date COLONOSCOPY EGD MRI BRAIN 05/21/07 [facility] PICC LINE INSERTION (PICC TEAM) (AK) 03/21/2023 FAMILY HISTORY Problem Relation Age of Onset Stroke Paternal Uncle Heart Paternal Grandfather Hypertension Maternal Grandfather Hypertension Paternal Grandfather Hypertension Paternal Uncle Diabetes Other great aunt Allergies Brother Allergies Paternal Aunt Cancer Father lung Social History Tobacco Use Smoking status: Every Day Packs/day: 1.00 Years: 20.00 Additional pack years: 0.00 Total pack years: 20.00 Types: Cigarettes Substance Use Topics Alcohol use: Yes Comment: rarely Drug use: No Current Outpatient Medications Medication Sig cefTRIAXone sodium (ROCEPHIN) 2 gram solr Inject 2 g intravenously once daily. LISINOPRIL ORAL Take 20 mg by mouth once daily. levETIRAcetam (KEPPRA) 500 mg tablet Take 500 mg by mouth two times a day. Amphetamine-Dextroamphetamine (ADDERALL) 30 mg tablet Take 30 mg by mouth once daily. acetaminophen (TYLENOL) 325 mg tablet Take 650 mg by mouth every 6 hours as needed for pain. pantoprazole (PROTONIX) 40 mg injection Inject 40 mg intravenously daily at 6 am. levothyroxine sodium (LEVOTHYROXINE ORAL) Take 50 mcg by mouth daily before breakfast. varenicline (CHANTIX) 0.5 mg tablet Take 0.5 mg by mouth daily with breakfast. No current facility-administered medications for this visit. ALLERGIES Allergen Reactions Latex REVIEW OF SYSTEMS: Review of Systems Constitutional: Negative. HENT: Negative. Respiratory: Negative. Cardiovascular: Negative. Gastrointestinal: Positive for abdominal pain (occasional). Genitourinary: Negative. PHYSICAL EXAMINATION: VIDEO EXAM: (if completed, performed via video enabled technology) Deferred due to phone visit ASSESSMENT/PLAN: Problem List Items Addressed This Visit Gastrointestinal Liver abscess - Primary Current Assessment AND Plan 48 year-old male with choledocholithiasis complicated by S anginosus bacteremia, cholangitis and liver abscess. Completed a 4-week course of IV ceftriaxone and will follow-up with local GI physician. Will plan to remain on oral amoxicillin-clavulanate until further imaging is done. Asked patient to keep me informed about his progress. Prescription sent to local pharmacy. Discussed with patient and questions answered. Patient verbalized understanding. Relevant Medications amoxicillin-clavulanate potassium (AUGMENTIN) 875-125 mg per tablet Infectious Disease Bacteremia Relevant Medications amoxicillin-clavulanate potassium (AUGMENTIN) 875-125 mg per tablet O (more content not included)... [facility] 04-11-2023 Note HNO ID: [id number] Author: Asha Singleton Service: ? Author Type: ? Type: Progress Notes Filed: 04/11/2023 11:34 AM Note Text: Patient's sister called back. She agreed to virtual visit on 04/18/23 @ 9 am. [facility] 03-26-2023 Note HNO ID: [id number] Author: Dahlia Latham, AMAYA Service: Care Management Author Type: Registered Nurse Type: Care Mgt Progress Note Filed: 03/26/2023 10:29 AM Note Text: CARE MANAGEMENT PROGRESS NOTE SERVICE DATE: 03/26/2023 SERVICE TIME: 10:28 AM LOS: 7 days [facility] can accommodate dressing changes and labs. Order signed by surgery and faxed to [facility]. Teaching has been done for self administration of IV antibiotic. Patient feels very comfortable administering. Sister to transport home and to appointments. . SIGNATURE: Dahlia Latham RN PATIENT NAME: Marcin Naylor DATE: March 26, 2023 TIME: 10:28 AM PAGER/CONTACT #: [phone] [facility] 03-26-2023 Note HNO ID: [id number] Author: Elida Perales APRN.[employer] HARVEST MACHINE OPERATOR Service: General Surgery Author Type: Nurse Specialist [...] 2021 presented as a direct admission to [facility] on 03/19/2023 for hepatic abscess in the [...] stable abscesses. He was then transferred to [facility] for further surgical evaluation and management. Once at [facility] consultations were obtained with Infectious Disease with [...] Therapy: Room Air IANDO: Date 03/25/23699 - 03/26/2365803/26/23699 - 03/27/23 0659 Shift 8726-7591 6667-6076 5878-8908 24 Hour Total 4338-0043 7898-9298 2173-7473 24 Hour Total INTAKE PO 418 300 [...] recommending follow-up on pathology. Awaiting results from [facility] - Diet as tolerated - Pain control prn - Monitor labs -LFTs WNL -WBCs WNL - ID following: CoPAT in chart and signed - Ceftriaxone x4 weeks -BCx: S ang (more content not included)... [facility] 03-25-2023 Note HNO ID: [id number] Author: Dahlia Latham, RN Service: Care Management Author Type: Registered Nurse Type: Care Mgt Progress Note Filed: 03/25/2023 1:58 PM Note Text: CARE MANAGEMENT PROGRESS NOTE SERVICE DATE: 03/25/2023 SERVICE TIME: 1:54 PM LOS: 6 days [facility] can still come teach iv antibiotic for home iv antibiotic daily. Telephone call voice mail to [facility] at [facility] to see if they can accommodate weekly dressing changes and blood draws. Awaiting call back. . SIGNATURE: Dahlia Latham RN PATIENT NAME: Marcin Naylor DATE: March 25, 2023 TIME: 1:54 PM PAGER/CONTACT #: [phone] [facility] 03-25-2023 Note HNO ID: [id number] Author: Elida Perales, MAIL TELLER.FIELD CROPS HARVEST MACHINE OPERATOR Service: General Surgery Author Type: Nurse Specialist Type: Progress Notes Filed: 03/25/2023 1:19 PM Note Text: Emergency General Surgery Progress Note SERVICE DATE: March 25, 2023 SERVICE TIME: 629 Emergency General Surgery Service Pager: For questions or concerns Mon-Fri 6a-5p please page [phone]. After 5pm and on Weekends and Holidays, please page [phone] if in ICU or [phone] if on RNF. SUBJECTIVE: HPI: Mr. Naylor is a 48 year old male with a past medical history significant for HTN, HLD, biliary stricture stented in 2021 presented as a direct admission to [facility] on 03/19/2023 for hepatic abscess in the [...] stable abscesses. He was then transferred to [facility] for further surgical evaluation and management. Once at [facility] consultations were obtained with Infectious Disease with recommendations of IV Ceftriaxone for 4 weeks and Gastroenterology with recommendations of outpatient follow up for temporary stent removal. A PICC line was placed on 03/21/2023. Feeling well, denies abdominal pain. Wanting to go home, awaiting [facility] arrangements Tolerating diet DIET REGULAR [...] kg/m? O2 Therapy: Room Air IANDO: Date 03/24/23 07 - 03/25/23 0659 03/25/23 07 - 03/26/23 0659 Shift 5701-1499 8650-2330 7646-1655 24 Hour Total 4421-1772 9078-4414 8744-9125 24 Hour Total INTAKE PO 600 600 [...] recommending follow-up on pathology. Awaiting results from [facility] - Diet as tolerated - Pain control prn - Monitor labs -LFTs WNL -WBCs WNL - ID following: CoPAT in chart and signed - Ceftriaxone x4 weeks -BCx: S anginosus bacteremia -Repeat Bcx 03/21 NG x4d - VTE ppx: Lovenox (more content not included)... [facility] 03-24-2023 Note HNO ID: [id number] Author: Marlen Dover APRN.RACHAEL Service: General Surgery Author Type: Nurse Practitioner Type: Progress Notes Filed: 03/24/2023 11:21 AM Note Text: Emergency General Surgery Progress Note SERVICE DATE: March 24, 2023 Emergency General Surgery Service Pager: For questions or concerns Mon-Fri 6a-5p please page [phone]. After 5pm and on Weekends and Holidays, please page [phone] if in ICU or [phone] if on RNF. SUBJECTIVE: HPI: Mr. Naylor is a 48 year old male with a past medical history significant for HTN, HLD, biliary stricture stented in 2021 presented as a direct admission to [facility] on 03/19/2023 for hepatic abscess in the [...] stable abscesses. He was then transferred to [facility] for further surgical evaluation and management. Once at [facility] consultations were obtained with Infectious Disease with recommendations of IV Ceftriaxone for 4 weeks and Gastroenterology with recommendations of outpatient follow up for temporary stent removal. A PICC line was placed on 03/21/2023. Hospital day 5: Mr. Naylor is without c/o. Minimal abdominal tenderness. No fever/chills, nausea or vomiting. Awaiting [facility] arrangements Tolerating diet DIET REGULAR [...] Air IANDO: Date 03/23/23699 - 03/24/2365803/24/23699 - 03/25/23658 Shift 4032-7070 6344-3586 9157-7417 24 Hour Total 9800-1957 0262-9758 0154-7130 24 Hour Total INTAKE PO 120 120 [...] Follow up CT (more content not included)... [facility] 03-23-2023 Note HNO ID: [id number] Author: Cindy Goldstein MD Service: General Surgery Author Type: Resident Type: Progress Notes Filed: 03/23/2023 8:27 AM Note Text: Attestation signed by Jez Saldana MD at 04/08/2023 6:39 PM Patient was seen and evaluated by myself on this day March 23, 2023. I agree with the presented documentation unless specifically noted. SIGNATURE: Jez Saldana MD PATIENT NAME: Marcin Naylor DATE: April 08, 2023 TIME: 6:39 PM Pager: [phone] Emergency General Surgery Progress Note SERVICE DATE: March 23, 2023 Emergency General Surgery Service Pager: For questions or concerns Mon-Fri 6a-5p please page [phone]. After 5pm and on Weekends and Holidays, please page [phone] if in ICU or [phone] if on RNF. SUBJECTIVE: NAEON. Patient reports [...] kg/m? O2 Therapy: Room Air IANDO: Date 03/22/23699 - 03/23/2365803/23/23699 - 03/24/23 0659 Shift 6481-5709 6094-4568 1144-2360 24 Hour Total 8741-6439 0841-2619 8425-6594 24 Hour Total INTAKE PO 120 120 [...] Still have not yet received records from [facility] -ID consulted - CoPAT in chart and [...] Marcin Naylor DATE: March 23, 2023 TIME: 824 Pager: [phone] Emergency General Surgery Service Pager: For questions or concerns Mon-Fri 6a-5p please page [phone]. After 5pm and on Weekends and Holidays, please page [phone] if in ICU or [phone] if on RNF. [facility] 03-22-2023 Note HNO ID: [id number] Author: Chuy Hodge DO Service: Infectious Disease Author Type: Physician Type: Plan of Care Filed: 03/22/2023 11:25 AM Note Text: Following for liver abscess and S anginosus bacteremia. Blood culture 1 set already cleared. Expect the other set to be as well. OK to place PICC line next week. CoPAT in chart and signed. Will sign off please call back with questions. Chuy Hodge DO [facility] Staff Department of Infectious Disease March 22, 2023 11:25 AM Pager [facility] 03-22-2023 Note HNO ID: [id number] Author: Hermelindo Miguel DO Service: General Surgery Author Type: Resident Type: Progress Notes Filed: 03/22/2023 7:08 AM Note Text: Attestation signed by Jez Saldana MD at 03/22/2023 7:52 AM Patient was seen and evaluated by myself on this day March 22, 2023. I agree with the presented documentation unless specifically noted. SIGNATURE: Jez Saldana MD PATIENT NAME: Marcin Naylor DATE: March 22, 2023 TIME: 7:52 AM Pager: [phone] Emergency General Surgery Progress Note SERVICE DATE: March 22, 2023 Emergency General Surgery Service Pager: For questions or concerns Mon-Fri 6a-5p please page [phone]. After 5pm and on Weekends and Holidays, please page [phone] if in ICU or [phone] if on RNF. SUBJECTIVE: Patient seen and [...] Date 03/21/23699 - 03/22/2365803/22/23699 - 03/23/2359 Shift 6595-3324 2461-0481 0158-2240 24 Hour Total 9484-4805 4116-8887 2294-1854 24 Hour Total INTAKE PO 480 480 [...] Still have not yet received records from [facility] -ID consulted - Tolerating diet and pain [...] TIME: 0706 Page (more content not included)... [facility] 03-21-2023 Note HNO ID: [id number] Author: aJilyn Hernandez APRN.[employer] Service: Infectious Disease Author Type: Nurse Practitioner Type: Progress Notes Filed: 03/21/2023 4:30 PM Note Text: PROGRESS NOTE INFECTIOUS DISEASE BRIEF SUMMARY: 48-[facility] a transfer from [facility] where he presented 1 week prior due to right upper quadrant pain, jaundice and nausea. At [facility] a CT was completed that showed [...] please contact Emi Dickson NP or Dr. Chuy Hodge. Thank you. Subjective SUBJECTIVE: Interval Events: 03/21: [...] Inserted (PICC) Right Arm Through Introducer 4.0 Salvadorean <1 day Physical Exam: General appearance: Well [...] Note: This note has been created using [employer], a speech recognition software program, and may [...] which included preparing to see the patient, [id number] patient care, completing clinical documentation, performing a medically appropriate examination, counseling and educating the patient/family/caregiver, communicating with other HCPs (not separately reported), and care coordination (not separately reported). Jailyn Hernandez APRN.[employer] Pager # [phone] Infectious Disease Respiratory [facility] 03-21-2023 Note HNO ID: [id number] Author: Hermelindo Miguel DO Service: General Surgery Author Type: Resident Type: Progress Notes Filed: 03/21/2023 10:10 AM Note Text: Attestation signed by Jez Saldana MD at 03/22/2023 7:53 AM Patient was seen and evaluated by myself on this day March 21, 2023. I agree with the presented documentation unless specifically noted. Having recurrent pain, feels like stones, maybe stent? Trend LFT Cont ID plan [facility] path not confirmed SIGNATURE: Jez Saldana MD PATIENT NAME: Marcin Naylor DATE: March 22, 2023 TIME: 7:52 AM Pager: [phone] Emergency General Surgery Progress Note SERVICE DATE: March 21, 2023 Emergency General Surgery Service Pager: For questions or concerns Mon-Fri 6a-5p please page [phone]. After 5pm and on Weekends and Holidays, please page [phone] if in ICU or [phone] if on RNF. SUBJECTIVE: Patient seen and [...] 03/20/23699 - 03/21/2365803/21/23699 - 03/22/23 0659 Shift 2033-5170 0911-8635 4973-4072 24 Hour Total 4516-0521 3709-9837 6070-9701 24 Hour Total INTAKE PO 240 360 600 480 480 PO 240 360 600 480 480 IV 1050 1050 Volume (mL) (piperacillin-tazobactam iv piggyback 3.375 g in dextrose (iso-osmotic) 50 mL (ZOSYN)) 50 50 Volume (mL) (lactated ringers iv infusion) 1000 1000 Shift Total 9253 942 8265 480 480 OUTPUT Urine Urine Not Saved. [...] placed Discussed with (more content not included)... [facility] 03-21-2023 Note HNO ID: [id number] Author: Dahlia Latham, RN Service: Care Management Author Type: Registered Nurse Type: Care Mgt Progress Note Filed: 03/21/2023 9:55 AM Note Text: CARE MANAGEMENT PROGRESS NOTE SERVICE DATE: 03/21/2023 SERVICE TIME: 9:53 AM LOS: 2 days Patient will need iv antibiotic combo referral sent to many home care companies and I [facility] [place]. Will be difficult to get C based on insurance and location. . SIGNATURE: Dahlia Latham RN PATIENT NAME: Marcin Naylor DATE: March 21, 2023 TIME: 9:53 AM PAGER/CONTACT #: [phone] [facility] 03-21-2023 Note HNO ID: [id number] Author: Carol Caruso RN Service: PICC Team Author Type: Registered Nurse Type: Procedures Filed: 03/21/2023 9:40 AM Note Text: PICC NURSE INSERTION NOTE DATE OF PROCEDURE: March 21, 2023 TIME OF PROCEDURE: 0900 ORDERING PHYSICIAN: Alejandro INFORMED CONSENT: Obtained per hospital policy. INDICATION FOR LINE PLACEMENT: COPAT CONDITION OF LINE PLACEMENT: Sterile PRIMARY PROCEDURALIST: Jing Guillaume RN DELIVERY MGR: Carol Caruso RN PRE-PROCEDURE REVIEW ALLERGIES Allergen [...] applicable. Carol Caruso RN CATHETER PLACEMENT Brand: [employer] Lot: [id number] Number of Lumens: 1 Type of PICC: Power Injectable PICC Lumen Size: 4 Salvadorean PLACEMENT TECHNIQUE Lidocaine: Yes, Lidocaine 1% Volume [...] Given to patient QUESTIONS or PROBLEMS: Call [phone] SIGNATURE: Carol Caruso RN PATIENT NAME: Marcin Naylor DATE: March 21, 2023 TIME: 9:16 AM PAGER/CONTACT PHONE: [facility] 03-20-2023 Note HNO ID: [id number] Author: Dahlia Latham RN Service: Care Management Author Type: Registered Nurse Type: Care Mgt Initial Assessment Filed: 03/20/2023 9:02 AM Note Text: CARE MANAGEMENT: ASSESSMENT AND DISCHARGE PLAN SERVICE DATE: March 20, 2023 SERVICE TIME: 9:02 AM PCP: No primary care provider on file. Primary Contact: Extended Emergency Contact Information Primary Emergency Contact: JEAN CLAUDE THAPA Relation: None Admission Status: Inpatient Insurance Provider: GLORIA PAZ MEDICAID Discharge Planning requested by: Per Department Practice Potential Transition Plans No Services Indicated Advance Directives Current Advance Directive: None Rubber Goods Tester Attempted to Assist with AD Completion: Yes Action: Education Provided Current Living Arrangements and Support Lives with: Spouse/significant other Type of Residence: Private Residence (House) Does the patient have to climb stairs at home?: Yes Support: Spouse/significant other, Family members, Friends/neighbors How do you manage to accomplish the following: Independent: Ambulation;Bathe/Shower;Dress;Meals/Meal Prep;Going to the bathroom;Medication Management;Transportation to appointments/community Current Services/Equipment Current Post-Acute Service(s): None Discharge Planning Patient Goal(s): Be able to go home, General wellness [place] Explained: [place] Given: No Reason Not Given: [...] 20, 2023 TIME: 9:01 AM CONTACT #: [phone] [facility] 03-20-2023 Note HNO ID: [id number] Author: Jeramy Vogt DO Service: General Surgery Author Type: Resident Type: Progress Notes Filed: 03/20/2023 7:44 AM Note Text: Attestation signed by Michelle Allen MD at [...] Allen MD Date: 03/20/2023 Time: 6:59 PM Emergency General Surgery Progress Note SERVICE DATE: March 20, 2023 Emergency General Surgery Service Pager: For questions or concerns Mon-Fri 6a-5p please page [phone]. After 5pm and on Weekends and Holidays, please page [phone] if in ICU or [phone] if on RNF. SUBJECTIVE: Pt seen in [...] Therapy: Room Air IANDO: Date 03/19/23699 - 03/20/2359 03/20/23699 - 03/21/2359 Shift [id number] [id number] 24 Hour Total [id number] [id number] 24 Hour Total INTAKE Shift Total OUTPUT [...] Marcin Naylor DATE: March 20, 2023 TIME: 0742 Pager: [phone] Emergency General Surgery Service Pager: For questions or concerns Mon-Fri 6a-5p please page [phone]. After 5pm and on Weekends and Holidays, please page [phone] if in ICU or [phone] if on RNF. Portions of the physical exam and assessment/plan of the previous day's note has been copied over. However changes were made to reflect the care plan for today, 03/20/2023 [facility] Summary Purpose Family History No Family History [...] DATE CREATED AUTHOR AUTHOR'S ORGANIZ ATION 10/01/2020 [facility] ([place]) DATE CREATED AUTHOR AUTHOR'S ORGANIZ ATION 03/08/2023 [facility] DATE CREATED AUTHOR AUTHOR'S ORGANIZ ATION 04/13/2023 [facility] DATE CREATED AUTHOR AUTHOR'S ORGANIZ ATION 04/19/2023 [facility] Source Comments (unrecognize d section and content) In the event this informatio n is protected by the Federal Confidentiality of Alcohol and Drug Abuse Patient Records regulations: The Federal rules restrict any use of the information to criminally investigate or prosecute any alcohol or drug abuse patient.[facility] the event this information is protected by the Federal Confidentiality of Alcohol and Drug Abuse Patient Records regulations: The Federal rules restrict any use of the information to criminally investigate or prosecute any alcohol or drug abuse patient.[facility] Reason for Visit (unrecogniz ed section and content) Reason Comments Follow Up Gyant interaction - F/U - attempt made. No answer Care Teams (unrecognized sec tion and content) FOR RECORDS PERTAINING TO PATIENTS WHO ARE [...] BE BASED ON THE PRIMARY CLINICAL RECORDS. [facility]. provides no warranty or guarantee of the accuracy or completeness of information in this document.
== END | disposition home or self-care (01) ==
LOC: CT 14:29
PROVIDERS: Referring Provider Internal Medicine Gastroenterology; Visit Provider Internal Medicine Gastroenterology
DX: K83.09 Other cholangitis (principal)
CPT/HCPCS: 74170; Q9967

== ENCOUNTER 2023-07-08 12:32 | Day surgery (SDC) | payer MEDICAID, SELFPAY ==
[2023-07-08] VITALS (10 sets, daily range): BP systolic 94–152; BP diastolic 62–132; PULSE 74–106; RESP 16–18; TEMP 36.2–36.6; O2SAT 90–96; BMI 47.7
--- NOTE | 2023-07-08 | FLU_PTH ---
PATIENT: DANIELA BERG LOC: EN U#:[id number] AGE/SX: 48/M ROOM: RE07/08/[address]: Dr. Santos Carter DO : 1975 BED: DIS: 07/08/2023 SPEC #: [id number] RECD: 07/08/23 14:34 STATUS: TONO SLADE #: [id number] EMRE: 07/08/23 00:[address]: Santos Carter DEPT: CYTOLOGY RECD BY: Henri Morley Tissues: Cytologic material, NOS Procedures: Special Stain Group II Surgery Specimen Level IV Cytospin Fluid HEADER OPERATION: ERCP with stent pull and balloon sweep PRE-OP DIAGNOSIS: Ascending cholangitis, Status post ERCP, Choledocholithiasis TISSUE SUBMITTED: Stent for cytology DIAGNOSIS CYTOLOGY Stent brushings (cytospin and cellblock); Negative for malignant cells. Alejo/ 07/10/2023 CYTOLOGY STUDY Slides are reviewed. CYTOLOGY GROSS Received is <.25 ml of thick dark fluid labeled with the patient's name and and designated per the requisition as Stent fluid. Submitted for cytology preparation including cell block. mr 07/09/23 TC:5 CPT: 48774,34999
--- NOTE | 2023-07-08 12:45 | RAD_ITS ---
STUDY: ERCP. REASON FOR EXAM: Male, 48 years old. PAIN -- STENT REMOVAL FLUOROSCOPY TIME (if supplied): ( 52.9 seconds ) minutes/seconds. 29.23 mGy. 8 images were submitted. TECHNIQUE: Fluoroscopic services provided for ERCP. COMPARISON: None. FINDINGS: Dilatation of the central intrahepatic biliary ducts. RAD/ERCP Biliary/Pancreas IMPRESSION: Dilatation of the central intrahepatic biliary ducts. Electronically Signed: Reggie Cabrera MD at 12:57 EDT ,
[2023-07-08] MEDS: Lactated Ringers 1,000 ML 15 ML IV (13:20)
--- NOTE | 2023-07-08 13:43 | HP.PCM_ITS ---
History and Physical Date of Admission: 07/08/23 48 M who presents to the office today for *[facility] hospitalization 12.04.21-12.06.21 for management of cholestatic hepatitis and newly diagnosed DMII. GI consulted after ERCP performed recommending continuation of ATB therapy. ? CT abd/pel with contrast 12.05.21 intrahepatic duct dilation of left hepatic lobe; mild CBD dilation. ? ERCP 12.05.21 WSA entire biliary tree dilated, uncertain etiology; biliary sphincterotomy; biliary tree swept without finding; CBD temporary stent placed. No specimens. Marcin was to follow up with [facility] as outpatient, but appointment was never scheduled. [facility] hospitalization 03.13.23-03.19.23 for management of ascending cholangitis, choledocholithiasis, pyogenic liver abscess with concern for metastatic disease, biliary stent migration and chronic conditions DMII, hypothyroid, HTN, HIGINIO, seizure disorder, anxiety/depression. ATB coverage initially Zosyn and later changed to ceftriaxone with blood culture positive for strep anginosus. Transferred to [facility] tertiary facility for ongoing care 03.19.23. CT abd/pel IV only 03.13.23 small hepatic lesions measuring up to 2cm, ?neoplasm; biliary stent tip in third portion of duodenum with moderate intrahepatic biliary duct dilation and focal dilation. MRI abd 03.13.23 multiple enhancing lesions of liver, neoplasm possible, infection more likely with relation to ascending cholangitis; intrahepatic bile duct dilation left>right; contracted gallbladder, ?early cholecystitis ? US RUQ 03.14.23 irregular hypoechoic mass 4.5x3.3x4.4cm right hepatic lobe; hepatic measurement 21cm with fatty infiltration; CBD 5mm. ERCP spyglass 03.14.23 entire main bile duct with purulent matter; upper third main duct polyp; choledocholithiasis, sphincterotomy/balloon extraction; stent r emoved from biliary tree; middle third main bile duct dilated; lithotripsy successful; biliary tree swept finding purulent matter, clots; temporary stent placed in CBD. Biliary stricture positive for fibrosis and acute on chronic inflammation, negative for malignancy. CT with contrast 03.17.23 stable small hypodensities throughout liver, largest right lobe measuring up to 4.6x3.1cm; pneumobilia; stent in CBD. Biochemical AFP, CEA, TSH WNL CA 19-9 H197, transaminitis: AST 24-ALT H103-AP H175 (admission) and normal at discharge. [facility] hospitalization 03.19.23-03.26.23 with PICC placed 03.21.23 for outpatient administration of ABX and CoPAT and ceftriaxone for four weeks as outpatient. OV 04.29.23 continues to have RUQ discomfort that is most prominent when he does not eat. ROS Const Constitutional: No anorexia, fatigue, fever(s), weight change or sleep problems Eyes Eyes: No change in vision ENT ENT: No abnormal hearing, difficulty swallowing, mouth lesions, tongue swelling or throat swelling Resp Respiratory: No cough or shortness of breath Cardio Cardiology: No chest pain at rest, chest pain with exertion, shortness of breath or dyspnea on exertion Gastro GI: No difficulty swallowing Genitourinary Male: No difficulty urinating or burning urination Musc Musculoskeletal: No joint pain, joint swelling, muscle weakness or decreased muscle mass Skin Skin: No hair loss in leg, yellowing of the eye, itchy eyes, rash, skin ulcer or skin swelling Neuro Neurology: No abnormal hearing, abnormal movements, confusion, unsteady gait/balance or memory loss Psych Psychiatric: No anxiety, No confusion and No memory loss Endo Endocrine: No fatigue or weight change Aller/Imm Allergy/Immunologic: No itchy eyes, throat swelling or tongue swelling Michael/Lymp Hematologic/Lymphatic: No easy bleeding, easy bruising or enlarged lymph nodes Exam Const General: cooperative and comfortable Nutritional Appearance: average body habitus and well nourished [facility] Head: normal to inspection Ears: hearing grossly normal bilaterally Nose: external nose normal Face and sinus: normal facial exam Mouth: oral mucosae normal Throat: posterior oropharynx normal Eyes General: appearance normal, both eyes and all related structures Neck Neck: normal visual inspection Chest Chest palpation & inspection: normal inspection of the chest and normal palpation of entire chest wall Resp Effort & Inspection: normal respiratory effort Auscultation: Bilateral: Clear to Auscultation Cardio Palpation: normal PMI Rate: regular rate Rhythm: regular rhythm GI Inspection: normal to inspection Auscultation: normal bowel sounds Percussion: normal to percussion Palpation: no hepatosplenomegaly Skin General: no rashes or lesions noted Neuro General: patient alert Extrem General: normal to inspection Psych Affect: normal affect Quality Reporting Tobacco Screening ([facility] 138) Smoking Status: Current every day smoker Assessment and Plan Assessment and Plan (1) Ascending cholangitis: Status: Acute (2) S/P ERCP: Status: Acute (3) Choledocholithiasis: Status: Acute Plan: 48-year-old white male presents to the emergency room at [facility] with upper abdominal pain associated with nausea, he had been admitted approximately 5 days earlier at an outside hospital and was diagnosed with pancreatitis. Patient had a history of a common bile duct stent that was placed approximately a year ago-patient was noncompliant and follow-up for stent removal. Labs were obtained, white blood cell count was noted to be elevated at 15.5, sodium was low at 127, creatinine was elevated 1.54 and BUN was 20. Patient's glucose was elevated at 390, patient's liver enzymes were elevated with his ALT, alkaline phosphatase, and bilirubin elevated. CT of the abdomen pelvis was performed, read out suspected distal migration of the biliary stent barely within the distal common bile duct with the distal aspect of the third portion of the duodenum, there is a suspicion of small hepatic metastases. Patient was admitted to the medical floor, he was maintained on IV antibiotics and seen in consultation by general surgery, infectious diseases, and myself. The patient underwent an ERCP with sphincterotomy and additional other pro cedures during the ERCP. He also had a stent exchange. Patient's blood culture grew out strep, repeat CT of the abdomen and pelvis showed enlargement of areas felt to be abscess areas around the liver, it was recommended that he be transferred to a tertiary facility for further care. He did not undergo percutaneous drainage or biopsy of the hepatic abscess due to the location of the abscess next to the hepatic vasculature. Today he is doing a lot better without any abdominal pain, cramping, fevers. He has his PICC line out and is on Augmentin 800 mg twice a day. He was transferred to an outside hospital due to complications from his pancreatitis that was diagnosed when he came into the hospital initially. He underwent drainage of pseudocyst. He comes back now for removal of common bile duct stent. Recommendations: -Repeat CT scan abdomen pelvis -Check ESR, CRP, LDH, blood cultures, LFTs, CBC Orders: Orders CBC W/Diff, Automated Today K80.50 - Calculus of bile duct without cholangitis or cholecystitis without obstruction, K83.09 - Other cholangitis, Z98.890 - Other specified postprocedural states CRP Today K80.50 - Calculus of bile duct without cholangitis or cholecystitis without obstruction, K83.09 - Other cholangitis, Z98.890 - Other specified postprocedural states Erythrocyte Sed Rate Today K80.50 - Calculus of bile duct without cholangitis or cholecystitis without obstruction, K83.09 - Other cholangitis, Z98.890 - Other specified postprocedural states Comprehensive Metabolic Profil Today K80.50 - Calculus of bile duct without cholangitis or cholecystitis without obstruction, K83.09 - Other cholangitis, Z98.890 - Other specified postprocedural states IgG Subclasses Today K80.50 - Calculus of bile duct without cholangitis or cholecystitis without obstruction, K83.09 - Other cholangitis, Z98.890 - Other s pecified postprocedural states CHRISTINA Comprehensive Panel Today K80.50 - Calculus of bile duct without cholangitis or cholecystitis without obstruction, K83.09 - Other cholangitis, Z98.890 - Other specified postprocedural states ANCA Today K80.50 - Calculus of bile duct without cholangitis or cholecystitis without obstruction, K83.09 - Other cholangitis, Z98.890 - Other specified postprocedural states Culture, Blood (WB) Today K80.50 - Calculus of bile duct without cholangitis or cholecystitis without obstruction, K83.09 - Other cholangitis, Z98.890 - Other specified postprocedural states AFP, Tumor Marker Today K80.50 - Calculus of bile duct without cholangitis or cholecystitis without obstruction, K83.09 - Other cholangitis, Z98.890 - Other specified postprocedural states Carbohydrate AG 19-9 Today K80.50 - Calculus of bile duct without cholangitis or cholecystitis without obstruction, K83.09 - Other cholangitis, Z98.890 - Other specified postprocedural states I have examined the patient and the H&P has been reviewed. There are no clinical changes since date of exam.
[2023-07-08 13:44] LABS: Bedside Glucose 155 mg/dL (74-106)
--- NOTE | 2023-07-08 14:35 | OP.ERCP_ITS ---
Patient Name: Marcin Naylor Procedure Date: 07/08/2023 1:58 PM Date of : 1975 Age: 48 Procedure: ERCP Indications: Common bile duct stone(s), Stent removal Providers: Santos Carter DO Referring MD: Lady Mulligan Medicines: Monitored Anesthesia Care Patient Profile: This is a 48 year old male. Refer to note in patient chart for documentation of history and physical. Patient has symptoms of acute right upper quadrant abdominal pain, acute dyspepsia and acute jaundice. His most recent ERCP for stent and ERCP for stone removal was within the past three months. Complications: No immediate complications. Procedure: Pre-Anesthesia Assessment: - Prior to the procedure, a History and Physical was performed, and patient medications and allergies were reviewed. The patient is competent. The risks and benefits of the procedure and the sedation options and risks were discussed with the patient. All questions were answered and informed consent was obtained. Patient identification and proposed procedure were verified by the physician in the pre-procedure area. Mental Status Examination: alert and oriented. Airway Examination: normal oropharyngeal airway and neck mobility. Respiratory Examination: clear to auscultation. CV Examination: normal. Prophylactic Antibiotics: The patient does not require prophylactic antibiotics. Prior Anticoagulants: The patient has taken no anticoagulant or antiplatelet agents. ASA Grade Assessment: II - A patient with mild systemic disease. After reviewing the risks and benefits, the patient was deemed in satisfactory condition to undergo the procedure. The anesthesia plan was to use monitored anesthesia care (MAC). Immediately prior to administration of medications, the patient was re-assessed for adequacy to receive sedatives. The heart rate, respiratory rate, oxygen saturations, blood pressure, adequacy of pulmonary ventilation, and response to care were monitored throughout the procedure. The physical status of the patient was re-assessed after the procedure. After obtaining informed consent, the scope was passed under direct vision. Throughout the procedure, the patient's blood pressure, pulse, and oxygen saturations were monitored continuously. The Duodenoscope was introduced through the mouth, and advanced to the duodenum and used to inject contrast into the bile duct and ventral pancreatic duct. The ERCP was accomplished without difficulty. The patient tolerated the procedure well. Scope In: 2:16:21 PM Scope Out: 2:24:10 PM Total Procedure Duration Time 0 hours 7 minutes 49 seconds Findings: The good humor vendor film was normal. The esophagus was successfully intubated under direct vision. The scope was advanced to a normal major papilla in the descending duodenum without detailed examination of the pharynx, larynx and associated structures, and upper GI tract. The upper GI tract was grossly normal. The bile duct was deeply cannulated with the short-nosed traction sphincterotome. Contrast was injected. I personally interpreted the bile duct and pancreatic duct images. There was brisk flow of contrast through the ducts. Image quality was adequate. Contrast extended to the entire biliary tree. Opacification of the entire biliary tree except for the cystic duct and gallbladder was successful. The maximum diameter of the ducts was 12 mm. The lower third of the main bile duct contained one stone, which was 6 mm in diameter. The entire opacified area was moderately dilated, with a stone causing an obstruction. The largest diameter was 10 mm. A straight Roadrunner wire was passed into the biliary tree. One stent was removed from the biliary tree using a snare and sent for cytology. The stent was found to be partially occluded via the water column test. The biliary tree was swept with a 12 mm balloon starting at the bifurcation. All stones were removed. Impression: - The biliary system were moderately dilated, with a stone causing an obstruction. - Choledocholithiasis was found. Complete removal was accomplished by balloon extraction. - One stent was removed from the biliary tree. - The biliary tree was swept. Procedure Code(s): --- Professional --- 82709, Endoscopic retrograde cholangiopancreatography (ERCP); with removal of foreign body(s) or stent(s) from biliary/pancreatic duct(s) 36453, Endoscopic retrograde cholangiopancreatography (ERCP); with removal of calculi/debris from biliary/pancreatic duct(s) 78657, 26, Combined endoscopic catheterization of the biliary and pancreatic ductal systems, radiological supervision and interpretation CPT copyright 2021 [employer]. All rights reserved. The codes documented in this report are preliminary and upon construction materials tester review may be revised to meet current compliance requirements. Santos Carter DO 07/08/2023 2:34:40 PM This report has been signed electronically. Number of Addenda: 0 Note Initiated On: 07/08/2023 1:58 PM
--- NOTE | 2023-07-08 14:35 | OP.CCLET_ITS ---
07/08/2023 Lady Mulligan Re : ERCP procedure for Marcin Naylor Dear Isaak This procedure was performed on Saturday, July 08, 2023. My impressions and recommendations are as follows: Impressions : - The biliary system were moderately dilated, with a stone causing an obstruction. - Choledocholithiasis was found. Complete removal was accomplished by balloon extraction. - One stent was removed from the biliary tree. - The biliary tree was swept. Recommendations : My findings are described in the full procedure note, which is enclosed. If I can be of further assistance, please feel free to contact me at . Sincerely, Santos Carter, 07/08/2023 2:34:40 PM This report has been signed electronically.
[2023-07-08] MEDS: Ipratropium/Albuterol Sulfate 3 ML AMPUL.NEB INHALATION (15:20)
== END 2023-07-08 15:26 | disposition home or self-care (01) ==
LOC: EN 12:32 → AC 12:33
PROVIDERS: Visit Provider Internal Medicine Gastroenterology
PROC: (CPT 43260; principal; 2023-07-08 13:25)
DX: K80.33 Calculus of bile duct with acute cholangitis with obstruction (principal); J44.9 Chronic obstructive pulmonary disease, unspecified; E11.9 Type 2 diabetes mellitus without complications; F17.200 Nicotine dependence, unspecified, uncomplicated; I10 Essential (primary) hypertension; E78.00 Pure hypercholesterolemia, unspecified; E03.9 Hypothyroidism, unspecified; T38.3X6A Underdosing of insulin and oral hypoglycemic [antidiabetic] drugs, initial encounter; Z91.148 Patient's other noncompliance with medication regimen for other reason; Z91.199 Patient's noncompliance with other medical treatment and regimen due to unspecified reason; Z79.51 Long term (current) use of inhaled steroids; Z79.899 Other long term (current) drug therapy
CPT/HCPCS: 43264; 43275; 74330; 76000; 82962; 88108; 88305; 88313; 94640; J7120; J2405

== ENCOUNTER → 2023-08-13 | Outpatient (CLI) | payer MEDICAID, SELFPAY ==
--- NOTE | 2023-08-13 10:06 | US_ITS ---
STUDY: ABDOMINAL ULTRASOUND - RIGHT UPPER QUADRANT REASON FOR VISIT: Male, 48 years old RUQ pain -- HX OF HEPATIC ABSCESSES TECHNIQUE: Ultrasound evaluation of the right upper quadrant was performed with real-time and static little-scale imaging. TECHNICAL QUALITY: Adequate. COMPARISON: Comparison is made with prior study March 14, 2023. FINDINGS: Liver: The liver is enlarged and measures 20.2 cm. There is increased echogenicity consistent with fatty infiltration. The bile ducts are within normal limits. There is hepatic color flow. The direction of portal flow is hepatopetal. Persistent 4.1 cm x 3.2 signed by 1.6 cm area of decreased attenuation in the right lobe of the liver. Gallbladder: Normal distended gallbladder. The gallbladder wall measures 2.8 mm. There is a negative sonographic Kennedy''s sign. There is a small amount of pericholecystic fluid. There is rim calcification along the fundus of the gallbladder wall. There are no gallstones. Sludge is seen within the gallbladder lumen. Common Bile Duct (C.B.D.): The common bile duct is dilated and measures 12 mm. Pancreas: Normal size of the head, body and tail of the pancreas. There is normal echogenicity of the pancreas. There is no demonstrated pancreatic mass or cyst. Right Kidney: Normal size of the right kidney. The right kidney measures 11.7 cm x 5.9 cm x 5.4 cm. Normal renal cortex. The right cortex measures 2.0 cm. There is no demonstrated renal mass or cyst. There is no right hydronephrosis. US/Gallbladder IMPRESSION: Hepatomegaly and fatty infiltration of the liver. Persistent focal hypodensity in the right lobe of the liver as compared to prior study. Small amount of pericholecystic fluid as well as sludge in the gallbladder lumen. Dilated common bile duct. Electronically Signed: Reggie Cabrera MD at 15:54 EDT ,
== END | disposition home or self-care (01) ==
LOC: US 10:04
PROVIDERS: Referring Provider Surgery; Visit Provider Surgery
DX: K80.50 Calculus of bile duct without cholangitis or cholecystitis without obstruction (principal); K83.09 Other cholangitis; T85.520A Displacement of bile duct prosthesis, initial encounter; Z98.890 Other specified postprocedural states; X58.XXXA Exposure to other specified factors, initial encounter
CPT/HCPCS: 76705

== ENCOUNTER 2023-09-02 05:47 | Day surgery (SDC) | payer MEDICAID, SELFPAY ==
[2023-08-25 09:31] LABS: Hematocrit 47.7 % (40-54); Mean Corp Hgb Conc 33.5 g/dL (32-36); Mean Corpuscular Hgb 31.6 pg (27.0-32.0); Mean Corpuscular Volume 94.1 fL (80-94); Mean Platelet Vol. 10.4 fl (6.2-12.0); Platelet Count 235 K/mm3 (150-450); RBC Distribution Width CV 12.2 % (11.6-14.6); RBC Distribution Width SD 42.1 fl (35.1-43.9); Red Blood Count 5.07 M/mm3 (4.6-6.2); White Blood Count 10.1 K/mm3 (4.4-11.0)
[2023-08-25 10:19] LABS: Anion Gap 6 (5-15); BUN 15 mg/dL (7-18); BUN/Creat Ratio 15.6 RATIO (10-20); Calcium,Total 8.7 mg/dL (8.5-10.1); Chloride 103 mmol/L (98-107); Creatinine, Serum 0.96 mg/dL (0.70-1.30); EST Glomerular Filtration Rate 88 mL/min (>60); Est Glom Filt Rate - Afr Amer 107 mL/min (>60); Glucose 144 mg/dL (74-106); Potassium 4.1 mmol/L (3.5-5.1); Sodium Level 137 mmol/L (136-145); Thyroid Stim Hormone (TSH) 1.68 uIU/mL (0.358-3.74)
[2023-08-25 14:57] LABS: Hemoglobin A1c 7.1 % (3.8-5.6)
[2023-09-02] VITALS (10 sets, daily range): BP systolic 112–160; BP diastolic 66–101; PULSE 83–110; RESP 16–20; TEMP 36.2–37.4; O2SAT 88–96; BMI 47.2
--- NOTE | 2023-09-02 05:57 | EKG12_ITS ---
Test Reason : PRE-OP Blood Pressure : / mmHG Vent. Rate : 079 BPM Atrial Rate : 079 BPM P-R Int : 174 ms QRS Dur : 088 ms QT Int : 370 ms P-R-T Axes : 057 032 044 degrees QTc Int : 424 ms Normal sinus rhythm Normal ECG When compared with ECG of 25-AUG-2023 08:27, No significant change was found Confirmed by Bean Griffith ([id number]), news video editor REAL LE ([id number]) on 09/03/2023 8:59:14 AM Referred By: Bean Ham Confirmed By:Bean Griffith
[2023-09-02] MEDS: Lactated Ringers 1,000 ML 15 ML IV (06:48)
--- NOTE | 2023-09-02 07:06 | HP.PCM_ITS ---
History and Physical Date of Admission: 09/02/23 Date of Service: 07/31/23 MR#: [id number] Acct: [id number] Name: DANIELA NAYLOR Rep #: [id number] : 1975 Provider: Dr. Bean Ham MD Age/Sex: 48/M Location: [facility] Status: Signed Intake Vital Signs 07/07/2412:21 07/30/2409:08 Height 5 ft 9 in 5 ft 9 in Weight: 324 lb BMI 47.8 BP 150/86 H Blood Pressure Location Rt brachial Position Sitting Respiration 17 Pulse 78 Pulse Source Monitor Temp 96.4 F L Temp Source Temporal Pulse Oximetry (%) 96 Oxygen Delivery Method room air Intake Visit Reasons: GALLBLADDER Chief Complaint: gallbladder Is patient in pain?: Yes Allergies latex Allergy (Verified 07/31/23 10:10) Rash Medications albuterol sulfate 90 mcg/actuation aerosol inhaler (Ventolin HFA) 2 inh inhalation Q2H PRN Shortness Of Breath Or Wheezing 12/04/21 [History Confirmed 07/31/23] dextroamphetamine-amphetamine 30 mg tablet (Adderall) 30 mg PO DAILY adhd 12/04/21 [History Confirmed 07/31/23] fluticasone propionate 220 mcg/actuation HFA aerosol inhaler (Flovent HFA) 2 inh inhalation BID asthma 12/04/21 [History Confirmed 07/31/23] levothyroxine 50 mcg tablet (Euthyrox) 50 mcg PO DAILY 12/04/21 [History Confirmed 07/31/23] insulin glargine 100 unit/mL (3 mL) subcutaneous pen (Lantus Solostar U-100 Insulin) 30 unit (0.3 mL) subcut BID dm #15 mL 12/06/21 [Rx Confirmed 07/31/23] insulin lispro 100 unit/mL subcutaneous pen (Humalog KwikPen (U-100) Insulin) 30 unit (0.3 mL) subcut TIDAC dm #15 mL 12/06/21 [Rx Confirmed 07/31/23] insulin lispro 100 unit/mL subcutaneous pen (Humalog KwikPen (U-100) Insulin) See Protocol subcut Q6 dm #0 mL 12/06/21 [Rx Confirmed 07/31/23] pen needle, diabetic 29 gauge x 1/2 (Pen Needle) ##1 12/06/21 [Rx Confirmed 07/31/23] PFSH Medical History Alcohol abuse Anxiety Asthma Back pain due to injury Biliary stent migration Bipolar disorder COPD (chronic obstructive pulmonary disease) CPAP (continuous positive airway pressure) dependence Depression Diabetes Diabetes mellitus type 2, uncontrolled Dietary restriction GERD (gastroesophageal reflux disease) Heartburn High cholesterol History of hypertension Hypertension Hypothyroidism Insulin dependent diabetes mellitus Marijuana use Poor dentition Pure hypercholesterolemia Restless legs Seizures Smoker Thyroid disease TIA (transient ischemic attack) Wears glasses Surgical History H/O esophagogastroduodenoscopy History of colonoscopy S/P ERCP Family History Father Cancer Hx Lung CA with tobacco use history.Other Heart disease Hypertension Social History household members: other details: Lives with his son. Notes moved in 2 years prior. Smoking Status: Current every day smoker tobacco type: cigarettes how long ago did patient quit smoking: Patient attempting to quit, started age 10, smoked 2 ppd until 2 years ago. alcohol intake: former details: Notes sober x 15-20 years. substance use type: does not use HPI HPI HPI: Patient is a 48-year-old male who presents for follow-up consultation regarding a desire for cholecystectomy. He is known to me from a prior admission March 2023 where he was diagnosed with hepatic abscesses and ascending cholangitis. This was determined to be related to a displaced common bile duct stent that was originally placed by Dr. Mason November 2021. He underwent stent exchange with gastroenterology here, however, it was felt that his hepatic abscess would require a higher level of care at a tertiary center equipped for either hepatobiliary surgery versus interventional radiology given the location of the abscess to critical anatomy. Mr. Naylor shares that when he arrived in [place] he was told the day of his planned surgery that it was too risky to proceed with abscess drainage and he was thus prescribed a PICC line with 1 month of IV antibiotics followed by 2 months of oral antibiotics. Following this treatment his abscess regressed to nothing. He shares that he underwent a third ERCP with Dr. Carter of gastroenterology last month where his common bile duct stent was removed but additional choledocholithiasis was found. He shares that his abdominal pain has gotten much better since the removal of the stent. However, he further shares that anytime he eats something spicy or greasy he experiences trouble some diarrhea and nausea (he notes that this is not accompanied by vomiting). He does confess that he is still smoking and is down to half pack per day as he is trying to cut back. He has a history of success with using Chantix, but returned to smoking when his prescription ran out. Mr. Naylor reports a history of shortness of breath with exertion and has tried to increase his activity, but confesses that this shortness of breath does limit his activity. He denies any chest pain. He also confesses, however, that he is behind in his regular follow-up with his PCP, Dr. Shawn Pires of the [facility]. He references challenges in arranging travel to see this provider and shares that originally he was recommended follow-up every 3 months but has probably been at least 8 months since his last visit. ROS General General: Yes fatigue; No weight change, appetite, colon cancer, breast cancer or weakness HEENT HEENT: No difficulty swallowing, eye injury, eye surgery, swollen glands or hoarseness Endo Endocrine: Yes thyroid disease and diabetes mellitus; No thyroid cancer, Hair loss, heat intolerance or cold intolerance Skin Skin: No rash or changing moles Musc Musculoskeletal: Yes back problems, arthritis and rheumatoid arthritis; No gout or joint pain Cardio Cardiovascular: Yes heart disease and high blood pressure; No murmur, pacemaker, atrial fibrillation, heart attack, heart stent, palpitations, shortness of breat with exertion or chest pain Psych Psychiatric: Yes depression and anxiety; No hearing voices Resp Respiratory: Yes shortness of breath, Yes sleep apnea, Yes cough, Yes COPD, Yes asthma, Yes emphysema and No wheezing Gastro Gastrointestinal: No abdominal pain, Yes nausea or vomiting, Yes diarrhea, No constipation, No blood in stool, Yes acid reflux, No hemorrhoids, Yes ulcers, Yes gallbladder problem and No black,tarry stools Michael Hematologic: No blood thinners, No blood disorders, No bleeding, No anemia and No blood clots Neuro Neurologic: No system reviewed and no additional complaints, except as documented, No as per HPI, No abnormal gait, No abnormal hearing, No abnormal movements, No abnormal speech, No behavioral changes, No burning sensations, No confusion, No convulsions, No disequilibrium, No dizziness, No localized weakness, No frequent falls, No headache(s), No lack of coordination, No loss of vision, No memory loss, No numbness, No other visual disturbances, No radicular pain, No restless legs, No sensory deficit, No syncope, No tingling, No tremor(s), No weakness and No other Exam Const General: cooperative and comfortable Orientation: alert, awake and oriented x3 Resp Effort & Inspection: normal respiratory effort GI Other: Obese, nondistended, soft, minimally tender to palpation right upper quadrant Assessment and Plan Assessment and Plan (1) Choledocholithiasis: Status: Chronic Comment: Patient is a 48-year-old male who presents for follow-up after history of recurrent choledocholithiasis and associated diagnoses of ascending cholangitis and multiple pyogenic abscesses of the liver. He has managed to resolve the latter issues but has required ERCP x 3 for 2 separate stent placements and their removal. Cholecystectomy has been recommended at this time given patient's history. I shared with Mr. Naylor that I agree with the indication to proceed with surgery, but have cautioned him that postoperatively he may experience worsening diarrhea and he presently experiences. Further, I have asked that he follow-up with his family doctor as he describes ongoing shortness of breath and confesses that he is overdue for a update visit. He has a number of medical comorbidities that should be optimized prior to undergoing this procedure which will require general anesthetic. Plan: ? Plan towards laparoscopic cholecystectomy with intraoperative cholangiography, but patient is asked to follow-up with his primary care provider first to ensure medical optimization Orders: Orders Gallbladder 07/31/23 K80.50 - Calculus of bile duct without cholangitis or cholecystitis without obstruction, K83.09 - Other cholangitis, T85.520A - Di splacement of bile duct prosthesis, initial encounter, Z98.890 - Other specified postprocedural states I have examined the patient and the H&P has been reviewed. There are no clinical changes since date of exam. He confirms that he is eager to be underway with the procedure and denies any questions. I high-level overview was provided anyhow for postprocedural expectations. Patient expressed appreciation and a readiness to proceed. Consents were confirmed. Will now therefore proceed to the operating room for planned cholecystectomy given indications above.
--- NOTE | 2023-09-02 07:30 | GALL_PTH ---
PATIENT: DANIELA BERG LOC: [facility] [place] U#:[id number] AGE/SX: 48/M ROOM: RE09/02/[address]: Dr. Bean Ham MD : 1975 BED: DIS: 09/02/2023 SPEC #: [id number] RECD: 09/02/23 11:29 STATUS: TONO JUNE #: [id number] EMRE: 09/02/23 07:[address]: Bean Ham DEPT: SURGICAL PATHOLOGY RECD BY: Dasha Sauceda ENTERED: 09/02/23 13:20 SP TYPE: LINDA GRESHAM DR: Dr. Alan Hair MD Tissues: Gallbladder, NOS Procedures: Surgery Specimen Level III HEADER OPERATION: Laparoscopic, cholecystectomy with IOC PRE-OP DIAGNOSIS: Choledocholithiasis TISSUE SUBMITTED: Gallbladder MICROSCOPIC DIAGNOSIS Gallbladder, cholecystectomy: Chronic cholecystitis and cholelithiasis. AM/mr 09/03/2023 MICROSCOPIC DESCRIPTION Slides are reviewed. GROSS DESCRIPTION Received is one container labeled with the patient's name and designated gallbladder. The specimen consists of a gallbladder measuring 5.5 x 2.0 x 1.5 cm. The external surface is smooth and glistening. Focally, it is granular, hemorrhagic and contains cautery artifact. The lumen of the gallbladder contains yellow-green mucoid bile and multiple yellow-black calculi ranging in size from 0.3 to 0.5 cm in greatest dimension. The mucosa is bile-stained and without any mass lesions. The gallbladder wall averages 0.3 cm in thickness and is free of mass lesions. Bench Inspector sections of the gallbladder and the cystic duct at margin of resection are submitted in one cassette. / AM: 09/02/2023 TC:3 CPT: 30190
[2023-09-02] MEDS: Cefazolin 3 GM in 0.9% Normal Saline (100mL Bag) 100 ML IV (07:34)
--- NOTE | 2023-09-02 08:00 | RAD_ITS ---
CLINICAL HISTORY: Male, 48 years old. Cholecystitis PROCEDURE: CHOLANGIOGRAM - intraoperative CONSENT: Informed consent obtained SEDATION: General FLUOROSCOPY TIME (if supplied): (72) seconds, 4 cine loops obtained, dose of 114.08mGy Placement of the catheter and the procedure were performed by: Dr. Ham Fluoroscopy was provided by Alda Salcedo who was present in the room time of the procedure. TECHNIQUE: (All elements of maximal sterile barrier technique followed, including US elements as applicable) After gallbladder was removed, the cystic duct was cannulized, contrast was injected. There is mild dilatation of the intra and extrahepatic biliary tree without evidence of filling defect suspected retained stone. There is normal flow of contrast into the duodenum. No extravasation of contrast outside the biliary tree is noted. RAD/Cholangiogram/ O R,Initial IMPRESSION: Normal intraoperative cholangiogram Electronically Signed: Greg Mace MD at 10:48 EDT ,
[2023-09-02 08:54] LABS: Bedside Glucose 157 mg/dL (74-106)
[2023-09-02] MEDS: Bupiv/Epi 0.25% 30 ML Vial (09:12)
--- NOTE | 2023-09-02 10:05 | OP.PCM_ITS ---
Report of Operation Date of Procedure: 09/02/23 Pre-Operative Diagnosis: History of recurrent choledocholithiasis, cholangitis, and hepatic abscess Post-Operative Diagnosis: Chronic cholecystitis with history of recurrent choledocholithiasis, cholangitis, and hepatic abscess Surgery/Procedure Performed:: Laparoscopic cholecystectomy with intraoperative cholangiogram Description of Surgical Findings:: ? Nonvisualization of the gallbladder grossly upon entry due to dense adherence of the omentum to the fourth segment of the liver overlying the gallbladder ? Dilated common bile duct with short cystic duct and reflux into the common hepatic duct system Surgeon: Bean Ham mineral mixer: Tino Trejo Type of Anesthesia: General/Supplemental Anesthesiologist: Alan Hair Specimen's removed: Gallbladder Estimated Blood Loss (mL): 25 Description of Procedure: After proper identification in the preoperative holding area the patient was brought to the operating room where he was positioned supine on the operating room table. Preoperatively SCDs were placed and antibiotics were administered. General anesthesia was then induced. Patient's abdomen was prepped and draped in usual sterile fashion. A formal timeout was conducted to confirm both patient and the procedure. Procedure was begun with a supraumbilical incision which was extended deeply down to the level of the fascia. The fascia was elevated and incised, as well as the peritoneum. A finger sweep was performed to ensure there were no underlying adhesions and a 12 mm balloon trocar was inserted. Pneumoperitoneum was established at 15 mmHg. Three additional trocar s (all 5 mm) were placed in the epigastrium and in the right upper quadrant under laparoscopic visualization. Inspection of the peritoneum revealed no inadvertent injury to the viscera below. The gallbladder was not immediately visualized given surrounding by the omentum. Upon further investigation there were dense adhesions between the omentum and the edge of the liver overlying the fundal part of the gallbladder. It was evident that the patient's liver was exceptionally friable (hepatomegaly was also grossly evident). Thus I used a laparoscopic LigaSure device to take down these attachments to the gallbladder fundus to try to mitigate the risk for capsular tear. And the gallbladder was visualized as a diminutive structure with evidence of chronic inflammation. The gallbladder fundus was then grasped and elevated cephalad. Then, using careful dissection the peritoneum was opened and the structures of the hepatocystic triangle were delineated. Once the critical view of safety was obtained, the cystic duct was singly clipped and partially divided with a ductotomy. There was immediate flow of clear yellow bile once this duct automate was created. Using an [facility] c lamp, a cholangiocatheter was fed into the proximal segment of the cystic duct and clamped into place. Under fluoroscopy a cholangiogram was then obtained showing a slightly short cystic duct flowing into a dilated common bile duct with unobstructed antegrade flow of contrast into the duodenum. There was also retrograde flow through the common hepatic duct into the right and left hepatic ducts. Satisfied with this result, the cholangiocatheter was withdrawn and the proximal cystic duct was sealed with a single Hem-o-thomas clip (given the limited distance to the presumed location of the common bile duct) and the cystic duct was completely transected. The larger size of the patient's cystic duct?despite complete skeletonization?required placement of a 10 mm Hem-o-thomas clip to occlude the cystic duct (and thus this required placement of a 12 mm port to replace the previous 5 mm port in the subxiphoid position). The same process was used for the cystic artery except 2 Hem-o-thomas clips were used proximally. Then as the remaining tissue to the hilar plate was dissected there appeared to be a secondary artery feeding the body of the gallbladder which was singly clipped and distally burned. With this vasculature controlled, the gallbladder was then removed from the gallbladder fossa with the use of electrocautery. Selective electrocautery was used to obtain hemostasis in the gallbladder fossa. As the fundal portion of the gallbladder was removed it appeared to be embedded within the liver parenchyma and this significant degree of chronic inflammation led to an inadvertent rent in the gallbladder and release of several moderately large gallstones. Each stone was collected as it appeared at the opening in the gallbladder and set aside for later extraction. The gallbladder was placed in an Endo Catch bag (along with the 4 loose gallstones) and removed from the peritoneum. Morison's pouch was irrigated and the effluent was suctioned free of the peritoneum. Hemostasis was again confirmed. The fascia of the 12 mm port sites at the subxiphoid and supraumbilical positions was closed under laparoscopic visualization in a [id number] technique with a #1 PDS and Cart er Mcmanus suture passer. A total of 30 mL of anesthetic was injected at the port sites for postoperative pain control. The skin of each port site was then closed in subcuticular fashion using 4-0 Monocryl. Steri-Strips and bandages were applied as dressings. Patient tolerated the procedure well without any apparent complications. On emergence from their anesthetic the patient was taken to PACU for ongoing recovery. Grafts/Implants Used: None Complications None Admit VTE Documentation VTE Mechan Device Prophylaxis: SCD's Procedures Digestive 40xxx-49xxx: 59570 Laparo cholecystectomy/graph
--- NOTE | 2023-09-02 10:11 | DCINST_ITS ---
Discharge Instructions Diet Discharge Diet: No restrictions Activity Discharge Activity: May Not Drive (No driving while using narcotic pain medication) and May Shower (Postoperative day 1) May shower in (days): 2 Ice area for (Minutes): 20 Lifting Restrictions: No lifting greater than 15 pounds for 2 weeks after surgery Dressing / Incision Call your doctor if your incision/area has: Continuous Slow Oozing, Increased Pain/ Swelling, Increased Redness, Foul Smelling Discharge and Swelling at the incision site Call your doctor if you observe: Fever of 101 or Higher Remove Dressing in: 2 days (Please leave Steri-Strips intact until they fall off spontaneously or are taken off at your follow-up visit) Cleanse incision/area with: Soap & Water Follow Up Care Please Follow Up With: Bean Ham MD When: 7-10days postop Test Results: Test results from this visit will be discussed in further detail at your follow- up appointment, if applicable. Discharge Plan Admission Primary Reason for Your Visit: Gallbladder removal Attending Provider: Bean Ham Primary Care Provider: HAIR THOMAS Consulting Providers: Alan Hair Instructions Print Language: Spanish Discharge Orders/Prescriptions Prescriptions: New oxycodone 5 mg tablet 5 mg PO Q6H PRN (Reason: pain) 5 Days Qty: 14 0RF Continued dextroamphetamine-amphetamine [Adderall] 30 mg Tablet 30 mg PO DAILY Patient Comments: hasn't taken it in 6 months d/t lack of follow up with PCP levothyroxine [Euthyrox] 50 mcg tablet 50 mcg PO DAILY Patient Comments: TAKE 1 TABLET BY MOUTH ONCE DAILY FOR 30 DAYS fluticasone propionate [Flovent HFA] 220 mcg/actuation HFA aerosol inhaler 2 inh INHALATION BID Patient Comments: INHALE 1 PUFF BY MOUTH TWICE DAILY albuterol sulfate [Ventolin HFA] 90 mcg/actuation HFA aerosol inhaler 2 inh INHALATION Q2H PRN (Reason: Shortness Of Breath Or Wheezing) Patient Comments: INHALE 2 PUFFS BY MOUTH EVERY 2 HOURS NEEDED FOR WHEEZING insulin lispro [Humalog KwikPen Insulin] 100 unit/mL Insulin Pen See Protocol subcut Q6 Qty: 0 0RF Protocol: 4. Sliding Scale Insulin High-Med Dosing Condition: 150-199 mg/dl = 2 units Condition: 200-259 mg/dl = 4 units Condition: 260-324 mg/dl = 6 units Condition: 325-374 mg/dl = 8 units Condition: 375-409 mg/dl = 10 units Condition: 410-449 mg/dl = 11 units Condition: Greater than 449 call physician Protocol Text: - Use for Total Daily Dose of Insulin 56-80 units - Patient who are insulin resistant or septic HIGH MEDIUM DOSING ALGORITHM (DME) pen needle, diabetic [Pen Needle] 29 gauge x 1/2 needle 1 ea miscellaneous ACHS 30 Days Qty: 1 0RF insulin glargine [Lantus Solostar U-100 Insulin] 100 unit/mL (3 mL) insulin pen 30 unit subcut BID Qty: 15 2RF Other Ambulatory Orders: 12 Lead EKG (Routine) Timeframe: [id number] Location: None Selected Ordered By: Dr. Alan Hair Referrals / Follow Up: HAIR TOHMAS [Other] Disposition Disposition (needs filled in before D/C Order can be placed): Home, Self Care
[2023-09-02 10:49] LABS: Bedside Glucose 179 mg/dL (74-106)
[2023-09-02] MEDS: Albuterol 2.5 MG/3 ML VIAL.NEB. INHALATION (11:21)
[2023-09-02] MEDS: oxyCODONE 5 MG Tablet PO (11:53)
== END 2023-09-02 12:37 | disposition home or self-care (01) ==
LOC: SDC 05:52 → AC 05:54
PROVIDERS: Anesthesiology; Referring Provider Surgery; Visit Provider Surgery
PROC: (CPT 47610; principal; 2023-09-02 07:10)
DX: K80.10 Calculus of gallbladder with chronic cholecystitis without obstruction (principal); F31.9 Bipolar disorder, unspecified; J44.9 Chronic obstructive pulmonary disease, unspecified; Z79.4 Long term (current) use of insulin; E11.9 Type 2 diabetes mellitus without complications; I10 Essential (primary) hypertension; E03.9 Hypothyroidism, unspecified; E78.00 Pure hypercholesterolemia, unspecified; Z79.890 Hormone replacement therapy; Z79.899 Other long term (current) drug therapy; F17.210 Nicotine dependence, cigarettes, uncomplicated
CPT/HCPCS: 47563; 00790; 36415; 74300; 76000; 80048; 82962; 83036; 84443; 85027; 88304; 93005; 94640; J7120; J2405